=== PATIENT | male | born 1955 | race Caucasian/White ===

== ENCOUNTER 2018-04-18 15:43 | Inpatient (IN) ==
[2018-04-18 18:25] LABS: Baso # (Auto) 0.1 th/mm3 (0.0-0.2); Baso % (Auto) 0.7 % (0.0-2.0); Eos # (Auto) 0.1 th/mm3 (0.0-0.4); Eos % (Auto) 1.5 % (0.0-4.0); Hematocrit 35.9 % (39.0-51.0); Lymph # (Auto) 0.7 th/mm3 (1.0-4.8); Lymph % (Auto) 9.3 % (9.0-44.0); Mean Corpuscular HGB Conc 33.3 % (32.0-36.0); Mean Corpuscular Hemoglobin 32.7 pg (27.0-34.0); Mean Platelet Volume 8.7 fL (7.0-11.0); Mono # (Auto) 0.5 th/mm3 (0.0-0.9); Mono % (Auto) 6.6 % (0.0-8.0); Neut % (Auto) 81.9 % (16.0-70.0); Platelet Count 247 th/mm3 (150-450); Red Blood Count 3.66 mil/mm3 (4.50-5.90); Red Cell Distribution Width 15.6 % (11.6-17.2); White Blood Count 7.4 th/mm3 (4.0-11.0)
--- NOTE | 2018-04-18 18:26 | ED ---
HPI General Chief complaint: Respiratory Symptoms Stated complaint: Swelling Feet Time Seen by Provider: 04/18/18 17:47 Source: patient Mode of arrival: ambulatory Limitations: no limitations History of Present Illness HPI Narrative: 62 YO M presents to the ED for evaluation of "a few weeks" history of bilateral lower extremity edema. Gradual onset. The patient can identify not alleviating or exacerbating factors. He also endorses CRISOSTOMO and occasional non-productive cough. He denies fever, chills, chest pain, palpitations, nausea, vomiting, changes in bowel habits, dysuria, increased urination. He denies chronic health problems, takes no daily medications. He is a current smoker. He does not see a physician on a regular basis. No treatment attempted at home. Related Data Home Medications Medication Instructions Recorded Confirmed No Known Home Medications 04/18/18 04/18/18 Allergies Allergy/AdvReac Type Severity Reaction Status Date / Time No Known Allergies Allergy Verified 04/18/18 16:36 Review of Systems ROS: all other systems reviewed are negative PMFSH Family History Family History Other Family history normal Social History Social History Substance History: Past History Smoking Status: Current some day smoker Tobacco Type: Cigarettes How Often Do You Have a Drink Containing Alcohol: Never Recent Travel in [facility] within the Last 8 Weeks: No Recent Out of Country Travel within the Last 8 Weeks: No Immunization History Tetanus Immunization: Unsure Exam Narrative Exam Narrative: GENERAL: Well-nourished, well-developed, foul-smelling, disheveled, nontoxic-appearing white male in no acute distress. SKIN: Focused skin assessment warm/dry. Diffuse chronic skin changes. HEAD: Atraumatic. Normocephalic. EYES: Pupils equal and round. No scleral icterus. No injection or drainage. ENT: No nasal bleeding or discharge. Mucous membranes pink and moist. NECK: Trachea midline. No JVD. CARDIOVASCULAR: Regular rate and rhythm. No murmur appreciated. RESPIRATORY: No accessory muscle use. Breath sounds coarse, mildly decreased breath sounds in the lower lobes bilaterally. GASTROINTESTINAL: Abdomen soft, non-tender, nondistended. Hepatic and splenic margins not palpable. MUSCULOSKELETAL: 2+ edema to just above the knees bilaterally. NEUROLOGICAL: Awake and alert. No obvious cranial nerve deficits. Motor grossly within normal limits. Normal speech. PSYCHIATRIC: Appropriate mood and affect; insight and judgment normal. Course Initial Documented Vital Signs Temperature 98.9 F 04/18/18 15:53 Pulse Rate 106 H 04/18/18 15:53 Respiratory Rate 16 04/18/18 15:53 Blood Pressure 158/98 H 04/18/18 15:53 Pulse Oximetry 98 04/18/18 15:53 Last Documented Vital Signs Temperature 98.9 F 04/18/18 15:53 Pulse Rate 72 04/18/18 19:40 Respiratory Rate 22 04/18/18 19:40 Blood Pressure 156/109 H 04/18/18 19:40 Pulse Oximetry 99 04/18/18 19:40 Medical Decision Making MEHNAZ Attestation MEHNAZ supervised visit: Yes Attestation: I was present with the advanced practitioner during the management of this patient. I discussed the case with the advanced practitioner and agree with the findings and plan as documented in their note except as noted below. 62yM presenting with bilateral lower extremity edema. The patient was found to have elevated trop/ BNP, severe acute kidney injury, and small right pleural effusion. He will need admission for cardiac monitoring, further workup, diuresis, and consultation. MDM Narrative Medical decision making narrative: 62-year-old male presents the ED for evaluation of few weeks history of edema of the bilateral lower extremities and dyspnea on exertion. Patient also endorses rare nonproductive cough. He does not see a physician on a regular basis. He states he is currently homeless. Patient's afebrile and tachycardic on presentation. Physical exam reveals coarse lung sounds bilaterally along with lower extremity edema to the knees. Workup reveals BNP greater than 5000, creatinine greater than 5, elevated troponin. EKG without acute changes. I reviewed the patient's record, last labs were drawn in 2013, no evidence of kidney injury at that time. I discussed the results of the workup with the patient as well as the recommendation for admission. He is agreeable to the plan. He declined his VQ scan. He is administered 40 mg of Lasix IV. I spoke with Dr. Devlin who agrees to accept the patient to the medicine service. Please see medicine notes for disposition. Medical Screen Exam Complete: Yes Emergency Medical Condition: Yes Differential Diagnosis Differential Diagnosis: CHF versus PNA versus metabolic derangement versus other Lab Data Result diagrams: 04/18/18 18:00 04/18/18 18:00 Lab Results 04/18/18 04/18/18 04/18/18 Range/Units 18:00 18:00 18:00 WBC 7.4 (4.0-11.0) th/mm3 RBC 3.66 L (4.50-5.90) mil/mm3 Hgb 12.0 L (13.0-17.0) gm/dL Hct 35.9 L (39.0-51.0) % MCV 98.0 (80.0-100.0) fL MCH 32.7 (27.0-34.0) pg MCHC 33.3 (32.0-36.0) % RDW 15.6 (11.6-17.2) % Plt Count 247 (150-450) th/mm3 MPV 8.7 (7.0-11.0) fL Neut % (Auto) 81.9 H (16.0-70.0) % Lymph % (Auto) 9.3 (9.0-44.0) % [place] % (Auto) 6.6 (0.0-8.0) % Eos % (Auto) 1.5 (0.0-4.0) % Baso % (Auto) 0.7 (0.0-2.0) % Neut # (Auto) 6.0 (1.8-7.7) th/mm3 Lymph # (Auto) 0.7 L (1.0-4.8) th/mm3 [place] # (Auto) 0.5 (0.0-0.9) th/mm3 Eos # (Auto) 0.1 (0.0-0.4) th/mm3 Baso # (Auto) 0.1 (0.0-0.2) th/mm3 WBC Differential . Differential Comment Auto diff final PT 10.7 (9.8-11.6) sec INR 1.1 Ratio D-Dimer Quant (PE/DVT) 1.85 H (0.00-0.50) mg/L FEU Sodium 137 (136-145) meq/L Potassium 4.6 (3.5-5.1) meq/L Chloride 109 H (98-107) meq/L Carbon Dioxide 15.6 L (21.0-32.0) meq/L Anion Gap 12 (5-15) meq/L BUN 80 H (7-18) mg/dL Creatinine 5.18 H (0.60-1.30) mg/dL Estimated GFR 11 L (>89) mL/min Random Glucose 89 (74-106) mg/dL Calcium 7.9 L (8.5-10.1) mg/dL Total Bilirubin 0.4 (0.2-1.0) mg/dL AST 29 (15-37) U/L ALT 27 (12-78) U/L Alkaline Phosphatase 119 H (45-117) U/L Troponin I 0.12 H (0.02-0.05) ng/mL B-Natriuretic Peptide (0-100) pg/mL Total Protein 7.4 (6.4-8.2) g/dL Albumin 2.7 L (3.4-5.0) g/dL Urine Color (Yellw/Straw) Urine Clarity (Clear) Urine pH (5.0-8.5) Ur Specific [place] (1.002-1.035) Urine Protein (Neg-Trace) mg/dL Urine Glucose (UA) (Negative) mg/dL Urine Ketones (Negative) mg/dL Urine Occult Blood (Negative) Urine Nitrate (Negative) Urine Bilirubin (Negative) Urine Urobilinogen (Less than 2) mg/dL Ur Leukocyte Esterase (Negative) Urine RBC (0-3) /hpf Urine WBC (0-5) /hpf Ur Squamous Epith Cells (0-5) /hpf Amorphous Sediment (None) /hpf Granular Casts (None) /lpf Urine Mucus (Occasional) /lpf Micro UA Comment Ur Microscopic Review Urine Culture Comments 04/18/18 04/18/18 Range/Units 18:00 19:00 WBC (4.0-11.0) th/mm3 RBC (4.50-5.90) mil/mm3 Hgb (13.0-17.0) gm/dL Hct (39.0-51.0) % MCV (80.0-100.0) fL MCH (27.0-34.0) pg MCHC (32.0-36.0) % RDW (11.6-17.2) % Plt Count (150-450) th/mm3 MPV (7.0-11.0) fL Neut % (Auto) (16.0-70.0) % Lymph % (Auto) (9.0-44.0) % [place] % (Auto) (0.0-8.0) % Eos % (Auto) (0.0-4.0) % Baso % (Auto) (0.0-2.0) % Neut # (Auto) (1.8-7.7) th/mm3 Lymph # (Auto) (1.0-4.8) th/mm3 [place] # (Auto) (0.0-0.9) th/mm3 Eos # (Auto) (0.0-0.4) th/mm3 Baso # (Auto) (0.0-0.2) th/mm3 WBC Differential Differential Comment PT (9.8-11.6) sec INR Ratio D-Dimer Quant (PE/DVT) (0.00-0.50) mg/L FEU Sodium (136-145) meq/L Potassium (3.5-5.1) meq/L Chloride (98-107) meq/L Carbon Dioxide (21.0-32.0) meq/L Anion Gap (5-15) meq/L BUN (7-18) mg/dL Creatinine (0.60-1.30) mg/dL Estimated GFR (>89) mL/min Random Glucose (74-106) mg/dL Calcium (8.5-10.1) mg/dL Total Bilirubin (0.2-1.0) mg/dL AST (15-37) U/L ALT (12-78) U/L Alkaline Phosphatase (45-117) U/L Troponin I (0.02-0.05) ng/mL B-Natriuretic Peptide Greater than 5000 H (0-100) pg/mL Total Protein (6.4-8.2) g/dL Albumin (3.4-5.0) g/dL Urine Color Yellow (Yellw/Straw) Urine Clarity Clear (Clear) Urine pH 5.0 (5.0-8.5) Ur Specific [place] 1.014 (1.002-1.035) Urine Protein 100 H (Neg-Trace) mg/dL Urine Glucose (UA) Negative (Negative) mg/dL Urine Ketones Negative (Negative) mg/dL Urine Occult Blood Moderate H (Negative) Urine Nitrate Negative (Negative) Urine Bilirubin Negative (Negative) Urine Urobilinogen Less than 2 (Less than 2) mg/dL Ur Leukocyte Esterase Negative (Negative) Urine RBC 4 H (0-3) /hpf Urine WBC 2 (0-5) /hpf Ur Squamous Epith Cells <1 (0-5) /hpf Amorphous Sediment Rare H (None) /hpf Granular Casts 4 (None) /lpf Urine Mucus Few H (Occasional) /lpf Micro UA Comment Culture not ind Ur Microscopic Review Not Reportable Urine Culture Comments Culture not ind Imaging Data Radiologist's impression: Chest X-Ray 04/18/18 18:01 CONCLUSION: Cardiomegaly. Increased density at the bases being worse on the right likely related to consolidation or atelectasis. Mild right pleural effusion. ECG Data Attestation: I personally reviewed and interpreted this ECG as follows: Interpretation: Rate: 98 BPM Rhythm: Sinus [place]: Normal Intervals: IVCD, QTc 433 ms Q waves: III, aVF T waves: Upright, no inversions ST segments: No elevations or depressions Impression: Non-specific EKG, no changes as compared to EKG from 05/22/2014. Discharge Plan Discharge Disposition Patient Disposition: 30 Still Patient Physicians Team ED Provider: Linda Gan ED Midlevel Provider: Solange Coates Primary Care Provider: Primary Care Jasmin Beckham Attending Provider: Caryn Devlin Other Providers: Uche Castellanos Status ED Status: Admitted Patient
[2018-04-18 18:32] LABS: INR 1.1 Ratio; Prothrombin Time 10.7 sec (9.8-11.6)
[2018-04-18 18:35] LABS: D-Dimer 1.85 mg/L FEU (0.00-0.50)
[2018-04-18 18:36] LABS: Albumin 2.7 g/dL (3.4-5.0); Anion Gap 12 meq/L (5-15); Aspartate Aminotransferase 29 U/L (15-37); Blood Urea Nitrogen 80 mg/dL (7-18); Calcium 7.9 mg/dL (8.5-10.1); Carbon Dioxide 15.6 meq/L (21.0-32.0); Chloride 109 meq/L (98-107); Glomerular Filtration Rate 11 mL/min (>89); Glucose,Random 89 mg/dL (74-106); Potassium 4.6 meq/L (3.5-5.1); Sodium 137 meq/L (136-145)
[2018-04-18 18:37] LABS: Alanine Aminotransferase 27 U/L (12-78)
[2018-04-18] MEDS ORDERED: Sod Chloride 0.9% Inj 1,000 ML IV.SIG ONE (18:38)
[2018-04-18 18:40] LABS: Alkaline Phosphatase 119 U/L (45-117); Total Protein 7.4 g/dL (6.4-8.2); Troponin I 0.12 ng/mL (0.02-0.05)
--- NOTE | 2018-04-18 19:28 | XR ---
EXAM DATE: 04/18/2018 6:01 PM EDT AGE/SEX: 62 years / Male INDICATIONS: Short of breath, chest pains. CLINICAL DATA: This is the patient's initial encounter. Patient reports that signs and symptoms have been present for 1 day and indicates a pain score of 5/10. MEDICAL/SURGICAL HISTORY: Non-responsive. Non-responsive. COMPARISON: No prior exams available for comparison. FINDINGS: The heart size is enlarged. This increased density at the right base. There is blunting of the right costophrenic angle. There is minimal increased density at the left base. There is metallic density pr ojecting over the lower right neck region. CONCLUSION: Cardiomegaly. Increased density at the bases being worse on the right likely related to consolidation or atelectasi s. Mild right pleural effusion. Electronically signed by: Rasheed Acuña MD 04/18/2018 7:27 PM EDT
[2018-04-18] MEDS ORDERED: Azithromycin Inj 500 MG in Sodium Chlor 0.9% Inj 250 ML IV.SIG ONE (19:29)
[2018-04-18 20:10] LABS: Amorphous Sediment,Urine Rare /hpf; Bilirubin,Urine Negative (Negative); Color,Urine Yellow (Yellw/Straw); Glucose,Urine (UA) Negative (Negative); Leukocyte Esterase,Urine Negative (Negative); Mucus,Urine Few /lpf (Occasional); Nitrite,Urine Negative (Negative); Specific Gravity,Urine 1.014 (1.002-1.035); Squamous Epithelial Cell,Urine <1 /hpf (0-5)
[2018-04-18 20:11] LABS: Clarity,Urine Clear (Clear)
[2018-04-18] MEDS ORDERED: Bisacodyl 10 MG Supp RECTAL PRN (22:20)
[2018-04-18] MEDS ORDERED: Acetaminophen 325 MG Tablet PO PRN (22:20)
--- NOTE | 2018-04-18 22:32 | P.HP ---
History of Present Illness Service: [facility] Primary Care Physician: No Primary Care Physician History of Present Illness: 62-year-old homeless male with no past medical history presents to the emergency department for evaluation of lower extremity edema times 10 days. The patient also endorses intermittent shortness of breath that is worse with exertion. He states he has had a cough but denies fever/chills. He reports he drinks approximately 1 gallon of fluids per day secondary to heat exposure as he is homeless. He denies any issues with urination. He has severe, bilateral pitting edema to the mid thigh. He denies any chest pain. No abdominal pain. No nausea/vomiting/diarrhea. No lateralizing signs/symptoms. Inpatient Certification: I certify that the inpatient services were ordered in accordance with Medicare regulations governing the order. This includes certification that hospital inpatient services are reasonable and necessary and in the case of services not specified as inpatient-only under 42 CFR 419.22(n), that they are appropriately provided as inpatient services in accordance to with the 2-midnight benchmark under 43 CFR 412.3(e) Estimated Total Length of Stay (Days): 2 Plans for Post Hospital Care: Not yet determined Review of Systems All other systems reviewed negative except as stated in HPI PMFSH - History History Provided By: Patient - Medical History Medical History: Medical History (Last Reviewed 04/18/18 @ 22:25 by Caryn Devlin MD) Patient denies medical problems - Surgical History Surgical History: Surgical History (Last Reviewed 04/18/18 @ 22:25 by Caryn Devlin MD) No history of previous surgery - Family History Family History: Family History (Last Updated 04/18/18 @ 22:25 by Caryn Devlin MD) Other Family history normal - Tobacco History Tobacco Use In Past 30 Days: Yes Smoking Status: Current some day smoker Tobacco Type: Cigarettes - Alcohol History How Often Do You Have a Drink Containing Alcohol: Never - Substance Use History Substance History: Past History - Travel History Recent Travel in the [place] Within the Last 8 Weeks: No Recent Travel Out of the Country Within the Last 8 Weeks: No - Immunization History Tetanus Immunization: Unsure Medications and Allergies Allergies Allergy/AdvReac Type Severity Reaction Status Date / Time No Known Allergies Allergy Verified 04/18/18 16:36 Home Medications Medication Instructions Recorded Confirmed Type No Known Home Medications 04/18/18 04/18/18 History Exam Vital signs: Vital Signs 04/18/18 15:53 04/18/18 17:57 04/18/18 19:40 Temperature 98.9 F Pulse Rate 106 H 100 H 72 Respiratory Rate 16 22 Blood Pressure 158/98 H 154/99 H 156/109 H Pulse Oximetry 98 99 Intake & Output 04/18/18 04/18/18 04/19/18 06:59 18:59 06:59 Intake Total 350 / 350 Balance 350 / 350 Weight 68.039 kg Intake: IV 350 / 350 Azithromycin Inj 500 MG In NS 250 / 250 Inj 250 ML @ 250 mls/hr IV.SIG ONCE ONE Rx#:[id number] Rocephin Inj 1,000 MG In NS Inj 100 / 100 100 ML @ 200 mls/hr IV.SIG ONCE ONE Rx#:[id number] Narrative: Gen.: No acute distress Head: Normocephalic. Atraumatic. EENT: Pupils equal round and reactive to light. Nose without drainage. Airway intact. Throat without injection. Cardiovascular: Regular rate and rhythm. No murmurs, rubs or gallops. Respiratory: Lungs clear to auscultation bilaterally. No wheezes or rhonchi. Abdomen: Soft, nontender, nondistended. No peritoneal signs. Musculoskeletal: No gross deformities. 2+ pitting edema to the mid thigh. Skin: No obvious rashes or erythema. Neuro: Sensory and motor grossly intact. Cranial nerves II through XII grossly intact. Results - Labs CBC & Chem 7: 04/18/18 18:00 04/18/18 18:00 Labs: Laboratory Results - last 24 hr 04/18/18 04/18/18 04/18/18 18:00 18:00 18:00 WBC 7.4 RBC 3.66 L Hgb 12.0 L Hct 35.9 L MCV 98.0 MCH 32.7 MCHC 33.3 RDW 15.6 Plt Count 247 MPV 8.7 Neut % (Auto) 81.9 H Lymph % (Auto) 9.3 [place] % (Auto) 6.6 Eos % (Auto) 1.5 Baso % (Auto) 0.7 Neut # (Auto) 6.0 Lymph # (Auto) 0.7 L [place] # (Auto) 0.5 Eos # (Auto) 0.1 Baso # (Auto) 0.1 WBC Differential . Differential Comment Auto diff final PT 10.7 INR 1.1 D-Dimer Quant (PE/DVT) 1.85 H Sodium 137 Potassium 4.6 Chloride 109 H Carbon Dioxide 15.6 L Anion Gap 12 BUN 80 H Creatinine 5.18 H Estimated GFR 11 L Random Glucose 89 Calcium 7.9 L Total Bilirubin 0.4 AST 29 ALT 27 Alkaline Phosphatase 119 H Troponin I 0.12 H B-Natriuretic Peptide Total Protein 7.4 Albumin 2.7 L Urine Color Urine Clarity Urine pH Ur Specific [place] Urine Protein Urine Glucose (UA) Urine Ketones Urine Occult Blood Urine Nitrate Urine Bilirubin Urine Urobilinogen Ur Leukocyte Esterase Urine RBC Urine WBC Ur Squamous Epith Cells Amorphous Sediment Granular Casts Urine Mucus Micro UA Comment Ur Microscopic Review Urine Culture Comments 04/18/18 04/18/18 18:00 19:00 WBC RBC Hgb Hct MCV MCH MCHC RDW Plt Count MPV Neut % (Auto) Lymph % (Auto) [place] % (Auto) Eos % (Auto) Baso % (Auto) Neut # (Auto) Lymph # (Auto) [place] # (Auto) Eos # (Auto) Baso # (Auto) WBC Differential Differential Comment PT INR D-Dimer Quant (PE/DVT) Sodium Potassium Chloride Carbon Dioxide Anion Gap BUN Creatinine Estimated GFR Random Glucose Calcium Total Bilirubin AST ALT Alkaline Phosphatase Troponin I B-Natriuretic Peptide Greater than 5000 H Total Protein Albumin Urine Color Yellow Urine Clarity Clear Urine pH 5.0 Ur Specific [place] 1.014 Urine Protein 100 H Urine Glucose (UA) Negative Urine Ketones Negative Urine Occult Blood Moderate H Urine Nitrate Negative Urine Bilirubin Negative Urine Urobilinogen Less than 2 Ur Leukocyte Esterase Negative Urine RBC 4 H Urine WBC 2 Ur Squamous Epith Cells <1 Amorphous Sediment Rare H Granular Casts 4 Urine Mucus Few H Micro UA Comment Culture not ind Ur Microscopic Review Not Reportable Urine Culture Comments Culture not ind - Imaging Impressions Chest X-Ray 04/18/18 18:01 CONCLUSION: Cardiomegaly. Increased density at the bases being worse on the right likely related to consolidation or atelectasis. Mild right pleural effusion. Caprini VTE Risk Assessment Caprini VTE Risk Assessment: Moderate/High Risk (score >= 2) Caprini Risk Assessment Model: Point Value = 1 Point Value = 2 Point Value = 3 Point Value = 5 Age 41-60 Minor surgery BMI > 25 kg/m2 Swollen legs Varicose veins or History of unexplained or recurrent spontaneous Oral contraceptives or hormone replacement Sepsis (< 1 month) Serious lung disease, including pneumonia (< 1 month) Abnormal pulmonary function Acute myocardial infarction Congestive heart failure (< 1 month) History of inflammatory bowel disease Medical patient at bed rest Age 61-74 Arthroscopic surgery Major open surgery (> 45 min) Laparoscopic surgery (> 45 min) Malignancy Confined to bed (> 72 hours) Immobilizing plaster cast Central venous access Age >= 75 History of VTE Family history of VTE Factor V Leiden Prothrombin 53299H Lupus anticoagulant Anticardiolipin antibodies Elevated serum homocysteine Heparin-induced thrombocytopenia Other congenital or acquired thrombophilia Stroke (< 1 month) Elective arthroplasty Hip, pelvis, or leg fracture Acute spinal cord injury (< 1 month) Prophylaxis Regimen: Total Risk Factor Score Risk Level Prophylaxis Regimen 0-1 Low Early ambulation 2 Moderate Order ONE of the following: *Sequential Compression Device (SCD) *Heparin 5000 units SQ BID 3-4 Higher Order ONE of the following medications: *Heparin 5000 units SQ TID *Enoxaparin/Lovenox 40 mg SQ daily (WT < 150 kg, CrCl > 30 mL/min) *Enoxaparin/Lovenox 30 mg SQ daily (WT < 150 kg, CrCl > 10-29 mL/min) *Enoxaparin/Lovenox 30 mg SQ BID (WT < 150 kg, CrCl > 30 mL/min) AND/OR *Sequential Compression Device (SCD) 5 or more Highest Order ONE of the following medications: *Heparin 5000 units SQ TID (Preferred with Epidurals) *Enoxaparin/Lovenox 40 mg SQ daily (WT < 150 kg, CrCl > 30 mL/min) *Enoxaparin/Lovenox 30 mg SQ daily (WT < 150 kg, CrCl > 10-29 mL/min) *Enoxaparin/Lovenox 30 mg SQ BID (WT < 150 kg, CrCl > 30 mL/min) AND *Sequential Compression Device (SCD) Assessment and Plan - Plan Assessment/plan: 1. Pneumonia Chest x-ray significant for increased density at the bases, right greater than left concerning for consolidation with a mild right pleural effusion, personally reviewed Rocephin and azithromycin 2. New onset CHF BNP greater than 5000 Echo pending Cardiology consulted, appreciate recommendations Bumex 3. Acute renal failure BUN/creatinine 80/5.18, no baseline for comparison Renal ultrasound pending Potassium 4.6 Nephrology consulted, appreciate recommendations 4. Elevated troponin Troponin 0.12 Likely secondary to renal function ACS rule out pending; serial troponins/EKGs EKG without signs of ischemia, personally reviewed AVI N.p.o. Electrolytes: Monitor and replete as needed Heparin
[2018-04-18] MEDS: Heparin - SQ 10,000 UNITS/ML Vial SQ SCH (23:44)
[2018-04-19 00:22] LABS: Troponin I 0.11 ng/mL (0.02-0.05)
--- NOTE | 2018-04-19 09:01 | US ---
EXAM DATE: 04/19/2018 12:00 AM EDT AGE/SEX: 62 years / Male INDICATIONS: Increased BUN/Creat nine. CLINICAL DATA: This is the patient's initial encounter. Patient reports that signs and symptoms have been present for 1 day and indicates a pain score of 0/10. MEDICAL/SURGICAL HISTORY: . Increased BUN/Creat nine. None. COMPARISON: No prior exams available for comparison. MEASUREMENTS: Right Kidney:__10.6 x 4.0 x 4.9 cm Left Kidney:__10.6 x 4.9 x 4.9 cm FINDINGS: Right Kidney: Echogenic kidney without stone or obstruction. Left Kidney: Echogenic kidney with probable prominent parapelvic cyst. Stone lower pole. Bladder: Within normal limits given the degree of distension. Other: Moderate right pleural effusion Mild ascites. CONCLUSION: 1. Echogenic kidneys with ascites and moderate right pleural effusion 2. Lower pole nonobstructing stone on the left 3. Probable left parapelvic cyst. Electronically signed by: Juarez Givens MD 04/19/2018 9:00 AM EDT
[2018-04-19 09:13] LABS: Baso % (Auto) 0.7 % (0.0-2.0); Eos % (Auto) 0.6 % (0.0-4.0); Hematocrit 33.3 % (39.0-51.0); Hemoglobin 10.6 gm/dL (13.0-17.0); Lymph # (Auto) 0.8 th/mm3 (1.0-4.8); Lymph % (Auto) 13.2 % (9.0-44.0); Mean Corpuscular HGB Conc 31.9 % (32.0-36.0); Mean Corpuscular Hemoglobin 31.5 pg (27.0-34.0); Mean Corpuscular Volume 98.7 fL (80.0-100.0); Mono # (Auto) 0.4 th/mm3 (0.0-0.9); Mono % (Auto) 6.7 % (0.0-8.0); Neut # (Auto) 4.5 th/mm3 (1.8-7.7); Neut % (Auto) 78.8 % (16.0-70.0); Platelet Count 218 th/mm3 (150-450); Red Blood Count 3.37 mil/mm3 (4.50-5.90); Red Cell Distribution Width 15.6 % (11.6-17.2); White Blood Count 5.7 th/mm3 (4.0-11.0)
[2018-04-19] MEDS: Senna/Docusate Sodium 8.6/50 MG Tablet PO SCH ×2 (09:26→21:11)
[2018-04-19 09:44] LABS: Calcium 7.7 mg/dL (8.5-10.1); Carbon Dioxide 16.3 meq/L (21.0-32.0); Potassium 4.8 meq/L (3.5-5.1)
[2018-04-19 09:48] LABS: Troponin I 0.11 ng/mL (0.02-0.05)
--- NOTE | 2018-04-19 11:50 | P.CONNP ---
History of Present Illness Service: Nephrology Reason for Consult: MIGUEL ANGEL Primary Care Provider: No Primary Care Physician History of Present Illness: This patient was apparently living in a car for the past 1 month. Since it was very hot, he was drinking a lot of water. In 2013,his creatinine was less than 1. He presented to the hospital with 2 week history of lower extremity edema and progressive shortness of breath. He has used crack cocaine in the past, but reports that he does not do that anymore. Has not used IV drugs according to him. May have shared razors with others. Was living with a "girlfriend" until recently, but had to move out. Quit smoking about 2 months ago. He is noted to have creatinine of about 5.2. It has not changed much since admission. UA was abnormal: had proteinuria, and blood. Denies gross hematuria. Was not taking any prescribed medications. Review of Systems Constitutional: Reports body ache(s) Eyes: Denies blind spots, Denies blurry vision Ears, Nose, Mouth, and Throat: Denies abnormal hearing, Denies bleeding gums Cardiovascular: Reports shortness of breath with activity Gastrointestinal: Denies nausea, Denies vomiting Genitourinary: Denies blood in urine, Denies urinary frequency, Denies urinary hesitancy Comments: edema PMFSH - History History Provided By: Patient - Medical History Medical History: Medical History (Last Reviewed 04/19/18 @ 08:53 by Ej Joy) Patient denies medical problems - Surgical History Surgical History: Surgical History (Last Reviewed 04/19/18 @ 08:53 by Ej Joy) No history of previous surgery - Family History Family History: Family History (Last Updated 04/18/18 @ 22:25 by Caryn Devlin MD) Other Family history normal - Tobacco History Second Hand Smoke Exposure: Yes Tobacco Use In Past 30 Days: Yes Smoking Status: Former smoker Tobacco Type: Cigarettes - Alcohol History How Often Do You Have a Drink Containing Alcohol: Monthly or less - Substance Use History Substance History: Past History - Travel History Recent Travel in the [place] Within the Last 8 Weeks: No Recent Travel Out of the Country Within the Last 8 Weeks: No - Immunization History Tetanus Immunization: Unsure Hx Influenza Vaccine This Season: No Medications and Allergies Active Medications: Active Medications Acetaminophen (Tylenol) 650 mg PO Q4H PRN PRN Reason: Temp > 100.4 Al Hydroxide/Mg Hydroxide (Milk Of Magnesia Liq) 30 ml PO Q12H PRN PRN Reason: Mild Constipation Bisacodyl (Dulcolax Supp) 10 mg RECTAL DAILY PRN PRN Reason: SEVERE CONSITIPATION Bumetanide (Bumex Inj) 1 mg IV.PUSH BID@0900,1800 [facility] Last Admin: 04/19/18 09:25 Dose: 1 mg Heparin Sodium (Porcine) (Heparin Inj) 5,000 units SQ Q12H [facility] Last Admin: 04/18/18 23:44 Dose: 5,000 units Azithromycin 500 mg/ Sodium (Chloride) 250 mls @ 250 mls/hr IV.SIG Q24H MALIK Ceftriaxone Sodium 1,000 mg/ (Sodium Chloride) 100 mls @ 200 mls/hr IV.SIG Q24H MALIK Lactulose (Lactulose Liq) 30 ml PO DAILY PRN PRN Reason: SEVERE CONSITIPATION Ondansetron HCl (Zofran Inj) 4 mg IV.PUSH Q6H PRN PRN Reason: NAUSEA OR VOMITING Senna/Docusate Sodium (Carole-Colace) 1 tab PO BID [facility] Last Admin: 04/19/18 09:26 Dose: Not Given Sennosides (Senokot) 17.2 mg PO Q12H PRN PRN Reason: Moderate Constipation Allergies Allergy/AdvReac Type Severity Reaction Status Date / Time No Known Allergies Allergy Verified 04/18/18 16:36 Home Medications Medication Instructions Recorded Confirmed Type No Known Home Medications 04/18/18 04/18/18 History Exam Vital signs: Vital Signs 04/18/18 15:53 04/18/18 17:57 04/18/18 19:40 Temperature 98.9 F Pulse Rate 106 H 100 H 72 Respiratory Rate 16 22 Blood Pressure 158/98 H 154/99 H 156/109 H Pulse Oximetry 98 99 04/19/18 00:00 04/19/18 00:48 04/19/18 01:29 Temperature 97.4 F L Pulse Rate 94 H 88 88 Respiratory Rate 20 Blood Pressure 131/74 Pulse Oximetry 98 04/19/18 04:00 04/19/18 08:00 Temperature 98.0 F 97.3 F L Pulse Rate 84 93 H Respiratory Rate 20 17 Blood Pressure 134/89 138/90 Pulse Oximetry 96 95 Intake & Output 04/18/18 04/19/18 04/19/18 18:59 06:59 18:59 Intake Total 350 / 350 Output Total Balance 349 / 349 Weight 68.039 kg 64.2 kg Intake: IV 350 / 350 Azithromycin Inj 500 MG In NS 250 / 250 Inj 250 ML @ 250 mls/hr IV.SIG ONCE ONE Rx#:[id number] Rocephin Inj 1,000 MG In NS Inj 100 / 100 100 ML @ 200 mls/hr IV.SIG ONCE ONE Rx#:[id number] Output: Urine Other: Weight On Admission 64.2 kg - Constitutional no acute distress, average body habitus, disheveled, cooperative - Routine HEENT Exam Head: Present: normocephalic, atraumatic Eye: Present: EOMI, PERRL. Absent: periorbital ecchymosis, exophthalmos ENT: Present: mucous membranes moist - Routine Neck Exam Present: supple, full ROM. Absent: JVD, carotid bruit, lymphadenopathy, thyromegaly - Routine Respiratory Exam Present: CTA bilaterally, diminished air movement. Absent: accessory muscle use - Routine Cardiovascular Exam Present: RRR, S1, S2 - Routine Abdominal Exam Present: soft, normoactive bowel sounds. Absent: tenderness, distended, ostomy - Routine Extremities Exam Present: edema, full ROM. Absent: cyanosis, clubbing - Routine Skin Exam Present: intact - Routine Neurological Exam Present: alert, oriented X3, CN II-XII intact, normal speech Results - Lab Results 04/19/18 08:29 04/19/18 08:29 Most recent lab results Calcium 7.7 mg/dL (8.5-10.1) L 04/19/18 08:29 Assessment and Plan - Assessment (1) Acute kidney injury Code(s): N17.9 - Acute kidney failure, unspecified Status: Acute Plan: Duration of kidney disease/failure is unclear. It is possible that he has CKD, now reaching stage V CKD. He does have anemia, hypocalcemia. I will order serologies. Quantify proteinuria. Continue diuretics. Monitor renal function. He may need to start dialysis. Obtain hepatitis profile and HIV testing. (2) Fluid overload Code(s): E87.70 - Fluid overload, unspecified Status: Acute Plan: Could be due to CHF, or renal disease. Agree with echo. Continue diuretics. - Attending Attestation Thanks for the consult.
--- NOTE | 2018-04-19 12:26 | P.PNIM ---
Subjective Interval history: Follow-up shortness of breath, lower extremity edema, CHF, and AK I. Patient seen and examined laying in bed, discussed concerns of shortness of breath recently for the past few days getting worse and worse, however today is better. Also complained of the swelling on his both legs, that started 10 days ago. Patient stated he was sleeping on his recliner recently. Patient admitted smoking 1 pack a day for 20 years, however he stated, stopped 2 months ago. He also admits that the use of crack cocaine previously about 6 months ago however he said he only use it for 2 weeks and stop using it. He denies any alcohol abuse. Patient denies any previous medical history, denies any family history. Physical Exam Vital signs: Vital Signs 04/18/18 15:53 04/18/18 17:57 04/18/18 19:40 Temperature 98.9 F Pulse Rate 106 H 100 H 72 Respiratory Rate 16 22 Blood Pressure 158/98 H 154/99 H 156/109 H Pulse Oximetry 98 99 04/19/18 00:00 04/19/18 00:48 04/19/18 01:29 Temperature 97.4 F L Pulse Rate 94 H 88 88 Respiratory Rate 20 Blood Pressure 131/74 Pulse Oximetry 98 04/19/18 04:00 04/19/18 08:00 Temperature 98.0 F 97.3 F L Pulse Rate 84 93 H Respiratory Rate 20 17 Blood Pressure 134/89 138/90 Pulse Oximetry 96 95 Intake & Output 04/18/18 04/19/18 04/19/18 18:59 06:59 18:59 Intake Total 350 / 350 Output Total Balance 349 / 349 Weight 68.039 kg 64.2 kg Intake: IV 350 / 350 Azithromycin Inj 500 MG In NS 250 / 250 Inj 250 ML @ 250 mls/hr IV.SIG ONCE ONE Rx#:[id number] Rocephin Inj 1,000 MG In NS Inj 100 / 100 100 ML @ 200 mls/hr IV.SIG ONCE ONE Rx#:[id number] Output: Urine Other: Weight On Admission 64.2 kg Narrative: GENERAL: Well-developed, well-nourished, male in no apparent distress SKIN: Warm and dry. HEAD: Atraumatic. Normocephalic. EYES: Pupils equal and round. No scleral icterus. No injection or drainage. ENT: No nasal bleeding or discharge. Mucous membranes pink and moist. NECK: Trachea midline. No JVD. CARDIOVASCULAR: Regular rate and rhythm. Bilateral lower extremity pitting edema right greater than left 2+ RESPIRATORY: No accessory muscle use. Clear to auscultation. Breath sounds equal bilaterally. GASTROINTESTINAL: Abdomen soft, non-tender, nondistended. Hepatic and splenic margins not palpable. MUSCULOSKELETAL: Extremities without clubbing, cyanosis, bilateral lower extremity 2+ pitting edema right greater than left. No obvious deformities. NEUROLOGICAL: Awake and alert. No obvious cranial nerve deficits. Motor grossly within normal limits. Generalized weakness, moving all 4 extremities. Normal speech. PSYCHIATRIC: Appropriate mood and affect; insight and judgment normal. Results - Labs CBC & Chem 7: 04/19/18 08:29 04/19/18 08:29 Laboratory Results - last 24 hr 04/18/18 04/18/18 04/18/18 18:00 18:00 18:00 WBC 7.4 RBC 3.66 L Hgb 12.0 L Hct 35.9 L MCV 98.0 MCH 32.7 MCHC 33.3 RDW 15.6 Plt Count 247 MPV 8.7 Neut % (Auto) 81.9 H Lymph % (Auto) 9.3 Cabell % (Auto) 6.6 Eos % (Auto) 1.5 Baso % (Auto) 0.7 Neut # (Auto) 6.0 Lymph # (Auto) 0.7 L Cabell # (Auto) 0.5 Eos # (Auto) 0.1 Baso # (Auto) 0.1 WBC Differential . Differential Comment Auto diff final PT 10.7 INR 1.1 D-Dimer Quant (PE/DVT) 1.85 H Sodium 137 Potassium 4.6 Chloride 109 H Carbon Dioxide 15.6 L Anion Gap 12 BUN 80 H Creatinine 5.18 H Estimated GFR 11 L Random Glucose 89 Calcium 7.9 L Total Bilirubin 0.4 AST 29 ALT 27 Alkaline Phosphatase 119 H Total Creatine Kinase Troponin I 0.12 H B-Natriuretic Peptide Total Protein 7.4 Albumin 2.7 L Urine Color Urine Clarity Urine pH Ur Specific Heth Urine Protein Urine Glucose (UA) Urine Ketones Urine Occult Blood Urine Nitrate Urine Bilirubin Urine Urobilinogen Ur Leukocyte Esterase Urine RBC Urine WBC Ur Squamous Epith Cells Amorphous Sediment Granular Casts Urine Mucus Micro UA Comment Ur Microscopic Review Urine Culture Comments 1004/18/18 04/18/18 18:00 19:00 23:40 WBC RBC Hgb Hct MCV MCH MCHC RDW Plt Count MPV Neut % (Auto) Lymph % (Auto) Cabell % (Auto) Eos % (Auto) Baso % (Auto) Neut # (Auto) Lymph # (Auto) Cabell # (Auto) Eos # (Auto) Baso # (Auto) WBC Differential Differential Comment PT INR D-Dimer Quant (PE/DVT) Sodium Potassium Chloride Carbon Dioxide Anion Gap BUN Creatinine Estimated GFR Random Glucose Calcium Total Bilirubin AST ALT Alkaline Phosphatase Total Creatine Kinase 90 Troponin I 0.11 H B-Natriuretic Peptide Greater than 5000 H Total Protein Albumin Urine Color Yellow Urine Clarity Clear Urine pH 5.0 Ur Specific Heth 1.014 Urine Protein 100 H Urine Glucose (UA) Negative Urine Ketones Negative Urine Occult Blood Moderate H Urine Nitrate Negative Urine Bilirubin Negative Urine Urobilinogen Less than 2 Ur Leukocyte Esterase Negative Urine RBC 4 H Urine WBC 2 Ur Squamous Epith Cells <1 Amorphous Sediment Rare H Granular Casts 4 Urine Mucus Few H Micro UA Comment Culture not ind Ur Microscopic Review Not Reportable Urine Culture Comments Culture not ind 04/19/18 04/19/18 08:29 08:29 WBC 5.7 RBC 3.37 L Hgb 10.6 L Hct 33.3 L MCV 98.7 MCH 31.5 MCHC 31.9 L RDW 15.6 Plt Count 218 MPV 9.0 Neut % (Auto) 78.8 H Lymph % (Auto) 13.2 Cabell % (Auto) 6.7 Eos % (Auto) 0.6 Baso % (Auto) 0.7 Neut # (Auto) 4.5 Lymph # (Auto) 0.8 L Cabell # (Auto) 0.4 Eos # (Auto) 0.0 Baso # (Auto) 0.0 WBC Differential . Differential Comment Auto diff final PT INR D-Dimer Quant (PE/DVT) Sodium 142 Potassium 4.8 Chloride 114 H Carbon Dioxide 16.3 L Anion Gap 12 BUN 81 H Creatinine 5.12 H Estimated GFR 11 L Random Glucose 75 Calcium 7.7 L Total Bilirubin AST ALT Alkaline Phosphatase Total Creatine Kinase 106 Troponin I 0.11 H B-Natriuretic Peptide Total Protein Albumin Urine Color Urine Clarity Urine pH Ur Specific Heth Urine Protein Urine Glucose (UA) Urine Ketones Urine Occult Blood Urine Nitrate Urine Bilirubin Urine Urobilinogen Ur Leukocyte Esterase Urine RBC Urine WBC Ur Squamous Epith Cells Amorphous Sediment Granular Casts Urine Mucus Micro UA Comment Ur Microscopic Review Urine Culture Comments - Imaging Impressions Chest X-Ray 04/18/18 18:01 CONCLUSION: Cardiomegaly. Increased density at the bases being worse on the right likely related to consolidation or atelectasis. Mild right pleural effusion. Abdomen/Bladder Ultrasound 04/19/18 00:00 CONCLUSION: 1. Echogenic kidneys with ascites and moderate right pleural effusion 2. Lower pole nonobstructing stone on the left 3. Probable left parapelvic cyst. Assessment and Plan - Assessment (1) New onset of congestive heart failure Code(s): I50.9 - Heart failure, unspecified Status: Acute (2) Pneumonia Code(s): J18.9 - Pneumonia, unspecified organism Status: Acute (3) Acute kidney injury Code(s): N17.9 - Acute kidney failure, unspecified Status: Acute (4) Fluid overload Code(s): E87.70 - Fluid overload, unspecified Status: Acute - Plan This is a 62-year-old homeless male with no past medical history presents to the emergency department for evaluation of lower extremity edema times 10 days with intermittent shortness of breath that is worse with exertion. Possible Pneumonia, acute/Fluid Overload -Chest x-ray significant for increased density at the bases, right greater than left concerning for consolidation with a mild right pleural effusion - continue IV antbx: Rocephin and azithromycin New onset CHF, acute/Fluid Overload -BNP greater than 5000 -Echo done, results pending -Cardiology consulted, appreciate recommendations -continue Bumex Acute renal failure -BUN/creatinine 80/5.18, no baseline for comparison -Renal ultrasound pending -Potassium 4.6 -Nephrology consulted, appreciate recommendations: continue diuretics, monitor renal function,check serologies, hepatitis profile and HIV testing, may need to start dialysis Elevated troponin Troponin 0.12 Likely secondary to renal function/ CHF -ACS rule out pending; serial troponins/EKGs -EKG without signs of ischemia, personally reviewed -denies any chest pain DVT Proph: Heparin Code Status: full code Discussed Condition With: patient and nurse Discharge Planning: D/C plan when medically stable, expected days 2-3 days ior more, might need Dialysis and when cleared with nephro and die attacher
[2018-04-19] MEDS: Heparin - SQ 10,000 UNITS/ML Vial SQ SCH ×2 (13:44→22:36)
--- NOTE | 2018-04-19 14:11 | ECG ---
Date Performed: 04/19/2018 Time Performed: 05:30:00 PTAGE: 62 years EKG: Sinus rhythm NONSPECIFIC INTRAVENTRICULAR CONDUCTION DELAY INFERIOR MYOCARDIAL INFARCTION , PROBABLY OLD Since e PREVIOUS TRACING , no significant change noted PREVIOUS TRACIN04/18/2018 23.37 DOCTOR: Andrey Henderson M.D. Interpretating Date/Time 04/19/2018 14:09:33
[2018-04-19 15:54] LABS: Hepatitis A IgM Antibody Nonreactive (Nonreactive); Hepatitits B Surface Antigen Nonreactive (Nonreactive)
--- NOTE | 2018-04-19 16:45 | ECHRPT ---
Indication: HEART FAILURE CONCLUSIONS Mildly dilated left ventricle. Mild concentric left ventricular hypertrophy. The left ventricular systolic function is severely reduced with an estimated ejection fraction of 20 %. The right atrial size is moderately dilated. Moderate mitral valve regurgitation. There is moderate to severe tricuspid valve regurgitation. There is estimated gqyigsua-op-ihwaph pulmonary hypertension present (range 60-70 mmHg). Mild pulmonary valve regurgitation. A large right sided pleural effusion is present. BP: / HR: Rhythm: Sinus MEASUREMENTS (Male / Female) Normal Values Technical Quality:Fair 2D ECHO LV Diastolic Diameter PLAX 6.1 cm 4.2 - 5.9 / 3.9 - 5.3 cm LV Systolic Diameter PLAX 5.5 cm IVS Diastolic Thickness 1.2 cm 0.6 - 1.0 / 0.6 - 0.9 cm LVPW Diastolic Thickness 1.1 cm 0.6 - 1.0 / 0.6 - 0.9 cm LV Relative Wall Thickness 0.4 RV Internal Dim ED PLAX 2.9 cm LVOT Diameter 2.2 cm Aortic Root Diameter 2.8 cm LA Systolic Diameter LX 3.8 cm 3.0 - 4.0 / 2.7 - 3.8 cm M-MODE AV Cusp Separation MM 1.5 cm DOPPLER AV Peak Velocity 72.4 cm/s AV Peak Gradient 2.1 mmHg AV Mean Gradient 1.0 mmHg AV Velocity Time Integral 9.8 cm LVOT Peak Velocity 61.7 cm/s LVOT Peak Gradient 1.5 mmHg LVOT Velocity Time Integral 9.0 cm AV Area Cont Eq vti 3.5 cm AV Area Cont Eq pk 3.2 cm Mitral E Point Velocity 74.5 cm/s Mitral A Point Velocity 59.7 cm/s Mitral E to A Ratio 1.2 LV E' Lateral Velocity 5.9 cm/s Mitral E to LV E' Lateral Ratio 12.7 LV E' Septal Velocity 2.8 cm/s Mitral E to LV E' Septal Ratio 26.3 TR Peak Velocity 300.8 cm/s TR Peak Gradient 36.2 mmHg Right Atrial Pressure 10.0 mmHg Pulmonary Artery Systolic Pressu 46.2 mmHg Right Ventricular Systolic Press 46.2 mmHg PV Peak Velocity 51.9 cm/s PV Peak Gradient 1.1 mmHg FINDINGS LEFT VENTRICLE Mildly dilated left ventricle. Mild concentric left ventricular hypertrophy. The left ventricular systolic function is severely reduced with an estimated ejection fraction of 20 %. RIGHT VENTRICLE Normal right ventricular size and systolic function. LEFT ATRIUM The left atrial size is normal. RIGHT ATRIUM The right atrial size is moderately dilated. ATRIAL SEPTUM No atrial level shunt is demonstrated by color flow Doppler interrogation. AORTA The aortic root and proximal ascending aorta are normal in size on limited imaging. MITRAL VALVE Moderate mitral valve regurgitation. AORTIC VALVE Trileaflet aortic valve. No aortic valve stenosis or regurgitation. TRICUSPID VALVE There is moderate to severe tricuspid valve regurgitation. There is estimated pybezxqe-hf-jjvwhi pulmonary hypertension present (range 60-70 mmHg). PULMONARY VALVE Mild pulmonary valve regurgitation. VESSELS There is less than 50% respiratory change in dimension of the inferior vena cava (abnormal). PERICARDIUM A large right sided pleural effusion is present. Faviola Arellano MD, FACC (Electronically Signed) Final Date:19 April 2018 16:44
[2018-04-19 18:03] LABS: Amphetamine Screen,Urine Neg (Neg); Barbiturate Screen,Urine Neg (Neg); Cannabinoid Screen,Urine Neg (Neg); Cocaine Screen,Urine Neg (Neg)
[2018-04-19 18:11] LABS: Opiate Screen,Urine Neg (Neg)
--- NOTE | 2018-04-19 20:43 | ECG ---
Date Performed: 04/18/2018 Time Performed: 18:07:42 PTAGE: 62 years EKG: Sinus rhythm POSSIBLE LEFT ATRIAL ENLARGEMENT INTRAVENTRICULAR CONDUCTION DELAY INFERIOR MYOCARDIAL INFARCTION Wh en compared to previous tracing, sinus rate is faster. ABNORMAL ECG PREVIOUS TRACING : 05/22/2014 12.30 DOCTOR: Jesús Sewell Interpretating Date/Time 04/19/2018 20:42:27
--- NOTE | 2018-04-19 20:44 | ECG ---
Date Performed: 04/18/2018 Time Performed: 23:37:00 PTAGE: 62 years EKG: Sinus rhythm WITH OCCASIONAL VENTRICULAR PREMATURE COMPLEXES POSSIBLE LEFT ATRIAL ENLARGEMENT INDETERMINATE AXIS INTRAVENTRICULAR CONDUCTION DELAY INFERIOR MYOCARDIAL INFARCTION Since previous tracing, no significa nt change noted ABNORMAL ECG PREVIOUS TRACING : 04/18/2018 18.07 DOCTOR: Jesús Sewell Interpretating Date/Time 04/19/2018 20:42:48
[2018-04-19] MEDS: Azithromycin Inj 500 MG in Sodium Chlor 0.9% Inj 250 ML IV.SIG SCH (21:10)
--- NOTE | 2018-04-20 02:56 | MB ---
cc: Tiago Joyce DO DATE: 04/19/2018 REASON FOR CONSULTATION: Acute decompensated heart failure. HISTORY OF PRESENT ILLNESS: Antonio Nelson is a 62-year-old male who presented to [facility] Emergency Room due to lower extremity edema. He states that he previously lived with a girlfriend, but moved out and has been living in his car for the past month. As it has been extremely hot, he has been drinking a gallon of fluids per day. He has noticed some shortness of breath that is worse with exertion. Denies any chest pain. While here, he underwent an echocardiogram, which showed an ejection fraction of 20%. He also is noted to have an elevated troponin and an elevated creatinine. In seeing him, he is currently hemodynamically stable with no chest pain or shortness of breath at rest. PAST MEDICAL HISTORY: Denies. PAST SURGICAL HISTORY: Denies. ALLERGIES: NO KNOWN DRUG ALLERGIES. MEDICATIONS: Denies. FAMILY HISTORY: Denies premature coronary artery disease or sudden cardiac within the family. SOCIAL HISTORY: The patient smokes tobacco, but quit just recently. He previously smoked crack cocaine for 2 weeks around 6 months ago, but denies recent use. REVIEW OF SYSTEMS: Fourteen systems were reviewed including osteopathic. Pertinent positives and negatives above, otherwise negative. PHYSICAL EXAMINATION: VITAL SIGNS: Temperature 98.3, heart rate 83, blood pressure 106/77, respirations 17, pulse oximetry 95% on room air. GENERAL: The patient appears well, in no acute distress. Alert, awake, and oriented x3. HEENT: Extraocular muscles intact. Mucous membranes moist. NECK: Supple. No JVD at 45 degrees. No carotid bruits heard bilaterally. Carotid upstroke is brisk in nature. HEART: Regular rate and rhythm. Positive first and second heart sounds with a 2/6 holosystolic murmur along the sternal border. LUNGS: Decreased breath sounds bilaterally. No wheezes, rales, or rhonchi. ABDOMEN: Soft, nontender, nondistended. No organomegaly noted. EXTREMITIES: Have 1-2 plus pitting edema bilaterally. NEUROLOGIC: No focal deficits. SKIN: Warm, dry and intact. OSTEOPATHIC: No kyphoscoliosis, lordosis, or paraspinal tender points. LABORATORY DATA: Hemoglobin 10.6, hematocrit 33.3, platelets 218. Potassium 4.8, BUN 81, creatinine 5.12. Troponin 0.11. Electrocardiogram (04/19/2018 at 05:30): Sinus rhythm, probable old myocardial infarction inferiorly, nonspecific ST-T wave changes. IMPRESSION: 1. Acute decompensated systolic heart failure. 2. Fluid overload state. 3. History of tobacco abuse. 4. History of crack cocaine abuse. 5. Elevated creatinine, unsure if acute kidney injury versus chronic kidney disease. RECOMMENDATIONS: 1. Mr. Antonio Nelson presented with acute decompensated heart failure. 2. He was found to have an ejection fraction of 20%. 3. For now, we will attempt to diurese him as possible, but we will have to watch his kidney function. 4. Ultimately, he should undergo an ischemic evaluation at some time, but he is not a candidate for cardiac catheterization due to his kidney function being so horrible at this time. 5. We will plan on placing him on medical therapy for his cardiomyopathy. 6. In the future if it was felt that he could handle contrast, we will consider doing a pharmacologic nuclear stress test on him to determine ischemic versus nonischemic cardiomyopathy. Thank you for allowing me to see Antonio Nelson. If there are any questions, please do not hesitate to call. Tiago Joyce DO VGP/sv , 01:03 AM , 01:11 AM
[2018-04-20 07:35] LABS: Hematocrit 34.1 % (39.0-51.0); Hemoglobin 11.1 gm/dL (13.0-17.0); Mean Corpuscular HGB Conc 32.5 % (32.0-36.0); Mean Corpuscular Hemoglobin 31.8 pg (27.0-34.0); Mean Corpuscular Volume 97.8 fL (80.0-100.0); Mean Platelet Volume 9.2 fL (7.0-11.0); Platelet Count 236 th/mm3 (150-450); Red Blood Count 3.49 mil/mm3 (4.50-5.90); Red Cell Distribution Width 15.6 % (11.6-17.2); White Blood Count 6.1 th/mm3 (4.0-11.0)
[2018-04-20 08:02] LABS: Albumin 2.3 g/dL (3.4-5.0); Calcium 7.8 mg/dL (8.5-10.1); Carbon Dioxide 16.2 meq/L (21.0-32.0); Phosphorus 6.6 mg/dL (2.5-4.9)
[2018-04-20] MEDS: Senna/Docusate Sodium 8.6/50 MG Tablet PO SCH ×2 (08:54→22:07)
[2018-04-20] MEDS: Heparin - SQ 10,000 UNITS/ML Vial SQ SCH (11:02)
--- NOTE | 2018-04-20 11:59 | P.PNIM ---
Subjective Interval history: Follow-up shortness of breath, lower extremity edema, CHF, and MIGUEL ANGEL. Patient seen and examined, laying in bed, stated shortness of breath is a lot better, and edema is a lot better. Patient stated his right leg usually have more edema than the left leg. Patient stated he is sleeping on his left side better , with less shortness of breath than laying on his back. Patient denies any headache or dizziness, denies any pain or chest pain. Patient complained of slight nausea without vomiting. Patient stated they have to stop the antibiotic last night as it is giving him nausea. Discussed the side effect of medications. Patient denies any allergy to medication. Patient denies any fever or chills. Discussed with patient the result of tests, lab works, software development advisor recommendation and flight controls engineer recommendation. Patient verbalized understanding. Patient denies any personal history of CHF, or renal failure. However remember his cousin was on dialysis as a teenager but has no disease. Physical Exam Vital signs: Vital Signs 04/19/18 12:00 04/19/18 16:00 04/19/18 19:53 Temperature 97.9 F 98.3 F 98.6 F Pulse Rate 84 83 95 H Respiratory Rate 18 17 18 Blood Pressure 127/80 106/77 120/87 Pulse Oximetry 97 95 97 04/19/18 20:00 04/20/18 00:00 04/20/18 04:00 Temperature 97.8 F 97.3 F L Pulse Rate 90 85 Respiratory Rate 18 18 Blood Pressure 115/81 133/81 Pulse Oximetry 96 97 04/20/18 04:12 04/20/18 08:00 04/20/18 08:53 Temperature 97.4 F L Pulse Rate 87 Respiratory Rate 18 20 Blood Pressure 136/93 H Pulse Oximetry 95 95 Intake & Output 04/19/18 04/20/18 04/20/18 18:59 06:59 18:59 Intake Total 720 / 720 400 / 400 Balance 720 / 720 400 / 400 Intake: IV 200 / 200 Azithromycin Inj 500 MG In NS 100 / 100 Inj 250 ML @ 250 mls/hr IV.SIG Q24H [facility] Rx#:[id number] Rocephin Inj 1,000 MG In NS Inj 100 / 100 100 ML @ 200 mls/hr IV.SIG Q24H [facility]IK Rx#:[id number] Oral 720 / 720 200 / 200 Other: # Voids 3 # Bowel Movements 0 Narrative: GENERAL: Well-developed, well-nourished, descent male in no apparent distress SKIN: Warm and dry. Right lateral pedal wound, no drainage HEAD: Atraumatic. Normocephalic. EYES: Pupils equal and round. No scleral icterus. No injection or drainage. ENT: No nasal bleeding or discharge. Mucous membranes pink and moist. NECK: Trachea midline. No JVD. CARDIOVASCULAR: Regular rate and rhythm. Bilateral lower extremity pitting edema right greater than left 2+ RESPIRATORY: No accessory muscle use. Clear to auscultation. Breath sounds equal bilaterally. GASTROINTESTINAL: Abdomen soft, non-tender, nondistended. Hepatic and splenic margins not palpable. MUSCULOSKELETAL: Extremities without clubbing, cyanosis, left lower extremity trace edema, right lower extremity 2+ pitting edema . No obvious deformities. NEUROLOGICAL: Awake and alert. No obvious cranial nerve deficits. Motor grossly within normal limits. Generalized weakness, moving all 4 extremities. Normal speech. PSYCHIATRIC: Appropriate mood and affect; insight and judgment normal. Results - Labs CBC & Chem 7: 04/20/18 06:49 04/20/18 06:46 Laboratory Results - last 24 hr 04/19/18 04/19/18 04/19/18 13:25 13:25 17:00 WBC RBC Hgb Hct MCV MCH MCHC RDW Plt Count MPV Sodium Potassium Chloride Carbon Dioxide Anion Gap BUN Creatinine Estimated GFR Random Glucose Calcium Phosphorus Total Protein (PEP) 6.1 L Albumin Urine Opiates Screen Neg Ur Barbiturates Screen Neg Ur Amphetamines Screen Neg U Benzodiazepines Scrn Neg Urine Cocaine Screen Neg U Cannabinoids Screen Neg Hepatitis A IgM Ab Nonreactive Hep Bs Antigen Nonreactive Hep B Core IgM Ab Nonreactive Hep C IgG Ab Nonreactive HIV 1&2 Ab/P24 Ag 4thGn Nonreactive 04/20/18 04/20/18 06:46 06:49 WBC 6.1 RBC 3.49 L Hgb 11.1 L Hct 34.1 L MCV 97.8 MCH 31.8 MCHC 32.5 RDW 15.6 Plt Count 236 MPV 9.2 Sodium 142 Potassium 5.0 Chloride 115 H Carbon Dioxide 16.2 L Anion Gap 11 BUN 87 H Creatinine 5.42 H Estimated GFR 11 L Random Glucose 89 Calcium 7.8 L Phosphorus 6.6 H Total Protein (PEP) Albumin 2.3 L Urine Opiates Screen Ur Barbiturates Screen Ur Amphetamines Screen U Benzodiazepines Scrn Urine Cocaine Screen U Cannabinoids Screen Hepatitis A IgM Ab Hep Bs Antigen Hep B Core IgM Ab Hep C IgG Ab HIV 1&2 Ab/P24 Ag 4thGn Assessment and Plan - Assessment (1) New onset of congestive heart failure Code(s): I50.9 - Heart failure, unspecified Status: Acute (2) Pneumonia Code(s): J18.9 - Pneumonia, unspecified organism Status: Acute (3) Acute kidney injury Code(s): N17.9 - Acute kidney failure, unspecified Status: Acute (4) Fluid overload Code(s): E87.70 - Fluid overload, unspecified Status: Acute - Plan This is a 62-year-old homeless male with no past medical history presents to the emergency department for evaluation of lower extremity edema times 10 days with intermittent shortness of breath that is worse with exertion. Possible Pneumonia, acute/Fluid Overload -Chest x-ray significant for increased density at the bases, right greater than left concerning for consolidation with a mild right pleural effusion - s/p IV antbx: Rocephin and azithromycin -no fever or chills, WBC unremarkable New onset CHF, acute/Fluid Overload/bilateral lower extremity edema -BNP greater than 5000, recheck BNP -2D Echo : Mildly dilated left ventricle. Mild concentric left ventricular hypertrophy. Left ventricular systolic function is severely reduced with an estimated ejection fraction of 20%. Right atrial size is moderately dilated. Moderate mitral valve regurgitation. Moderate to severe tricuspid valve regurgitation. Estimated [id number]-oa-jyckce pulmonary hypertension present (range 60-70 mmHg). Mild pulmonary valve regurgitation. A large right sided pleural effusion is present. -Cardiology consulted, appreciate recommendations: continue on Diuretics, further workup needed when Kidney function improved -continue Bumex -monitor BMP, BNP, Trop Bilateral lower extremity edema -Bilateral lower extremity edema improving, left lower extremity trace edema, right lower extremity 2+ edema. Will obtain ultrasound of right lower extremity to rule out DVT -Right lateral anterior foot wound, likely related to extreme edema previously, patient stated was blister before notes better, wound care consulted for treatment. Acute renal failure -BUN/creatinine 80/5.18 on admission, no baseline for comparison, today 87/5.42 -Renal ultrasound: Echogenic kidneys with ascites and moderate right pleural effusion -Potassium 5.0, not on any potassium replacement -Nephrology consulted, appreciate recommendations: continue diuretics, ,check serologies, may need to start dialysis - Hepatitis profile: Nonreactive and HIV testing: Nonreactive, -monitor renal function Elevated troponin Troponin 0.12 Likely secondary to renal function/ CHF -ACS rule out pending; serial troponins/EKGs -EKG without signs of ischemia, personally reviewed -denies any chest pain Hypertension Elevated blood pressure on admission, improving Likely related to AK I/CHF -Continue Bumex -Monitor blood pressure and BMP History of cocaine use Patient admitted for short-term use, 6 months ago and have not had any since then Negative for toxicology DVT Proph: Heparin Code Status: Full code Discussed Condition With: Patient and nurse Discharge Planning: D/C plan when medically stable, expected days 2-3 days or more, might need Dialysis per nephrology and when cleared with nephro and flight controls engineer
--- NOTE | 2018-04-20 13:27 | US ---
EXAM DATE: 04/20/2018 12:00 AM EDT AGE/SEX: 62 years / Male INDICATIONS: Right leg swelling. CLINICAL DATA: This is the patient's initial encounter. Patient reports that signs and symptoms have been present for 1 week and indicates a pain score of 1/10. MEDICAL/SURGICAL HISTORY: . Lower extremity edema. Acute decompensated systolic heart failure. None. COMPARISON: No prior exams available for comparison. TECHNIQUE: Venous ultrasound of both lower extremities was performed from the inguinal ligament to t he proximal calf. Real-time, color Doppler and spectral tracing, compression and augmentation techni ques were used. FINDINGS: Nonocclusive thrombus noted in the common femoral vein. Otherwise, there is normal beulah sibility of the deep venous system from the inguinal region to the proximal calf. No echogenic clot is seen in the lumen of the femoral, popliteal, and posterior tibial veins. There is a normal respon se of the venous system to proximal and distal augmentation and respiration. Note is made significan t pulsatility in the lower extremity veins. CONCLUSION: 1. Chronic appearing nonocclusive thrombus in the right common femoral vein. 2. Pulsatility in the lower extremity veins likely related to patient's acute heart failure. Electronically signed by: Tato Gautam MD 04/20/2018 1:26 PM EDT
--- NOTE | 2018-04-20 15:51 | XR ---
EXAM DATE: 04/20/2018 12:00 AM EDT AGE/SEX: 62 years / Male INDICATIONS: Short of breath. CLINICAL DATA: This is the patient's subsequent encounter. Patient reports that signs and symptoms h ave been present for 3 days and indicates a pain score of 0/10. MEDICAL/SURGICAL HISTORY: None. None. COMPARISON: [facility] [place] CHEST 1V SINGLE AP, 04/18/2018. . FINDINGS: Cardiomegaly, patchy lower lobe airspace disease and interstitial prominence and small bilateral effu sions. CONCLUSION: Stable appearance of the chest. Electronically signed by: Maximiliano Dixon MD 04/20/2018 3:50 PM EDT
[2018-04-20] MEDS ORDERED: Acetaminophen 325 MG Tablet PO PRN (20:06)
[2018-04-20] MEDS ORDERED: Gelatin 12 MM/7 MM Topical Foam TOPICAL PRN (20:06)
[2018-04-20] MEDS ORDERED: Heparin 10,000 UNITS/10 ML Vial (for IV use) OTHER PRN (20:06)
[2018-04-20] MEDS ORDERED: Sod Chloride 0.9% Inj 1,000 ML IV.CONT PRN (20:06)
[2018-04-20] MEDS ORDERED: Sod Chloride 0.9% Inj 1,000 ML OTHER PRN ×2 (20:06)
--- NOTE | 2018-04-20 20:14 | P.PNNP ---
Subjective Interval history: Patient was seen in the morning. His renal function has not improved. I reviewed all the notes. Patient has severe systolic cardiac failure, EF of 20 % . Cardiology note reviewed. Continues to have significant lower extremity edema. Physical Exam Vital signs: Vital Signs 04/20/18 00:00 04/20/18 04:00 04/20/18 04:12 Temperature 97.8 F 97.3 F L Pulse Rate 90 85 Respiratory Rate 18 Blood Pressure 115/81 133/81 Pulse Oximetry 97 04/20/18 08:00 04/20/18 08:53 04/20/18 12:00 Temperature 97.4 F L 98 F Pulse Rate 87 85 Respiratory Rate 20 20 Blood Pressure 136/93 H 135/91 H Pulse Oximetry 95 95 95 04/20/18 16:00 Temperature 97.2 F L Pulse Rate 89 Respiratory Rate 20 Blood Pressure 141/96 H Pulse Oximetry 92 L Intake & Output 04/20/18 04/20/18 04/21/18 06:59 18:59 06:59 Intake Total 400 / 400 Balance 400 / 400 Intake: IV 200 / 200 Azithromycin Inj 500 MG In NS 100 / 100 Inj 250 ML @ 250 mls/hr IV.SIG Q24H [facility]IK Rx#:[id number] Rocephin Inj 1,000 MG In NS Inj 100 / 100 100 ML @ 200 mls/hr IV.SIG Q24H MALIK Rx#:[id number] Oral 200 / 200 Narrative: GENERAL: Well-developed, well-nourished, descent male in no apparent distress SKIN: Warm and dry. Right lateral pedal wound, no drainage HEAD: Atraumatic. Normocephalic. EYES: Pupils equal and round. No scleral icterus. No injection or drainage. ENT: No nasal bleeding or discharge. Mucous membranes pink and moist. NECK: Trachea midline. No JVD. CARDIOVASCULAR: Regular rate and rhythm. Bilateral lower extremity edema RESPIRATORY: No accessory muscle use. Clear to auscultation. Breath sounds equal bilaterally. GASTROINTESTINAL: Abdomen soft, non-tender, nondistended. Hepatic and splenic margins not palpable. MUSCULOSKELETAL: Extremities without clubbing, cyanosis, bilateral lower extremity edema. Assessment and Plan - Assessment (1) Acute kidney injury Code(s): N17.9 - Acute kidney failure, unspecified Status: Acute Plan: Duration of kidney disease/failure is unclear. He may have reached ESRD. He may have cardiorenal syndrome. Hepatitis and HIV negative. Other serologies are pending. He does have anemia, hypocalcemia. I will order serologies. Quantify proteinuria. He will need to start dialysis. He has severe metabolic acidosis. Consult IR for PermCath placement. Dialysis ordered. Started Renvela for hyperphosphatemia. (2) Fluid overload Code(s): E87.70 - Fluid overload, unspecified Status: Acute Plan: severe systolic heart failure, in addition in renal failure. May need ischemic workup as per Cardiology. Not responding to diuretics. Will initiate dialysis. (3) Acute on chronic systolic congestive heart failure Code(s): I50.23 - Acute on chronic systolic (congestive) heart failure Status : Acute Plan: Seen by cardiology. Echo report reviewed. Notes reviewed.
[2018-04-20] MEDS: Azithromycin Inj 500 MG in Sodium Chlor 0.9% Inj 250 ML IV.SIG SCH (22:03)
[2018-04-20] MEDS: Famotidine 20 MG Tablet PO SCH (22:04)
--- NOTE | 2018-04-20 23:55 | P.PNCA ---
Subjective Interval history: No events overnight Laying in bed without complaints Medications and Allergies Active Medications: Active Medications Acetaminophen (Tylenol) 650 mg PO Q4H PRN PRN Reason: Temp > 100.4 Acetaminophen (Tylenol) 650 mg PO UNSCH PRN PRN Reason: SEE LABEL COMMENTS Al Hydroxide/Mg Hydroxide (Milk Of Magndarinel Liq) 30 ml PO Q12H PRN PRN Reason: Mild Constipation Bisacodyl (Dulcolax Supp) 10 mg RECTAL DAILY PRN PRN Reason: SEVERE CONSITIPATION Bumetanide (Bumex Inj) 2 mg IV.PUSH BID@0900,1800 [facility] Clonidine HCl (Catapres) 0.1 mg PO UNSCH PRN PRN Reason: SEE LABEL COMMENTS Diphenhydramine HCl (Benadryl) 25 mg PO UNSCH PRN PRN Reason: SEE LABEL COMMENTS Epoetin Morgan (Epogen Inj) 5,000 unit IV.PUSH UNSCH PRN PRN Reason: SEE LABEL COMMENTS Famotidine (Pepcid) 10 mg PO BID [facility] Last Admin: 04/20/18 22:04 Dose: 10 mg Gelatin (Gelfoam 12 Mm/7 Mm Topical) 1 foam TOPICAL PRN PRN PRN Reason: help stop bleeding from site Gentamicin Sulfate (Gentamicin Inj) 20 mg OTHER WITH DIALYSIS PRN PRN Reason: Dwell Gentamycin Lock Heparin Sodium (Porcine) (Heparin Inj) 5,000 units SQ Q12H [facility] Last Admin: 04/20/18 11:02 Dose: 5,000 units Heparin Sodium (Porcine) (Heparin Inj) 8,000 units OTHER WITH DIALYSIS PRN PRN Reason: for machine prime Heparin Sodium (Porcine) (Heparin Inj) 1,000 units OTHER WITH DIALYSIS PRN PRN Reason: Dwell Heparin to Fill Catheter Azithromycin 500 mg/ Sodium (Chloride) 250 mls @ 250 mls/hr IV.SIG Q24H [facility] Last Admin: 04/20/18 22:03 Dose: Not Given Ceftriaxone Sodium 1,000 mg/ (Sodium Chloride) 100 mls @ 200 mls/hr IV.SIG Q24H [facility] Last Admin: 04/20/18 22:03 Dose: Not Given Albumin Human (Flexbumin 25% Inj) 100 mls @ 60 mls/hr IV.SIG WITH DIALYSIS PRN PRN Reason: hypotension / volume replace Sodium Chloride (Ns Inj) 1,000 mls @ 0 mls/hr OTHER .Q0M PRN PRN Reason: for prime and rinse back Sodium Chloride (Ns Inj) 1,000 mls @ 200 mls/hr OTHER .Q5H PRN PRN Reason: for dialyzer flush PRN Sodium Chloride (Ns Inj) 1,000 mls @ 0 mls/hr IV.CONT .Q0M PRN PRN Reason: hypotension / volume replace Lactulose (Lactulose Liq) 30 ml PO DAILY PRN PRN Reason: SEVERE CONSITIPATION Mannitol (Mannitol Inj) 12.5 gm IV.PUSH UNSCH PRN PRN Reason: hypotension / volume replace Metolazone (Zaroxolyn) 5 mg PO DAILY [facility] Nitroglycerin (Nitrostat Sl) 0.4 mg SL Q5M PRN PRN Reason: CHEST PAIN Ondansetron HCl (Zofran Inj) 4 mg IV.PUSH Q6H PRN PRN Reason: NAUSEA OR VOMITING Ondansetron HCl (Zofran Inj) 4 mg IV.PUSH UNSCH PRN PRN Reason: NAUSEA OR VOMITING Senna/Docusate Sodium (Carole-Colace) 1 tab PO BID [facility] Last Admin: 04/20/18 22:07 Dose: Not Given Sennosides (Senokot) 17.2 mg PO Q12H PRN PRN Reason: Moderate Constipation Sevelamer Carbonate (Renvela) 1,600 mg PO TIDAC [facility] Sodium Chloride (Ns Flush) 5 ml IV.FLUSH PRN PRN PRN Reason: flush each lumen during HD Allergies Allergy/AdvReac Type Severity Reaction Status Date / Time No Known Allergies Allergy Verified 04/18/18 16:36 Home Medications Medication Instructions Recorded Confirmed Type No Known Home Medications 04/18/18 04/18/18 History Physical Exam Vital signs: Vital Signs 04/20/18 00:00 04/20/18 04:00 04/20/18 04:12 Temperature 97.8 F 97.3 F L Pulse Rate 90 85 Respiratory Rate 18 18 18 Blood Pressure 115/81 133/81 Pulse Oximetry 97 04/20/18 08:00 04/20/18 08:53 04/20/18 12:00 Temperature 97.4 F L 98 F Pulse Rate 87 85 Respiratory Rate 20 20 Blood Pressure 136/93 H 135/91 H Pulse Oximetry 95 95 95 04/20/18 16:00 04/20/18 20:00 Temperature 97.2 F L 98.3 F Pulse Rate 89 91 H Respiratory Rate 20 18 Blood Pressure 141/96 H 159/98 H Pulse Oximetry 92 L 96 Intake & Output 04/20/18 04/20/18 04/21/18 06:59 18:59 06:59 Intake Total 400 / 400 Balance 400 / 400 Intake: IV 200 / 200 Azithromycin Inj 500 MG In NS 100 / 100 Inj 250 ML @ 250 mls/hr IV.SIG Q24H [facility]IK Rx#:[id number] Rocephin Inj 1,000 MG In NS Inj 100 / 100 100 ML @ 200 mls/hr IV.SIG Q24H [facility]IK Rx#:[id number] Oral 200 / 200 Narrative: GENERAL: Well-developed, well-nourished, descent male in no apparent distress SKIN: Warm and dry. Right lateral pedal wound, no drainage HEAD: Atraumatic. Normocephalic. EYES: Pupils equal and round. No scleral icterus. No injection or drainage. ENT: No nasal bleeding or discharge. Mucous membranes pink and moist. NECK: Trachea midline. No JVD. CARDIOVASCULAR: Regular rate and rhythm. Bilateral lower extremity edema RESPIRATORY: No accessory muscle use. Clear to auscultation. Breath sounds equal bilaterally. GASTROINTESTINAL: Abdomen soft, non-tender, nondistended. Hepatic and splenic margins not palpable. MUSCULOSKELETAL: Extremities without clubbing, cyanosis, bilateral lower extremity edema. Results 04/20/18 06:49 04/20/18 06:46 Cardiac Enzymes 04/18/18 04/19/18 04/20/18 Range/Units 23:40 08:29 06:49 Troponin I 0.11 H 0.11 H 0.10 H (0.02-0.05) ng/mL B-Natriuretic Peptide (0-100) pg/mL 04/20/18 Range/Units 06:49 Troponin I (0.02-0.05) ng/mL B-Natriuretic Peptide Greater than 5000 H (0-100) pg/mL Coagulation 04/20/18 Range/Units 06:49 B-Natriuretic Peptide Greater than 5000 H (0-100) pg/mL CBC 04/19/18 04/20/18 Range/Units 08:29 06:49 WBC 5.7 6.1 (4.0-11.0) th/mm3 RBC 3.37 L 3.49 L (4.50-5.90) mil/mm3 Hgb 10.6 L 11.1 L (13.0-17.0) gm/dL Hct 33.3 L 34.1 L (39.0-51.0) % Plt Count 218 236 (150-450) th/mm3 Neut # (Auto) 4.5 (1.8-7.7) th/mm3 Lymph # (Auto) 0.8 L (1.0-4.8) th/mm3 [place] # (Auto) 0.4 (0.0-0.9) th/mm3 Eos # (Auto) 0.0 (0.0-0.4) th/mm3 Baso # (Auto) 0.0 (0.0-0.2) th/mm3 Comprehensive Metabolic Panel 04/19/18 04/20/18 Range/Units 08:29 06:46 Sodium 142 142 (136-145) meq/L Potassium 4.8 5.0 (3.5-5.1) meq/L Chloride 114 H 115 H (98-107) meq/L Carbon Dioxide 16.3 L 16.2 L (21.0-32.0) meq/L BUN 81 H 87 H (7-18) mg/dL Creatinine 5.12 H 5.42 H (0.60-1.30) mg/dL Calcium 7.7 L 7.8 L (8.5-10.1) mg/dL Albumin 2.3 L (3.4-5.0) g/dL - Imaging and Cardiology Imaging: Impressions Abdomen/Bladder Ultrasound 04/19/18 00:00 CONCLUSION: 1. Echogenic kidneys with ascites and moderate right pleural effusion 2. Lower pole nonobstructing stone on the left 3. Probable left parapelvic cyst. Chest X-Ray 04/20/18 00:00 CONCLUSION: Stable appearance of the chest. Venous Doppler Study 04/20/18 00:00 CONCLUSION: 1. Chronic appearing nonocclusive thrombus in the right common femoral vein. 2. Pulsatility in the lower extremity veins likely related to patient's acute heart failure. Assessment and Plan - Assessment (1) Cardiomyopathy Code(s): I42.9 - Cardiomyopathy, unspecified Status: Acute (2) Acute kidney injury Code(s): N17.9 - Acute kidney failure, unspecified Status: Acute (3) Fluid overload Code(s): E87.70 - Fluid overload, unspecified Status: Acute (4) New onset of congestive heart failure Code(s): I50.9 - Heart failure, unspecified Status: Acute - Plan 1) Acute decompensated systolic heart failure Attempting to diurese as possible 2) New onset cardiomyopathy EF 20% Not a candidate for ischemic evaluation at this time due to significant acute kidney injury Con't on medical management Will place on Coreg for now Unable to place on LEE-I due to MIGUEL ANGEL 3) Acute renal failure 4) Remote crack cocaine use
[2018-04-21] MEDS: Heparin - SQ 10,000 UNITS/ML Vial SQ SCH ×3 (00:56→22:11)
[2018-04-21 06:24] LABS: Hematocrit 34.2 % (39.0-51.0); Hemoglobin 11.4 gm/dL (13.0-17.0); Mean Corpuscular HGB Conc 33.5 % (32.0-36.0); Mean Corpuscular Hemoglobin 32.3 pg (27.0-34.0); Mean Corpuscular Volume 96.5 fL (80.0-100.0); Mean Platelet Volume 9.5 fL (7.0-11.0); Platelet Count 247 th/mm3 (150-450); Red Blood Count 3.54 mil/mm3 (4.50-5.90); Red Cell Distribution Width 15.4 % (11.6-17.2); White Blood Count 6.2 th/mm3 (4.0-11.0)
[2018-04-21 06:55] LABS: Albumin 2.4 g/dL (3.4-5.0); Calcium 7.9 mg/dL (8.5-10.1); Carbon Dioxide 15.9 meq/L (21.0-32.0); Potassium 4.7 meq/L (3.5-5.1)
[2018-04-21 06:56] LABS: Phosphorus 6.2 mg/dL (2.5-4.9)
[2018-04-21 07:05] LABS: Thyroid Stimulating Hormone 2.59 uIU/mL (0.358-3.740)
[2018-04-21] MEDS ORDERED: Vancomycin Inj 1,000 MG in Sodium Chlor 0.9% Inj 250 ML IV.SIG SCH (08:00)
[2018-04-21] MEDS: Senna/Docusate Sodium 8.6/50 MG Tablet PO SCH ×2 (08:48→22:11)
[2018-04-21] MEDS: metOLazone 5 MG Tablet PO SCH (08:51)
[2018-04-21] MEDS: Carvedilol 6.25 MG Tablet PO SCH ×2 (08:51→21:42)
[2018-04-21] MEDS: Famotidine 20 MG Tablet PO SCH ×2 (08:51→21:42)
[2018-04-21] MEDS ORDERED: ceFAZolin Inj 2,000 MG in Sodium Chlor 0.9% Inj 100 ML IV.SIG SCH (09:30)
--- NOTE | 2018-04-21 10:06 | P.PNIM ---
Subjective Interval history: Follow-up shortness of breath, lower extremity edema, cardiomyopathy, CHF, and MIGUEL ANGEL. Patient seen and examined sitting on the bed, denies any pain, chest pain or shortness of breath. Patient stated still have some shortness of breath but it is a lot better than usual. Patient stated his edema is a lot better than before. Right leg is usually more swollen than the left leg. Patient denies any headache or dizziness, denies any abdominal pain, nausea, vomiting, diarrhea or constipation. Patient denies any headache or dizziness. Patient denies any fever or chills. Physical Exam Vital signs: Vital Signs 04/20/18 12:00 04/20/18 16:00 04/20/18 20:00 Temperature 98 F 97.2 F L 98.3 F Pulse Rate 85 89 92 H Respiratory Rate 20 20 18 Blood Pressure 135/91 H 141/96 H 159/98 H Pulse Oximetry 95 92 L 96 04/21/18 00:00 04/21/18 04:00 04/21/18 05:30 Temperature 98.4 F 98.9 F Pulse Rate 89 84 83 Respiratory Rate 18 18 Blood Pressure 155/104 H 140/96 H Pulse Oximetry 95 95 04/21/18 08:00 Temperature 97.9 F Pulse Rate 84 Respiratory Rate 16 Blood Pressure 146/97 H Pulse Oximetry 96 Intake & Output 04/20/18 04/21/18 04/21/18 18:59 06:59 18:59 Weight 63.8 kg Other: # Voids 3 Narrative: GENERAL: [] SKIN: Warm and dry. HEAD: Atraumatic. Normocephalic. EYES: Pupils equal and round. No scleral icterus. No injection or drainage. ENT: No nasal bleeding or discharge. Mucous membranes pink and moist. NECK: Trachea midline. No JVD. CARDIOVASCULAR: Regular rate and rhythm. Positive murmur, bilateral lower extremity edema right greater than left RESPIRATORY: No accessory muscle use. Clear to auscultation. Breath sounds equal bilaterally. GASTROINTESTINAL: Abdomen soft, non-tender, nondistended. Hepatic and splenic margins not palpable. MUSCULOSKELETAL: Extremities without clubbing, cyanosis, left lower extremity trace edema in the ankle, right lower extremity edema from below the knee down to the foot 2+ pitting. No obvious deformities. NEUROLOGICAL: Awake and alert. No obvious cranial nerve deficits. Motor grossly within normal limits. Five out of 5 muscle strength in the arms and legs. Normal speech. PSYCHIATRIC: Appropriate mood and affect; insight and judgment normal. Results - Labs CBC & Chem 7: 04/21/18 05:25 04/21/18 05:25 Laboratory Results - last 24 hr 04/19/18 04/20/18 04/20/18 13:25 06:49 06:49 WBC RBC Hgb Hct MCV MCH MCHC RDW Plt Count MPV Sodium Potassium Chloride Carbon Dioxide Anion Gap BUN Creatinine Estimated GFR Random Glucose Calcium Phosphorus Magnesium Troponin I 0.10 H B-Natriuretic Peptide Greater than 5000 H Albumin Albumin (PEP) 3.01 L Albumin/Globulin Ratio 0.98 L Vomae-9-Vwzpugred 0.34 H Wuuga-3-Hkcfkmknv 0.73 Beta Globulins 0.82 Gamma Globulins 1.20 TSH 04/21/18 04/21/18 05:25 05:25 WBC 6.2 RBC 3.54 L Hgb 11.4 L Hct 34.2 L MCV 96.5 MCH 32.3 MCHC 33.5 RDW 15.4 Plt Count 247 MPV 9.5 Sodium 142 Potassium 4.7 Chloride 113 H Carbon Dioxide 15.9 L Anion Gap 13 BUN 87 H Creatinine 5.33 H Estimated GFR 11 L Random Glucose 86 Calcium 7.9 L Phosphorus 6.2 H Magnesium 2.0 Troponin I B-Natriuretic Peptide Albumin 2.4 L Albumin (PEP) Albumin/Globulin Ratio Sqwzl-9-Jitzyckal Gjvej-7-Zzxqomioa Beta Globulins Gamma Globulins TSH 2.590 - Imaging Impressions Chest X-Ray 04/20/18 00:00 CONCLUSION: Stable appearance of the chest. Venous Doppler Study 04/20/18 00:00 CONCLUSION: 1. Chronic appearing nonocclusive thrombus in the right common femoral vein. 2. Pulsatility in the lower extremity veins likely related to patient's acute heart failure. Assessment and Plan - Assessment (1) New onset of congestive heart failure Code(s): I50.9 - Heart failure, unspecified Status: Acute (2) Pneumonia Code(s): J18.9 - Pneumonia, unspecified organism Status: Acute (3) Acute kidney injury Code(s): N17.9 - Acute kidney failure, unspecified Status: Acute (4) Fluid overload Code(s): E87.70 - Fluid overload, unspecified Status: Acute - Plan This is a 62-year-old homeless male with no past medical history presents to the emergency department for evaluation of lower extremity edema times 10 days with intermittent shortness of breath that is worse with exertion. Possible Pneumonia, acute/Fluid Overload -Chest x-ray significant for increased density at the bases, right greater than left concerning for consolidation with a mild right pleural effusion - s/p IV antbx: Rocephin and azithromycin -no fever or chills, WBC unremarkable New onset cardiomyopathy, acute/ Fluid Overload/bilateral lower extremity edema Acute decompensated systolic heart failure -LVEF 20% on echo -BNP greater than 5000, recheck BNP -2D Echo : Mildly dilated left ventricle. Mild concentric left ventricular hypertrophy. Left ventricular systolic function is severely reduced with an estimated ejection fraction of 20%. Right atrial size is moderately dilated. Moderate mitral valve regurgitation. Moderate to severe tricuspid valve regurgitation. Estimated pdfgyiwk-nn-kpajcx pulmonary hypertension present (range 60-70 mmHg). Mild pulmonary valve regurgitation. A large right sided pleural effusion is present. -Cardiology consulted, appreciate recommendations: continue on Diuretics, further workup needed when Kidney function improved -continue Bumex, added metolazone -Continue Coreg -monitor BMP, BNP, Trop Right lower extremity edema -Bilateral lower extremity edema improving, left lower extremity trace edema, right lower extremity 2+ edema. -Right lateral anterior foot wound, likely related to extreme edema previously, patient stated was blister before notes better, wound care consulted for treatment. -Ultrasound of right lower extremity: Chronic appearing nonocclusive thrombus in the right common femoral vein. Pulsatility in the lower extremity veins likely related to patient's acute heart failure Acute renal failure, unknown CKD -BUN/creatinine 80/5.18 on admission, no baseline for comparison, today 87/5.33 -Renal ultrasound: Echogenic kidneys with ascites and moderate right pleural effusion -Potassium 5.0, not on any potassium replacement - Hepatitis profile: Nonreactive and HIV testing: Nonreactive, -monitor renal function -Nephrology consulted, appreciate recommendations: continue diuretics, ,check serologies, plan to start dialysis Elevated troponin Troponin 0.12, 0.11,0.10 Likely secondary to renal function/ CHF -EKG without signs of ischemia, personally reviewed -denies any chest pain Hypertension Elevated blood pressure on admission, improving Likely related to AK I/CHF -Continue Bumex, metolazone and Coreg -Monitor blood pressure and BMP History of cocaine use Patient admitted for short-term use, 6 months ago and have not had any since then Negative for toxicology DVT Proph: Heparin Code Status: Full code Discussed Condition With: Patient and nurse Discharge Planning: D/C plan when medically stable, expected days 2-3 days or more, might need Dialysis per nephrology and when cleared with nephro and watershed program manager
[2018-04-21 10:18] LABS: Chol/HDL Ratio 3.93 Ratio; HDL Cholesterol 35.6 mg/dL (40.0-60.0)
[2018-04-21] MEDS ORDERED: fentaNYL Citrate Inj 250 MCG/5 ML Ampul ONE (11:24)
[2018-04-21] MEDS ORDERED: *Heparin 10,000 UNITS/10 ML Vial Periprocedural ONLY ONE (11:50)
[2018-04-21] MEDS ORDERED: Lidocaine 1%/Epinephrine 1:100,000 Inj 20 ML Vial ONE (11:51)
[2018-04-21] MEDS ORDERED: Heparin 2,000 UNITS/2 ML Vial (for IV use) IV.FLUSH PRN (12:22)
--- NOTE | 2018-04-21 12:25 | P.RAD ---
Post Procedure Progress Note - Pre Procedure Diagnosis (1) Acute kidney injury - Post Procedure Diagnosis (1) Acute kidney injury - Procedure Information Procedure Date: 04/21/18 Supervising Radiologist: Clinton William MD Estimated blood loss (mL): 3 Anesthesia: Local, Analgesia, Conscious Sedation - Plan of Activity Patient to Unit: ROPU Patient Condition: Good See PACS Report for procedural detail/treatment. [facility] Radiology Procedures right Internal Jugular Hemodialysis Catheter Tunneled British: 15 PICC Line Length (cm): 27
--- NOTE | 2018-04-21 12:49 | IR ---
EXAM DATE: 04/21/2018 12:00 AM EDT AGE/SEX: 62 years / Male INDICATIONS: Patient with a history of acute renal failure. CLINICAL DATA: This is the patient's initial encounter. Patient reports that signs and symptoms have been present for 3 days and indicates a pain score of 0/10. MEDICAL/SURGICAL HISTORY: Renal failure, acute. None. COMPARISON: No prior exams available for comparison. FLUORO TIME (min): 0.57 IMAGE SERIES: 1 ACCESS SITE: Right internal jugular vein SEDATION TIME (min): 30 MEDICATION(S): 2mg midazolam (Versed) IV 100mcg fentanyl (Sublimaze) IV DEVICE(S): 27cm PermCath . . PROCEDURE: 1. Ultrasound-guided venipuncture. 2. PermaCath placement. 3. Conscious sedation with continuous EKG and oximetry monitoring. The risks, benefits and alternatives to the procedure were explained and verbal and written consent w as obtained. The site was prepped in sterile fashion. Full sterile technique was used, including ca p, mask, sterile gloves and gown and a large sterile sheet. Hand hygiene and 2% chlorhexidine and/or betadine/alcohol prep was utilized per protocol for cutaneous antisepsis. Sterile gel and sterile p robe cover were utilized for ultrasound guidance. The skin and subcutaneous tissues were infiltrated with local anesthetic solution. With ultrasound and fluoroscopic guidance a dermatotomy was created over the prescribed vein. A micr opuncture set was used to access the targeted vein and serial dilatation was performed to accept the prescribed length catheter. A subcutaneous tunnel was created in a retrograde fashion the catheter w as pulled through the tunnel. The catheter was flushed and assembled and locked with heparin. The c atheter was sutured in place. Conscious sedation was performed with the prescribed dosages and duration as above in the presence of an independent trained radiology nurse to assist in the monitoring of the patient. EKG and oximetry remained stable throughout the procedure. The patient tolerated the procedure well and there were n o complications. The patient was sent to post anesthesia recovery in stable condition. CONCLUSION: 1. Uncomplicated PermaCath placement as above. Electronically signed by: Clinton William MD 04/21/2018 12:48 PM EDT
--- NOTE | 2018-04-21 13:06 | P.PNCA ---
Subjective Interval history: No events overnight Resting comfortably Medications and Allergies Active Medications: Active Medications Acetaminophen (Tylenol) 650 mg PO Q4H PRN PRN Reason: Temp > 100.4 Acetaminophen (Tylenol) 650 mg PO UNSCH PRN PRN Reason: SEE LABEL COMMENTS Al Hydroxide/Mg Hydroxide (Milk Of Nadia Liq) 30 ml PO Q12H PRN PRN Reason: Mild Constipation Bisacodyl (Dulcolax Supp) 10 mg RECTAL DAILY PRN PRN Reason: SEVERE CONSITIPATION Bumetanide (Bumex Inj) 2 mg IV.PUSH BID@0900,1800 [facility] Last Admin: 04/21/18 08:51 Dose: 2 mg Carvedilol (Coreg) 6.25 mg PO BID [facility] Last Admin: 04/21/18 08:51 Dose: 6.25 mg Clonidine HCl (Catapres) 0.1 mg PO UNSCH PRN PRN Reason: SEE LABEL COMMENTS Diphenhydramine HCl (Benadryl) 25 mg PO UNSCH PRN PRN Reason: SEE LABEL COMMENTS Epoetin Morgan (Epogen Inj) 5,000 unit IV.PUSH UNSCH PRN PRN Reason: SEE LABEL COMMENTS Famotidine (Pepcid) 10 mg PO BID [facility] Last Admin: 04/21/18 08:51 Dose: Not Given Gelatin (Gelfoam 12 Mm/7 Mm Topical) 1 foam TOPICAL PRN PRN PRN Reason: help stop bleeding from site Gentamicin Sulfate (Gentamicin Inj) 20 mg OTHER WITH DIALYSIS PRN PRN Reason: Dwell Gentamycin Lock Heparin Sodium (Porcine) (Heparin Inj) 5,000 units SQ Q12H [facility] Last Admin: 04/21/18 11:13 Dose: Not Given Heparin Sodium (Porcine) (Heparin Inj) 8,000 units OTHER WITH DIALYSIS PRN PRN Reason: for machine prime Heparin Sodium (Porcine) (Heparin Inj) 1,000 units OTHER WITH DIALYSIS PRN PRN Reason: Dwell Heparin to Fill Catheter Heparin Sodium (Porcine) (Heparin Central Flush) 0 unit IV.FLUSH DAILY PRN PRN Reason: SEE DOSE INSTRUCTIONS Azithromycin 500 mg/ Sodium (Chloride) 250 mls @ 250 mls/hr IV.SIG Q24H [facility] Last Admin: 04/20/18 22:03 Dose: Not Given Ceftriaxone Sodium 1,000 mg/ (Sodium Chloride) 100 mls @ 200 mls/hr IV.SIG Q24H [facility] Last Admin: 04/20/18 22:03 Dose: Not Given Albumin Human (Flexbumin 25% Inj) 100 mls @ 60 mls/hr IV.SIG WITH DIALYSIS PRN PRN Reason: hypotension / volume replace Sodium Chloride (Ns Inj) 1,000 mls @ 0 mls/hr OTHER .Q0M PRN PRN Reason: for prime and rinse back Sodium Chloride (Ns Inj) 1,000 mls @ 200 mls/hr OTHER .Q5H PRN PRN Reason: for dialyzer flush PRN Sodium Chloride (Ns Inj) 1,000 mls @ 0 mls/hr IV.CONT .Q0M PRN PRN Reason: hypotension / volume replace Cefazolin Sodium 2,000 mg/ (Sodium Chloride) 120 mls @ 240 mls/hr IV.SIG RETURN CHECKER [facility] Stop: 04/21/18 23:00 Last Infusion: 04/21/18 12:43 Dose: Infused Vancomycin HCl 1,000 mg/ (Sodium Chloride) 250 mls @ 250 mls/hr IV.SIG RETURN CHECKER [facility] Stop: 04/25/18 07:59 Last Infusion: 04/21/18 12:42 Dose: Infused Lactulose (Lactulose Liq) 30 ml PO DAILY PRN PRN Reason: SEVERE CONSITIPATION Mannitol (Mannitol Inj) 12.5 gm IV.PUSH UNSCH PRN PRN Reason: hypotension / volume replace Metolazone (Zaroxolyn) 5 mg PO DAILY [facility] Last Admin: 04/21/18 08:51 Dose: 5 mg Nitroglycerin (Nitrostat Sl) 0.4 mg SL Q5M PRN PRN Reason: CHEST PAIN Ondansetron HCl (Zofran Inj) 4 mg IV.PUSH Q6H PRN PRN Reason: NAUSEA OR VOMITING Ondansetron HCl (Zofran Inj) 4 mg IV.PUSH UNSCH PRN PRN Reason: NAUSEA OR VOMITING Senna/Docusate Sodium (Carole-Colace) 1 tab PO BID [facility] Last Admin: 04/21/18 08:48 Dose: Not Given Sennosides (Senokot) 17.2 mg PO Q12H PRN PRN Reason: Moderate Constipation Sevelamer Carbonate (Renvela) 1,600 mg PO TIDAC [facility] Last Admin: 04/21/18 12:04 Dose: Not Given Sodium Chloride (Ns Flush) 5 ml IV.FLUSH PRN PRN PRN Reason: flush each lumen during HD Sodium Chloride (Ns Flush) 0 ml IV.FLUSH PRN PRN PRN Reason: SEE DOSE INSTRUCTIONS Allergies Allergy/AdvReac Type Severity Reaction Status Date / Time No Known Allergies Allergy Verified 04/18/18 16:36 Home Medications Medication Instructions Recorded Confirmed Type No Known Home Medications 04/18/18 04/18/18 History Physical Exam Vital signs: Vital Signs 04/20/18 16:00 04/20/18 20:00 04/21/18 00:00 Temperature 97.2 F L 98.3 F 98.4 F Pulse Rate 89 92 H 89 Respiratory Rate 20 18 18 Blood Pressure 141/96 H 159/98 H 155/104 H Pulse Oximetry 92 L 96 95 04/21/18 04:00 04/21/18 05:30 04/21/18 08:00 Temperature 98.9 F 97.9 F Pulse Rate 84 83 84 Respiratory Rate 18 16 Blood Pressure 140/96 H 146/97 H Pulse Oximetry 95 96 04/21/18 11:57 04/21/18 12:35 04/21/18 12:50 Temperature 97.4 F L 98.8 F Pulse Rate 66 63 61 Respiratory Rate 16 18 18 Blood Pressure 115/78 105/71 112/72 Pulse Oximetry 99 92 L 99 Intake & Output 04/20/18 04/21/18 04/21/18 18:59 06:59 18:59 Intake Total 370 / 370 Balance 370 / 370 Weight 63.8 kg Intake: IV 370 / 370 Vancomycin Inj 1,000 MG In NS 250 / 250 Inj 250 ML @ 250 mls/hr IV.SIG RETURN CHECKER MALIK Rx#:[id number] Ancef Inj 2,000 MG In NS Inj 120 / 120 100 ML @ 240 mls/hr IV.SIG RETURN CHECKER MALIK Rx#:[id number] Other: # Voids 3 Narrative: GENERAL: [] SKIN: Warm and dry. HEAD: Atraumatic. Normocephalic. EYES: Pupils equal and round. No scleral icterus. No injection or drainage. ENT: No nasal bleeding or discharge. Mucous membranes pink and moist. NECK: Trachea midline. No JVD. CARDIOVASCULAR: Regular rate and rhythm. Positive murmur, bilateral lower extremity edema right greater than left RESPIRATORY: No accessory muscle use. Clear to auscultation. Breath sounds equal bilaterally. GASTROINTESTINAL: Abdomen soft, non-tender, nondistended. Hepatic and splenic margins not palpable. MUSCULOSKELETAL: Extremities without clubbing, cyanosis, left lower extremity trace edema in the ankle, right lower extremity edema from below the knee down to the foot 2+ pitting. No obvious deformities. NEUROLOGICAL: Awake and alert. No obvious cranial nerve deficits. Motor grossly within normal limits. Five out of 5 muscle strength in the arms and legs. Normal speech. PSYCHIATRIC: Appropriate mood and affect; insight and judgment normal. Results 04/21/18 05:25 04/21/18 05:25 Cardiac Enzymes 04/20/18 04/20/18 Range/Units 06:49 06:49 Troponin I 0.10 H (0.02-0.05) ng/mL B-Natriuretic Peptide Greater than 5000 H (0-100) pg/mL Coagulation 04/20/18 Range/Units 06:49 B-Natriuretic Peptide Greater than 5000 H (0-100) pg/mL Lipids 04/21/18 Range/Units 05:25 Triglycerides 127 (42-150) mg/dL Cholesterol 140 (120-200) mg/dL HDL Cholesterol 35.6 L (40.0-60.0) mg/dL Cholesterol/HDL Ratio 3.93 Ratio CBC 04/20/18 04/21/18 Range/Units 06:49 05:25 WBC 6.1 6.2 (4.0-11.0) th/mm3 RBC 3.49 L 3.54 L (4.50-5.90) mil/mm3 Hgb 11.1 L 11.4 L (13.0-17.0) gm/dL Hct 34.1 L 34.2 L (39.0-51.0) % Plt Count 236 247 (150-450) th/mm3 Comprehensive Metabolic Panel 04/20/18 04/21/18 Range/Units 06:46 05:25 Sodium 142 142 (136-145) meq/L Potassium 5.0 4.7 (3.5-5.1) meq/L Chloride 115 H 113 H (98-107) meq/L Carbon Dioxide 16.2 L 15.9 L (21.0-32.0) meq/L BUN 87 H 87 H (7-18) mg/dL Creatinine 5.42 H 5.33 H (0.60-1.30) mg/dL Calcium 7.8 L 7.9 L (8.5-10.1) mg/dL Albumin 2.3 L 2.4 L (3.4-5.0) g/dL Intake and Output 04/20/18 04/21/18 04/21/18 22:59 06:59 14:59 Intake Total 370 / 370 Balance 370 / 370 Intake: IV 370 / 370 Vancomycin Inj 1,000 MG In NS 250 / 250 Inj 250 ML @ 250 mls/hr IV.SIG RETURN CHECKER MALIK Rx#:[id number] Ancef Inj 2,000 MG In NS Inj 120 / 120 100 ML @ 240 mls/hr IV.SIG RETURN CHECKER MALIK Rx#:[id number] Other: # Voids 3 Weight 63.8 kg - Imaging and Cardiology Imaging: Impressions Chest X-Ray 04/20/18 00:00 CONCLUSION: Stable appearance of the chest. Venous Doppler Study 04/20/18 00:00 CONCLUSION: 1. Chronic appearing nonocclusive thrombus in the right common femoral vein. 2. Pulsatility in the lower extremity veins likely related to patient's acute heart failure. Central Venous Line 04/21/18 00:00 CONCLUSION: 1. Uncomplicated PermaCath placement as above. Assessment and Plan - Assessment (1) Cardiomyopathy Code(s): I42.9 - Cardiomyopathy, unspecified Status: Acute (2) Acute kidney injury Code(s): N17.9 - Acute kidney failure, unspecified Status: Acute (3) Fluid overload Code(s): E87.70 - Fluid overload, unspecified Status: Acute (4) New onset of congestive heart failure Code(s): I50.9 - Heart failure, unspecified Status: Acute - Plan 1) Acute decompensated systolic heart failure Plan for start of HD 2) New onset cardiomyopathy EF 20% Not a candidate for ischemic evaluation at this time due to significant acute kidney injury Since getting Permacath, will consider stress testing next week Con't on medical management Will place on Coreg for now Unable to place on LEE-I due to MIGUEL ANGEL 3) Acute renal failure Plan for start of HD 4) Remote crack cocaine use
[2018-04-21] MEDS: Albumin Human 25% Inj 100 ML IV.SIG PRN ×2 (14:08→14:09)
--- NOTE | 2018-04-21 14:31 | P.PNNP ---
Subjective Interval history: patient was seen during dialysis. [facility]. UF goal is 3 liters. Tolerating it well. BFR is 200 ml/min. 2 hours. On 3K Physical Exam Vital signs: Vital Signs 04/20/18 16:00 04/20/18 20:00 04/21/18 00:00 Temperature 97.2 F L 98.3 F 98.4 F Pulse Rate 89 92 H 89 Respiratory Rate 20 18 18 Blood Pressure 141/96 H 159/98 H 155/104 H Pulse Oximetry 92 L 96 95 04/21/18 04:00 04/21/18 05:30 04/21/18 08:00 Temperature 98.9 F 97.9 F Pulse Rate 84 83 84 Respiratory Rate 18 16 Blood Pressure 140/96 H 146/97 H Pulse Oximetry 95 96 04/21/18 11:57 04/21/18 12:35 04/21/18 12:50 Temperature 97.4 F L 98.8 F Pulse Rate 66 63 61 Respiratory Rate 16 18 18 Blood Pressure 115/78 105/71 112/72 Pulse Oximetry 99 92 L 99 04/21/18 13:20 Temperature Pulse Rate Respiratory Rate 18 Blood Pressure 117/73 Pulse Oximetry 94 L Intake & Output 04/20/18 04/21/18 04/21/18 18:59 06:59 18:59 Intake Total 570 / 570 Balance 570 / 570 Weight 63.8 kg Intake: IV 570 / 570 Flexbumin 25% Inj 100 ML @ 60 200 / 200 mls/hr IV.SIG WITH DIALYSIS PRN Rx#:[id number] Vancomycin Inj 1,000 MG In NS 250 / 250 Inj 250 ML @ 250 mls/hr IV.SIG STATION INSTALLER MALIK Rx#:[id number] Ancef Inj 2,000 MG In NS Inj 120 / 120 100 ML @ 240 mls/hr IV.SIG STATION INSTALLER MALIK Rx#:[id number] Other: # Voids 3 - Constitutional no acute distress - Routine HEENT Exam Head: Present: normocephalic, atraumatic Eye: Present: EOMI, PERRL ENT: Present: mucous membranes moist - Routine Neck Exam Present: supple, full ROM. Absent: JVD - Routine Respiratory Exam Present: accessory muscle use - Routine Cardiovascular Exam Present: RRR, S1, S2 - Routine Abdominal Exam Present: soft, normoactive bowel sounds - Routine Extremities Exam Present: edema Comments: right lower extremity edema more than left. - Routine Neurological Exam Present: alert, oriented X3, CN II-XII intact Assessment and Plan - Assessment (1) Acute kidney injury Code(s): N17.9 - Acute kidney failure, unspecified Status: Acute Plan: Duration of kidney disease/failure is unclear. He may have reached ESRD. He may have cardiorenal syndrome. Hepatitis and HIV negative. Other serologies are pending. He does have anemia, hypocalcemia. I will order serologies. Quantify proteinuria. Started on dialysis today. He has severe metabolic acidosis. Dialysis as ordered today, dialysis again tomorrow. Unclear if he has reached ESRD Started Renvela for hyperphosphatemia. (2) Fluid overload Code(s): E87.70 - Fluid overload, unspecified Status: Acute Plan: severe systolic heart failure, in addition in renal failure. May need ischemic workup as per Cardiology. Stress test may be planned Dialysis initiated. (3) Acute on chronic systolic congestive heart failure Code(s): I50.23 - Acute on chronic systolic (congestive) heart failure Status : Acute Plan: Seen by cardiology. Echo report reviewed. Notes reviewed.
[2018-04-21] MEDS: Heparin 10,000 UNITS/10 ML Vial (for IV use) OTHER PRN (15:56)
--- NOTE | 2018-04-21 17:43 | ECG ---
Date Performed: 04/20/2018 Time Performed: 16:28:37 PTAGE: 62 years EKG: Sinus rhythm POSSIBLE LEFT ATRIAL ENLARGEMENT INFERIOR MYOCARDIAL INFARCTION , PROBABLY OLD Compared to previous tracing, there is slight improvement in the T wave changes anterolaterally, otherwise no significant change ABNORMAL ECG PREVIOUS TRACING : 04/19/2018 05.30 DOCTOR: Bernardo Mendez Interpretating Date/Time 04/21/2018 17:42:38
[2018-04-21] MEDS: Azithromycin Inj 500 MG in Sodium Chlor 0.9% Inj 250 ML IV.SIG SCH (22:11)
[2018-04-22] MEDS: Famotidine 20 MG Tablet PO SCH ×2 (08:13→20:34)
[2018-04-22] MEDS: Carvedilol 6.25 MG Tablet PO SCH ×4 (08:13→20:34)
[2018-04-22] MEDS: metOLazone 5 MG Tablet PO SCH (08:13)
[2018-04-22] MEDS: Senna/Docusate Sodium 8.6/50 MG Tablet PO SCH ×2 (08:14→20:35)
--- NOTE | 2018-04-22 10:13 | P.PNNP ---
Subjective Interval history: Seen on HD, tolerating HD well Physical Exam Vital signs: Vital Signs 04/21/18 11:57 04/21/18 12:35 04/21/18 12:50 Temperature 97.4 F L 98.8 F Pulse Rate 66 63 61 Respiratory Rate 16 18 18 Blood Pressure 115/78 105/71 112/72 Pulse Oximetry 99 92 L 99 04/21/18 13:20 04/21/18 17:21 04/21/18 20:00 Temperature 98.0 F Pulse Rate 69 Respiratory Rate 18 18 Blood Pressure 117/73 150/86 H Pulse Oximetry 94 L 94 L 96 04/22/18 00:00 04/22/18 04:00 04/22/18 08:00 Temperature 97.6 F 97.7 F 97.9 F Pulse Rate 69 70 65 Respiratory Rate 18 18 18 Blood Pressure 108/71 97/57 L 112/72 Pulse Oximetry 97 98 94 L Intake & Output 04/21/18 04/22/18 04/22/18 18:59 06:59 18:59 Intake Total 570 / 570 Output Total 3500 / 3500 Balance -2930 / -2930 Weight 61.5 kg Intake: IV 570 / 570 Flexbumin 25% Inj 100 ML @ 60 200 / 200 mls/hr IV.SIG WITH DIALYSIS PRN Rx#:[id number] Vancomycin Inj 1,000 MG In NS 250 / 250 Inj 250 ML @ 250 mls/hr IV.SIG [facility] Rx#:[id number] Ancef Inj 2,000 MG In NS Inj 120 / 120 100 ML @ 240 mls/hr IV.SIG [employer] Rx#:[id number] Oral 0 / 0 Output: Hemodialysis Amount 3500 / 3500 Other: # Voids 2 3 Date of Last Bowel Movement 04/20/18 04/22/18 # Bowel Movements 0 1 - Constitutional no acute distress - Routine HEENT Exam Head: Present: normocephalic Eye: Present: EOMI ENT: Present: mucous membranes moist - Routine Neck Exam Present: supple - Routine Respiratory Exam Present: CTA bilaterally - Routine Cardiovascular Exam Present: RRR - Routine Abdominal Exam Present: soft - Routine Skin Exam Present: intact - Routine Neurological Exam Present: alert, oriented X3 - Detailed Neurological Exam: Coma Scale Eye Opening: Spontaneous - Routine Psychiatric Exam Present: normal affect Assessment and Plan - Assessment (1) Acute kidney injury Code(s): N17.9 - Acute kidney failure, unspecified Status: Acute Plan: Duration of kidney disease/failure is unclear. He may have reached ESRD. He may have cardiorenal syndrome. Hepatitis and HIV negative. Other serologies are pending. He does have anemia, hypocalcemia. SPEP, UPEP, ABBY, Hepatitis panel negative. C3/C4 pending No significant proteinuria (100 protein on U/A) Started on dialysis Tuesday with severe metabolic acidosis. Seen on HD today, tolerating HD well. Plan next HD Tuesday. Dialysis as ordered today, dialysis again tomorrow. Unclear if he has reached ESRD Started Renvela for hyperphosphatemia. (2) Fluid overload Code(s): E87.70 - Fluid overload, unspecified Status: Acute Plan: Tolerating HD well, feeling better today. Continue UF as tolerated. Possible stress test this week, follow with Cardiology (3) Acute on chronic systolic congestive heart failure Code(s): I50.23 - Acute on chronic systolic (congestive) heart failure Status : Acute Plan: Seen by cardiology. Echo report reviewed. Notes reviewed.
[2018-04-22] MEDS: Heparin 10,000 UNITS/10 ML Vial (for IV use) OTHER PRN (10:43)
[2018-04-22] MEDS: Heparin - SQ 10,000 UNITS/ML Vial SQ SCH ×2 (11:56→23:26)
--- NOTE | 2018-04-22 15:07 | P.PNIM ---
Subjective Interval history: Follow-up shortness of breath, lower extremity edema, cardiomyopathy, CHF, MIGUEL ANGEL in ESRD. Patient seen and examined laying in bed, nurse in the room, patient just came back from hemodialysis. Patient complained he was hungry and is eating his breakfast at noon time. Patient states that he is better with the shortness of breath, none right now as he is sitting in the bed, but once he get up and move around stated had more shortness of breath. Patient denies any headache or dizziness, denies any pain, chest pain. Patient denies abdominal pain, nausea, vomiting, diarrhea, or constipation. Patient denies any fever or chills. Patient states that his edema is a lot better. Physical Exam Vital signs: Vital Signs 04/21/18 17:21 04/21/18 20:00 04/22/18 00:00 Temperature 98.0 F 97.6 F Pulse Rate 69 69 Respiratory Rate 18 18 Blood Pressure 150/86 H 108/71 Pulse Oximetry 94 L 96 97 04/22/18 04:00 04/22/18 08:00 04/22/18 12:00 Temperature 97.7 F 97.9 F 98 F Pulse Rate 70 65 69 Respiratory Rate 18 18 20 Blood Pressure 97/57 L 112/72 118/66 Pulse Oximetry 98 94 L 97 04/22/18 14:20 Temperature Pulse Rate Respiratory Rate Blood Pressure Pulse Oximetry 97 Intake & Output 04/21/18 04/22/18 04/22/18 18:59 06:59 18:59 Intake Total 570 / 570 1000 / 1000 Output Total 3500 / 3500 3250 / 3250 Balance -2930 / -2930 -2250 / -2250 Weight 61.5 kg Intake: IV 570 / 570 1000 / 1000 Flexbumin 25% Inj 100 ML @ 60 200 / 200 mls/hr IV.SIG WITH DIALYSIS PRN Rx#:[id number] Vancomycin Inj 1,000 MG In NS 250 / 250 Inj 250 ML @ 250 mls/hr IV.SIG [facility] Rx#:[id number] Ancef Inj 2,000 MG In NS Inj 120 / 120 100 ML @ 240 mls/hr IV.SIG [facility] [employer] Rx#:[id number] NS Inj 1,000 ML @ As Directed 1000 / 1000 OTHER .Q0M PRN Rx#:[id number] Oral 0 / 0 Output: Urine 250 / 250 Hemodialysis Amount 3500 / 3500 3000 / 3000 Other: # Voids 2 3 Date of Last Bowel Movement 04/20/18 04/22/18 # Bowel Movements 0 1 Narrative: GENERAL: Well-developed, thin appearing, descent male, in no apparent distress SKIN: Warm and dry. HEAD: Atraumatic. Normocephalic. EYES: Pupils equal and round. No scleral icterus. No injection or drainage. ENT: No nasal bleeding or discharge. Mucous membranes pink and moist. NECK: Trachea midline. No JVD. CARDIOVASCULAR: Regular rate and rhythm. Positive murmur, bilateral lower extremity edema right greater than left RESPIRATORY: No accessory muscle use. Clear to auscultation. Breath sounds equal bilaterally. GASTROINTESTINAL: Abdomen soft, non-tender, nondistended. Hepatic and splenic margins not palpable. MUSCULOSKELETAL: Extremities without clubbing, cyanosis, left lower extremity trace edema in the ankle, right lower extremity edema from below the knee down to the foot 2+ pitting. No obvious deformities. NEUROLOGICAL: Awake and alert and oriented x3. No obvious cranial nerve deficits. Motor grossly within normal limits. Generalized weakness, moving all 4 extremities. Normal speech. PSYCHIATRIC: Appropriate mood and affect; insight and judgment normal. Results - Labs CBC & Chem 7: 04/21/18 05:25 04/21/18 05:25 Laboratory Results - last 24 hr 04/19/18 17:00 Urine Immunofixation Assessment and Plan - Assessment (1) New onset of congestive heart failure Code(s): I50.9 - Heart failure, unspecified Status: Acute (2) Pneumonia Code(s): J18.9 - Pneumonia, unspecified organism Status: Acute (3) Acute kidney injury Code(s): N17.9 - Acute kidney failure, unspecified Status: Acute (4) Fluid overload Code(s): E87.70 - Fluid overload, unspecified Status: Acute - Plan This is a 62-year-old homeless male with no past medical history presents to the emergency department for evaluation of lower extremity edema times 10 days with intermittent shortness of breath that is worse with exertion. Possible Pneumonia, acute/Fluid Overload -Chest x-ray significant for increased density at the bases, right greater than left concerning for consolidation with a mild right pleural effusion - s/p IV antbx: Rocephin and azithromycin -no fever or chills, WBC unremarkable New onset cardiomyopathy, acute/ Fluid Overload/bilateral lower extremity edema Acute decompensated systolic heart failure -LVEF 20% on echo -BNP greater than 5000, recheck BNP -2D Echo : Mildly dilated left ventricle. Mild concentric left ventricular hypertrophy. Left ventricular systolic function is severely reduced with an estimated ejection fraction of 20%. Right atrial size is moderately dilated. Moderate mitral valve regurgitation. Moderate to severe tricuspid valve regurgitation. Estimated [id number] pulmonary hypertension present (range 60-70 mmHg). Mild pulmonary valve regurgitation. A large right sided pleural effusion is present. -Cardiology consulted, appreciate recommendations: continue on Diuretics, further workup needed when Kidney function improved -continue Bumex, added metolazone -Continue Coreg -monitor BMP, BNP, Trop Right lower extremity edema -Bilateral lower extremity edema improving, left lower extremity trace edema, right lower extremity 2+ edema. -Right lateral anterior foot wound, likely related to extreme edema previously, patient stated was blister before notes better, wound care consulted for treatment. -Ultrasound of right lower extremity: Chronic appearing nonocclusive thrombus in the right common femoral vein. Pulsatility in the lower extremity veins likely related to patient's acute heart failure Acute renal failure, unknown CKD/ ESRD/ Severe metabolic acidosis, acute -BUN/creatinine 80/5.18 on admission, no baseline for comparison, today 87/5.33 -Renal ultrasound: Echogenic kidneys with ascites and moderate right pleural effusion -Potassium 5.0, not on any potassium replacement -Serology/hepatitis profile: Nonreactive and HIV testing: Nonreactive -Immunology pending -Nephrology consulted, appreciate recommendations: continue diuretics, hemodialysis started yesterday 04/21 after the AV fistula placement patient also had hemodialysis today -monitor renal function Elevated troponin Troponin 0.12, 0.11,0.10 Likely secondary to acute renal failure/ CHF -EKG without signs of ischemia, cardiology consulted: recommended further workup after kidney function improved -denies any chest pain Hypertension Elevated blood pressure on admission, improving Likely related to MIGUEL ANGEL/CHF -Continue Bumex, metolazone and Coreg -Monitor blood pressure and BMP History of cocaine use Patient admitted for short-term use, 6 months ago and have not had any since then Negative for toxicology DVT Proph: Heparin Code Status: Full code Discussed Condition With: Patient and nurse Discharge Planning: D/C plan when medically stable, expected days 2-3 days or more, might need Dialysis per nephrology and when cleared with nephro and lang path therapist
[2018-04-22 16:09] LABS: Baso # (Auto) 0.1 th/mm3 (0.0-0.2); Baso % (Auto) 1.4 % (0.0-2.0); Eos # (Auto) 0.1 th/mm3 (0.0-0.4); Eos % (Auto) 2.7 % (0.0-4.0); Hematocrit 31.9 % (39.0-51.0); Hemoglobin 10.8 gm/dL (13.0-17.0); Lymph # (Auto) 0.9 th/mm3 (1.0-4.8); Lymph % (Auto) 15.9 % (9.0-44.0); Mean Corpuscular Hemoglobin 32.6 pg (27.0-34.0); Mean Corpuscular Volume 95.9 fL (80.0-100.0); Mean Platelet Volume 9.1 fL (7.0-11.0); Mono # (Auto) 0.5 th/mm3 (0.0-0.9); Mono % (Auto) 8.2 % (0.0-8.0); Neut % (Auto) 71.8 % (16.0-70.0); Platelet Count 194 th/mm3 (150-450); Red Blood Count 3.33 mil/mm3 (4.50-5.90); Red Cell Distribution Width 15.4 % (11.6-17.2); White Blood Count 5.5 th/mm3 (4.0-11.0)
[2018-04-22 16:34] LABS: Calcium 7.8 mg/dL (8.5-10.1); Carbon Dioxide 28.5 meq/L (21.0-32.0); Potassium 3.5 meq/L (3.5-5.1)
[2018-04-22] MEDS: Azithromycin Inj 500 MG in Sodium Chlor 0.9% Inj 250 ML IV.SIG SCH (20:34)
[2018-04-23] MEDS: metOLazone 5 MG Tablet PO SCH (08:06)
[2018-04-23] MEDS: Famotidine 20 MG Tablet PO SCH ×2 (08:07→21:19)
[2018-04-23] MEDS: Senna/Docusate Sodium 8.6/50 MG Tablet PO SCH ×2 (08:07→21:19)
[2018-04-23] MEDS: Carvedilol 6.25 MG Tablet PO SCH ×2 (08:07→21:19)
--- NOTE | 2018-04-23 10:29 | P.PNIM ---
Subjective Interval history: Follow-up shortness of breath, lower extremity edema, acute fluid overload new onset cardiomyopathy, CHF, MIGUEL ANGEL in ESRD. Patient seen and examined, sitting in the bed, awake alert and oriented x3 stated feeling better. Patient stated his shortness of breath is a lot better than the first time he came here. He also stated that the edema is a lot better and his right edema is almost like his left leg now. Is been going to the bathroom a lot he stated. Discussed dialysis and improvement in his kidney function. Patient denies any headache or dizziness, denies any pain, chest pain or shortness of breath, denies any abdominal pain, nausea, vomiting, diarrhea or constipation. Patient denies any fever or chills. Physical Exam Vital signs: Vital Signs 04/22/18 12:00 04/22/18 14:20 04/22/18 16:00 Temperature 98 F 98.1 F Pulse Rate 69 68 Respiratory Rate 20 18 Blood Pressure 118/66 120/77 Pulse Oximetry 97 97 93 L 04/22/18 20:00 04/23/18 00:00 04/23/18 04:00 Temperature 97.9 F 98.2 F 97.9 F Pulse Rate 68 71 66 Respiratory Rate 18 18 18 Blood Pressure 120/66 138/85 110/56 L Pulse Oximetry 96 95 95 04/23/18 07:46 04/23/18 07:58 04/23/18 08:00 Temperature 97.7 F Pulse Rate 70 Respiratory Rate 18 18 Blood Pressure 127/74 Pulse Oximetry 97 97 04/23/18 08:15 Temperature Pulse Rate Respiratory Rate Blood Pressure Pulse Oximetry 97 Intake & Output 04/22/18 04/23/18 04/23/18 18:59 06:59 18:59 Intake Total 1500 / 1500 100 / 100 Output Total 3250 / 3250 Balance -1750 / -1750 100 / 100 Weight 61.5 kg Intake: IV 1000 / 1000 100 / 100 Rocephin Inj 1,000 MG In NS Inj 100 / 100 100 ML @ 200 mls/hr IV.SIG Q24H [facility] Rx#:[id number] NS Inj 1,000 ML @ As Directed 1000 / 1000 OTHER .Q0M PRN Rx#:[id number] Oral 500 / 500 Output: Urine 250 / 250 Hemodialysis Amount 3000 / 3000 Other: # Voids 4 2 Date of Last Bowel Movement 04/22/18 04/21/18 # Bowel Movements 1 Narrative: GENERAL: Well-developed, thin appearing, descent male, in no apparent distress SKIN: Warm and dry. HEAD: Atraumatic. Normocephalic. EYES: Pupils equal and round. No scleral icterus. No injection or drainage. ENT: No nasal bleeding or discharge. Mucous membranes pink and moist. NECK: Trachea midline. No JVD. CARDIOVASCULAR: Regular rate and rhythm. Positive murmur, improving bilateral lower extremity edema right greater than left RESPIRATORY: No accessory muscle use. Clear to auscultation. Breath sounds equal bilaterally. GASTROINTESTINAL: Abdomen soft, non-tender, nondistended. Hepatic and splenic margins not palpable. MUSCULOSKELETAL: Extremities without clubbing, cyanosis, left lower extremity trace edema in the ankle, right lower extremity edema from below the knee down to the foot improving 1+ pitting. No obvious deformities. NEUROLOGICAL: Awake and alert and oriented x3. No obvious cranial nerve deficits. Motor grossly within normal limits. Generalized weakness, moving all 4 extremities. Normal speech. PSYCHIATRIC: Appropriate mood and affect; insight and judgment normal Results - Labs CBC & Chem 7: 04/23/18 10:35 04/23/18 10:35 Laboratory Results - last 24 hr 04/22/18 04/22/18 15:49 15:49 WBC 5.5 RBC 3.33 L Hgb 10.8 L Hct 31.9 L MCV 95.9 MCH 32.6 MCHC 34.0 RDW 15.4 Plt Count 194 MPV 9.1 Neut % (Auto) 71.8 H Lymph % (Auto) 15.9 Mineral % (Auto) 8.2 H Eos % (Auto) 2.7 Baso % (Auto) 1.4 Neut # (Auto) 4.0 Lymph # (Auto) 0.9 L Mineral # (Auto) 0.5 Eos # (Auto) 0.1 Baso # (Auto) 0.1 WBC Differential . Differential Comment Auto diff final Sodium 141 Potassium 3.5 D Chloride 105 D Carbon Dioxide 28.5 D Anion Gap 8 BUN 39 H Creatinine 3.03 H Estimated GFR 21 L Random Glucose 108 H Calcium 7.8 L Assessment and Plan - Assessment (1) New onset of congestive heart failure Code(s): I50.9 - Heart failure, unspecified Status: Acute (2) Pneumonia Code(s): J18.9 - Pneumonia, unspecified organism Status: Acute (3) Acute kidney injury Code(s): N17.9 - Acute kidney failure, unspecified Status: Acute (4) Fluid overload Code(s): E87.70 - Fluid overload, unspecified Status: Acute - Plan This is a 62-year-old homeless male with no past medical history presents to the emergency department for evaluation of lower extremity edema times 10 days with intermittent shortness of breath that is worse with exertion. New onset cardiomyopathy, acute/ Fluid Overload/bilateral lower extremity edema Acute decompensated systolic heart failure -LVEF 20% on echo 04/19/18 -BNP greater than 5000, recheck BNP -2D Echo : Mildly dilated left ventricle. Mild concentric left ventricular hypertrophy. Left ventricular systolic function is severely reduced with an estimated ejection fraction of 20%. Right atrial size is moderately dilated. Moderate mitral valve regurgitation. Moderate to severe tricuspid valve regurgitation. Estimated fpahtewi-iy-mnevcz pulmonary hypertension present (range 60-70 mmHg). Mild pulmonary valve regurgitation. A large right sided pleural effusion is present. -Cardiology consulted, appreciate recommendations: continue on Diuretics, further workup needed when Kidney function improved -continue Bumex, added metolazone -Continue Coreg -monitor BMP, BNP, Trop Right lower extremity edema -Bilateral lower extremity edema improving, left lower extremity trace edema, right lower extremity edema improving from 2+ now it is 1+ pitting -Right lateral anterior foot wound, likely related to extreme edema previously, patient stated was blister before notes better, wound care consulted for treatment. -Ultrasound of right lower extremity: Chronic appearing nonocclusive thrombus in the right common femoral vein. Pulsatility in the lower extremity veins likely related to patient's acute heart failure Acute renal failure, unknown CKD/ ESRD/ Severe metabolic acidosis, acute -BUN/creatinine 80/5.18 on admission, no baseline for comparison improving after dialysis, 39/3.53 -Renal ultrasound: Echogenic kidneys with ascites and moderate right pleural effusion -Potassium 3.5, not on any potassium replacement -Serology/hepatitis profile: Nonreactive and HIV testing: Nonreactive -Immunology pending -Nephrology consulted, appreciate recommendations: continue diuretics, Hemodialysis. AV fistula placement on 04/21/2018 -Hemodialysis last Tuesday, and Tuesday. And scheduled for Tuesday- Tuesday- Tuesday -monitor renal function, CMP, CBC -continue Renvela, monitor phosphorus levels Possible Pneumonia, acute/Fluid Overload -Chest x-ray significant for increased density at the bases, right greater than left concerning for consolidation with a mild right pleural effusion -Continue IV antbx: Rocephin and azithromycin for at least 5 days and symptoms resolved -no fever or chills, WBC unremarkable -repeat C-Xray Elevated troponin Troponin 0.12, 0.11,0.10 Likely secondary to acute renal failure/ CHF -EKG without signs of ischemia, cardiology consulted: recommended further workup after kidney function improved -denies any chest pain Hypertension Elevated blood pressure on admission, improving Likely related to MIGUEL ANGEL/CHF -Continue Bumex, metolazone and Coreg -Monitor blood pressure and BMP Anemia, likely acute on chronic Likely related to ESRD -patient receiving epoetin during dialysis -Monitor CBC History of cocaine use Patient admitted short-term use, 6 months ago and have not had any since then -Negative for toxicology -Counseling/education given DVT Proph: Heparin Code Status: Full code Discussed Condition With: Patient, nurse Discharge Planning: D/C plan when medically stable, on hemodialysis, when cleared with nephro and cardiology
[2018-04-23 11:20] LABS: Hematocrit 30.9 % (39.0-51.0); Hemoglobin 10.4 gm/dL (13.0-17.0); Mean Corpuscular HGB Conc 33.7 % (32.0-36.0); Mean Corpuscular Hemoglobin 32.7 pg (27.0-34.0); Mean Platelet Volume 9.1 fL (7.0-11.0); Platelet Count 189 th/mm3 (150-450); Red Blood Count 3.19 mil/mm3 (4.50-5.90); Red Cell Distribution Width 15.4 % (11.6-17.2); White Blood Count 5.1 th/mm3 (4.0-11.0)
[2018-04-23 11:42] LABS: Alanine Aminotransferase 24 U/L (12-78); Albumin 2.5 g/dL (3.4-5.0); Anion Gap 7 meq/L (5-15); Aspartate Aminotransferase 34 U/L (15-37); Blood Urea Nitrogen 39 mg/dL (7-18); Calcium 7.9 mg/dL (8.5-10.1); Carbon Dioxide 30.5 meq/L (21.0-32.0); Chloride 104 meq/L (98-107); Glomerular Filtration Rate 18 mL/min (>89); Glucose,Random 97 mg/dL (74-106); Potassium 3.5 meq/L (3.5-5.1); Sodium 141 meq/L (136-145)
[2018-04-23 11:44] LABS: Alkaline Phosphatase 102 U/L (45-117); Total Protein 5.8 g/dL (6.4-8.2)
[2018-04-23] MEDS: Heparin - SQ 10,000 UNITS/ML Vial SQ SCH (12:13)
--- NOTE | 2018-04-23 14:07 | P.PNNP ---
Subjective Interval history: no acute complaints, feeling better today Physical Exam Vital signs: Vital Signs 04/22/18 14:20 04/22/18 16:00 04/22/18 20:00 Temperature 98.1 F 97.9 F Pulse Rate 68 68 Respiratory Rate 18 18 Blood Pressure 120/77 120/66 Pulse Oximetry 97 93 L 96 04/23/18 00:00 04/23/18 04:00 04/23/18 07:46 Temperature 98.2 F 97.9 F Pulse Rate 71 66 Respiratory Rate 18 18 18 Blood Pressure 138/85 110/56 L Pulse Oximetry 95 95 04/23/18 07:58 04/23/18 08:00 04/23/18 08:15 Temperature 97.7 F Pulse Rate 74 Respiratory Rate 18 Blood Pressure 127/74 Pulse Oximetry 97 97 97 04/23/18 12:00 Temperature 97.7 F Pulse Rate 64 Respiratory Rate 18 Blood Pressure 111/73 Pulse Oximetry 95 Intake & Output 04/22/18 04/23/18 04/23/18 18:59 06:59 18:59 Intake Total 1500 / 1500 100 / 100 240 / 240 Output Total 3250 / 3250 Balance -1750 / -1750 100 / 100 240 / 240 Weight 61.5 kg Intake: IV 1000 / 1000 100 / 100 Rocephin Inj 1,000 MG In NS Inj 100 / 100 100 ML @ 200 mls/hr IV.SIG Q24H [facility] Rx#:[id number] NS Inj 1,000 ML @ As Directed 1000 / 1000 OTHER .Q0M PRN Rx#:[id number] Oral 500 / 500 240 / 240 Output: Urine 250 / 250 Hemodialysis Amount 3000 / 3000 Other: # Voids 4 1 Date of Last Bowel Movement 04/22/18 04/21/18 # Bowel Movements 1 - Constitutional no acute distress - Routine HEENT Exam Head: Present: normocephalic Eye: Present: EOMI ENT: Present: mucous membranes moist - Routine Neck Exam Present: supple - Routine Respiratory Exam Present: CTA bilaterally - Routine Cardiovascular Exam Present: RRR - Routine Abdominal Exam Present: soft - Routine Skin Exam Present: intact - Routine Neurological Exam Present: alert, oriented X3 - Routine Psychiatric Exam Present: normal affect Assessment and Plan - Assessment (1) Acute kidney injury Code(s): N17.9 - Acute kidney failure, unspecified Status: Acute Plan: Duration of kidney disease/failure is unclear. He may have reached ESRD. He may have cardiorenal syndrome. Hepatitis and HIV negative. Other serologies are pending. He does have anemia, hypocalcemia. SPEP, UPEP, ABBY, Hepatitis panel negative. C3/C4 pending No significant proteinuria (100 protein on U/A) Started on dialysis Tuesday with severe metabolic acidosis. HD done yesterday with 3L UF. Continue to monitor Unclear if he has reached ESRD Started Renvela for hyperphosphatemia. (2) Fluid overload Code(s): E87.70 - Fluid overload, unspecified Status: Acute Plan: Tolerating HD well, feeling better today. Continue UF as tolerated. Possible stress test this week, follow with Cardiology (3) Acute on chronic systolic congestive heart failure Code(s): I50.23 - Acute on chronic systolic (congestive) heart failure Status : Acute Plan: Seen by cardiology. Echo report reviewed. Notes reviewed.
[2018-04-23] MEDS: Azithromycin Inj 500 MG in Sodium Chlor 0.9% Inj 250 ML IV.SIG SCH (21:19)
[2018-04-24] MEDS: Heparin - SQ 10,000 UNITS/ML Vial SQ SCH ×3 (03:22→23:03)
[2018-04-24] MEDS: Famotidine 20 MG Tablet PO SCH ×2 (08:05→23:02)
[2018-04-24] MEDS: metOLazone 5 MG Tablet PO SCH (08:05)
[2018-04-24] MEDS: Carvedilol 6.25 MG Tablet PO SCH ×2 (08:51→22:00)
[2018-04-24] MEDS: Senna/Docusate Sodium 8.6/50 MG Tablet PO SCH ×2 (08:52→21:48)
--- NOTE | 2018-04-24 09:23 | P.PNNP ---
Subjective Interval history: All the notes were reviewed. Urine output is marginal. Serologies negative so far. It is unclear if he has reached ESRD. Physical Exam Vital signs: Vital Signs 04/23/18 12:00 04/23/18 14:17 04/23/18 16:00 Temperature 97.7 F 97.8 F Pulse Rate 64 66 65 Respiratory Rate 18 18 Blood Pressure 111/73 131/77 Pulse Oximetry 95 96 04/23/18 20:00 04/24/18 00:00 04/24/18 04:00 Temperature 97.7 F 97.4 F L 98.1 F Pulse Rate 69 67 68 Respiratory Rate 16 18 18 Blood Pressure 119/62 115/64 130/87 Pulse Oximetry 97 95 94 L 04/24/18 07:27 04/24/18 08:00 Temperature 98.1 F Pulse Rate 67 Respiratory Rate 16 20 Blood Pressure 139/95 H Pulse Oximetry 95 Intake & Output 04/23/18 04/24/18 04/24/18 18:59 06:59 18:59 Intake Total 840 / 840 350 / 350 Output Total 500 / 500 Balance 340 / 340 350 / 350 Weight 61.5 kg Intake: IV 350 / 350 Azithromycin Inj 500 MG In NS 250 / 250 Inj 250 ML @ 250 mls/hr IV.SIG Q24H [facility] Rx#:[id number] Rocephin Inj 1,000 MG In NS Inj 100 / 100 100 ML @ 200 mls/hr IV.SIG Q24H [facility] Rx#:[id number] Oral 840 / 840 Output: Urine 500 / 500 Other: # Voids 1 Date of Last Bowel Movement 04/23/18 04/24/18 # Bowel Movements 1 1 Narrative: GENERAL: not in distress. SKIN: Warm and dry. HEAD: Atraumatic. Normocephalic. EYES: Pupils equal and round. No scleral icterus. No injection or drainage. ENT: No nasal bleeding or discharge. Mucous membranes pink and moist. NECK: Trachea midline. No JVD. CARDIOVASCULAR: Regular rate and rhythm. Positive murmur, improving bilateral lower extremity edema right greater than left RESPIRATORY: No accessory muscle use. Clear to auscultation. Breath sounds equal bilaterally. GASTROINTESTINAL: Abdomen soft, non-tender, nondistended. Hepatic and splenic margins not palpable. MUSCULOSKELETAL: asymmetrical edema. NEUROLOGICAL: No focal deficits. Assessment and Plan - Assessment (1) Acute kidney injury Code(s): N17.9 - Acute kidney failure, unspecified Status: Acute Plan: Duration of kidney disease/failure is unclear. He may have reached ESRD. He may have cardiorenal syndrome. Hepatitis and HIV negative. Other serologies are pending. He does have anemia, hypocalcemia. SPEP, UPEP, ABBY, Hepatitis panel negative. No significant proteinuria (100 protein on U/A) Started on dialysis Tuesday with severe metabolic acidosis. HD done yesterday with 3L UF. Continue to monitor Unclear if he has reached ESRD Started Renvela for hyperphosphatemia. (2) Fluid overload Code(s): E87.70 - Fluid overload, unspecified Status: Acute Plan: Tolerating HD well, feeling better today. Continue UF as tolerated. Possible stress test this week, follow with Cardiology (3) Acute on chronic systolic congestive heart failure Code(s): I50.23 - Acute on chronic systolic (congestive) heart failure Status : Acute Plan: Seen by cardiology. Echo report reviewed. Notes reviewed.
[2018-04-24 09:42] LABS: Hematocrit 32.3 % (39.0-51.0); Hemoglobin 10.7 gm/dL (13.0-17.0); Mean Corpuscular HGB Conc 33.1 % (32.0-36.0); Mean Corpuscular Hemoglobin 32.1 pg (27.0-34.0); Mean Corpuscular Volume 97.1 fL (80.0-100.0); Mean Platelet Volume 9.4 fL (7.0-11.0); Platelet Count 197 th/mm3 (150-450); Red Blood Count 3.32 mil/mm3 (4.50-5.90); Red Cell Distribution Width 15.1 % (11.6-17.2); White Blood Count 6.1 th/mm3 (4.0-11.0)
[2018-04-24 10:05] LABS: Albumin 2.7 g/dL (3.4-5.0); Anion Gap 8 meq/L (5-15); Aspartate Aminotransferase 36 U/L (15-37); Blood Urea Nitrogen 44 mg/dL (7-18); Calcium 8.2 mg/dL (8.5-10.1); Carbon Dioxide 29.6 meq/L (21.0-32.0); Chloride 100 meq/L (98-107); Glomerular Filtration Rate 15 mL/min (>89); Glucose,Random 88 mg/dL (74-106); Potassium 3.8 meq/L (3.5-5.1); Sodium 138 meq/L (136-145)
[2018-04-24 10:13] LABS: Alanine Aminotransferase 23 U/L (12-78); Alkaline Phosphatase 108 U/L (45-117); Total Protein 6.3 g/dL (6.4-8.2)
--- NOTE | 2018-04-24 12:27 | P.PNCA ---
Subjective Interval history: No events over the weekend Did have an episode of wide complex tachycardia, asymptomatic Medications and Allergies Active Medications: Active Medications Acetaminophen (Tylenol) 650 mg PO Q4H PRN PRN Reason: Temp > 100.4 Acetaminophen (Tylenol) 650 mg PO UNSCH PRN PRN Reason: SEE LABEL COMMENTS Al Hydroxide/Mg Hydroxide (Milk Of Nadia Liq) 30 ml PO Q12H PRN PRN Reason: Mild Constipation Bisacodyl (Dulcolax Supp) 10 mg RECTAL DAILY PRN PRN Reason: SEVERE CONSITIPATION Bumetanide (Bumex Inj) 2 mg IV.PUSH BID@0900,1800 [facility] Last Admin: 04/24/18 08:05 Dose: 2 mg Carvedilol (Coreg) 6.25 mg PO BID [facility] Last Admin: 04/24/18 08:51 Dose: 6.25 mg Clonidine HCl (Catapres) 0.1 mg PO UNSCH PRN PRN Reason: SEE LABEL COMMENTS Diphenhydramine HCl (Benadryl) 25 mg PO UNSCH PRN PRN Reason: SEE LABEL COMMENTS Epoetin Morgan (Epogen Inj) 5,000 unit IV.PUSH UNSCH PRN PRN Reason: SEE LABEL COMMENTS Last Admin: 04/22/18 10:41 Dose: 5,000 unit Famotidine (Pepcid) 10 mg PO BID [facility] Last Admin: 04/24/18 08:05 Dose: 10 mg Gelatin (Gelfoam 12 Mm/7 Mm Topical) 1 foam TOPICAL PRN PRN PRN Reason: help stop bleeding from site Gentamicin Sulfate (Gentamicin Inj) 20 mg OTHER WITH DIALYSIS PRN PRN Reason: Dwell Gentamycin Lock Last Admin: 04/22/18 10:42 Dose: 20 mg Heparin Sodium (Porcine) (Heparin Inj) 5,000 units SQ Q12H [facility] Last Admin: 04/24/18 03:22 Dose: Not Given Heparin Sodium (Porcine) (Heparin Inj) 8,000 units OTHER WITH DIALYSIS PRN PRN Reason: for machine prime Heparin Sodium (Porcine) (Heparin Inj) 1,000 units OTHER WITH DIALYSIS PRN PRN Reason: Dwell Heparin to Fill Catheter Last Admin: 04/22/18 10:43 Dose: 1,000 units Heparin Sodium (Porcine) (Heparin Inj) 0 units IV.FLUSH WITH DIALYSIS PRN PRN Reason: SEE DOSE INSTRUCTIONS Azithromycin 500 mg/ Sodium (Chloride) 250 mls @ 250 mls/hr IV.SIG Q24H [facility] Last Infusion: 04/24/18 04:43 Dose: Infused Ceftriaxone Sodium 1,000 mg/ (Sodium Chloride) 100 mls @ 200 mls/hr IV.SIG Q24H [facility] Last Infusion: 04/24/18 04:43 Dose: Infused Albumin Human (Flexbumin 25% Inj) 100 mls @ 60 mls/hr IV.SIG WITH DIALYSIS PRN PRN Reason: hypotension / volume replace Last Infusion: 04/21/18 14:15 Dose: Infused Sodium Chloride (Ns Inj) 1,000 mls @ 0 mls/hr OTHER .Q0M PRN PRN Reason: for prime and rinse back Last Infusion: 04/22/18 13:56 Dose: Infused Sodium Chloride (Ns Inj) 1,000 mls @ 200 mls/hr OTHER .Q5H PRN PRN Reason: for dialyzer flush PRN Sodium Chloride (Ns Inj) 1,000 mls @ 0 mls/hr IV.CONT .Q0M PRN PRN Reason: hypotension / volume replace Vancomycin HCl 1,000 mg/ (Sodium Chloride) 250 mls @ 250 mls/hr IV.SIG [employer]OR OF [employer]ANDS [facility] Stop: 04/25/18 07:59 Last Infusion: 04/21/18 12:42 Dose: Infused Lactulose (Lactulose Liq) 30 ml PO DAILY PRN PRN Reason: SEVERE CONSITIPATION Mannitol (Mannitol Inj) 12.5 gm IV.PUSH UNSCH PRN PRN Reason: hypotension / volume replace Metolazone (Zaroxolyn) 5 mg PO DAILY [facility] Last Admin: 04/24/18 08:05 Dose: 5 mg Nitroglycerin (Nitrostat Sl) 0.4 mg SL Q5M PRN PRN Reason: CHEST PAIN Ondansetron HCl (Zofran Inj) 4 mg IV.PUSH Q6H PRN PRN Reason: NAUSEA OR VOMITING Ondansetron HCl (Zofran Inj) 4 mg IV.PUSH UNSCH PRN PRN Reason: NAUSEA OR VOMITING Senna/Docusate Sodium (Carole-Colace) 1 tab PO BID [facility] Last Admin: 04/24/18 08:52 Dose: Not Given Sennosides (Senokot) 17.2 mg PO Q12H PRN PRN Reason: Moderate Constipation Sevelamer Carbonate (Renvela) 1,600 mg PO TIDAC [facility] Last Admin: 04/24/18 08:51 Dose: 1,600 mg Sodium Chloride (Ns Flush) 5 ml IV.FLUSH PRN PRN PRN Reason: flush each lumen during HD Sodium Chloride (Ns Flush) 0 ml IV.FLUSH UNSCH PRN PRN Reason: SEE DOSE INSTRUCTIONS Allergies Allergy/AdvReac Type Severity Reaction Status Date / Time No Known Allergies Allergy Verified 04/18/18 16:36 Home Medications Medication Instructions Recorded Confirmed Type No Known Home Medications 04/18/18 04/18/18 History Physical Exam Vital signs: Vital Signs 04/23/18 14:17 04/23/18 16:00 04/23/18 20:00 Temperature 97.8 F 97.7 F Pulse Rate 66 65 69 Respiratory Rate 18 16 Blood Pressure 131/77 119/62 Pulse Oximetry 96 97 04/24/18 00:00 04/24/18 04:00 04/24/18 07:27 Temperature 97.4 F L 98.1 F Pulse Rate 67 68 Respiratory Rate 18 18 16 Blood Pressure 115/64 130/87 Pulse Oximetry 95 94 L 04/24/18 08:00 04/24/18 10:20 04/24/18 12:00 Temperature 98.1 F 97.8 F Pulse Rate 72 66 64 Respiratory Rate 20 18 Blood Pressure 139/95 H 134/86 Pulse Oximetry 95 97 Intake & Output 04/23/18 04/24/18 04/24/18 18:59 06:59 18:59 Intake Total 840 / 840 350 / 350 Output Total 500 / 500 Balance 340 / 340 350 / 350 Weight 61.5 kg Intake: IV 350 / 350 Azithromycin Inj 500 MG In NS 250 / 250 Inj 250 ML @ 250 mls/hr IV.SIG Q24H [facility] Rx#:[id number] Rocephin Inj 1,000 MG In NS Inj 100 / 100 100 ML @ 200 mls/hr IV.SIG Q24H [facility] Rx#:[id number] Oral 840 / 840 Output: Urine 500 / 500 Other: # Voids 1 Date of Last Bowel Movement 04/23/18 04/24/18 # Bowel Movements 1 1 Narrative: GENERAL: not in distress. SKIN: Warm and dry. HEAD: Atraumatic. Normocephalic. EYES: Pupils equal and round. No scleral icterus. No injection or drainage. ENT: No nasal bleeding or discharge. Mucous membranes pink and moist. NECK: Trachea midline. No JVD. CARDIOVASCULAR: Regular rate and rhythm. RESPIRATORY: No accessory muscle use. Clear to auscultation. Breath sounds equal bilaterally. GASTROINTESTINAL: Abdomen soft, non-tender, nondistended. Hepatic and splenic margins not palpable. MUSCULOSKELETAL: asymmetrical edema. NEUROLOGICAL: No focal deficits. Results 04/24/18 08:49 04/24/18 08:49 Cardiac Enzymes 04/23/18 04/24/18 04/24/18 Range/Units 10:35 08:49 08:49 AST 34 36 (15-37) U/L B-Natriuretic Peptide Greater than 5000 H (0-100) pg/mL Coagulation 04/24/18 Range/Units 08:49 B-Natriuretic Peptide Greater than 5000 H (0-100) pg/mL CBC 04/22/18 04/23/18 04/24/18 Range/Units 15:49 10:35 08:49 WBC 5.5 5.1 6.1 (4.0-11.0) th/mm3 RBC 3.33 L 3.19 L 3.32 L (4.50-5.90) mil/mm3 Hgb 10.8 L 10.4 L 10.7 L (13.0-17.0) gm/dL Hct 31.9 L 30.9 L 32.3 L (39.0-51.0) % Plt Count 194 189 197 (150-450) th/mm3 Neut # (Auto) 4.0 (1.8-7.7) th/mm3 Lymph # (Auto) 0.9 L (1.0-4.8) th/mm3 [place] # (Auto) 0.5 (0.0-0.9) th/mm3 Eos # (Auto) 0.1 (0.0-0.4) th/mm3 Baso # (Auto) 0.1 (0.0-0.2) th/mm3 Comprehensive Metabolic Panel 04/22/18 04/23/18 04/24/18 Range/Units 15:49 10:35 08:49 Sodium 141 141 138 (136-145) meq/L Potassium 3.5 D 3.5 3.8 (3.5-5.1) meq/L Chloride 105 D 104 100 (98-107) meq/L Carbon Dioxide 28.5 D 30.5 29.6 (21.0-32.0) meq/L BUN 39 H 39 H 44 H (7-18) mg/dL Creatinine 3.03 H 3.53 H 3.98 H (0.60-1.30) mg/dL Calcium 7.8 L 7.9 L 8.2 L (8.5-10.1) mg/dL AST 34 36 (15-37) U/L ALT 24 23 (12-78) U/L Alkaline Phosphatase 102 108 (45-117) U/L Total Protein 5.8 L D 6.3 L (6.4-8.2) g/dL Albumin 2.5 L 2.7 L (3.4-5.0) g/dL Intake and Output 04/23/18 04/24/18 04/24/18 22:59 06:59 14:59 Intake Total 600 / 600 350 / 350 Output Total 500 / 500 Balance 100 / 100 350 / 350 Intake: IV 350 / 350 Azithromycin Inj 500 MG In NS 250 / 250 Inj 250 ML @ 250 mls/hr IV.SIG Q24H [facility] Rx#:[id number] Rocephin Inj 1,000 MG In NS Inj 100 / 100 100 ML @ 200 mls/hr IV.SIG Q24H [facility] Rx#:[id number] Oral 600 / 600 Output: Urine 500 / 500 Other: # Voids 1 Date of Last Bowel Movement 04/23/18 04/24/18 # Bowel Movements 1 1 Weight 61.5 kg Assessment and Plan - Assessment (1) Cardiomyopathy Code(s): I42.9 - Cardiomyopathy, unspecified Status: Acute (2) Acute kidney injury Code(s): N17.9 - Acute kidney failure, unspecified Status: Acute (3) Fluid overload Code(s): E87.70 - Fluid overload, unspecified Status: Acute (4) New onset of congestive heart failure Code(s): I50.9 - Heart failure, unspecified Status: Acute - Plan 1) Acute decompensated systolic heart failure Started on HD Appears compensated 2) New onset cardiomyopathy EF 20% Plan for nuclear stress test tomorrow Con't on medical management Will place on Coreg for now Unable to place on LEE-I due to MIGUEL ANGEL 3) Acute renal failure Started on HD 4) Remote crack cocaine use 5) Wide complex tachycardia Will check magnesium level, replace as necessary Rule out ischemic disease with stress test
--- NOTE | 2018-04-24 12:52 | P.PNIM ---
Subjective Interval history: Follow-up shortness of breath, lower extremity edema, acute fluid overload new onset cardiomyopathy, CHF, MIGUELA NGEL in ESRD. Patient seen and examined, laying in bed, stated he is feeling better, smiling, stated shortness of breath is better , and edema is better. Patient denies any headache or dizziness, denies any pain, chest pain or shortness of breath. Patient denies any heart palpitations , or fluttering feeling. Discussed about arrhythmia and irregular heartbeat. However patient denies any chest pain or feeling of irregular heartbeat. Patient denies any abdominal pain, nausea, vomiting, diarrhea or constipation. Patient denies any fever or chills. Physical Exam Vital signs: Vital Signs 04/23/18 14:17 04/23/18 16:00 04/23/18 20:00 Temperature 97.8 F 97.7 F Pulse Rate 66 65 69 Respiratory Rate 18 16 Blood Pressure 131/77 119/62 Pulse Oximetry 96 97 04/24/18 00:00 04/24/18 04:00 04/24/18 07:27 Temperature 97.4 F L 98.1 F Pulse Rate 67 68 Respiratory Rate 18 18 16 Blood Pressure 115/64 130/87 Pulse Oximetry 95 94 L 04/24/18 08:00 04/24/18 10:20 04/24/18 12:00 Temperature 98.1 F 97.8 F Pulse Rate 72 66 64 Respiratory Rate 20 18 Blood Pressure 139/95 H 134/86 Pulse Oximetry 95 97 Intake & Output 04/23/18 04/24/18 04/24/18 18:59 06:59 18:59 Intake Total 840 / 840 350 / 350 Output Total 500 / 500 Balance 340 / 340 350 / 350 Weight 61.5 kg Intake: IV 350 / 350 Azithromycin Inj 500 MG In NS 250 / 250 Inj 250 ML @ 250 mls/hr IV.SIG Q24H [facility] Rx#:[id number] Rocephin Inj 1,000 MG In NS Inj 100 / 100 100 ML @ 200 mls/hr IV.SIG Q24H [facility] Rx#:[id number] Oral 840 / 840 Output: Urine 500 / 500 Other: # Voids 1 Date of Last Bowel Movement 04/23/18 04/24/18 # Bowel Movements 1 1 Narrative: GENERAL: Well-developed, thin appearing, descent male, in no apparent distress SKIN: Warm and dry. HEAD: Atraumatic. Normocephalic. EYES: Pupils equal and round. No scleral icterus. No injection or drainage. ENT: No nasal bleeding or discharge. Mucous membranes pink and moist. NECK: Trachea midline. No JVD. CARDIOVASCULAR: Regular rate and rhythm. Positive murmur, improving bilateral lower extremity edema right greater than left RESPIRATORY: No accessory muscle use. Clear to auscultation. Breath sounds equal bilaterally. GASTROINTESTINAL: Abdomen soft, non-tender, nondistended. Hepatic and splenic margins not palpable. MUSCULOSKELETAL: Extremities without clubbing, cyanosis, left lower extremity trace edema in the ankle, improved, right lower extremity edema from below the knee down to the foot improving from 2+ pitting now it is trace edema. No obvious deformities. NEUROLOGICAL: Awake and alert and oriented x3. No obvious cranial nerve deficits. Motor grossly within normal limits. Generalized weakness, moving all 4 extremities. Normal speech. PSYCHIATRIC: Appropriate mood and affect; insight and judgment normal Results - Labs CBC & Chem 7: 04/24/18 08:49 04/24/18 08:49 Laboratory Results - last 24 hr 04/24/18 04/24/18 04/24/18 08:49 08:49 08:49 WBC 6.1 RBC 3.32 L Hgb 10.7 L Hct 32.3 L MCV 97.1 MCH 32.1 MCHC 33.1 RDW 15.1 Plt Count 197 MPV 9.4 Sodium 138 Potassium 3.8 Chloride 100 Carbon Dioxide 29.6 Anion Gap 8 BUN 44 H Creatinine 3.98 H Estimated GFR 15 L Random Glucose 88 Calcium 8.2 L Phosphorus 3.0 Total Bilirubin 0.3 AST 36 ALT 23 Alkaline Phosphatase 108 B-Natriuretic Peptide Greater than 5000 H Total Protein 6.3 L Albumin 2.7 L Assessment and Plan - Assessment (1) New onset of congestive heart failure Code(s): I50.9 - Heart failure, unspecified Status: Acute (2) Pneumonia Code(s): J18.9 - Pneumonia, unspecified organism Status: Acute (3) Acute kidney injury Code(s): N17.9 - Acute kidney failure, unspecified Status: Acute (4) Fluid overload Code(s): E87.70 - Fluid overload, unspecified Status: Acute - Plan This is a 62-year-old homeless male with no past medical history presents to the emergency department for evaluation of lower extremity edema times 10 days with intermittent shortness of breath that is worse with exertion. New onset cardiomyopathy, acute/ Fluid Overload/bilateral lower extremity edema Acute decompensated systolic heart failure -LVEF 20% on echo 04/19/18 -BNP greater than 5000, recheck BNP -2D Echo : Mildly dilated left ventricle. Mild concentric left ventricular hypertrophy. Left ventricular systolic function is severely reduced with an estimated ejection fraction of 20%. Right atrial size is moderately dilated. Moderate mitral valve regurgitation. Moderate to severe tricuspid valve regurgitation. Estimated [id number] pulmonary hypertension present (range 60-70 mmHg). Mild pulmonary valve regurgitation. A large right sided pleural effusion is present. -Cardiology consulted, appreciate recommendations: continue on Diuretics, further workup needed when Kidney function improved -continue Bumex, added metolazone -Continue Coreg -monitor BMP, BNP, Trop Elevated troponin/arrhythmia/V runs Troponin 0.12, 0.11,0.10 Likely secondary to acute renal failure/ CHF -EKG without signs of ischemia, cardiology consulted: recommended further workup after kidney function improved -denies any chest pain, shortness of breath, palpitation -Discussed with cardiology, plan to do stress test in the morning Right lower extremity edema -Bilateral lower extremity edema improving, left lower extremity trace edema, right lower extremity edema improving from 2+ now it is 1+ pitting -Right lateral anterior foot wound, likely related to extreme edema previously, patient stated was blister before notes better, wound care consulted for treatment. -Ultrasound of right lower extremity: Chronic appearing nonocclusive thrombus in the right common femoral vein. Pulsatility in the lower extremity veins likely related to patient's acute heart failure Acute renal failure, unknown CKD/ ESRD/ Severe metabolic acidosis, acute -BUN/creatinine 80/5.18 on admission, no baseline for comparison improving after dialysis, 39/3.53 -Renal ultrasound: Echogenic kidneys with ascites and moderate right pleural effusion -Potassium 3.5, not on any potassium replacement -Serology/hepatitis profile: Nonreactive and HIV testing: Nonreactive -Immunology pending -Nephrology consulted, appreciate recommendations: continue diuretics, Hemodialysis. AV fistula placement on 04/21/2018 -Hemodialysis last Tuesday, and Tuesday. And scheduled for Tuesday- Tuesday- Tuesday -monitor renal function, CMP, CBC -continue Renvela, monitor phosphorus levels Possible Pneumonia, acute/Fluid Overload -Chest x-ray significant for increased density at the bases, right greater than left concerning for consolidation with a mild right pleural effusion -Continue IV antbx: Rocephin and azithromycin for at least 5 days and symptoms resolved -no fever or chills, WBC unremarkable -repeat C-Xray Hypertension Elevated blood pressure on admission, improving Likely related to MIGUEL ANGEL/CHF -Continue Bumex, metolazone and Coreg -Monitor blood pressure and BMP Anemia, likely acute on chronic Likely related to ESRD -patient receiving epoetin during dialysis -Monitor CBC History of cocaine use Patient admitted short-term use, 6 months ago and have not had any since then -Negative for toxicology -Counseling/education given DVT Proph: Heparin Discharge Planning: D/C plan when medically stable, on hemodialysis, when cleared with nephro and cardiology
[2018-04-24] MEDS: Azithromycin Inj 500 MG in Sodium Chlor 0.9% Inj 250 ML IV.SIG SCH (21:47)
[2018-04-25 08:30] LABS: Hematocrit 30.7 % (39.0-51.0); Hemoglobin 10.4 gm/dL (13.0-17.0); Mean Corpuscular HGB Conc 33.7 % (32.0-36.0); Mean Corpuscular Hemoglobin 32.3 pg (27.0-34.0); Mean Corpuscular Volume 95.7 fL (80.0-100.0); Mean Platelet Volume 8.7 fL (7.0-11.0); Platelet Count 189 th/mm3 (150-450); Red Blood Count 3.21 mil/mm3 (4.50-5.90); Red Cell Distribution Width 15.2 % (11.6-17.2); White Blood Count 6.7 th/mm3 (4.0-11.0)
[2018-04-25 08:54] LABS: Albumin 2.6 g/dL (3.4-5.0); Anion Gap 8 meq/L (5-15); Aspartate Aminotransferase 40 U/L (15-37); Blood Urea Nitrogen 51 mg/dL (7-18); Calcium 8.3 mg/dL (8.5-10.1); Carbon Dioxide 31.5 meq/L (21.0-32.0); Chloride 98 meq/L (98-107); Glomerular Filtration Rate 14 mL/min (>89); Glucose,Random 90 mg/dL (74-106); Sodium 137 meq/L (136-145)
[2018-04-25 08:57] LABS: Alanine Aminotransferase 23 U/L (12-78); Alkaline Phosphatase 107 U/L (45-117); Total Protein 6.3 g/dL (6.4-8.2)
[2018-04-25] MEDS: Carvedilol 6.25 MG Tablet PO SCH ×2 (11:30→20:35)
[2018-04-25] MEDS: metOLazone 5 MG Tablet PO SCH (11:30)
[2018-04-25] MEDS: Famotidine 20 MG Tablet PO SCH ×2 (11:30→20:34)
[2018-04-25] MEDS: Senna/Docusate Sodium 8.6/50 MG Tablet PO SCH ×2 (11:30→20:35)
[2018-04-25] MEDS: Heparin 10,000 UNITS/10 ML Vial (for IV use) OTHER PRN (11:50)
--- NOTE | 2018-04-25 12:46 | P.PNNP ---
Subjective Interval history: Had dialysis today. 3 liters removed. To have stress test. Cardiology note was reviewed. Physical Exam Vital signs: Vital Signs 04/24/18 16:00 04/24/18 20:00 04/25/18 00:00 Temperature 98.1 F 97.9 F 97.8 F Pulse Rate 69 71 65 Respiratory Rate 20 18 18 Blood Pressure 122/75 143/88 H 131/79 Pulse Oximetry 96 95 96 04/25/18 04:00 04/25/18 08:00 Temperature 97.6 F 98.4 F Pulse Rate 62 68 Respiratory Rate 18 20 Blood Pressure 140/80 132/82 Pulse Oximetry 97 98 Intake & Output 04/24/18 04/25/18 04/25/18 18:59 06:59 18:59 Output Total 3000 / 3000 Balance -3000 / -3000 Weight 61.4 kg Output: Hemodialysis Amount 3000 / 3000 Other: # Voids 4 Date of Last Bowel Movement 04/24/18 # Bowel Movements 1 1 Narrative: GENERAL: Well-developed, thin. Alert and oriented. SKIN: Warm and dry. HEAD: Atraumatic. Normocephalic. EYES: Pupils equal and round. No scleral icterus. No injection or drainage. ENT: No nasal bleeding or discharge. Mucous membranes pink and moist. NECK: Trachea midline. No JVD. CARDIOVASCULAR: Regular rate and rhythm. Positive murmur, improving bilateral lower extremity edema right greater than left RESPIRATORY: No accessory muscle use. Clear to auscultation. Breath sounds equal bilaterally. GASTROINTESTINAL: Abdomen soft, non-tender, nondistended. Hepatic and splenic margins not palpable. MUSCULOSKELETAL: Edema has improved. NEUROLOGICAL: no focal deficits. Assessment and Plan - Assessment (1) Acute kidney injury Code(s): N17.9 - Acute kidney failure, unspecified Status: Acute Plan: Duration of kidney disease/failure is unclear. He may have reached ESRD. He may have cardiorenal syndrome. Hepatitis and HIV negative. Serologies so far are negative. No significant proteinuria (100 protein on U/A) Started on dialysis Tuesday with severe metabolic acidosis. HD done today with 3L UF. Continue to monitor Vascular surgery consult for AVF placement. Having stress test today however. Surgery after cardiology workup is complete. Started Renvela for hyperphosphatemia. (2) Fluid overload Code(s): E87.70 - Fluid overload, unspecified Status: Acute Plan: Improved. (3) Acute on chronic systolic congestive heart failure Code(s): I50.23 - Acute on chronic systolic (congestive) heart failure Status : Acute Plan: Seen by cardiology. Echo report reviewed. Notes reviewed.
[2018-04-25] MEDS ORDERED: Regadenoson Inj 0.4 MG/5 ML Syringe IV.PUSH ONE (13:08)
[2018-04-25] MEDS: Heparin - SQ 10,000 UNITS/ML Vial SQ SCH ×2 (13:57→23:54)
--- NOTE | 2018-04-25 14:36 | NM ---
EXAM DATE: 04/25/2018 12:23 PM EDT AGE/SEX: 62 years / Male INDICATIONS:Coronary artery disease. . Congestive heart failure. CLINICAL DATA: This is the patient's initial encounter. Patient reports that signs and symptoms have been present for 1 day and indicates a pain score of 0/10. MEDICAL/SURGICAL HISTORY: None. None. COMPARISON: No prior exams available for comparison. DOSE: 8.5 mCi Tc 99m Myoview at rest 27.1 mCi [id number] at stress 0.4 mg Lexiscan STRESS SYMPTOMS: Headache and weird feeling. EJECTION FRACTION: 17 % TECHNIQUE: The patient underwent pharmacologic stress with infusion of prescribed dose. Continuous ECG tracing was monitored during stress. Gated SPECT imaging was performed after stress and conventi onal SPECT imaging was performed at rest. The examination was performed on a SPECT/CT scanner, both attenuation and non-corrected datasets were reviewed. FINDINGS: Distribution: The maximum perfused segment at stress is in the septal wall. Perfusion Study: Moderate size severe posterior basal and inferior wall perfusion abnormality witho ut definite evidence of redistribution. Gated Study: Pronounced left ventricular chamber dilatation and global hypokinesis. The ejection fr action is calculated at 17%. RISK CATEGORY: High (>3% Annual Morality Rate) CONCLUSION: 1. Severe LV dilatation and dysfunction. 2. No reversible perfusion abnormalities. Electronically signed by: Rasheed Gastelum MD 04/25/2018 2:34 PM EDT
--- NOTE | 2018-04-25 16:00 | P.PN ---
Subjective Interval history: Follow-up shortness of breath, lower extremity edema, acute fluid overload new onset cardiomyopathy, CHF, MIGUEL ANGEL in ESRD. Patient seen after returning from dialysis and [facility]. He states overall he feels much better. He denies any chest pain, palpitations, shortness of breath, or abdominal complaints. He is hungry and wants to eat. Discussed with RN. Physical Exam Vital signs: Vital Signs 04/24/18 20:00 04/25/18 00:00 04/25/18 04:00 Temperature 97.9 F 97.8 F 97.6 F Pulse Rate 71 65 62 Respiratory Rate 18 18 18 Blood Pressure 143/88 H 131/79 140/80 Pulse Oximetry 95 96 97 04/25/18 08:00 Temperature 98.4 F Pulse Rate 68 Respiratory Rate 20 Blood Pressure 132/82 Pulse Oximetry 98 Intake & Output 04/24/18 04/25/18 04/25/18 18:59 06:59 18:59 Output Total 3000 / 3000 Balance -3000 / -3000 Weight 61.4 kg Output: Hemodialysis Amount 3000 / 3000 Other: # Voids 4 Date of Last Bowel Movement 04/24/18 # Bowel Movements 1 1 Narrative: GENERAL: Well-developed, thin male patient in [facility]. SKIN: Warm and dry. HEENT: Atraumatic. Normocephalic. Pupils equal and round. Mucous membranes pink and moist. NECK: Trachea midline. CARDIOVASCULAR: Regular rate and rhythm. 2/6 systolic murmur noted. improving bilateral lower extremity edema right greater than left RESPIRATORY: No accessory muscle use. Clear to auscultation. Breath sounds equal bilaterally. GASTROINTESTINAL: Abdomen soft, non-tender, nondistended. Hepatic and splenic margins not palpable. MUSCULOSKELETAL: No obvious deformities. Trace bilateral lower extremities edema. NEUROLOGICAL: Awake and alert. No obvious cranial nerve deficits. Motor grossly within normal limits. Generalized weakness, moving all 4 extremities. Normal speech. Results - Labs CBC & Chem 7: 04/25/18 08:05 04/25/18 08:05 Laboratory Results - last 24 hr 04/20/18 04/24/18 04/25/18 21:17 08:49 08:05 WBC 6.7 RBC 3.21 L Hgb 10.4 L Hct 30.7 L MCV 95.7 MCH 32.3 MCHC 33.7 RDW 15.2 Plt Count 189 MPV 8.7 Sodium Potassium Chloride Carbon Dioxide Anion Gap BUN Creatinine Estimated GFR Random Glucose Calcium Phosphorus Magnesium 1.9 Total Bilirubin AST ALT Alkaline Phosphatase Total Protein Albumin Anti-Proteinase 3 Less than 1.0 Anti-Myeloperoxidase Less than 1.0 04/25/18 08:05 WBC RBC Hgb Hct MCV MCH MCHC RDW Plt Count MPV Sodium 137 Potassium 4.0 Chloride 98 Carbon Dioxide 31.5 Anion Gap 8 BUN 51 H Creatinine 4.45 H Estimated GFR 14 L Random Glucose 90 Calcium 8.3 L Phosphorus 3.0 Magnesium 2.0 Total Bilirubin 0.3 AST 40 H ALT 23 Alkaline Phosphatase 107 Total Protein 6.3 L Albumin 2.6 L Anti-Proteinase 3 Anti-Myeloperoxidase - Imaging Impressions Myocardial Perfusion Scan Nuc Med 04/25/18 07:00 CONCLUSION: 1. Severe LV dilatation and dysfunction. 2. No reversible perfusion abnormalities. Assessment and Plan - Assessment (1) New onset of congestive heart failure Code(s): I50.9 - Heart failure, unspecified Status: Acute (2) Pneumonia Code(s): J18.9 - Pneumonia, unspecified organism Status: Acute (3) Acute kidney injury Code(s): N17.9 - Acute kidney failure, unspecified Status: Acute (4) Fluid overload Code(s): E87.70 - Fluid overload, unspecified Status: Acute - Plan 62-year-old homeless male with no past medical history presents to the emergency department for evaluation of lower extremity edema times 10 days with intermittent shortness of breath that is worse with exertion. New onset cardiomyopathy, acute/ Fluid Overload/bilateral lower extremity edema Acute decompensated systolic heart failure -LVEF 20% on echo 04/19/18 -BNP greater than 5000, recheck BNP -2D Echo : Left ventricular systolic function is severely reduced with EF 20%, mod MR, mod-severe TR, mod-severe pulm HTN (60-70mmhg); large right sided pleural effusion is present. -Cardiology consulted, appreciate recommendations: continue on Diuretics, further workup needed when Kidney function improved -continue Bumex, added metolazone -Continue Coreg -monitor BMP and BNP -diuresing well Elevated troponin/arrhythmia/V runs -Troponin 0.12, 0.11,0.10 -Likely secondary to acute renal failure/ CHF -EKG without signs of ischemia, cardiology consulted: recommended further workup after kidney function improved -denies any chest pain -Cardiology following, appreciate recommendations -Lexiscan 04/25 showed severe LV dilatation and dysfunction; no reversible perfusion abnormalities Right lower extremity edema -Bilateral lower extremity edema improving, left lower extremity trace edema, right lower extremity edema improving from 2+ now it is 1+ pitting -Right lateral anterior foot wound, likely related to extreme edema previously, patient stated was blister before notes better, wound care consulted for treatment. -Ultrasound of right lower extremity: Chronic appearing nonocclusive thrombus in the right common femoral vein. Pulsatility in the lower extremity veins likely related to patient's acute heart failure Acute renal failure, unknown CKD/ ESRD/ Severe metabolic acidosis, acute -BUN/creatinine 80/5.18 on admission, no baseline for comparison improving after dialysis, 39/3.53 -Renal ultrasound: Echogenic kidneys with ascites and moderate right pleural effusion -Potassium 3.5, not on any potassium replacement -Serology/hepatitis profile: Nonreactive and HIV testing: Nonreactive -Immunology pending -Nephrology consulted, appreciate recommendations: continue diuretics, Hemodialysis. AV fistula placement on 04/21/2018 -Hemodialysis last Tuesday, and Tuesday. And scheduled for Tuesday- Tuesday- Tuesday -monitor renal function, CMP, CBC -continue Renvela, monitor phosphorus levels Possible Pneumonia, acute/Fluid Overload -Chest x-ray 04/18 significant for increased density at the bases, right greater than left concerning for consolidation with a mild right pleural effusion -Continue IV antbx: Rocephin and azithromycin for at least 5 days and symptoms resolved -no fever or chills, WBC unremarkable -repeat C-Xray 04/20 stable Hypertension -Elevated blood pressure on admission, improving -Likely related to MIGUEL ANGEL/CHF -Continue Bumex, metolazone and Coreg -Monitor blood pressure and BMP Anemia, likely acute on chronic -Likely related to ESRD -patient receiving epoetin during dialysis -Monitor CBC History of cocaine use -Patient admitted short-term use, 6 months ago and have not had any since then -Negative for toxicology -Counseling/education given DVT Proph: Heparin
[2018-04-25] MEDS: Azithromycin Inj 500 MG in Sodium Chlor 0.9% Inj 250 ML IV.SIG SCH (20:30)
--- NOTE | 2018-04-25 22:19 | P.PNCA ---
Subjective Interval history: For stress test today No complaints Medications and Allergies Active Medications: Active Medications Acetaminophen (Tylenol) 650 mg PO Q4H PRN PRN Reason: Temp > 100.4 Acetaminophen (Tylenol) 650 mg PO UNSCH PRN PRN Reason: SEE LABEL COMMENTS Al Hydroxide/Mg Hydroxide (Milk Of Nadia Liq) 30 ml PO Q12H PRN PRN Reason: Mild Constipation Bisacodyl (Dulcolax Supp) 10 mg RECTAL DAILY PRN PRN Reason: SEVERE CONSITIPATION Bumetanide (Bumex Inj) 2 mg IV.PUSH BID@0900,1800 [facility] Last Admin: 04/25/18 17:49 Dose: 2 mg Carvedilol (Coreg) 6.25 mg PO BID [facility] Last Admin: 04/25/18 20:35 Dose: 6.25 mg Clonidine HCl (Catapres) 0.1 mg PO UNSCH PRN PRN Reason: SEE LABEL COMMENTS Diphenhydramine HCl (Benadryl) 25 mg PO UNSCH PRN PRN Reason: SEE LABEL COMMENTS Epoetin Morgan (Epogen Inj) 5,000 unit IV.PUSH UNSCH PRN PRN Reason: SEE LABEL COMMENTS Last Admin: 04/25/18 11:50 Dose: 5,000 unit Famotidine (Pepcid) 10 mg PO BID [facility] Last Admin: 04/25/18 20:34 Dose: 10 mg Gelatin (Gelfoam 12 Mm/7 Mm Topical) 1 foam TOPICAL PRN PRN PRN Reason: help stop bleeding from site Gentamicin Sulfate (Gentamicin Inj) 20 mg OTHER WITH DIALYSIS PRN PRN Reason: Dwell Gentamycin Lock Last Admin: 04/25/18 11:50 Dose: 20 mg Heparin Sodium (Porcine) (Heparin Inj) 5,000 units SQ Q12H [facility] Last Admin: 04/25/18 13:57 Dose: Not Given Heparin Sodium (Porcine) (Heparin Inj) 8,000 units OTHER WITH DIALYSIS PRN PRN Reason: for machine prime Heparin Sodium (Porcine) (Heparin Inj) 1,000 units OTHER WITH DIALYSIS PRN PRN Reason: Dwell Heparin to Fill Catheter Last Admin: 04/25/18 11:50 Dose: 1,000 units Heparin Sodium (Porcine) (Heparin Inj) 0 units IV.FLUSH WITH DIALYSIS PRN PRN Reason: SEE DOSE INSTRUCTIONS Azithromycin 500 mg/ Sodium (Chloride) 250 mls @ 250 mls/hr IV.SIG Q24H [facility] Last Admin: 04/25/18 20:30 Dose: 250 mls/hr Ceftriaxone Sodium 1,000 mg/ (Sodium Chloride) 100 mls @ 200 mls/hr IV.SIG Q24H [facility] Last Admin: 04/25/18 20:29 Dose: 200 mls/hr Albumin Human (Flexbumin 25% Inj) 100 mls @ 60 mls/hr IV.SIG WITH DIALYSIS PRN PRN Reason: hypotension / volume replace Last Infusion: 04/21/18 14:15 Dose: Infused Sodium Chloride (Ns Inj) 1,000 mls @ 0 mls/hr OTHER .Q0M PRN PRN Reason: for prime and rinse back Last Infusion: 04/22/18 13:56 Dose: Infused Sodium Chloride (Ns Inj) 1,000 mls @ 200 mls/hr OTHER .Q5H PRN PRN Reason: for dialyzer flush PRN Sodium Chloride (Ns Inj) 1,000 mls @ 0 mls/hr IV.CONT .Q0M PRN PRN Reason: hypotension / volume replace Lactulose (Lactulose Liq) 30 ml PO DAILY PRN PRN Reason: SEVERE CONSITIPATION Mannitol (Mannitol Inj) 12.5 gm IV.PUSH UNSCH PRN PRN Reason: hypotension / volume replace Metolazone (Zaroxolyn) 5 mg PO DAILY [facility] Last Admin: 04/25/18 11:30 Dose: Not Given Nitroglycerin (Nitrostat Sl) 0.4 mg SL Q5M PRN PRN Reason: CHEST PAIN Ondansetron HCl (Zofran Inj) 4 mg IV.PUSH Q6H PRN PRN Reason: NAUSEA OR VOMITING Ondansetron HCl (Zofran Inj) 4 mg IV.PUSH UNSCH PRN PRN Reason: NAUSEA OR VOMITING Senna/Docusate Sodium (Carole-Colace) 1 tab PO BID [facility] Last Admin: 04/25/18 20:35 Dose: Not Given Sennosides (Senokot) 17.2 mg PO Q12H PRN PRN Reason: Moderate Constipation Sevelamer Carbonate (Renvela) 1,600 mg PO TIDAC [facility] Last Admin: 04/25/18 17:50 Dose: 1,600 mg Sodium Chloride (Ns Flush) 5 ml IV.FLUSH PRN PRN PRN Reason: flush each lumen during HD Sodium Chloride (Ns Flush) 0 ml IV.FLUSH UNSCH PRN PRN Reason: SEE DOSE INSTRUCTIONS Allergies Allergy/AdvReac Type Severity Reaction Status Date / Time No Known Allergies Allergy Verified 04/18/18 16:36 Home Medications Medication Instructions Recorded Confirmed Type No Known Home Medications 04/18/18 04/18/18 History Physical Exam Vital signs: Vital Signs 04/25/18 00:00 04/25/18 04:00 04/25/18 08:00 Temperature 97.8 F 97.6 F 98.4 F Pulse Rate 65 62 65 Respiratory Rate 18 18 20 Blood Pressure 131/79 140/80 132/82 Pulse Oximetry 96 97 98 04/25/18 16:00 04/25/18 20:00 Temperature 98.6 F 98.2 F Pulse Rate 69 73 Respiratory Rate 20 18 Blood Pressure 126/73 117/72 Pulse Oximetry 97 97 Intake & Output 04/25/18 04/25/18 04/26/18 06:59 18:59 06:59 Output Total 3000 / 3000 Balance -3000 / -3000 Weight 61.4 kg Output: Hemodialysis Amount 3000 / 3000 Other: # Voids 4 # Bowel Movements 1 Narrative: GENERAL: NAD SKIN: Warm and dry. HEAD: Atraumatic. Normocephalic. EYES: Pupils equal and round. No scleral icterus. No injection or drainage. ENT: No nasal bleeding or discharge. Mucous membranes pink and moist. NECK: Trachea midline. No JVD. CARDIOVASCULAR: Regular rate and rhythm. RESPIRATORY: No accessory muscle use. Clear to auscultation. Breath sounds equal bilaterally. GASTROINTESTINAL: Abdomen soft, non-tender, nondistended. Hepatic and splenic margins not palpable. MUSCULOSKELETAL: Extremities 1+ pitting edema, right > left NEUROLOGICAL: Awake and alert. No obvious cranial nerve deficits. Motor grossly within normal limits. Five out of 5 muscle strength in the arms and legs. Normal speech. PSYCHIATRIC: Appropriate mood and affect; insight and judgment normal. Results 04/25/18 08:05 04/25/18 08:05 Cardiac Enzymes 04/24/18 04/24/18 04/25/18 Range/Units 08:49 08:49 08:05 AST 36 40 H (15-37) U/L B-Natriuretic Peptide Greater than 5000 H (0-100) pg/mL Coagulation 04/24/18 Range/Units 08:49 B-Natriuretic Peptide Greater than 5000 H (0-100) pg/mL CBC 04/24/18 04/25/18 Range/Units 08:49 08:05 WBC 6.1 6.7 (4.0-11.0) th/mm3 RBC 3.32 L 3.21 L (4.50-5.90) mil/mm3 Hgb 10.7 L 10.4 L (13.0-17.0) gm/dL Hct 32.3 L 30.7 L (39.0-51.0) % Plt Count 197 189 (150-450) th/mm3 Comprehensive Metabolic Panel 04/24/18 04/25/18 Range/Units 08:49 08:05 Sodium 138 137 (136-145) meq/L Potassium 3.8 4.0 (3.5-5.1) meq/L Chloride 100 98 (98-107) meq/L Carbon Dioxide 29.6 31.5 (21.0-32.0) meq/L BUN 44 H 51 H (7-18) mg/dL Creatinine 3.98 H 4.45 H (0.60-1.30) mg/dL Calcium 8.2 L 8.3 L (8.5-10.1) mg/dL AST 36 40 H (15-37) U/L ALT 23 23 (12-78) U/L Alkaline Phosphatase 108 107 (45-117) U/L Total Protein 6.3 L 6.3 L (6.4-8.2) g/dL Albumin 2.7 L 2.6 L (3.4-5.0) g/dL Intake and Output 04/25/18 04/25/18 04/25/18 06:59 14:59 22:59 Output Total 3000 / 3000 Balance -3000 / -3000 Output: Hemodialysis Amount 3000 / 3000 Other: # Voids 4 # Bowel Movements 1 Weight 61.4 kg - Imaging and Cardiology Imaging: Impressions Myocardial Perfusion Scan Nuc Med 04/25/18 07:00 CONCLUSION: 1. Severe LV dilatation and dysfunction. 2. No reversible perfusion abnormalities. Assessment and Plan - Assessment (1) Cardiomyopathy Code(s): I42.9 - Cardiomyopathy, unspecified Status: Acute (2) Acute kidney injury Code(s): N17.9 - Acute kidney failure, unspecified Status: Acute (3) Fluid overload Code(s): E87.70 - Fluid overload, unspecified Status: Acute (4) New onset of congestive heart failure Code(s): I50.9 - Heart failure, unspecified Status: Acute - Plan 1) Acute decompensated systolic heart failure Started on HD Appears compensated 2) New onset cardiomyopathy EF 20% Stress test today Con't on medical management Will place on Coreg for now Unable to place on LEE-I due to MIGUEL ANGEL 3) Acute renal failure Started on HD 4) Remote crack cocaine use 5) Wide complex tachycardia Rule out ischemic disease with stress test May need EP study, will see about stress test and further events while on BB therapy
[2018-04-26] MEDS: Famotidine 20 MG Tablet PO SCH ×2 (08:49→21:00)
[2018-04-26] MEDS: Senna/Docusate Sodium 8.6/50 MG Tablet PO SCH ×2 (08:50→21:00)
[2018-04-26] MEDS: Carvedilol 6.25 MG Tablet PO SCH ×2 (08:50→21:00)
[2018-04-26] MEDS: metOLazone 5 MG Tablet PO SCH (08:50)
--- NOTE | 2018-04-26 09:37 | P.PN ---
Subjective Interval history: Follow-up shortness of breath, lower extremity edema, acute fluid overload new onset cardiomyopathy, CHF, MIGUEL ANGEL in ESRD. The patient reports feeling well again today. He denies any chest pain or shortness of breath. He states he was able to ambulate the hallway without difficulty. RN reports episode of Vtach again today, patient asymptomatic. No other medical complaints reported at this time. Physical Exam Vital signs: Vital Signs 04/25/18 16:00 04/25/18 20:00 04/26/18 00:00 Temperature 98.6 F 98.2 F 98.4 F Pulse Rate 69 68 66 Respiratory Rate 20 18 18 Blood Pressure 126/73 117/72 117/72 Pulse Oximetry 97 97 97 04/26/18 04:00 Temperature 97.9 F Pulse Rate 69 Respiratory Rate 18 Blood Pressure 128/85 Pulse Oximetry 96 Intake & Output 04/25/18 04/26/18 04/26/18 18:59 06:59 18:59 Intake Total 350 / 350 Output Total 3000 / 3000 Balance -3000 / -3000 350 / 350 Weight 49.9 kg Intake: IV 350 / 350 Azithromycin Inj 500 MG In NS 250 / 250 Inj 250 ML @ 250 mls/hr IV.SIG Q24H [facility] Rx#:[id number] Rocephin Inj 1,000 MG In NS Inj 100 / 100 100 ML @ 200 mls/hr IV.SIG Q24H [facility] Rx#:[id number] Output: Hemodialysis Amount 3000 / 3000 Other: # Voids 2 # Bowel Movements 1 Narrative: GENERAL: Well-developed, thin male patient in [facility]. SKIN: Warm and dry. HEENT: Atraumatic. Normocephalic. Pupils equal and round. Mucous membranes pink and moist. NECK: Trachea midline. CARDIOVASCULAR: Regular rate and rhythm. 2/6 systolic murmur noted. RESPIRATORY: No accessory muscle use. Clear to auscultation. Breath sounds equal bilaterally. GASTROINTESTINAL: Abdomen soft, non-tender, nondistended. Hepatic and splenic margins not palpable. MUSCULOSKELETAL: No obvious deformities. Trace bilateral lower extremities edema. NEUROLOGICAL: Awake and alert. No obvious cranial nerve deficits. Motor grossly within normal limits. Generalized weakness, moving all 4 extremities. Normal speech. Results - Labs CBC & Chem 7: 04/26/18 09:15 04/26/18 09:15 - Imaging Impressions Myocardial Perfusion Scan Nuc Med 04/25/18 07:00 CONCLUSION: 1. Severe LV dilatation and dysfunction. 2. No reversible perfusion abnormalities. Assessment and Plan - Assessment (1) New onset of congestive heart failure Code(s): I50.9 - Heart failure, unspecified Status: Acute (2) Pneumonia Code(s): J18.9 - Pneumonia, unspecified organism Status: Acute (3) Acute kidney injury Code(s): N17.9 - Acute kidney failure, unspecified Status: Acute (4) Fluid overload Code(s): E87.70 - Fluid overload, unspecified Status: Acute - Plan 62-year-old homeless male with no past medical history presents to the emergency department for evaluation of lower extremity edema times 10 days with intermittent shortness of breath that is worse with exertion. New onset cardiomyopathy, acute/ Fluid Overload/bilateral lower extremity edema Acute decompensated systolic heart failure Suspect Valvular Cardiomyopathy -LVEF 20% on echo 04/19/18 -BNP greater than 5000, recheck BNP -2D Echo : Left ventricular systolic function is severely reduced with EF 20%, mod MR, mod-severe TR, mod-severe pulm HTN (60-70mmhg); large right sided pleural effusion is present. -Cardiology consulted, appreciate recommendations: continue on Diuretics -continue Bumex and metolazone -Continue Coreg -monitor BMP and BNP -diuresing well Elevated troponin/arrhythmia/V runs -Troponin 0.12, 0.11,0.10 -Likely secondary to acute renal failure/ CHF -EKG without signs of ischemia, cardiology consulted: recommended further workup after kidney function improved -denies any chest pain -Cardiology following, appreciate recommendations -Lexiscan 04/25 showed severe LV dilatation and dysfunction; no reversible perfusion abnormalities -04/26 continues to have episodes of Vtach Right lower extremity edema -Bilateral lower extremity edema improving, left lower extremity trace edema, right lower extremity edema improving from 2+ now it is 1+ pitting -Right lateral anterior foot wound, likely related to extreme edema previously, patient stated was blister before notes better, wound care consulted for treatment. -Ultrasound RLE: Chronic appearing nonocclusive thrombus in the right common femoral vein. Pulsatility in the lower extremity veins likely related to patient 's acute heart failure Acute renal failure, unknown CKD/ ESRD/ Severe metabolic acidosis, acute -BUN/creatinine 80/5.18 on admission, no baseline for comparison improving after dialysis, 39/3.53 -Renal ultrasound: Echogenic kidneys with ascites and moderate right pleural effusion -Potassium 3.5, not on any potassium replacement -Serology/hepatitis profile Nonreactive, HIV Nonreactive, ABBY negative -Nephrology consulted, appreciate recommendations -Hemodialysis as scheduled by nephrology -monitor renal function, CMP, CBC -continue Renvela, monitor phosphorus levels -Vascular surgery consulted for AV fistula Possible Pneumonia, acute/Fluid Overload -Chest x-ray 04/18 significant for increased density at the bases, right greater than left concerning for consolidation with a mild right pleural effusion -Continue IV antbx: Rocephin and azithromycin for at least 5 days and symptoms resolved -no fever or chills, WBC unremarkable -repeat C-Xray 04/20 stable Hypertension -Elevated blood pressure on admission, improving -Likely related to MIGUEL ANGEL/CHF -Continue Bumex, metolazone and Coreg -Monitor blood pressure and BMP Anemia, likely acute on chronic -Likely related to ESRD -patient receiving epoetin during dialysis -Monitor CBC History of cocaine use -Patient admitted short-term use, 6 months ago and have not had any since then -Negative for toxicology -Counseling/education given DVT Proph: Heparin Discharge Planning: Vascular surgery to eval for AV fistula. Patient still having episode of Vtach, appreciate cardiology recommendations.
--- NOTE | 2018-04-26 10:43 | P.PNNP ---
Subjective Interval history: patient is feeling well, better. He reports that dialysis has improved his symptoms of shortness of breath. Had stress test yesterday, EF of only 17%, no reversible ischemia. Physical Exam Vital signs: Vital Signs 04/25/18 16:00 04/25/18 20:00 04/26/18 00:00 Temperature 98.6 F 98.2 F 98.4 F Pulse Rate 69 68 66 Respiratory Rate 20 18 18 Blood Pressure 126/73 117/72 117/72 Pulse Oximetry 97 97 97 04/26/18 04:00 04/26/18 08:00 Temperature 97.9 F 98 F Pulse Rate 69 68 Respiratory Rate 18 19 Blood Pressure 128/85 123/83 Pulse Oximetry 96 97 Intake & Output 04/25/18 04/26/18 04/26/18 18:59 06:59 18:59 Intake Total 350 / 350 Output Total 3000 / 3000 Balance -3000 / -3000 350 / 350 Weight 49.9 kg Intake: IV 350 / 350 Azithromycin Inj 500 MG In NS 250 / 250 Inj 250 ML @ 250 mls/hr IV.SIG Q24H [facility] Rx#:[id number] Rocephin Inj 1,000 MG In NS Inj 100 / 100 100 ML @ 200 mls/hr IV.SIG Q24H [facility] Rx#:[id number] Output: Hemodialysis Amount 3000 / 3000 Other: # Voids 2 # Bowel Movements 1 Narrative: GENERAL: alert, oriented. SKIN: Warm and dry. HEAD: Atraumatic. Normocephalic. EYES: Pupils equal and round. No scleral icterus. No injection or drainage. ENT: No nasal bleeding or discharge. Mucous membranes pink and moist. NECK: No JVD. No lymphadenopathy, no thyromegaly. CARDIOVASCULAR: Regular rate and rhythm. RESPIRATORY: No accessory muscle use. Clear to auscultation. Breath sounds equal bilaterally. GASTROINTESTINAL: Abdomen soft, non-tender, nondistended. Hepatic and splenic margins not palpable. MUSCULOSKELETAL: Edema has improved. NEUROLOGICAL: Awake and alert. No obvious cranial nerve deficits. Motor grossly within normal limits. Five out of 5 muscle strength in the arms and legs. Normal speech. PSYCHIATRIC: Appropriate mood and affect; insight and judgment normal. Assessment and Plan - Assessment (1) Acute kidney injury Code(s): N17.9 - Acute kidney failure, unspecified Status: Acute Plan: Duration of kidney disease/failure is unclear. He may have reached ESRD. He may have cardiorenal syndrome. Hepatitis and HIV negative. Serologies so far are negative. No significant proteinuria (100 protein on U/A) On HD 3 times/week. Continue to monitor Vascular surgery consulted for AVF placement. Started Renvela for hyperphosphatemia. (2) Fluid overload Code(s): E87.70 - Fluid overload, unspecified Status: Acute Plan: Improved. (3) Acute on chronic systolic congestive heart failure Code(s): I50.23 - Acute on chronic systolic (congestive) heart failure Status : Acute Plan: Seen by cardiology. Echo report reviewed. Notes reviewed. Underwent stress test , no reversible ischemia. Live vest? ARB/LEE inhibitor/Entresto: will defer to cardiology. Ok to start any of these medications from renal standpoint as long as his BP is acceptable.
[2018-04-26 10:55] LABS: Hematocrit 34.8 % (39.0-51.0); Hemoglobin 11.5 gm/dL (13.0-17.0); Mean Corpuscular HGB Conc 33.1 % (32.0-36.0); Mean Corpuscular Hemoglobin 32.2 pg (27.0-34.0); Mean Corpuscular Volume 97.1 fL (80.0-100.0); Mean Platelet Volume 10.1 fL (7.0-11.0); Platelet Count 258 th/mm3 (150-450); Red Blood Count 3.58 mil/mm3 (4.50-5.90); Red Cell Distribution Width 15.5 % (11.6-17.2); White Blood Count 6.6 th/mm3 (4.0-11.0)
[2018-04-26 11:25] LABS: Alanine Aminotransferase 26 U/L (12-78); Albumin 2.7 g/dL (3.4-5.0); Alkaline Phosphatase 107 U/L (45-117); Anion Gap 7 meq/L (5-15); Aspartate Aminotransferase 45 U/L (15-37); Blood Urea Nitrogen 27 mg/dL (7-18); Calcium 8.4 mg/dL (8.5-10.1); Carbon Dioxide 29.6 meq/L (21.0-32.0); Chloride 99 meq/L (98-107); Glomerular Filtration Rate 18 mL/min (>89); Glucose,Random 102 mg/dL (74-106); Potassium 4.1 meq/L (3.5-5.1); Sodium 136 meq/L (136-145); Total Protein 6.5 g/dL (6.4-8.2)
[2018-04-26] MEDS: Heparin - SQ 10,000 UNITS/ML Vial SQ SCH (11:47)
--- NOTE | 2018-04-26 18:58 | P.CONVS ---
History of Present Illness Service: Vascular surgery Consult date: 04/26/18 Primary Care Provider: No Primary Care Physician Chief Complaint: End-stage renal disease requiring access for hemodialysis History of Present Illness: 63-year-old male who was admitted to [facility] with acute decompensated heart failure, acute renal failure requiring hemodialysis. Vascular surgery was consulted for access creation. He currently receives hemodialysis via right internal jugular vein permacath and he is right-handed. He currently denies any upper extremity or lower extremity claudication rest pain. He denies any acute chest pain or shortness of breath. Review of Systems All other systems reviewed negative except as stated in HPI [facility] - History History Provided By: Patient - Medical History Medical History: Medical History (Last Reviewed 04/19/18 @ 08:53 by Ej oJy) Patient denies medical problems - Surgical History Surgical History: Surgical History (Last Reviewed 04/19/18 @ 08:53 by Ej Joy) No history of previous surgery - Family History Family History: Family History (Last Updated 04/18/18 @ 22:25 by Caryn Devlin MD) Other Family history normal - Tobacco History Second Hand Smoke Exposure: Yes Tobacco Use In Past 30 Days: Yes Smoking Status: Former smoker Tobacco Type: Cigarettes - Alcohol History How Often Do You Have a Drink Containing Alcohol: Monthly or less - Substance Use History Substance History: Past History - Travel History Recent Travel in the [place] Within the Last 8 Weeks: No Recent Travel Out of the Country Within the Last 8 Weeks: No - Immunization History Tetanus Immunization: Unsure Hx Influenza Vaccine This Season: No Medications and Allergies Active Medications: Active Medications Acetaminophen (Tylenol) 650 mg PO Q4H PRN PRN Reason: Temp > 100.4 Acetaminophen (Tylenol) 650 mg PO UNSCH PRN PRN Reason: SEE LABEL COMMENTS Al Hydroxide/Mg Hydroxide (Milk Of Magndarinel Liq) 30 ml PO Q12H PRN PRN Reason: Mild Constipation Bisacodyl (Dulcolax Supp) 10 mg RECTAL DAILY PRN PRN Reason: SEVERE CONSITIPATION Bumetanide (Bumex Inj) 2 mg IV.PUSH BID@0900,1800 [facility] Last Admin: 04/26/18 17:42 Dose: 2 mg Carvedilol (Coreg) 6.25 mg PO BID [facility] Last Admin: 04/26/18 08:50 Dose: 6.25 mg Clonidine HCl (Catapres) 0.1 mg PO UNSCH PRN PRN Reason: SEE LABEL COMMENTS Diphenhydramine HCl (Benadryl) 25 mg PO UNSCH PRN PRN Reason: SEE LABEL COMMENTS Epoetin Morgan (Epogen Inj) 5,000 unit IV.PUSH UNSCH PRN PRN Reason: SEE LABEL COMMENTS Last Admin: 04/25/18 11:50 Dose: 5,000 unit Famotidine (Pepcid) 10 mg PO BID [facility] Last Admin: 04/26/18 08:49 Dose: 10 mg Gelatin (Gelfoam 12 Mm/7 Mm Topical) 1 foam TOPICAL PRN PRN PRN Reason: help stop bleeding from site Gentamicin Sulfate (Gentamicin Inj) 20 mg OTHER WITH DIALYSIS PRN PRN Reason: Dwell Gentamycin Lock Last Admin: 04/25/18 11:50 Dose: 20 mg Heparin Sodium (Porcine) (Heparin Inj) 5,000 units SQ Q12H [facility] Last Admin: 04/26/18 11:47 Dose: 5,000 units Heparin Sodium (Porcine) (Heparin Inj) 8,000 units OTHER WITH DIALYSIS PRN PRN Reason: for machine prime Heparin Sodium (Porcine) (Heparin Inj) 1,000 units OTHER WITH DIALYSIS PRN PRN Reason: Dwell Heparin to Fill Catheter Last Admin: 04/25/18 11:50 Dose: 1,000 units Heparin Sodium (Porcine) (Heparin Inj) 0 units IV.FLUSH WITH DIALYSIS PRN PRN Reason: SEE DOSE INSTRUCTIONS Azithromycin 500 mg/ Sodium (Chloride) 250 mls @ 250 mls/hr IV.SIG Q24H [facility] Last Infusion: 04/25/18 23:54 Dose: Infused Ceftriaxone Sodium 1,000 mg/ (Sodium Chloride) 100 mls @ 200 mls/hr IV.SIG Q24H [facility] Last Infusion: 04/25/18 23:54 Dose: Infused Albumin Human (Flexbumin 25% Inj) 100 mls @ 60 mls/hr IV.SIG WITH DIALYSIS PRN PRN Reason: hypotension / volume replace Last Infusion: 04/21/18 14:15 Dose: Infused Sodium Chloride (Ns Inj) 1,000 mls @ 0 mls/hr OTHER .Q0M PRN PRN Reason: for prime and rinse back Last Infusion: 04/22/18 13:56 Dose: Infused Sodium Chloride (Ns Inj) 1,000 mls @ 200 mls/hr OTHER .Q5H PRN PRN Reason: for dialyzer flush PRN Sodium Chloride (Ns Inj) 1,000 mls @ 0 mls/hr IV.CONT .Q0M PRN PRN Reason: hypotension / volume replace Lactulose (Lactulose Liq) 30 ml PO DAILY PRN PRN Reason: SEVERE CONSITIPATION Mannitol (Mannitol Inj) 12.5 gm IV.PUSH UNSCH PRN PRN Reason: hypotension / volume replace Metolazone (Zaroxolyn) 5 mg PO DAILY [facility] Last Admin: 04/26/18 08:50 Dose: 5 mg Nitroglycerin (Nitrostat Sl) 0.4 mg SL Q5M PRN PRN Reason: CHEST PAIN Ondansetron HCl (Zofran Inj) 4 mg IV.PUSH Q6H PRN PRN Reason: NAUSEA OR VOMITING Ondansetron HCl (Zofran Inj) 4 mg IV.PUSH UNSCH PRN PRN Reason: NAUSEA OR VOMITING Senna/Docusate Sodium (Carole-Colace) 1 tab PO BID [facility] Last Admin: 04/26/18 08:50 Dose: Not Given Sennosides (Senokot) 17.2 mg PO Q12H PRN PRN Reason: Moderate Constipation Sevelamer Carbonate (Renvela) 800 mg PO TIDAC [facility] Last Admin: 04/26/18 17:42 Dose: 800 mg Sodium Chloride (Ns Flush) 5 ml IV.FLUSH PRN PRN PRN Reason: flush each lumen during HD Sodium Chloride (Ns Flush) 0 ml IV.FLUSH UNSCH PRN PRN Reason: SEE DOSE INSTRUCTIONS Allergies Allergy/AdvReac Type Severity Reaction Status Date / Time No Known Allergies Allergy Verified 04/18/18 16:36 Home Medications Medication Instructions Recorded Confirmed Type No Known Home Medications 04/18/18 04/18/18 History Physical Exam Vital Signs / I&O: Vital Signs 04/25/18 20:00 04/26/18 00:00 04/26/18 04:00 Temperature 98.2 F 98.4 F 97.9 F Pulse Rate 68 66 69 Respiratory Rate 18 18 18 Blood Pressure 117/72 117/72 128/85 Pulse Oximetry 97 97 96 04/26/18 08:00 04/26/18 12:00 04/26/18 16:00 Temperature 98 F 98 F 97.2 F L Pulse Rate 68 67 71 Respiratory Rate 19 19 19 Blood Pressure 123/83 98/64 L 110/75 Pulse Oximetry 97 96 99 Intake & Output 04/25/18 04/26/18 04/26/18 18:59 06:59 18:59 Intake Total 350 / 350 Output Total 3000 / 3000 Balance -3000 / -3000 350 / 350 Weight 49.9 kg Intake: IV 350 / 350 Azithromycin Inj 500 MG In NS 250 / 250 Inj 250 ML @ 250 mls/hr IV.SIG Q24H [facility] Rx#:[id number] Rocephin Inj 1,000 MG In NS Inj 100 / 100 100 ML @ 200 mls/hr IV.SIG Q24H [facility] Rx#:[id number] Output: Hemodialysis Amount 3000 / 3000 Other: # Voids 2 4 # Bowel Movements 1 4 Neuro: Alert awake oriented x3 Neck: Supple Heart: S1-S2 regular rate and rhythm Lungs: No wheezes Abdomen: Soft nontender nondistended Vascular: Palpable radial pulses bilaterally negative Emerson test bilateral Laboratory Results - last 24 hr 04/26/18 04/26/18 09:15 09:15 WBC 6.6 RBC 3.58 L Hgb 11.5 L Hct 34.8 L MCV 97.1 MCH 32.2 MCHC 33.1 RDW 15.5 Plt Count 258 D MPV 10.1 Sodium 136 Potassium 4.1 Chloride 99 Carbon Dioxide 29.6 Anion Gap 7 BUN 27 H Creatinine 3.40 H Estimated GFR 18 L Random Glucose 102 Calcium 8.4 L Total Bilirubin 0.3 AST 45 H ALT 26 Alkaline Phosphatase 107 Total Protein 6.5 Albumin 2.7 L Impressions Myocardial Perfusion Scan Nuc Med 04/25/18 07:00 CONCLUSION: 1. Severe LV dilatation and dysfunction. 2. No reversible perfusion abnormalities. Assessment and Plan - Plan Acute kidney injury requiring hemodialysis We made multiple attempts to see the patient on 04/25/18 but unfortunately he was not in his room for testing. Reviewed stress test, non reversible ischemia with ejection fraction 17%. We will schedule the patient for an AV fistula creation tomorrow, vein mapping is pending Thank you for allowing me to participate in this patient care Trevon Dorsey MD [facility]- [place] [phone]
--- NOTE | 2018-04-26 20:10 | P.PNCA ---
Subjective Interval history: No events overnight Noted to have a wide complex tachycardia today, asymptomatic Medications and Allergies Active Medications: Active Medications Acetaminophen (Tylenol) 650 mg PO Q4H PRN PRN Reason: Temp > 100.4 Acetaminophen (Tylenol) 650 mg PO UNSCH PRN PRN Reason: SEE LABEL COMMENTS Al Hydroxide/Mg Hydroxide (Milk Of Nadia Durant) 30 ml PO Q12H PRN PRN Reason: Mild Constipation Bisacodyl (Dulcolax Supp) 10 mg RECTAL DAILY PRN PRN Reason: SEVERE CONSITIPATION Bumetanide (Bumex Inj) 2 mg IV.PUSH BID@0900,1800 [facility] Last Admin: 04/26/18 17:42 Dose: 2 mg Carvedilol (Coreg) 6.25 mg PO BID [facility] Last Admin: 04/26/18 08:50 Dose: 6.25 mg Clonidine HCl (Catapres) 0.1 mg PO UNSCH PRN PRN Reason: SEE LABEL COMMENTS Diphenhydramine HCl (Benadryl) 25 mg PO UNSCH PRN PRN Reason: SEE LABEL COMMENTS Epoetin Morgan (Epogen Inj) 5,000 unit IV.PUSH UNSCH PRN PRN Reason: SEE LABEL COMMENTS Last Admin: 04/25/18 11:50 Dose: 5,000 unit Famotidine (Pepcid) 10 mg PO BID [facility] Last Admin: 04/26/18 08:49 Dose: 10 mg Gelatin (Gelfoam 12 Mm/7 Mm Topical) 1 foam TOPICAL PRN PRN PRN Reason: help stop bleeding from site Gentamicin Sulfate (Gentamicin Inj) 20 mg OTHER WITH DIALYSIS PRN PRN Reason: Dwell Gentamycin Lock Last Admin: 04/25/18 11:50 Dose: 20 mg Heparin Sodium (Porcine) (Heparin Inj) 5,000 units SQ Q12H [facility] Last Admin: 04/26/18 11:47 Dose: 5,000 units Heparin Sodium (Porcine) (Heparin Inj) 8,000 units OTHER WITH DIALYSIS PRN PRN Reason: for machine prime Heparin Sodium (Porcine) (Heparin Inj) 1,000 units OTHER WITH DIALYSIS PRN PRN Reason: Dwell Heparin to Fill Catheter Last Admin: 04/25/18 11:50 Dose: 1,000 units Heparin Sodium (Porcine) (Heparin Inj) 0 units IV.FLUSH WITH DIALYSIS PRN PRN Reason: SEE DOSE INSTRUCTIONS Azithromycin 500 mg/ Sodium (Chloride) 250 mls @ 250 mls/hr IV.SIG Q24H [facility] Last Infusion: 04/25/18 23:54 Dose: Infused Ceftriaxone Sodium 1,000 mg/ (Sodium Chloride) 100 mls @ 200 mls/hr IV.SIG Q24H [facility] Last Infusion: 04/25/18 23:54 Dose: Infused Albumin Human (Flexbumin 25% Inj) 100 mls @ 60 mls/hr IV.SIG WITH DIALYSIS PRN PRN Reason: hypotension / volume replace Last Infusion: 04/21/18 14:15 Dose: Infused Sodium Chloride (Ns Inj) 1,000 mls @ 0 mls/hr OTHER .Q0M PRN PRN Reason: for prime and rinse back Last Infusion: 04/22/18 13:56 Dose: Infused Sodium Chloride (Ns Inj) 1,000 mls @ 200 mls/hr OTHER .Q5H PRN PRN Reason: for dialyzer flush PRN Sodium Chloride (Ns Inj) 1,000 mls @ 0 mls/hr IV.CONT .Q0M PRN PRN Reason: hypotension / volume replace Lactulose (Lactulose Liq) 30 ml PO DAILY PRN PRN Reason: SEVERE CONSITIPATION Mannitol (Mannitol Inj) 12.5 gm IV.PUSH UNSCH PRN PRN Reason: hypotension / volume replace Metolazone (Zaroxolyn) 5 mg PO DAILY [facility] Last Admin: 04/26/18 08:50 Dose: 5 mg Nitroglycerin (Nitrostat Sl) 0.4 mg SL Q5M PRN PRN Reason: CHEST PAIN Ondansetron HCl (Zofran Inj) 4 mg IV.PUSH Q6H PRN PRN Reason: NAUSEA OR VOMITING Ondansetron HCl (Zofran Inj) 4 mg IV.PUSH UNSCH PRN PRN Reason: NAUSEA OR VOMITING Senna/Docusate Sodium (Carole-Colace) 1 tab PO BID [facility] Last Admin: 04/26/18 08:50 Dose: Not Given Sennosides (Senokot) 17.2 mg PO Q12H PRN PRN Reason: Moderate Constipation Sevelamer Carbonate (Renvela) 800 mg PO TIDAC [facility] Last Admin: 04/26/18 17:42 Dose: 800 mg Sodium Chloride (Ns Flush) 5 ml IV.FLUSH PRN PRN PRN Reason: flush each lumen during HD Sodium Chloride (Ns Flush) 0 ml IV.FLUSH UNSCH PRN PRN Reason: SEE DOSE INSTRUCTIONS Allergies Allergy/AdvReac Type Severity Reaction Status Date / Time No Known Allergies Allergy Verified 04/18/18 16:36 Home Medications Medication Instructions Recorded Confirmed Type No Known Home Medications 04/18/18 04/18/18 History Physical Exam Vital signs: Vital Signs 04/26/18 00:00 04/26/18 04:00 04/26/18 08:00 Temperature 98.4 F 97.9 F 98 F Pulse Rate 66 69 68 Respiratory Rate 18 18 19 Blood Pressure 117/72 128/85 123/83 Pulse Oximetry 97 96 97 04/26/18 12:00 04/26/18 16:00 Temperature 98 F 97.2 F L Pulse Rate 67 68 Respiratory Rate 19 19 Blood Pressure 98/64 L 110/75 Pulse Oximetry 96 99 Intake & Output 04/26/18 04/26/18 04/27/18 06:59 18:59 06:59 Intake Total 350 / 350 Balance 350 / 350 Weight 49.9 kg Intake: IV 350 / 350 Azithromycin Inj 500 MG In NS 250 / 250 Inj 250 ML @ 250 mls/hr IV.SIG Q24H [facility] Rx#:[id number] Rocephin Inj 1,000 MG In NS Inj 100 / 100 100 ML @ 200 mls/hr IV.SIG Q24H [facility] Rx#:[id number] Other: # Voids 2 4 # Bowel Movements 1 4 Narrative: GENERAL: Well-developed, thin male patient in [facility]. SKIN: Warm and dry. HEENT: Atraumatic. Normocephalic. Pupils equal and round. Mucous membranes pink and moist. NECK: Trachea midline. CARDIOVASCULAR: Regular rate and rhythm. 2/6 systolic murmur noted. RESPIRATORY: No accessory muscle use. Clear to auscultation. Breath sounds equal bilaterally. GASTROINTESTINAL: Abdomen soft, non-tender, nondistended. Hepatic and splenic margins not palpable. MUSCULOSKELETAL: No obvious deformities. Trace bilateral lower extremities edema. NEUROLOGICAL: Awake and alert. No obvious cranial nerve deficits. Motor grossly within normal limits. Generalized weakness, moving all 4 extremities. Normal speech. Results 04/26/18 09:15 04/26/18 09:15 Cardiac Enzymes 04/25/18 04/26/18 Range/Units 08:05 09:15 AST 40 H 45 H (15-37) U/L CBC 04/25/18 04/26/18 Range/Units 08:05 09:15 WBC 6.7 6.6 (4.0-11.0) th/mm3 RBC 3.21 L 3.58 L (4.50-5.90) mil/mm3 Hgb 10.4 L 11.5 L (13.0-17.0) gm/dL Hct 30.7 L 34.8 L (39.0-51.0) % Plt Count 189 258 D (150-450) th/mm3 Comprehensive Metabolic Panel 04/25/18 04/26/18 Range/Units 08:05 09:15 Sodium 137 136 (136-145) meq/L Potassium 4.0 4.1 (3.5-5.1) meq/L Chloride 98 99 (98-107) meq/L Carbon Dioxide 31.5 29.6 (21.0-32.0) meq/L BUN 51 H 27 H (7-18) mg/dL Creatinine 4.45 H 3.40 H (0.60-1.30) mg/dL Calcium 8.3 L 8.4 L (8.5-10.1) mg/dL AST 40 H 45 H (15-37) U/L ALT 23 26 (12-78) U/L Alkaline Phosphatase 107 107 (45-117) U/L Total Protein 6.3 L 6.5 (6.4-8.2) g/dL Albumin 2.6 L 2.7 L (3.4-5.0) g/dL Intake and Output 04/26/18 04/26/18 04/26/18 06:59 14:59 22:59 Intake Total 350 / 350 Balance 350 / 350 Intake: IV 350 / 350 Azithromycin Inj 500 MG In NS 250 / 250 Inj 250 ML @ 250 mls/hr IV.SIG Q24H [facility] Rx#:[id number] Rocephin Inj 1,000 MG In NS Inj 100 / 100 100 ML @ 200 mls/hr IV.SIG Q24H [facility] Rx#:[id number] Other: # Voids 2 4 # Bowel Movements 1 4 Weight 49.9 kg - Imaging and Cardiology Imaging: Impressions Myocardial Perfusion Scan Nuc Med 10/23/18 07:00 CONCLUSION: 1. Severe LV dilatation and dysfunction. 2. No reversible perfusion abnormalities. Assessment and Plan - Assessment (1) Cardiomyopathy Code(s): I42.9 - Cardiomyopathy, unspecified Status: Acute (2) Acute kidney injury Code(s): N17.9 - Acute kidney failure, unspecified Status: Acute (3) Fluid overload Code(s): E87.70 - Fluid overload, unspecified Status: Acute (4) New onset of congestive heart failure Code(s): I50.9 - Heart failure, unspecified Status: Acute - Plan 1) Acute decompensated systolic heart failure Started on HD Appears compensated 2) New onset cardiomyopathy EF 20% Stress test showing no ischemia, NICM Con't on medical management Will place on Coreg for now Unable to place on LEE-I due to MIGUEL ANGEL 3) Acute renal failure Started on HD 4) Remote crack cocaine use 5) Wide complex tachycardia Stress test negative for ischemia Currently on BB therapy, will ask Dr. Wisdom to evaluate for possible EP study and if necessary ICD therapy
[2018-04-26] MEDS: Azithromycin Inj 500 MG in Sodium Chlor 0.9% Inj 250 ML IV.SIG SCH (20:59)
--- NOTE | 2018-04-26 22:32 | US ---
EXAM DATE: 04/26/2018 12:00 AM EDT AGE/SEX: 62 years / Male INDICATIONS: AVF evaluation. CLINICAL DATA: This is the patient's initial encounter. Patient reports that signs and symptoms have been present for 1 day and indicates a pain score of 0/10. MEDICAL/SURGICAL HISTORY: . Acute renal failure. Heart failure. Hemodialysis. None. COMPARISON: No prior exams available for comparison. FINDINGS: Right Upper Extremity: The vessels are compressible and augmentation response is documented. No fill ing defects are seen. The flow is phasic with respiration. Left Upper Extremity: The vessels are compressible and augmentation response is documented. No filli ng defects are seen. The flow is phasic with respiration. Other: None. CONCLUSION: Negative exam. No deep venous thrombosis in the left upper extremity. Electronically signed by: Clinton William MD 04/26/2018 10:31 PM EDT
--- NOTE | 2018-04-26 22:32 | US ---
EXAM DATE: 04/26/2018 12:00 AM EDT AGE/SEX: 62 years / Male INDICATIONS: AVF evaluation. CLINICAL DATA: This is the patient's initial encounter. Patient reports that signs and symptoms have been present for 1 day and indicates a pain score of 0/10. MEDICAL/SURGICAL HISTORY: . Acute renal failure. Heart failure. Hemodialysis. None. COMPARISON: [facility] [place] VENOUS DOPPLER ARM BI, 04/26/2018. . MEASUREMENTS: RIGHT: CEPHALIC: Origin:__3 mm Mid-Arm:__2 mm Elbow:__2 mm Forearm:__2 mm Wrist:__2 mm BASILIC: Origin:__3 mm Mid-Arm:__4 mm Elbow:__4 mm ARTERIES: Brachial:__4 mm Ulnar:__3 mm Radial:__3 mm VEINS: Radial:__2 mm Ulnar:__2 mm LEFT: CEPHALIC: Origin:__3 mm Mid-Arm:__3 mm Elbow:__2 mm Forearm:__2 mm Wrist:__2 mm BASILIC: Origin:__6 mm Mid-Arm:__4 mm Elbow:__5 mm ARTERIES: Brachial:__4 mm Ulnar:__2 mm Radial:__2 mm VEINS: Radial:__1 mm Ulnar:__1 mm FINDINGS: The venous system of the upper extremities are patent by color Doppler imaging. Measurements of the arm veins (in mm) are listed above. CONCLUSION: Venous mapping as above. Electronically signed by: Clinton William MD 04/26/2018 10:31 PM EDT
[2018-04-27] MEDS: Heparin - SQ 10,000 UNITS/ML Vial SQ SCH ×2 (00:47→10:41)
[2018-04-27] MEDS ORDERED: Chlorhexidine Gluconate 2% 1 Pack (2 Cloths) TOPICAL ONE (03:49)
[2018-04-27] MEDS ORDERED: Sodium Chlor 0.9% Inj 500 ML IV.SIG SCH (04:00)
--- NOTE | 2018-04-27 05:37 | MB ---
cc: Alejandro Wisdom MD DATE: 04/26/2018 REASON FOR CONSULTATION: Congestive heart failure, nonsustained ventricular tachycardia. HISTORY OF PRESENT ILLNESS: Mr. 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 He is told he was a smoker and cocaine use, admit due to congestive heart failure and renal insufficiency. During hospitalization, hemodialysis was initiated. Ejection fraction is 20%. He developed an episode of ventricular tachyarrhythmia. I was consulted for evaluation and management. The chart was reviewed. The patient was evaluated. ALLERGIES: NONE.. SOCIAL HISTORY: As mentioned before, the patient used to smoke and used also cocaine. FAMILY HISTORY: Noncontributory to his current medical condition. MEDICATIONS: He is on Tylenol. He is on Zithromax. He is on Bumex. He is on Coreg 6.25 mg twice a day. He is on Epogen. He is on Pepcid 10 mg twice a day. Gentamicin IV, heparin, mannitol , Renvela. REVIEW OF SYSTEMS: Feeling better. No chest pain. No chest discomfort. PHYSICAL EXAMINATION: GENERAL: Alert, fully oriented. VITAL SIGNS: Blood pressure 110/75, pulse 71, respiratory rate 18. LUNGS: Ventilated. CARDIOVASCULAR: S1, S2 regular. No gallop. Right subclavian, which was central line for hemodialysis. ABDOMEN: Soft. No masses. EXTREMITIES: No edema. LABORATORY DATA: A 12-lead electrocardiogram shows sinus rhythm, poor R-wave progression, diffuse ST changes. LABORATORY DATA: Hemoglobin is 11.5, white blood cells 6.6, platelet 258. INR 1.1. Potassium 4.1, creatinine 3.4. ASSESSMENT AND RECOMMENDATIONS: Mr. Nelson has had failure. He has cachexia. He is on hemodialysis for renal failure. During hospitalization, he developed multiple episodes of at least 20 beat of ventricular tachycardia. Nuclear stress study indicates no ischemia. He has an ejection fraction of 20%. I had a long conversation with him. I discussed the option of electrophysiology study and possible device insertion for sudden prevention. The risks, the nature, and the benefits of the procedure were pneumothorax, cardiac perforation, stroke and even . The patient understands. The patient . He has no intention to have the pacemaker nor defibrillator. He does not care about sudden . He is not going to have any more treatment. For now, my recommendation is to continue with current medical management. Further decision by Dr. Joyce and the rest of the managing team. I will be available on a p.r.n. basis. MD DEMI Maravilla/khai/jessica , 11:22 PM , 11:32 PM
[2018-04-27] MEDS: Famotidine 20 MG Tablet PO SCH ×2 (08:03→21:31)
[2018-04-27] MEDS: metOLazone 5 MG Tablet PO SCH (08:04)
[2018-04-27] MEDS: Senna/Docusate Sodium 8.6/50 MG Tablet PO SCH ×2 (08:04→21:32)
[2018-04-27] MEDS: Carvedilol 6.25 MG Tablet PO SCH ×2 (08:04→21:31)
[2018-04-27 08:49] LABS: Hematocrit 34.5 % (39.0-51.0); Hemoglobin 11.2 gm/dL (13.0-17.0); Mean Corpuscular HGB Conc 32.6 % (32.0-36.0); Mean Corpuscular Hemoglobin 31.8 pg (27.0-34.0); Mean Corpuscular Volume 97.6 fL (80.0-100.0); Mean Platelet Volume 9.1 fL (7.0-11.0); Platelet Count 214 th/mm3 (150-450); Red Blood Count 3.53 mil/mm3 (4.50-5.90); Red Cell Distribution Width 15.1 % (11.6-17.2); White Blood Count 6.8 th/mm3 (4.0-11.0)
[2018-04-27 09:26] LABS: Alanine Aminotransferase 23 U/L (12-78); Albumin 2.8 g/dL (3.4-5.0); Alkaline Phosphatase 105 U/L (45-117); Anion Gap 9 meq/L (5-15); Aspartate Aminotransferase 30 U/L (15-37); Blood Urea Nitrogen 38 mg/dL (7-18); Calcium 8.7 mg/dL (8.5-10.1); Carbon Dioxide 31.8 meq/L (21.0-32.0); Chloride 97 meq/L (98-107); Glomerular Filtration Rate 14 mL/min (>89); Glucose,Random 76 mg/dL (74-106); Potassium 4.2 meq/L (3.5-5.1); Sodium 138 meq/L (136-145); Total Protein 6.5 g/dL (6.4-8.2)
--- NOTE | 2018-04-27 09:52 | P.PN ---
Subjective Interval history: Follow-up shortness of breath, lower extremity edema, acute fluid overload new onset cardiomyopathy, CHF, MIGUEL ANGEL on ESRD. 0930hrs: Attempted to see patient, not in room. Will try again later. 1340hrs: Patient seen after returning from dialysis. He reports feeling well today. Discussed his vtach, CHF, and risk for sudden cardiac , with recommendations to place AICD. Patient says he wants to think about it but will not agree to AICD placement at this time. Also discussed his code status, the patient states he also wants to think about this. Told him that if his heart were to stop right now, we would do everything we could to save him including compression/shock/pressors/intubation/ventilation, patient agrees to this for now. The patient is agreeable for AV fistula placement as recommended for his dialysis. Otherwise, the patient reports overall feeling better. He denies any chest pain. He states his shortness of breath has improved. He has no other medical complaints at this time. Physical Exam Vital signs: Vital Signs 04/26/18 12:00 04/26/18 16:00 04/26/18 20:00 Temperature 98 F 97.2 F L 98.8 F Pulse Rate 67 68 72 Respiratory Rate 19 19 18 Blood Pressure 98/64 L 110/75 115/70 Pulse Oximetry 96 99 98 04/27/18 00:00 04/27/18 04:00 04/27/18 08:00 Temperature 98.5 F 98.0 F 97.8 F Pulse Rate 67 66 66 Respiratory Rate 18 20 20 Blood Pressure 118/76 109/69 120/77 Pulse Oximetry 96 96 95 Intake & Output 04/26/18 04/27/18 04/27/18 18:59 06:59 18:59 Intake Total 350 / 350 Balance 350 / 350 Weight 48.308 kg Intake: IV 350 / 350 Azithromycin Inj 500 MG In NS 250 / 250 Inj 250 ML @ 250 mls/hr IV.SIG Q24H [facility]IK Rx#:[id number] Rocephin Inj 1,000 MG In NS Inj 100 / 100 100 ML @ 200 mls/hr IV.SIG Q24H MALIK Rx#:[id number] Other: # Voids 4 2 Date of Last Bowel Movement 04/26/18 04/26/18 # Bowel Movements 4 Narrative: GENERAL: Well-developed, pleasant thin male patient in NAD. SKIN: Warm and dry. HEENT: Atraumatic. Normocephalic. Pupils equal and round. Mucous membranes pink and moist. CARDIOVASCULAR: Regular rate and rhythm. 2/6 systolic murmur noted. RESPIRATORY: No accessory muscle use. Clear to auscultation. Breath sounds equal bilaterally. GASTROINTESTINAL: Abdomen soft, non-tender, nondistended. Normoactive bowel sounds x4. MUSCULOSKELETAL: No obvious deformities. Trace bilateral lower extremities edema. NEUROLOGICAL: Awake and alert. No obvious cranial nerve deficits. Motor grossly within normal limits. Generalized weakness, moving all 4 extremities. Normal speech. Results - Labs CBC & Chem 7: 04/27/18 07:52 04/27/18 07:50 Laboratory Results - last 24 hr 04/26/18 04/26/18 04/27/18 09:15 09:15 07:50 WBC 6.6 RBC 3.58 L Hgb 11.5 L Hct 34.8 L MCV 97.1 MCH 32.2 MCHC 33.1 RDW 15.5 Plt Count 258 D MPV 10.1 Sodium 136 138 Potassium 4.1 4.2 Chloride 99 97 L Carbon Dioxide 29.6 31.8 Anion Gap 7 9 BUN 27 H 38 H Creatinine 3.40 H 4.38 H Estimated GFR 18 L 14 L Random Glucose 102 76 Calcium 8.4 L 8.7 Total Bilirubin 0.3 0.3 AST 45 H 30 ALT 26 23 Alkaline Phosphatase 107 105 Total Protein 6.5 6.5 Albumin 2.7 L 2.8 L 04/27/18 07:52 WBC 6.8 RBC 3.53 L Hgb 11.2 L Hct 34.5 L MCV 97.6 MCH 31.8 MCHC 32.6 RDW 15.1 Plt Count 214 MPV 9.1 Sodium Potassium Chloride Carbon Dioxide Anion Gap BUN Creatinine Estimated GFR Random Glucose Calcium Total Bilirubin AST ALT Alkaline Phosphatase Total Protein Albumin - Imaging Impressions Upper Extremity Ultrasound 04/26/18 00:00 CONCLUSION: Venous mapping as above. Venous Doppler Study 04/26/18 00:00 CONCLUSION: Negative exam. No deep venous thrombosis in the left upper extremity. Assessment and Plan - Assessment (1) New onset of congestive heart failure Code(s): I50.9 - Heart failure, unspecified Status: Acute (2) Pneumonia Code(s): J18.9 - Pneumonia, unspecified organism Status: Acute (3) Acute kidney injury Code(s): N17.9 - Acute kidney failure, unspecified Status: Acute (4) Fluid overload Code(s): E87.70 - Fluid overload, unspecified Status: Acute - Plan 62-year-old homeless male with no past medical history presents to the emergency department for evaluation of lower extremity edema times 10 days with intermittent shortness of breath that is worse with exertion. New onset cardiomyopathy, acute/ Fluid Overload/bilateral lower extremity edema Acute decompensated systolic heart failure Suspect Valvular Cardiomyopathy -LVEF 20% on echo 04/19/18 -BNP greater than 5000 on 04/18, 04/20, 04/24 -2D Echo : Left ventricular systolic function is severely reduced with EF 20%, mod MR, mod-severe TR, mod-severe pulm HTN (60-70mmhg); large right sided pleural effusion is present. -Cardiology consulted, appreciate recommendations: continue on Diuretics -continue Bumex, metolazone, Coreg -LEE initially held due to renal function; however cleared by nephrology to start LEE/ARB/Entresto, deferred to cardiology (BP borderline low) -monitor BMP and BNP -diuresing well Elevated troponin/arrhythmia/V tach -Troponin 0.12, 0.11, 0.10 -Likely secondary to acute renal failure/ CHF -EKG without signs of ischemia, cardiology consulted: recommended further workup after kidney function improved -denies any chest pain -Cardiology following, appreciate recommendations -Lexiscan 04/25 showed severe LV dilatation and dysfunction; no reversible perfusion abnormalities -patient continues to have episodes of Vtach, Dr Wisdom consulted, however patient declined AICD, recommended to continue medical management -had long discussion with the patient regarding his risk for sudden cardiac , patient verbalizes understanding, continues to decline AICD at this time Right lower extremity edema -Bilateral lower extremity edema improving, left lower extremity trace edema, right lower extremity edema improving from 2+ now it is 1+ pitting -Right lateral anterior foot wound, likely related to extreme edema previously, patient stated was blister before notes better, wound care consulted for treatment. -Ultrasound RLE: Chronic appearing nonocclusive thrombus in the right common femoral vein. Pulsatility in the lower extremity veins likely related to patient 's acute heart failure -improved Acute renal failure on ESRD/ Severe metabolic acidosis, acute -BUN/creatinine 80/5.18 on admission, no baseline for comparison improving after dialysis, 39/3.53 -Renal ultrasound: Echogenic kidneys with ascites and moderate right pleural effusion -Potassium 3.5, not on any potassium replacement -Serology/hepatitis profile Nonreactive, HIV Nonreactive, ABBY negative -Nephrology consulted, appreciate recommendations -Hemodialysis as scheduled by nephrology -monitor renal function, CMP, CBC -continue Renvela, monitor phosphorus levels -Vascular surgery consulted for AV fistula to be placed possibly today 04/27 Possible Pneumonia, acute/Fluid Overload -Chest x-ray 04/18 significant for increased density at the bases, right greater than left concerning for consolidation with a mild right pleural effusion -S/p antibiotic course with IV Rocephin/Azithro x7days -no fever or chills, WBC unremarkable -repeat C-Xray 04/20 stable Hypertension -Elevated blood pressure on admission, improving -Continue Bumex, metolazone and Coreg -Monitor blood pressure and BMP Anemia, likely acute on chronic -Likely related to ESRD -patient receiving epoetin during dialysis -Monitor CBC, stable at 11.2 History of cocaine use -Patient admitted short-term use, 6 months ago and have not had any since then -Negative for toxicology -Counseling/education given Moderate Protein Calorie Malnutrition/Failure to Thrive: BMI 16. Albumin 2.8. -consult dietitian DVT Proph: Heparin Code Status: Full Code for now, patient wants to think about it, but currently agrees to all interventions including compressions/defibrillation/pressors/intubation/ ventilation. Discharge Planning: Vascular surgery planning to place AV fistula. Patient still having episode of Vtach however declined AICD per Dr. Wisdom. Patient will need dialysis arrangements prior to discharge. Case management to assist with discharge planning.
[2018-04-27] MEDS: Heparin 10,000 UNITS/10 ML Vial (for IV use) OTHER PRN (12:41)
--- NOTE | 2018-04-27 17:31 | P.PNNP ---
Subjective Interval history: Doing well. Notes were reviewed. It is unclear if the patient is refusing AICD placement/EP study. Discussed with Dr. Awad regarding AVF placement, we are awaiting cardiology clearance. Physical Exam Vital signs: Vital Signs 04/26/18 20:00 04/27/18 00:00 04/27/18 04:00 Temperature 98.8 F 98.5 F 98.0 F Pulse Rate 72 67 66 Respiratory Rate 18 18 20 Blood Pressure 115/70 118/76 109/69 Pulse Oximetry 98 96 96 04/27/18 08:00 04/27/18 12:00 04/27/18 16:00 Temperature 97.8 F 97.8 F 98 F Pulse Rate 66 67 71 Respiratory Rate 20 20 20 Blood Pressure 120/77 109/76 87/51 L Pulse Oximetry 95 99 98 Intake & Output 04/26/18 04/27/18 04/27/18 18:59 06:59 18:59 Intake Total 350 / 350 Output Total 1500 / 1500 Balance 350 / 350 -1500 / -1500 Weight 48.308 kg Intake: IV 350 / 350 Azithromycin Inj 500 MG In NS 250 / 250 Inj 250 ML @ 250 mls/hr IV.SIG Q24H [facility] Rx#:[id number] Rocephin Inj 1,000 MG In NS Inj 100 / 100 100 ML @ 200 mls/hr IV.SIG Q24H [facility]IK Rx#:[id number] Output: Hemodialysis Amount 1500 / 1500 Other: # Voids 4 2 Date of Last Bowel Movement 04/26/18 04/26/18 # Bowel Movements 4 Narrative: GENERAL: Well-developed, pleasant thin male offers no complaints, wants to know if he needs pacemaker. SKIN: Warm and dry. HEENT: Atraumatic. Normocephalic. Pupils equal and round. Mucous membranes pink and moist. CARDIOVASCULAR: Regular rate and rhythm. 2/6 systolic murmur noted. RESPIRATORY: No accessory muscle use. Clear to auscultation. Breath sounds equal bilaterally. GASTROINTESTINAL: Abdomen soft, non-tender, nondistended. Normoactive bowel sounds x4. MUSCULOSKELETAL: No obvious deformities. Trace bilateral lower extremities edema. NEUROLOGICAL: Awake and alert. No obvious cranial nerve deficits. Motor grossly within normal limits. Generalized weakness, moving all 4 extremities. Normal speech. Assessment and Plan - Assessment (1) Acute kidney injury Code(s): N17.9 - Acute kidney failure, unspecified Status: Acute Plan: Duration of kidney disease/failure is unclear. He may have reached ESRD. He may have cardiorenal syndrome. Hepatitis and HIV negative. Serologies so far are negative. No significant proteinuria (100 protein on U/A) On HD 3 times/week. Continue to monitor Vascular surgery consulted for AVF placement. Started Renvela for hyperphosphatemia. (2) Fluid overload Code(s): E87.70 - Fluid overload, unspecified Status: Acute Plan: Improved. (3) Acute on chronic systolic congestive heart failure Code(s): I50.23 - Acute on chronic systolic (congestive) heart failure Status : Acute Plan: Seen by cardiology. Echo report reviewed. Notes reviewed. Underwent stress test , no reversible ischemia. Live vest? ARB/LEE inhibitor/Entresto: will defer to cardiology. Ok to start any of these medications from renal standpoint as long as his BP is acceptable.
--- NOTE | 2018-04-27 18:11 | P.PNVS ---
Subjective Subjective/Hospital Course: No acute issues Objective Vital Signs / I&O: Vital Signs 04/26/18 20:00 04/27/18 00:00 04/27/18 04:00 Temperature 98.8 F 98.5 F 98.0 F Pulse Rate 72 67 66 Respiratory Rate 18 18 20 Blood Pressure 115/70 118/76 109/69 Pulse Oximetry 98 96 96 04/27/18 08:00 04/27/18 12:00 04/27/18 16:00 Temperature 97.8 F 97.8 F 98 F Pulse Rate 66 67 71 Respiratory Rate 20 20 20 Blood Pressure 120/77 109/76 87/51 L Pulse Oximetry 95 99 98 Intake & Output 04/26/18 04/27/18 04/27/18 18:59 06:59 18:59 Intake Total 350 / 350 210 / 210 Output Total 1500 / 1500 Balance 350 / 350 -1290 / -1290 Weight 48.308 kg Intake: IV 350 / 350 Azithromycin Inj 500 MG In NS 250 / 250 Inj 250 ML @ 250 mls/hr IV.SIG Q24H [facility] Rx#:[id number] Rocephin Inj 1,000 MG In NS Inj 100 / 100 100 ML @ 200 mls/hr IV.SIG Q24H MALIK Rx#:[id number] Oral 210 / 210 Output: Hemodialysis Amount 1500 / 1500 Other: # Voids 4 2 Date of Last Bowel Movement 04/26/18 04/26/18 # Bowel Movements 4 Physical Exam: Palpable radial pulses bilaterally Laboratory Results - last 24 hr 04/27/18 04/27/18 07:50 07:52 WBC 6.8 RBC 3.53 L Hgb 11.2 L Hct 34.5 L MCV 97.6 MCH 31.8 MCHC 32.6 RDW 15.1 Plt Count 214 MPV 9.1 Sodium 138 Potassium 4.2 Chloride 97 L Carbon Dioxide 31.8 Anion Gap 9 BUN 38 H Creatinine 4.38 H Estimated GFR 14 L Random Glucose 76 Calcium 8.7 Total Bilirubin 0.3 AST 30 ALT 23 Alkaline Phosphatase 105 Total Protein 6.5 Albumin 2.8 L Impressions Upper Extremity Ultrasound 04/26/18 00:00 CONCLUSION: Venous mapping as above. Venous Doppler Study 04/26/18 00:00 CONCLUSION: Negative exam. No deep venous thrombosis in the left upper extremity. Assessment and Plan - Plan Acute kidney injury requiring hemodialysis Discussed the case with Dr. Joyce, I held off AV fistula creation until evaluated by the EP team. The patient was evaluated earlier today by Dr. Wisdom and has has no interest and pacemaker or defibrillator. The patient is currently agreeing to have the procedure done. I communicated this information to Dr. Wisdom and he will re-evaluate the patient and schedule surgery if the patient is still agreeable AVF creation will follow
--- NOTE | 2018-04-27 23:17 | P.PNCA ---
Subjective Interval history: Appears well No complaints Evaluated by Dr. Wisdom Refused EP study and possible ICD if indicated Medications and Allergies Active Medications: Active Medications Acetaminophen (Tylenol) 650 mg PO Q4H PRN PRN Reason: Temp > 100.4 Acetaminophen (Tylenol) 650 mg PO UNSCH PRN PRN Reason: SEE LABEL COMMENTS Al Hydroxide/Mg Hydroxide (Milk Of Nadia Durant) 30 ml PO Q12H PRN PRN Reason: Mild Constipation Bisacodyl (Dulcolax Supp) 10 mg RECTAL DAILY PRN PRN Reason: SEVERE CONSITIPATION Bumetanide (Bumex Inj) 2 mg IV.PUSH BID@0900,1800 [facility] Last Admin: 04/27/18 18:27 Dose: Not Given Carvedilol (Coreg) 6.25 mg PO BID [facility] Last Admin: 04/27/18 21:31 Dose: 6.25 mg Clonidine HCl (Catapres) 0.1 mg PO UNSCH PRN PRN Reason: SEE LABEL COMMENTS Diphenhydramine HCl (Benadryl) 25 mg PO UNSCH PRN PRN Reason: SEE LABEL COMMENTS Epoetin Morgan (Epogen Inj) 5,000 unit IV.PUSH UNSCH PRN PRN Reason: SEE LABEL COMMENTS Last Admin: 04/27/18 12:39 Dose: 5,000 unit Famotidine (Pepcid) 10 mg PO BID [facility] Last Admin: 04/27/18 21:31 Dose: 10 mg Gelatin (Gelfoam 12 Mm/7 Mm Topical) 1 foam TOPICAL PRN PRN PRN Reason: help stop bleeding from site Gentamicin Sulfate (Gentamicin Inj) 20 mg OTHER WITH DIALYSIS PRN PRN Reason: Dwell Gentamycin Lock Last Admin: 04/27/18 12:40 Dose: 20 mg Heparin Sodium (Porcine) (Heparin Inj) 5,000 units SQ Q12H [facility] Last Admin: 04/27/18 10:41 Dose: Not Given Heparin Sodium (Porcine) (Heparin Inj) 8,000 units OTHER WITH DIALYSIS PRN PRN Reason: for machine prime Heparin Sodium (Porcine) (Heparin Inj) 1,000 units OTHER WITH DIALYSIS PRN PRN Reason: Dwell Heparin to Fill Catheter Last Admin: 04/27/18 12:41 Dose: 1,000 units Heparin Sodium (Porcine) (Heparin Inj) 0 units IV.FLUSH WITH DIALYSIS PRN PRN Reason: SEE DOSE INSTRUCTIONS Albumin Human (Flexbumin 25% Inj) 100 mls @ 60 mls/hr IV.SIG WITH DIALYSIS PRN PRN Reason: hypotension / volume replace Last Infusion: 04/21/18 14:15 Dose: Infused Sodium Chloride (Ns Inj) 1,000 mls @ 0 mls/hr OTHER .Q0M PRN PRN Reason: for prime and rinse back Last Infusion: 04/22/18 13:56 Dose: Infused Sodium Chloride (Ns Inj) 1,000 mls @ 200 mls/hr OTHER .Q5H PRN PRN Reason: for dialyzer flush PRN Sodium Chloride (Ns Inj) 1,000 mls @ 0 mls/hr IV.CONT .Q0M PRN PRN Reason: hypotension / volume replace Lactated Ringer's (Lr 1000 Ml Inj) 1,000 mls @ 30 mls/hr IV.SIG .Q24H [facility]IK Stop: 04/28/18 03:59 Sodium Chloride (Ns Inj) 500 mls @ 30 mls/hr IV.SIG .Q10H [facility]IK Lactulose (Lactulose Liq) 30 ml PO DAILY PRN PRN Reason: SEVERE CONSITIPATION Mannitol (Mannitol Inj) 12.5 gm IV.PUSH UNSCH PRN PRN Reason: hypotension / volume replace Metolazone (Zaroxolyn) 5 mg PO DAILY [facility] Last Admin: 04/27/18 08:04 Dose: 5 mg Nitroglycerin (Nitrostat Sl) 0.4 mg SL Q5M PRN PRN Reason: CHEST PAIN Ondansetron HCl (Zofran Inj) 4 mg IV.PUSH Q6H PRN PRN Reason: NAUSEA OR VOMITING Ondansetron HCl (Zofran Inj) 4 mg IV.PUSH UNSCH PRN PRN Reason: NAUSEA OR VOMITING Senna/Docusate Sodium (Carole-Colace) 1 tab PO BID [facility] Last Admin: 04/27/18 21:32 Dose: Not Given Sennosides (Senokot) 17.2 mg PO Q12H PRN PRN Reason: Moderate Constipation Sevelamer Carbonate (Renvela) 800 mg PO TIDAC [facility] Last Admin: 04/27/18 18:24 Dose: 800 mg Sodium Chloride (Ns Flush) 5 ml IV.FLUSH PRN PRN PRN Reason: flush each lumen during HD Sodium Chloride (Ns Flush) 0 ml IV.FLUSH UNSCH PRN PRN Reason: SEE DOSE INSTRUCTIONS Allergies Allergy/AdvReac Type Severity Reaction Status Date / Time No Known Allergies Allergy Verified 04/18/18 16:36 Home Medications Medication Instructions Recorded Confirmed Type No Known Home Medications 04/18/18 04/18/18 History Physical Exam Vital signs: Vital Signs 04/27/18 00:00 04/27/18 04:00 04/27/18 08:00 Temperature 98.5 F 98.0 F 97.8 F Pulse Rate 67 66 64 Respiratory Rate 18 20 20 Blood Pressure 118/76 109/69 120/77 Pulse Oximetry 96 96 95 04/27/18 12:00 04/27/18 16:00 04/27/18 17:50 Temperature 97.8 F 98 F Pulse Rate 63 67 Respiratory Rate 20 20 Blood Pressure 109/76 87/51 L 90/55 L Pulse Oximetry 99 98 04/27/18 20:00 Temperature 98.6 F Pulse Rate 70 Respiratory Rate 20 Blood Pressure 101/58 L Pulse Oximetry 95 Intake & Output 04/27/18 04/27/18 04/28/18 06:59 18:59 06:59 Intake Total 350 / 350 210 / 210 Output Total 1500 / 1500 Balance 350 / 350 -1290 / -1290 Weight 48.308 kg Intake: IV 350 / 350 Azithromycin Inj 500 MG In NS 250 / 250 Inj 250 ML @ 250 mls/hr IV.SIG Q24H [facility]IK Rx#:[id number] Rocephin Inj 1,000 MG In NS Inj 100 / 100 100 ML @ 200 mls/hr IV.SIG Q24H [facility]IK Rx#:[id number] Oral 210 / 210 Output: Hemodialysis Amount 1500 / 1500 Other: # Voids 2 Date of Last Bowel Movement 04/26/18 04/27/18 # Bowel Movements 2 Narrative: GENERAL: Well-developed, pleasant thin male offers no complaints, wants to know if he needs pacemaker. SKIN: Warm and dry. HEENT: Atraumatic. Normocephalic. Pupils equal and round. Mucous membranes pink and moist. CARDIOVASCULAR: Regular rate and rhythm. 2/6 systolic murmur noted. RESPIRATORY: No accessory muscle use. Clear to auscultation. Breath sounds equal bilaterally. GASTROINTESTINAL: Abdomen soft, non-tender, nondistended. Normoactive bowel sounds x4. MUSCULOSKELETAL: No obvious deformities. Trace bilateral lower extremities edema. NEUROLOGICAL: Awake and alert. No obvious cranial nerve deficits. Motor grossly within normal limits. Generalized weakness, moving all 4 extremities. Normal speech. Results 04/27/18 07:52 04/27/18 07:50 Cardiac Enzymes 04/26/18 04/27/18 Range/Units 09:15 07:50 AST 45 H 30 (15-37) U/L CBC 04/26/18 04/27/18 Range/Units 09:15 07:52 WBC 6.6 6.8 (4.0-11.0) th/mm3 RBC 3.58 L 3.53 L (4.50-5.90) mil/mm3 Hgb 11.5 L 11.2 L (13.0-17.0) gm/dL Hct 34.8 L 34.5 L (39.0-51.0) % Plt Count 258 D 214 (150-450) th/mm3 Comprehensive Metabolic Panel 04/26/18 04/27/18 Range/Units 09:15 07:50 Sodium 136 138 (136-145) meq/L Potassium 4.1 4.2 (3.5-5.1) meq/L Chloride 99 97 L (98-107) meq/L Carbon Dioxide 29.6 31.8 (21.0-32.0) meq/L BUN 27 H 38 H (7-18) mg/dL Creatinine 3.40 H 4.38 H (0.60-1.30) mg/dL Calcium 8.4 L 8.7 (8.5-10.1) mg/dL AST 45 H 30 (15-37) U/L ALT 26 23 (12-78) U/L Alkaline Phosphatase 107 105 (45-117) U/L Total Protein 6.5 6.5 (6.4-8.2) g/dL Albumin 2.7 L 2.8 L (3.4-5.0) g/dL Intake and Output 04/27/18 04/27/18 04/28/18 14:59 22:59 06:59 Intake Total 210 / 210 Output Total 1500 / 1500 Balance -1500 / -1500 210 / 210 Intake: Oral 210 / 210 Output: Hemodialysis Amount 1500 / 1500 Other: Date of Last Bowel Movement 04/26/18 04/27/18 # Bowel Movements 2 - Imaging and Cardiology Imaging: Impressions Upper Extremity Ultrasound 04/26/18 00:00 CONCLUSION: Venous mapping as above. Venous Doppler Study 04/26/18 00:00 CONCLUSION: Negative exam. No deep venous thrombosis in the left upper extremity. Assessment and Plan - Assessment (1) Cardiomyopathy Code(s): I42.9 - Cardiomyopathy, unspecified Status: Acute (2) Acute kidney injury Code(s): N17.9 - Acute kidney failure, unspecified Status: Acute (3) Fluid overload Code(s): E87.70 - Fluid overload, unspecified Status: Acute (4) New onset of congestive heart failure Code(s): I50.9 - Heart failure, unspecified Status: Acute - Plan 1) Acute decompensated systolic heart failure Started on HD Appears compensated 2) New onset cardiomyopathy EF 20% Stress test showing no ischemia, NICM Con't on medical management Will place on Coreg for now Unable to place on LEE-I/Entresto for now with borderline hypotension 3) Acute renal failure Started on HD 4) Remote crack cocaine use 5) Wide complex tachycardia Stress test negative for ischemia Currently on BB therapy Evaluated by Dr. Wisdom Refused EP study and consideration of ICD therapy As patient would not want to undergo ICD therapy, would not plan on Lifevest as Lifevest would be a bridge to see if he would need ICD therapy in 3 months 6) Pre-operative risk assessment Complex situation Stress test showing no ischemia Continues to have wide complex tachycardia, does not want EP study/possible ICD For now would consider high risk
[2018-04-28] MEDS: Heparin - SQ 10,000 UNITS/ML Vial SQ SCH ×3 (00:42→23:35)
--- NOTE | 2018-04-28 10:48 | P.PN ---
Subjective Interval history: Follow-up cardiomyopathy new-onset/acute decompensated systolic heart failure April 28, 2018-patient seen and examined, denies any significant shortness of breath or chest pain. No acute event overnight. Physical Exam Vital signs: Vital Signs 04/27/18 12:00 04/27/18 16:00 04/27/18 17:50 Temperature 97.8 F 98 F Pulse Rate 63 67 Respiratory Rate 20 20 Blood Pressure 109/76 87/51 L 90/55 L Pulse Oximetry 99 98 04/27/18 20:00 04/28/18 00:00 04/28/18 04:00 Temperature 98.6 F 98.6 F 98.3 F Pulse Rate 66 67 74 Respiratory Rate 20 20 20 Blood Pressure 101/58 L 96/52 L 103/64 Pulse Oximetry 95 95 98 04/28/18 08:00 Temperature 97.6 F Pulse Rate 84 Respiratory Rate 20 Blood Pressure 129/61 Pulse Oximetry 97 Intake & Output 04/27/18 04/28/18 04/28/18 18:59 06:59 18:59 Intake Total 210 / 210 Output Total 1500 / 1500 Balance -1290 / -1290 Weight 48.761 kg Intake: Oral 210 / 210 Output: Hemodialysis Amount 1500 / 1500 Other: # Voids 2 Date of Last Bowel Movement 04/27/18 04/26/18 # Bowel Movements 2 Narrative: GENERAL: Well-developed, pleasant thin male offers no complaints SKIN: Warm and dry. HEENT: Atraumatic. Normocephalic. Pupils equal and round. Mucous membranes pink and moist. CARDIOVASCULAR: Regular rate and rhythm. 2/6 systolic murmur noted. RESPIRATORY: No accessory muscle use. Clear to auscultation. Breath sounds equal bilaterally. GASTROINTESTINAL: Abdomen soft, non-tender, nondistended. Normoactive bowel sounds x4. MUSCULOSKELETAL: No obvious deformities. Trace bilateral lower extremities edema. NEUROLOGICAL: Awake and alert. No obvious cranial nerve deficits. Motor grossly within normal limits. Generalized weakness, moving all 4 extremities. Normal speech. Results - Labs CBC & Chem 7: 04/27/18 07:52 04/27/18 07:50 Assessment and Plan - Assessment (1) New onset of congestive heart failure Code(s): I50.9 - Heart failure, unspecified Status: Acute (2) Pneumonia Code(s): J18.9 - Pneumonia, unspecified organism Status: Acute (3) Acute kidney injury Code(s): N17.9 - Acute kidney failure, unspecified Status: Acute (4) Fluid overload Code(s): E87.70 - Fluid overload, unspecified Status: Acute - Plan 62-year-old man with New onset cardiomyopathy, acute/ Fluid Overload/bilateral lower extremity edema Acute decompensated systolic heart failure Suspect Valvular Cardiomyopathy -LVEF 20% on echo 04/19/18 -BNP greater than 5000 on 04/18, 04/20, 04/24 -2D Echo : Left ventricular systolic function is severely reduced with EF 20%, mod MR, mod-severe TR, mod-severe pulm HTN (60-70mmhg); large right sided pleural effusion is present. -Cardiology consulted, appreciate recommendations: continue on Diuretics -continue Bumex, metolazone, Coreg -LEE initially held due to renal function; however cleared by nephrology to start LEE/ARB/Entresto but d/t low BP not started yet Elevated troponin/arrhythmia/V tach -Troponin 0.12, 0.11, 0.10 -EKG without signs of ischemia, cardiology consulted: recommended further workup after kidney function improved -Cardiology following, appreciate recommendations -Lexiscan 04/25 showed severe LV dilatation and dysfunction; no reversible perfusion abnormalities -Dr Wisdom consulted, however patient declined AICD, recommended to continue medical management -continues to decline AICD at this time Right lower extremity edema -Ultrasound RLE: Chronic appearing nonocclusive thrombus in the right common femoral vein. Pulsatility in the lower extremity veins likely related to patient 's acute heart failure -improved Acute renal failure on ESRD/ Severe metabolic acidosis, acute -Renal ultrasound: Echogenic kidneys with ascites and moderate right pleural effusion -Serology/hepatitis profile Nonreactive, HIV Nonreactive, ABBY negative -Nephrology consulted, appreciate recommendations -Hemodialysis as scheduled by nephrology -continue Renvela, monitor phosphorus levels -Vascular surgery consulted for AV fistula placement Possible Pneumonia, acute/Fluid Overload -Chest x-ray 04/18 significant for increased density at the bases, right greater than left concerning for consolidation with a mild right pleural effusion -S/p antibiotic course with IV Rocephin/Azithro x7days Hypertension -Continue Bumex, metolazone and Coreg Anemia, likely acute on chronic -2/2 ESRD -patient receiving epoetin during dialysis -Monitor CBC History of cocaine use -Patient admitted short-term use, 6 months ago and have not had any since then -Negative for toxicology -Counseling/education given Moderate Protein Calorie Malnutrition/Failure to Thrive: BMI 16. Albumin 2.8. -consult dietitian DVT Proph: Heparin
--- NOTE | 2018-04-28 11:55 | P.DIET ---
Nutritional Evaluation Type of nutrition evaluation: initial Nutrition consult regarding: Diet Evaluation Nutrition screening: MDC (malnutrition) Subjective Subjective Comments: Pt reported a good appetite, eating 100% of most meals. Pt currently on dialysis since 04/26. Objective - Diagnosis CHF, PNA, MIGUEL ANGEL - Objective Body Mass Index: 16.3 % IBW: 70 (IBW = 154lb) Body Weight Used for Calculations: Actual Energy Needs - Lower Range (kCal/kg): 30 Energy Needs - Upper Range (kCal/kg): 35 Lower Limit kCal/kg (kCals): 1,464 Upper Limit kCal/kg (kCals): 1,708 Lower Limit Protein Factor (Grams per Kg): 1.2 Upper Limit Protein Factor (Grams per Kg): 1.5 Lower Protein Needs (Protein): 59 Upper Protein Needs (Protein): 73 Fluid Factor (ml/kg): 25 Estimated Fluid Needs (ml): 1,220 Dietitian Reviewed in Medical Record: Current diet, Curent medications, Intake & Output, Labs, Medical history Diet Order: renal + cardiac 2gNa Oral Diet Intake Amount: Excellent 90%+ Speech Therapy Recommendations: No Objective Comments: Labs: 04/28: BUN 38, Cr 4.38, GFR 14, Alb 2.8 Assessment Assessment: Pt currently at nutritional risk r/t reported malnutrition. Pt is tolerating PO intake well and eating 100% of most meals. Labs reviewed, monitor renal labs. Monitor PO intake. Will assess nutritional needs for a PO supplement as appropriate. Dietitian following. Recommendations: 1. Monitor renal labs 2. Monitor PO intake 3. Will assess nutritional needs for a PO supplement as appropriate 4. Dietitian following Dietitian to Monitor: Lab values, Renal labs, Supplement acceptance, Intake & Output, Weight change, PO Intake, Medical course
[2018-04-28] MEDS: Famotidine 20 MG Tablet PO SCH ×2 (12:59→21:32)
[2018-04-28] MEDS: Carvedilol 6.25 MG Tablet PO SCH ×2 (12:59→21:32)
[2018-04-28] MEDS: Senna/Docusate Sodium 8.6/50 MG Tablet PO SCH ×2 (12:59→21:32)
[2018-04-28] MEDS: metOLazone 5 MG Tablet PO SCH (13:00)
--- NOTE | 2018-04-28 16:57 | P.PNNP ---
Subjective Interval history: patient has agreed to undergo EP study. Currently stable, but he has had multiple episodes of wide complex tachycardia. Physical Exam Vital signs: Vital Signs 04/27/18 17:50 04/27/18 20:00 04/28/18 00:00 Temperature 98.6 F 98.6 F Pulse Rate 66 67 Respiratory Rate 20 20 Blood Pressure 90/55 L 101/58 L 96/52 L Pulse Oximetry 95 95 04/28/18 04:00 04/28/18 08:00 04/28/18 12:00 Temperature 98.3 F 97.6 F 97.8 F Pulse Rate 74 65 71 Respiratory Rate 20 20 21 Blood Pressure 103/64 129/61 100/67 Pulse Oximetry 98 97 98 04/28/18 16:00 Temperature Pulse Rate 68 Respiratory Rate Blood Pressure Pulse Oximetry Intake & Output 04/27/18 04/28/18 04/28/18 18:59 06:59 18:59 Intake Total 210 / 210 Output Total 1500 / 1500 Balance -1290 / -1290 Weight 48.761 kg Intake: Oral 210 / 210 Output: Hemodialysis Amount 1500 / 1500 Other: # Voids 2 Date of Last Bowel Movement 04/27/18 04/26/18 # Bowel Movements 2 Narrative: GENERAL: Well-developed, thin individual. SKIN: Warm and dry. HEENT: Atraumatic. Normocephalic. Pupils equal and round. Mucous membranes pink and moist. CARDIOVASCULAR: Regular rate and rhythm. 2/6 systolic murmur noted. RESPIRATORY: No accessory muscle use. Clear to auscultation. Breath sounds equal bilaterally. GASTROINTESTINAL: Abdomen soft, non-tender, nondistended. Normoactive bowel sounds x4. MUSCULOSKELETAL: No obvious deformities. Trace bilateral lower extremities edema. NEUROLOGICAL: Awake and alert. No obvious cranial nerve deficits. Motor grossly within normal limits. Generalized weakness, moving all 4 extremities. Normal speech. Assessment and Plan - Assessment (1) Acute kidney injury Code(s): N17.9 - Acute kidney failure, unspecified Status: Acute Plan: Duration of kidney disease/failure is unclear. He may have reached ESRD. He may have cardiorenal syndrome. Hepatitis and HIV negative. Serologies so far are negative. No significant proteinuria (100 protein on U/A) On HD 3 times/week. Continue to monitor Vascular surgery consulted for AVF placement. Needs cardiology clearance. Started Renvela for hyperphosphatemia. (2) Fluid overload Code(s): E87.70 - Fluid overload, unspecified Status: Acute Plan: Improved. (3) Acute on chronic systolic congestive heart failure Code(s): I50.23 - Acute on chronic systolic (congestive) heart failure Status : Acute Plan: Seen by cardiology. Echo report reviewed. Notes reviewed. Underwent stress test , no reversible ischemia. Live vest? ARB/LEE inhibitor/Entresto: will defer to cardiology. Ok to start any of these medications from renal standpoint as long as his BP is acceptable. Patient to have EP study today because of NSVT. May need life vest/AICD placement.
--- NOTE | 2018-04-28 21:43 | P.PNVS ---
- Pre-operative Note Planned Procedure: LUE AVF creation Labs: WBC 6.8 th/mm3 (4.0-11.0) 04/27/18 07:52 RBC 3.53 mil/mm3 (4.50-5.90) L 04/27/18 07:52 Hgb 11.2 gm/dL (13.0-17.0) L 04/27/18 07:52 Hct 34.5 % (39.0-51.0) L 04/27/18 07:52 MCV 97.6 fL (80.0-100.0) 04/27/18 07:52 MCH 31.8 pg (27.0-34.0) 04/27/18 07:52 MCHC 32.6 % (32.0-36.0) 04/27/18 07:52 RDW 15.1 % (11.6-17.2) 04/27/18 07:52 Plt Count 214 th/mm3 (150-450) 04/27/18 07:52 MPV 9.1 fL (7.0-11.0) 04/27/18 07:52 INR 1.1 Ratio 04/18/18 18:00 Sodium 138 meq/L (136-145) 04/27/18 07:50 Potassium 4.2 meq/L (3.5-5.1) 04/27/18 07:50 Chloride 97 meq/L (98-107) L 04/27/18 07:50 Carbon Dioxide 31.8 meq/L (21.0-32.0) 04/27/18 07:50 Anion Gap 9 meq/L (5-15) 04/27/18 07:50 BUN 38 mg/dL (7-18) H 04/27/18 07:50 Random Glucose 76 mg/dL (74-106) 04/27/18 07:50 Calcium 8.7 mg/dL (8.5-10.1) 04/27/18 07:50 Imaging: ITS Impressions Abdomen/Bladder Ultrasound 04/19/18 00:00 CONCLUSION: 1. Echogenic kidneys with ascites and moderate right pleural effusion 2. Lower pole nonobstructing stone on the left 3. Probable left parapelvic cyst. Chest X-Ray 04/20/18 00:00 CONCLUSION: Stable appearance of the chest. Central Venous Line 04/21/18 00:00 CONCLUSION: 1. Uncomplicated PermaCath placement as above. Myocardial Perfusion Scan Nuc Med 04/25/18 07:00 CONCLUSION: 1. Severe LV dilatation and dysfunction. 2. No reversible perfusion abnormalities. Upper Extremity Ultrasound 04/26/18 00:00 CONCLUSION: Venous mapping as above. Venous Doppler Study 04/26/18 00:00 CONCLUSION: Negative exam. No deep venous thrombosis in the left upper extremity. Consent: Informed consent has been obtained from Antonio Clemens. I have explained the procedure in detail and discussed the risks, benefits, and potential complications. All questions have been answered. Will plan surgery on Tuesday05/01/18
--- NOTE | 2018-04-29 10:17 | P.PNVS ---
Subjective Subjective/Hospital Course: pt seen in HD discussed upcoming AVF in LEFT arm Pt verbalized understanding of the process informed consent obtained and placed in chart Objective Vital Signs / I&O: Vital Signs 04/28/18 12:00 04/28/18 16:00 04/28/18 20:00 Temperature 97.8 F 97.5 F L 98.4 F Pulse Rate 71 65 71 Respiratory Rate 21 20 16 Blood Pressure 100/67 114/77 104/65 Pulse Oximetry 98 99 98 04/28/18 23:37 04/29/18 00:00 04/29/18 04:00 Temperature 98.1 F 98.2 F Pulse Rate 66 62 69 Respiratory Rate 18 18 Blood Pressure 105/58 L 124/72 Pulse Oximetry 98 98 04/29/18 08:00 Temperature 97.8 F Pulse Rate 64 Respiratory Rate 20 Blood Pressure 120/72 Pulse Oximetry 97 Intake & Output 04/28/18 04/29/18 04/29/18 18:59 06:59 18:59 Intake Total 240 / 240 850 / 850 Balance 240 / 240 850 / 850 Weight 48.081 kg Intake: Oral 240 / 240 850 / 850 Other: # Voids 3 3 Date of Last Bowel Movement 04/27/18 04/27/18 Physical Exam: resting comfortably L AC with IV - to be removed NO L UE aysha Assessment and Plan - Plan pt appears medically ready for LEFT arm AVF on OR schedule for TUESDAY with Dr. Dorsey. Consent obtained today and placed in chart.
--- NOTE | 2018-04-29 10:21 | P.PNNP ---
Subjective Interval history: Seen during hemodialysis tolerating well. Denies any shortness of breath, chest pain, nausea, vomiting, or dysuria. Edema has resolved. <Carin Valladares - Last Filed: 04/29/18 10:10> Physical Exam Vital signs: Vital Signs 04/28/18 12:00 04/28/18 16:00 04/28/18 20:00 Temperature 97.8 F 97.5 F L 98.4 F Pulse Rate 71 65 71 Respiratory Rate 21 20 16 Blood Pressure 100/67 114/77 104/65 Pulse Oximetry 98 99 98 04/28/18 23:37 04/29/18 00:00 04/29/18 04:00 Temperature 98.1 F 98.2 F Pulse Rate 66 62 69 Respiratory Rate 18 18 Blood Pressure 105/58 L 124/72 Pulse Oximetry 98 98 04/29/18 08:00 Temperature 97.8 F Pulse Rate 64 Respiratory Rate 20 Blood Pressure 120/72 Pulse Oximetry 97 Intake & Output 04/28/18 04/29/18 04/29/18 18:59 06:59 18:59 Intake Total 240 / 240 850 / 850 Balance 240 / 240 850 / 850 Weight 48.081 kg Intake: Oral 240 / 240 850 / 850 Other: # Voids 3 3 Date of Last Bowel Movement 04/27/18 04/27/18 Narrative: GENERAL: Well-developed, thin individual. SKIN: Warm and dry. CARDIOVASCULAR: Regular rate and rhythm. murmur noted. Right IJ vas cath RESPIRATORY: No accessory muscle use. Clear to auscultation. Breath sounds equal bilaterally. GASTROINTESTINAL: Abdomen soft, non-tender, nondistended. Normoactive bowel sounds x4. MUSCULOSKELETAL: No obvious deformities. No edema <Carin Valladares - Last Filed: 04/29/18 10:10> Vital signs: Vital Signs 04/28/18 20:00 04/28/18 23:37 04/29/18 00:00 Temperature 98.4 F 98.1 F Pulse Rate 71 66 62 Respiratory Rate 16 18 Blood Pressure 104/65 105/58 L Pulse Oximetry 98 98 04/29/18 04:00 04/29/18 08:00 04/29/18 12:00 Temperature 98.2 F 97.8 F 97.9 F Pulse Rate 69 64 71 Respiratory Rate 18 20 20 Blood Pressure 124/72 120/72 118/64 Pulse Oximetry 98 97 98 04/29/18 16:00 Temperature 98 F Pulse Rate 67 Respiratory Rate 20 Blood Pressure 105/58 L Pulse Oximetry 98 Intake & Output 04/28/18 04/29/18 04/29/18 18:59 06:59 18:59 Intake Total 240 / 240 850 / 850 780 / 780 Output Total 1550 / 1550 Balance 240 / 240 850 / 850 -770 / -770 Weight 48.081 kg Intake: Oral 240 / 240 850 / 850 780 / 780 Output: Urine 350 / 350 Hemodialysis Amount 1200 / 1200 Other: # Voids 3 3 Date of Last Bowel Movement 04/27/18 04/29/18 # Bowel Movements 1 <Mary Ugarte - Last Filed: 04/29/18 18:55> Assessment and Plan - Assessment (1) Acute kidney injury Code(s): N17.9 - Acute kidney failure, unspecified Status: Acute Plan: Duration of kidney disease/failure is unclear. He may have reached ESRD. He may have cardiorenal syndrome. Hepatitis and HIV negative. Serologies so far are negative. No significant proteinuria (100 protein on U/A) On HD 3 times/week, // Seen during hemodialysis, 3 K bath, will remove fluid as tolerated Vascular surgery consulted for AVF placement. Needs cardiology clearance. Plan tentatively for Tuesday (2) Fluid overload Code(s): E87.70 - Fluid overload, unspecified Status: Acute Plan: Improved. No edema or SOB (3) Acute on chronic systolic congestive heart failure Code(s): I50.23 - Acute on chronic systolic (congestive) heart failure Status : Acute Plan: Seen by cardiology. Echo report reviewed. Notes reviewed. Underwent stress test , no reversible ischemia. ARB/LEE inhibitor/Entresto: will defer to cardiology. Ok to start any of these medications from renal standpoint as long as his BP is acceptable. Refused EP study and consideration of ICD therapy <Carin Valladares - Last Filed: 04/29/18 10:10> - Assessment (1) Acute kidney injury Code(s): N17.9 - Acute kidney failure, unspecified Status: Acute Plan: Patient seen during HD and examine, agree with above. Possible AVF Tuesday after cardiology clearance. (2) Fluid overload Code(s): E87.70 - Fluid overload, unspecified Status: Acute (3) Acute on chronic systolic congestive heart failure Code(s): I50.23 - Acute on chronic systolic (congestive) heart failure Status : Acute <Mary Ugarte - Last Filed: 04/29/18 18:55>
[2018-04-29] MEDS: Heparin 10,000 UNITS/10 ML Vial (for IV use) OTHER PRN (10:24)
[2018-04-29] MEDS: Carvedilol 6.25 MG Tablet PO SCH ×2 (11:08→21:09)
[2018-04-29] MEDS: metOLazone 5 MG Tablet PO SCH (11:08)
[2018-04-29] MEDS: Senna/Docusate Sodium 8.6/50 MG Tablet PO SCH ×2 (11:08→21:10)
[2018-04-29] MEDS: Famotidine 20 MG Tablet PO SCH ×2 (11:09→21:09)
[2018-04-29] MEDS: Heparin - SQ 10,000 UNITS/ML Vial SQ SCH (11:09)
--- NOTE | 2018-04-29 12:53 | P.PN ---
Subjective Interval history: Follow-up cardiomyopathy new-onset/acute decompensated systolic heart failure April 28, 2018-patient seen and examined, denies any significant shortness of breath or chest pain. No acute event overnight. April 29, 2018-patient seen and examined, had HD today. denies any SOB, CP Physical Exam Vital signs: Vital Signs 04/28/18 16:00 04/28/18 20:00 04/28/18 23:37 Temperature 97.5 F L 98.4 F 98.1 F Pulse Rate 65 71 66 Respiratory Rate 20 16 18 Blood Pressure 114/77 104/65 105/58 L Pulse Oximetry 99 98 98 04/29/18 00:00 04/29/18 04:00 04/29/18 08:00 Temperature 98.2 F 97.8 F Pulse Rate 62 69 64 Respiratory Rate 18 20 Blood Pressure 124/72 120/72 Pulse Oximetry 98 97 04/29/18 12:00 Temperature 97.9 F Pulse Rate 74 Respiratory Rate 20 Blood Pressure 118/64 Pulse Oximetry 98 Intake & Output 04/28/18 04/29/18 04/29/18 18:59 06:59 18:59 Intake Total 240 / 240 850 / 850 Output Total 1200 / 1200 Balance 240 / 240 850 / 850 -1200 / -1200 Weight 48.081 kg Intake: Oral 240 / 240 850 / 850 Output: Hemodialysis Amount 1200 / 1200 Other: # Voids 3 3 Date of Last Bowel Movement 04/27/18 04/27/18 Narrative: GENERAL: Well-developed, thin individual. SKIN: Warm and dry. CARDIOVASCULAR: Regular rate and rhythm. murmur noted. Right IJ vas cath RESPIRATORY: No accessory muscle use. Clear to auscultation. Breath sounds equal bilaterally. GASTROINTESTINAL: Abdomen soft, non-tender, nondistended. Normoactive bowel sounds x4. MUSCULOSKELETAL: No obvious deformities. No edema Results - Labs CBC & Chem 7: 04/27/18 07:52 04/27/18 07:50 Assessment and Plan - Assessment (1) New onset of congestive heart failure Code(s): I50.9 - Heart failure, unspecified Status: Acute (2) Pneumonia Code(s): J18.9 - Pneumonia, unspecified organism Status: Acute (3) Acute kidney injury Code(s): N17.9 - Acute kidney failure, unspecified Status: Acute (4) Fluid overload Code(s): E87.70 - Fluid overload, unspecified Status: Acute - Plan 62-year-old man with New onset cardiomyopathy, acute/ Fluid Overload/bilateral lower extremity edema Acute decompensated systolic heart failure Suspect Valvular Cardiomyopathy -LVEF 20% on echo 04/19/18 -BNP greater than 5000 on 04/18, 04/20, 04/24 -2D Echo : Left ventricular systolic function is severely reduced with EF 20%, mod MR, mod-severe TR, mod-severe pulm HTN (60-70mmhg); large right sided pleural effusion is present. -Cardiology consulted, appreciate recommendations: continue on Diuretics -continue Bumex, metolazone, Coreg -LEE initially held due to renal function; however cleared by nephrology to start LEE/ARB/Entresto but d/t low BP not started yet Elevated troponin/arrhythmia/V tach -Troponin 0.12, 0.11, 0.10 -EKG without signs of ischemia, cardiology consulted: recommended further workup after kidney function improved -Cardiology following, appreciate recommendations -Lexiscan 04/25 showed severe LV dilatation and dysfunction; no reversible perfusion abnormalities -Dr Wisdom consulted, however patient declined AICD, recommended to continue medical management -Now agrees on AICD placement Right lower extremity edema -Ultrasound RLE: Chronic appearing nonocclusive thrombus in the right common femoral vein. Pulsatility in the lower extremity veins likely related to patient 's acute heart failure -improved Acute renal failure on ESRD/ Severe metabolic acidosis, acute -Renal ultrasound: Echogenic kidneys with ascites and moderate right pleural effusion -Serology/hepatitis profile Nonreactive, HIV Nonreactive, ABBY negative -Nephrology consulted, appreciate recommendations -Hemodialysis as scheduled by nephrology -continue Renvela, monitor phosphorus levels -Vascular surgery consulted for AV fistula placement for 05/01/18 Possible Pneumonia, acute/Fluid Overload -Chest x-ray 04/18 significant for increased density at the bases, right greater than left concerning for consolidation with a mild right pleural effusion -S/p antibiotic course with IV Rocephin/Azithro x7days Hypertension -Continue Bumex, metolazone and Coreg Anemia, likely acute on chronic -2/2 ESRD -patient receiving epoetin during dialysis -Monitor CBC History of cocaine use -Patient admitted short-term use, 6 months ago and have not had any since then -Negative for toxicology -Counseling/education given Moderate Protein Calorie Malnutrition/Failure to Thrive: BMI 16. Albumin 2.8. -consult dietitian DVT Proph: Heparin
[2018-04-30] MEDS: Heparin - SQ 10,000 UNITS/ML Vial SQ SCH ×3 (00:03→23:11)
[2018-04-30] MEDS: metOLazone 5 MG Tablet PO SCH (08:16)
[2018-04-30] MEDS: Famotidine 20 MG Tablet PO SCH ×2 (08:16→23:07)
[2018-04-30] MEDS: Senna/Docusate Sodium 8.6/50 MG Tablet PO SCH ×2 (08:17→23:08)
[2018-04-30] MEDS: Carvedilol 6.25 MG Tablet PO SCH ×3 (08:17→23:10)
--- NOTE | 2018-04-30 10:20 | P.PNNP ---
Subjective Interval history: Sitting up at computer station playing [employer] games. Denies any shortness of breath, chest pain, nausea, or vomiting. Hemodialysis yesterday tolerated well. AVF placement planned for tomorrow. <Carin Valladares - Last Filed: 04/30/18 10:15> Physical Exam Vital signs: Vital Signs 04/29/18 12:00 04/29/18 16:00 04/29/18 20:00 Temperature 97.9 F 98 F 98.5 F Pulse Rate 71 67 66 Respiratory Rate 20 20 20 Blood Pressure 118/64 105/58 L 109/63 Pulse Oximetry 98 98 97 04/30/18 00:00 04/30/18 04:00 04/30/18 08:00 Temperature 98.1 F 98.3 F 98.1 F Pulse Rate 66 64 63 Respiratory Rate 20 20 20 Blood Pressure 101/66 117/56 L 119/74 Pulse Oximetry 97 98 Intake & Output 04/29/18 04/30/18 04/30/18 18:59 06:59 18:59 Intake Total 780 / 780 700 / 700 Output Total 1550 / 1550 Balance -770 / -770 700 / 700 Weight 48.081 kg Intake: Oral 780 / 780 700 / 700 Output: Urine 350 / 350 Hemodialysis Amount 1200 / 1200 Other: # Voids 2 Date of Last Bowel Movement 04/29/18 04/28/18 04/27/18 # Bowel Movements 1 Narrative: GENERAL: Well-developed, thin individual. No obvious signs of distress. SKIN: Warm and dry. CARDIOVASCULAR: Regular rate and rhythm. murmur noted. Right IJ vas cath RESPIRATORY: No accessory muscle use. Clear to auscultation. Breath sounds equal bilaterally. GASTROINTESTINAL: Abdomen soft, non-tender, nondistended. Normoactive bowel sounds x4. MUSCULOSKELETAL: No obvious deformities. No edema <Carin Valladares - Last Filed: 04/30/18 10:15> Vital signs: Vital Signs 05/01/18 19:25 05/01/18 19:30 05/01/18 19:45 Temperature 97.5 F L Pulse Rate 76 75 74 Respiratory Rate 20 24 26 H Blood Pressure 118/76 115/75 113/71 Pulse Oximetry 100 100 100 05/01/18 20:00 05/01/18 21:00 05/01/18 22:00 Temperature 97.7 F Pulse Rate 60 72 65 Respiratory Rate 18 Blood Pressure 116/81 Pulse Oximetry 100 05/01/18 23:00 05/02/18 00:00 05/02/18 01:00 Temperature 97.9 F Pulse Rate 66 61 67 Respiratory Rate 18 Blood Pressure 110/76 Pulse Oximetry 100 05/02/18 02:00 05/02/18 03:00 05/02/18 04:00 Temperature 97.9 F Pulse Rate 70 66 68 Respiratory Rate 17 Blood Pressure 119/69 Pulse Oximetry 100 05/02/18 05:00 05/02/18 06:00 05/02/18 08:15 Temperature 97.4 F L Pulse Rate 60 58 L 60 Respiratory Rate 16 Blood Pressure 97/70 L Pulse Oximetry 98 05/02/18 13:56 05/02/18 13:57 05/02/18 14:26 Temperature 97.7 F Pulse Rate 60 65 64 Respiratory Rate 16 Blood Pressure 114/71 Pulse Oximetry 98 05/02/18 15:46 05/02/18 16:27 05/02/18 17:36 Temperature 97.8 F Pulse Rate 66 62 62 Respiratory Rate 16 Blood Pressure 97/54 L Pulse Oximetry 100 Intake & Output 05/01/18 05/02/18 05/02/18 18:59 06:59 18:59 Intake Total 240 / 240 Output Total 200 / 200 1000 / 1000 Balance 40 / 40 -1000 / -1000 Weight 44.7 kg Intake: Oral 240 / 240 Output: Urine 200 / 200 Hemodialysis Amount 1000 / 1000 Other: # Voids 4 3 Date of Last Bowel Movement 05/01/18 05/02/18 # Bowel Movements 1 <Mary Ugarte - Last Filed: 05/02/18 17:54> Assessment and Plan - Assessment (1) Acute kidney injury Code(s): N17.9 - Acute kidney failure, unspecified Status: Acute Plan: Duration of kidney disease/failure is unclear. He may have reached ESRD. He may have cardiorenal syndrome. Hepatitis and HIV negative. Serologies so far are negative. On HD 3 times/week, // Hemodialysis yesterday tolerated well 1.2 liters Vascular surgery consulted for AVF placement. Needs cardiology clearance. Plan tentatively for Tuesday (2) Fluid overload Code(s): E87.70 - Fluid overload, unspecified Status: Acute Plan: Improved. No edema or SOB (3) Acute on chronic systolic congestive heart failure Code(s): I50.23 - Acute on chronic systolic (congestive) heart failure Status : Acute Plan: Seen by cardiology ARB/LEE inhibitor/Entresto: will defer to cardiology. Ok to start any of these medications from renal standpoint as long as his BP is acceptable. Initially refused EP study and consideration of ICD therapy but now has agreed to proceed forward. <Carin Valladares - Last Filed: 04/30/18 10:15> - Assessment (1) Acute kidney injury Code(s): N17.9 - Acute kidney failure, unspecified Status: Acute Plan: Patient seen and examine, agree with above. HD done yesterday, tolerated well. Cardiology clearance for AVF. (2) Fluid overload Code(s): E87.70 - Fluid overload, unspecified Status: Acute (3) Acute on chronic systolic congestive heart failure Code(s): I50.23 - Acute on chronic systolic (congestive) heart failure Status : Acute <Mary Ugarte - Last Filed: 05/02/18 17:54>
--- NOTE | 2018-04-30 11:18 | P.PN ---
Subjective Interval history: Follow-up cardiomyopathy new-onset/acute decompensated systolic heart failure April 28, 2018-patient seen and examined, denies any significant shortness of breath or chest pain. No acute event overnight. April 29, 2018-patient seen and examined, had HD today. denies any SOB, CP April 30, 2018-patient seen and examined, reported improvement of shortness of breath and states he is no longer short winded when he walks to the computer. Physical Exam Vital signs: Vital Signs 04/29/18 12:00 04/29/18 16:00 04/29/18 20:00 Temperature 97.9 F 98 F 98.5 F Pulse Rate 71 67 66 Respiratory Rate 20 20 20 Blood Pressure 118/64 105/58 L 109/63 Pulse Oximetry 98 98 97 04/30/18 00:00 04/30/18 04:00 04/30/18 08:00 Temperature 98.1 F 98.3 F 98.1 F Pulse Rate 66 64 63 Respiratory Rate 20 20 20 Blood Pressure 101/66 117/56 L 119/74 Pulse Oximetry 97 98 Intake & Output 04/29/18 04/30/18 04/30/18 18:59 06:59 18:59 Intake Total 780 / 780 700 / 700 Output Total 1550 / 1550 Balance -770 / -770 700 / 700 Weight 48.081 kg Intake: Oral 780 / 780 700 / 700 Output: Urine 350 / 350 Hemodialysis Amount 1200 / 1200 Other: # Voids 2 Date of Last Bowel Movement 04/29/18 04/28/18 04/27/18 # Bowel Movements 1 Narrative: GENERAL: Well-developed, thin individual. No obvious signs of distress. SKIN: Warm and dry. CARDIOVASCULAR: Regular rate and rhythm. murmur noted. Right IJ vas cath RESPIRATORY: No accessory muscle use. Clear to auscultation. Breath sounds equal bilaterally. GASTROINTESTINAL: Abdomen soft, non-tender, nondistended. Normoactive bowel sounds x4. MUSCULOSKELETAL: No obvious deformities. No edema Results - Labs CBC & Chem 7: 04/27/18 07:52 04/27/18 07:50 Assessment and Plan - Assessment (1) New onset of congestive heart failure Code(s): I50.9 - Heart failure, unspecified Status: Acute (2) Pneumonia Code(s): J18.9 - Pneumonia, unspecified organism Status: Acute (3) Acute kidney injury Code(s): N17.9 - Acute kidney failure, unspecified Status: Acute (4) Fluid overload Code(s): E87.70 - Fluid overload, unspecified Status: Acute - Plan 62-year-old man with New onset cardiomyopathy, acute/ Fluid Overload/bilateral lower extremity edema Acute decompensated systolic heart failure Suspect Valvular Cardiomyopathy -LVEF 20% on echo 04/19/18 -2D Echo : Left ventricular systolic function is severely reduced with EF 20%, mod MR, mod-severe TR, mod-severe pulm HTN (60-70mmhg); large right sided pleural effusion is present. -Cardiology consulted, appreciate recommendations: continue on Diuretics -continue Bumex, metolazone, Coreg -LEE initially held due to renal function; however cleared by nephrology to start LEE/ARB/Entresto but d/t low BP not started yet Elevated troponin/arrhythmia/V tach -Cardiology following, appreciate recommendations -Lexiscan 04/25 showed severe LV dilatation and dysfunction; no reversible perfusion abnormalities -Dr Wisdom consulted, however patient declined AICD, recommended to continue medical management -Now agrees on AICD placement, which is planned for May 01, 2018 Right lower extremity edema -Ultrasound RLE: Chronic appearing nonocclusive thrombus in the right common femoral vein. Pulsatility in the lower extremity veins likely related to patient 's acute heart failure -improved Acute renal failure on ESRD/ Severe metabolic acidosis, acute -Renal ultrasound: Echogenic kidneys with ascites and moderate right pleural effusion -Serology/hepatitis profile Nonreactive, HIV Nonreactive, ABBY negative -Nephrology consulted, appreciate recommendations -Hemodialysis as scheduled by nephrology -continue Renvela, monitor phosphorus levels -Vascular surgery consulted for AV fistula placement for 05/01/18 Possible Pneumonia, acute/Fluid Overload -S/p antibiotic course with IV Rocephin/Azithro x7days Hypertension -Continue Bumex, metolazone and Coreg Anemia, likely acute on chronic -2/2 ESRD -patient receiving epoetin during dialysis -Monitor CBC History of cocaine use -Patient admitted short-term use, 6 months ago and have not had any since then -Negative for toxicology -Counseling/education given Moderate Protein Calorie Malnutrition/Failure to Thrive: BMI 16. Albumin 2.8. -consult dietitian DVT Proph: Heparin
[2018-05-01] MEDS ORDERED: Chlorhexidine Gluconate 2% 1 Pack (2 Cloths) TOPICAL ONE (03:57)
[2018-05-01] MEDS ORDERED: Sodium Chlor 0.9% Inj 500 ML IV.SIG SCH (04:00)
--- NOTE | 2018-05-01 09:29 | P.PN ---
Subjective Interval history: Follow-up cardiomyopathy new-onset/acute decompensated systolic heart failure April 28, 2018-patient seen and examined, denies any significant shortness of breath or chest pain. No acute event overnight. April 29, 2018-patient seen and examined, had HD today. denies any SOB, CP April 30, 2018-patient seen and examined, reported improvement of shortness of breath and states he is no longer short winded when he walks to the computer. May 01, 2018-patient seen and examined, sleeping this morning and denies any shortness of breath or chest pain. Vital stable. Physical Exam Vital signs: Vital Signs 04/30/18 12:00 04/30/18 16:00 04/30/18 20:00 Temperature 98.2 F 98.5 F 98.6 F Pulse Rate 65 65 76 Respiratory Rate 20 20 20 Blood Pressure 90/51 L 99/61 L 107/61 Pulse Oximetry 98 97 98 05/01/18 00:00 05/01/18 04:00 05/01/18 08:00 Temperature 98 F 97.7 F 98.0 F Pulse Rate 72 62 61 Respiratory Rate 20 20 19 Blood Pressure 110/67 96/54 L 114/62 Pulse Oximetry 99 98 96 Intake & Output 04/30/18 05/01/18 05/01/18 18:59 06:59 18:59 Intake Total 980 / 980 Output Total 300 / 300 Balance 680 / 680 Weight 45.994 kg Intake: Oral 980 / 980 Output: Urine 300 / 300 Other: # Voids 3 Date of Last Bowel Movement 04/27/18 05/01/18 # Bowel Movements 1 # Incontinent Bowel Movements 2 Narrative: GENERAL: Well-developed, thin individual. No obvious signs of distress. SKIN: Warm and dry. CARDIOVASCULAR: Regular rate and rhythm. murmur noted. Right IJ vas cath RESPIRATORY: No accessory muscle use. Clear to auscultation. Breath sounds equal bilaterally. GASTROINTESTINAL: Abdomen soft, non-tender, nondistended. Normoactive bowel sounds x4. MUSCULOSKELETAL: No obvious deformities. No edema Results - Labs CBC & Chem 7: 04/27/18 07:52 04/27/18 07:50 Assessment and Plan - Assessment (1) New onset of congestive heart failure Code(s): I50.9 - Heart failure, unspecified Status: Acute (2) Pneumonia Code(s): J18.9 - Pneumonia, unspecified organism Status: Acute (3) Acute kidney injury Code(s): N17.9 - Acute kidney failure, unspecified Status: Acute (4) Fluid overload Code(s): E87.70 - Fluid overload, unspecified Status: Acute - Plan 62-year-old man with New onset cardiomyopathy, acute/ Fluid Overload/bilateral lower extremity edema Acute decompensated systolic heart failure Suspect Valvular Cardiomyopathy -LVEF 20% on echo 04/19/18 -2D Echo : Left ventricular systolic function is severely reduced with EF 20%, mod MR, mod-severe TR, mod-severe pulm HTN (60-70mmhg); large right sided pleural effusion is present. -Cardiology consulted, appreciate recommendations: continue on Diuretics -continue Bumex, metolazone, Coreg -LEE initially held due to renal function; however cleared by nephrology to start LEE/ARB/Entresto but d/t low BP not started yet Elevated troponin/arrhythmia/V tach -Cardiology following, appreciate recommendations -Lexiscan 04/25 showed severe LV dilatation and dysfunction; no reversible perfusion abnormalities -Dr Wisdom consulted, however patient declined AICD, recommended to continue medical management -Now agrees on AICD placement, which is planned for possible today May 01, 2018 Right lower extremity edema -Ultrasound RLE: Chronic appearing nonocclusive thrombus in the right common femoral vein. Pulsatility in the lower extremity veins likely related to patient 's acute heart failure -improved Acute renal failure on ESRD/ Severe metabolic acidosis, acute -Renal ultrasound: Echogenic kidneys with ascites and moderate right pleural effusion -Serology/hepatitis profile Nonreactive, HIV Nonreactive, ABBY negative -Nephrology consulted, appreciate recommendations -Hemodialysis as scheduled by nephrology -continue Renvela, monitor phosphorus levels -Vascular surgery consulted for AV fistula placement for 05/01/18 Possible Pneumonia, acute/Fluid Overload -S/p antibiotic course with IV Rocephin/Azithro x7days Hypertension -Continue Bumex, metolazone and Coreg Anemia, likely acute on chronic -2/2 ESRD -patient receiving epoetin during dialysis -Monitor CBC History of cocaine use -Patient admitted short-term use, 6 months ago and have not had any since then -Negative for toxicology -Counseling/education given Moderate Protein Calorie Malnutrition/Failure to Thrive: BMI 16. Albumin 2.8. -dietitian ff DVT Proph: Heparin
[2018-05-01] MEDS ORDERED: Lidocaine 1% Inj 50 ML Vial ONE (09:35)
[2018-05-01] MEDS ORDERED: Bupivacaine/Epinephrine Inj 0.25% 50 ML Vial ONE (09:35)
[2018-05-01] MEDS: metOLazone 5 MG Tablet PO SCH (10:22)
[2018-05-01] MEDS: Famotidine 20 MG Tablet PO SCH ×2 (10:22→21:48)
[2018-05-01] MEDS: Carvedilol 6.25 MG Tablet PO SCH ×2 (10:22→21:52)
[2018-05-01] MEDS: Senna/Docusate Sodium 8.6/50 MG Tablet PO SCH ×2 (10:26→21:52)
--- NOTE | 2018-05-01 11:55 | P.PNNP ---
Subjective Interval history: To have EP study today. He is scheduled to have AVF placement tomorrow. Patient himself reports that he is doing very well. Denies chest pain or shortness of breath. He reports that he has good appetite. Physical Exam Vital signs: Vital Signs 04/30/18 12:00 04/30/18 16:00 04/30/18 20:00 Temperature 98.2 F 98.5 F 98.6 F Pulse Rate 65 65 76 Respiratory Rate 20 20 20 Blood Pressure 90/51 L 99/61 L 107/61 Pulse Oximetry 98 97 98 05/01/18 00:00 05/01/18 04:00 05/01/18 08:00 Temperature 98 F 97.7 F 98.0 F Pulse Rate 72 62 61 Respiratory Rate 20 20 19 Blood Pressure 110/67 96/54 L 114/62 Pulse Oximetry 99 98 96 Intake & Output 04/30/18 05/01/18 05/01/18 18:59 06:59 18:59 Intake Total 980 / 980 Output Total 300 / 300 Balance 680 / 680 Weight 45.994 kg Intake: Oral 980 / 980 Output: Urine 300 / 300 Other: # Voids 3 Date of Last Bowel Movement 04/27/18 05/01/18 # Bowel Movements 1 # Incontinent Bowel Movements 2 Narrative: GENERAL: Well-developed, thin individual. No obvious signs of distress. SKIN: Warm and dry. CARDIOVASCULAR: Regular rate and rhythm. murmur noted. Right IJ vas cath RESPIRATORY: No accessory muscle use. Clear to auscultation. Breath sounds equal bilaterally. GASTROINTESTINAL: Abdomen soft, non-tender, nondistended. Normoactive bowel sounds x4. MUSCULOSKELETAL: No obvious deformities. No edema Assessment and Plan - Assessment (1) Acute kidney injury Code(s): N17.9 - Acute kidney failure, unspecified Status: Acute Plan: Duration of kidney disease/failure is unclear. He may have reached ESRD. He may have cardiorenal syndrome. Hepatitis and HIV negative. Serologies so far are negative. On HD 3 times/week, // Vascular surgery consulted for AVF placement. Needs cardiology clearance. Tentatively planned for tomorrow. (2) Fluid overload Code(s): E87.70 - Fluid overload, unspecified Status: Acute Plan: Improved. Edema has improved. (3) Acute on chronic systolic congestive heart failure Code(s): I50.23 - Acute on chronic systolic (congestive) heart failure Status : Acute Plan: Seen by cardiology ARB/LEE inhibitor/Entresto: will defer to cardiology. Ok to start any of these medications from renal standpoint as long as his BP is acceptable. Initially refused EP study and consideration of ICD therapy but now has agreed to proceed forward.
--- NOTE | 2018-05-01 12:29 | P.PNCA ---
Subjective Interval history: No events overnight For EP study this afternoon Medications and Allergies Active Medications: Active Medications Acetaminophen (Tylenol) 650 mg PO Q4H PRN PRN Reason: Temp > 100.4 Acetaminophen (Tylenol) 650 mg PO UNSCH PRN PRN Reason: SEE LABEL COMMENTS Al Hydroxide/Mg Hydroxide (Milk Of Magndarinel Liq) 30 ml PO Q12H PRN PRN Reason: Mild Constipation Bisacodyl (Dulcolax Supp) 10 mg RECTAL DAILY PRN PRN Reason: SEVERE CONSITIPATION Bumetanide (Bumex Inj) 2 mg IV.PUSH BID@0900,1800 FORMERLY [facility], [facility] Last Admin: 05/01/18 10:25 Dose: 2 mg Carvedilol (Coreg) 6.25 mg PO BID FOR[facility]LY [facility], [facility]1983 Last Admin: 05/01/18 10:22 Dose: 6.25 mg Clonidine HCl (Catapres) 0.1 mg PO UNSCH PRN PRN Reason: SEE LABEL COMMENTS Diphenhydramine HCl (Benadryl) 25 mg PO UNSCH PRN PRN Reason: SEE LABEL COMMENTS Epoetin Morgan (Epogen Inj) 5,000 unit IV.PUSH UNSCH PRN PRN Reason: SEE LABEL COMMENTS Last Admin: 04/29/18 10:24 Dose: 5,000 unit Famotidine (Pepcid) 10 mg PO BID FOR[facility]LY [facility], [facility] Last Admin: 05/01/18 10:22 Dose: 10 mg Gelatin (Gelfoam 12 Mm/7 Mm Topical) 1 foam TOPICAL PRN PRN PRN Reason: help stop bleeding from site Gentamicin Sulfate (Gentamicin Inj) 20 mg OTHER WITH DIALYSIS PRN PRN Reason: Dwell Gentamycin Lock Last Admin: 04/29/18 10:24 Dose: 20 mg Heparin Sodium (Porcine) (Heparin Inj) 5,000 units SQ Q12H FOR[facility], [facility]1983 Last Admin: 04/30/18 23:11 Dose: 5,000 units Heparin Sodium (Porcine) (Heparin Inj) 8,000 units OTHER WITH DIALYSIS PRN PRN Reason: for machine prime Heparin Sodium (Porcine) (Heparin Inj) 1,000 units OTHER WITH DIALYSIS PRN PRN Reason: Dwell Heparin to Fill Catheter Last Admin: 04/29/18 10:24 Dose: 1,000 units Heparin Sodium (Porcine) (Heparin Inj) 0 units IV.FLUSH WITH DIALYSIS PRN PRN Reason: SEE DOSE INSTRUCTIONS Albumin Human (Flexbumin 25% Inj) 100 mls @ 60 mls/hr IV.SIG WITH DIALYSIS PRN PRN Reason: hypotension / volume replace Last Infusion: 04/21/18 14:15 Dose: Infused Sodium Chloride (Ns Inj) 1,000 mls @ 0 mls/hr OTHER .Q0M PRN PRN Reason: for prime and rinse back Last Infusion: 04/22/18 13:56 Dose: Infused Sodium Chloride (Ns Inj) 1,000 mls @ 200 mls/hr OTHER .Q5H PRN PRN Reason: for dialyzer flush PRN Sodium Chloride (Ns Inj) 1,000 mls @ 0 mls/hr IV.CONT .Q0M PRN PRN Reason: hypotension / volume replace Sodium Chloride (Ns Inj) 500 mls @ 30 mls/hr IV.SIG .Q10H MALIK Lactated Ringer's (Lr 1000 Ml Inj) 1,000 mls @ 30 mls/hr IV.SIG .Q24H MALIK Stop: 05/02/18 03:59 Sodium Chloride (Ns Inj) 500 mls @ 30 mls/hr IV.SIG .Q10H MALIK Lactulose (Lactulose Liq) 30 ml PO DAILY PRN PRN Reason: SEVERE CONSITIPATION Mannitol (Mannitol Inj) 12.5 gm IV.PUSH UNSCH PRN PRN Reason: hypotension / volume replace Metolazone (Zaroxolyn) 5 mg PO DAILY FOR[facility]LY [facility], [facility] Last Admin: 05/01/18 10:22 Dose: 5 mg Nitroglycerin (Nitrostat Sl) 0.4 mg SL Q5M PRN PRN Reason: CHEST PAIN Ondansetron HCl (Zofran Inj) 4 mg IV.PUSH Q6H PRN PRN Reason: NAUSEA OR VOMITING Ondansetron HCl (Zofran Inj) 4 mg IV.PUSH UNSCH PRN PRN Reason: NAUSEA OR VOMITING Senna/Docusate Sodium (Carole-Colace) 1 tab PO BID FOR[facility], [facility] Last Admin: 05/01/18 10:26 Dose: Not Given Sennosides (Senokot) 17.2 mg PO Q12H PRN PRN Reason: Moderate Constipation Sevelamer Carbonate (Renvela) 800 mg PO TIDAC [facility], [facility] Last Admin: 05/01/18 10:22 Dose: 800 mg Sodium Chloride (Ns Flush) 5 ml IV.FLUSH PRN PRN PRN Reason: flush each lumen during HD Sodium Chloride (Ns Flush) 0 ml IV.FLUSH UNSCH PRN PRN Reason: SEE DOSE INSTRUCTIONS Allergies Allergy/AdvReac Type Severity Reaction Status Date / Time No Known Allergies Allergy Verified 04/18/18 16:36 Home Medications Medication Instructions Recorded Confirmed Type No Known Home Medications 04/18/18 04/18/18 History Physical Exam Vital signs: Vital Signs 04/30/18 16:00 04/30/18 20:00 05/01/18 00:00 Temperature 98.5 F 98.6 F 98 F Pulse Rate 65 76 72 Respiratory Rate 20 20 20 Blood Pressure 99/61 L 107/61 110/67 Pulse Oximetry 97 98 99 05/01/18 04:00 05/01/18 08:00 Temperature 97.7 F 98.0 F Pulse Rate 62 61 Respiratory Rate 20 19 Blood Pressure 96/54 L 114/62 Pulse Oximetry 98 96 Intake & Output 04/30/18 05/01/18 05/01/18 18:59 06:59 18:59 Intake Total 980 / 980 Output Total 300 / 300 Balance 680 / 680 Weight 45.994 kg Intake: Oral 980 / 980 Output: Urine 300 / 300 Other: # Voids 3 Date of Last Bowel Movement 04/27/18 05/01/18 # Bowel Movements 1 # Incontinent Bowel Movements 2 Narrative: GENERAL: Well-developed, thin individual. No obvious signs of distress. SKIN: Warm and dry. CARDIOVASCULAR: Regular rate and rhythm. murmur noted. Right IJ vas cath RESPIRATORY: No accessory muscle use. Clear to auscultation. Breath sounds equal bilaterally. GASTROINTESTINAL: Abdomen soft, non-tender, nondistended. Normoactive bowel sounds x4. MUSCULOSKELETAL: No obvious deformities. No edema Results 04/27/18 07:52 04/27/18 07:50 Intake and Output 04/30/18 05/01/18 05/01/18 22:59 06:59 14:59 Intake Total 980 / 980 Output Total 300 / 300 Balance 680 / 680 Intake: Oral 980 / 980 Output: Urine 300 / 300 Other: # Voids 3 Date of Last Bowel Movement 04/30/18 05/01/18 # Bowel Movements 1 # Incontinent Bowel Movements 2 Weight 45.994 kg Assessment and Plan - Assessment (1) Cardiomyopathy Code(s): I42.9 - Cardiomyopathy, unspecified Status: Acute (2) Acute kidney injury Code(s): N17.9 - Acute kidney failure, unspecified Status: Acute (3) Fluid overload Code(s): E87.70 - Fluid overload, unspecified Status: Acute (4) New onset of congestive heart failure Code(s): I50.9 - Heart failure, unspecified Status: Acute - Plan 1) Acute decompensated systolic heart failure Started on HD Appears compensated 2) New onset cardiomyopathy EF 20% Stress test showing no ischemia, NICM Con't on medical management Will place on Coreg for now Unable to place on LEE-I/Entresto for now with borderline hypotension 3) Acute renal failure Started on HD 4) Remote crack cocaine use 5) Wide complex tachycardia Stress test negative for ischemia Currently on BB therapy Evaluated by Dr. Wisdom Plan for EP study this afternoon 6) Pre-operative risk assessment Complex situation Stress test showing no ischemia Continues to have wide complex tachycardia, did not want EP study/possible ICD Now agreeable to EP study, planned for this afternoon For now would consider high risk
[2018-05-01] MEDS ORDERED: Lidocaine 2% Inj 50 ML Vial ONE (17:27)
[2018-05-01] MEDS ORDERED: Heparin/NS PF Inj 500 ML ONE (17:27)
[2018-05-01] MEDS ORDERED: Glycopyrrolate Inj 1 MG/5 ML Syringe IV.PUSH ONE (17:55)
[2018-05-01] MEDS ORDERED: Lidocaine PF 1% Inj 5 ML Syringe OTHER ONE (17:55)
[2018-05-01] MEDS ORDERED: Phenylephrine/NS 1000 MCG/10ML Syringe IV.PUSH ONE (17:55)
[2018-05-01] MEDS: Heparin - SQ 10,000 UNITS/ML Vial SQ SCH ×2 (18:09→22:05)
[2018-05-01] MEDS ORDERED: Isoproterenol HCl Inj 0.2 MG/ML Ampul ONE (18:45)
--- NOTE | 2018-05-01 19:08 | CATHPROC ---
Patient Name: Antonio Nelson Study #: [id number] Initial MD: Alejandro Wisdom Date of : 1955 Study Date: 05/01/2018 Cardiac Catheterization Report 05/01/2018 7:08:00 PM Financial #: [id number] 1 of 6 Patient Name: Antonio Nelson Study #: [id number] Initial MD: Alejandro Wisdom Date of : 1955 Study Date: 05/01/2018 Entire Case Report Patient Information Patient Name Antonio Clemens Date of 1955 Age 62 years Financial # [id number] Gender M AlternateID Lab Number 6 Room Number 1524 Height (in) 68.0 Height (cm) 172.7 BSA 1.53 Weight (lbs) 101.2 Weight (kg) 46.0 Patient Address/Phone Number Home Address [facility] Home Phone Number [address] [facility] [address] [facility] [address] Study Information Study Number Admission Scheduled Start Study Start [id number] Apr 18 2018 7:51PM 05/01/2018 May 01 2018 5:04PM [facility] Cardiac Pacer/ICD Admit Source Facility Department Other [facility] Physician and Clinical Staff Initial Alejandro Winchester C Software Developer Donis Markham,RT(R) Other Anesthesia, [facility] Other Jessika Graham,SANAZ Recorder Oanh Daly RN Scrub Claire Vee,RT(R) TECH2 Procedures Performed Procedure Ablation Procedure 05/01/2018 7:08:00 PM Financial #: [id number] 2 of 6 Patient Name: Antonio Nelson Study #: [id number] Initial MD: Alejandro Wisdom Date of : 1955 Study Date: 05/01/2018 Equipment Time Supervisor Prepress Description Size Mfg Part Number Used/Scraped [id number] 17:41 [employer] ASA BLANKET,WARM AIR CCL * Used *[id number] 17:41 [employer] ASA PACK, CCL CUSTOM * Used *[id number] 17:41 MEDLINE PACER COWAN, LIMB * 2530 *[id number] Used [id number] 17:42 [employer] CATHETER, JSN, QUAD FR 5 Used *[id number] 17:42 [employer] CATHETER, JSN, QUAD FR 5 Used *[id number] 17:42 [employer] CATHETER, JSN, QUAD FR 5 Used *[id number] 17:42 [employer] CATHETER, JSN, QUAD FR 5 Used *[id number] 17:42 [employer] SHEATH, EPS, FR5 FAST CATH FR 5 Used *[id number] 17:42 [employer] SHEATH, EPS, FR5 FAST CATH FR 5 Used *[id number] 17:42 [employer] SHEATH, EPS, FR5 FAST CATH FR 5 Used *[id number] 462901 17:42 [employer] SHEATH, EPS, FR6 FAST CATH FR 6 Used *[id number] Insurance Information Insurance Payor Private Health Insurance Third Alliance Party Third Alliance Party Number [employer] History: Allergies Allergy Reaction No Known Allergies History: Risk Factors Family History of Dyslipidemia Previous CO Previous Heart Failure Premature CAD No No No Yes On Dialysis Labs Hgb (g/dl) Hct (%) WBC (l/cumm) Platelets (thousands) 11.60-17.00 35.00-51.00 4.00-11.00 150.00-450.00 11.2 34.5 6.8 214 Glucose (mg/dl) BUN (mg/dl) Creatinine (mg/dl) BUN:Creatinine (1:x) 74.00-106.00 7.00-18.00 0.50-1.30 10.00-20.00 76 38 4.4 8.6 05/01/2018 7:08:00 PM Financial #: [id number] 3 of 6 Patient Name: Antonio Nelson Study #: [id number] Initial MD: Alejandro Wisdom Date of : 1955 Study Date: 8 Na (meq/l) K (meq/l) 136.00-145.00 3.50-5.10 138 4.2 INR (PTT:PT) 0.90-1.10 1.1 Medication Medication Total Dose (Bolus/Oral) Medication Total Dosage/Unit 1% XYLOCAINE 20 mL Medications (Bolus/Oral) Medication Time Given Dosage/Unit Administered By Reason 1% XYLOCAINE 05/01/2018 6:27:47 PM 20 mL Alejandro Wisdom 20 mL 1% XYLOCAINE given in lab by Alejandro Wisdom via Subcutaneous. Ordered by Alejandro Wisdom. Medication (Drip) Medication Time Given Dosage/Unit Concentration/Unit Diluent (ml) Solution ISUPREL 05/01/2018 6:46:03 PM 4 mcg/min 1 mg 250 NaCl .9 4 mcg/min ISUPREL given in lab by Alejandro Wisdom via Peripheral IV. Pump/Drip Flow = 60 ml/hr using Na Cl .9 with a concentration of 1 mg in 250 ml. Ordered by Alejandro Wisdom. Chronological Log Time Study Chronological Log 17:41:02 Patient arrived via Bed. 17:41:04 Patient Name, D.O.B, / Armband Verified By R.N. 17:41:05 Consent signed by the physician and the patient and verified by the [facility] staff. 17:41:07 Pre-op and post- op instructions given; patient acknowledges understanding of instructions . 17:41:09 Presedation assessment performed by [facility] RN. 17:42:29 Patient has been NPO for More than 6Hrs. 17:42:34 Skin Breakdown/sores right foot 17:42:53 Patient Warmer Placed on the Table. 17:42:54 Disposable Defibrillator Pads Placed On Patient. 17:42:55 Micah Prominences Protected 17:43:05 History and physical on the chart or being dictated. 17:43:06 A # 22 IV was noted in the Hand (right). Grade = 0 05/01/2018 7:08:00 PM Financial #: [id number] 4 of 6 Patient Name: Antonio Nelson Study #: [id number] Initial MD: Alejandro Wisdom Date of : 1955 Study Date: 05/01/2018 17:43:22 A # 14 IV was noted in the Subclav. Vein (Rt). Grade = 0 vascath inserted in right subclavi n vein 17:45:30 patient states contact lenses are permanent 18:02:55 Reference ECG taken Time Out. Correct patient, procedure, procedure equipment, site and side verified with physicia n present. Time 18:26:27 concurred by MD, individual staff and [facility]. Time Out #2 - Consents verified, patient in correct position, all results are labled and displa yed, safety precautions 18:26:30 taken, antibiotics administered. Time out concurred by MD, individual staff and [employer] [facility] [employer] in procedu re 18:26:59 Case Start 18:27:47 20 mL 1% XYLOCAINE given in lab by Alejandro Wisdom via Subcutaneous. Ordered by Alejandro Wisdom . 18:28:02 Vascular access was obtained in the Fem Vein (right). 18:28:20 Vascular access was obtained in the Fem Vein (right). 18:28:36 Vascular access was obtained in the Fem Vein (right). 18:29:46 Vascular access was obtained in the Fem Vein (right). 18:29:49 A SHEATH, EPS, FR5 FAST CATH FR 5 was advanced into the Fem Vein (right) using the Modified Seldinger technique. 18:30:30 A SHEATH, EPS, FR5 FAST CATH FR 5 was advanced into the Fem Vein (right) using the Modified Seldinger technique. 18:31:09 A SHEATH, EPS, FR5 FAST CATH FR 5 was advanced into the Fem Vein (right) using the Modified Seldinger technique. 18:31:21 A SHEATH, EPS, FR6 FAST CATH FR 6 was advanced into the Fem Vein (right) using the Modified Seldinger technique. A CATHETER, JSN, QUAD FR 5 was advanced vis Fem Vein (right) and placed in the CS. Placement wa s visually 18:32:08 confirmed under fluoroscopy. A CATHETER, JSN, QUAD FR 5 was advanced vis Fem Vein (right) and placed in the HIS. Placement w as visually 18:33:23 confirmed under fluoroscopy. A CATHETER, JSN, QUAD FR 5 was advanced vis Fem Vein (right) and placed in the HRA. Placement w as visually 18:34:41 confirmed under fluoroscopy. A CATHETER, JSN, QUAD FR 5 was advanced vis Fem Vein (right) and placed in the RVA. Placement w as visually 18:35:48 confirmed under fluoroscopy. 18:41:21 Incremental Pacing in progress 4 mcg/min ISUPREL given in lab by Alejandro Wisdom via Peripheral IV. Pump/Drip Flow = 60 ml/hr us ing NaCl .9 with a 18:46:03 concentration of 1 mg in 250 ml. Ordered by Alejandro Wisdom. 18:56:15 ISUPREL D/C 19:00:00 Case End (Physician broke scrub) 19:04:22 Sheath removed; pressure applied to access site. X 10 MIN 19:04:29 Catheter(s) removed without difficulty 19:05:46 Sterile dressing applied to site 19:05:47 No case complications noted. 19:05:48 Cine recording checked. 19:05:49 Bedside Report will be given. 19:05:50 PACU called. Spoke to VINCENT 19:05:56 Defibrillator and ground pads removed. Skin intact. 19:07:24 Ablation procedure performed: VT. EP STUDY ONLY NO VT INDUCED 19:07:52 EP Procedure was performed. 19:10:[address] [facility] 05/01/2018 7:08:00 PM Financial #: [id number] 5 of 6 Patient Name: Antonio Nelson Study #: [id number] Initial MD: Alejandro Wisdom Date of : 1955 Study Date: 05/01/2018 End Study - Contrast Media Used In Study Contrast Total Opened (mL) Total Used (mL) Total Wasted (mL) Unspecified 0 0 0 End Study - Maximum Contrast Load Max Contrast Load (mL) 52.3 End Study - Radiation Exposure Fluoro Time (minutes) 1.4 End Study - Patient Disposition Complications Transferred To Interventional Outcome No Telemetry Bed successful 05/01/2018 7:08:00 PM Financial #: [id number] 6 of 6
--- NOTE | 2018-05-02 10:44 | P.PNNP ---
Subjective Interval history: Seen during dialysis. On 2K, UF goal is 1 liter. Tolerating it well. No complaints. Underwent EP study yesterday. Physical Exam Vital signs: Vital Signs 05/01/18 12:00 05/01/18 16:00 05/01/18 19:25 Temperature 98.2 F 98.3 F 97.5 F L Pulse Rate 76 67 76 Respiratory Rate 19 19 20 Blood Pressure 108/66 101/66 118/76 Pulse Oximetry 98 100 100 05/01/18 19:30 05/01/18 19:45 05/01/18 20:00 Temperature 97.7 F Pulse Rate 75 74 60 Respiratory Rate 24 26 H 18 Blood Pressure 115/75 113/71 116/81 Pulse Oximetry 100 100 100 05/01/18 21:00 05/01/18 22:00 05/01/18 23:00 Temperature Pulse Rate 72 65 66 Respiratory Rate Blood Pressure Pulse Oximetry 05/02/18 00:00 05/02/18 01:00 05/02/18 02:00 Temperature 97.9 F Pulse Rate 61 67 70 Respiratory Rate 18 Blood Pressure 110/76 Pulse Oximetry 100 05/02/18 03:00 05/02/18 04:00 05/02/18 05:00 Temperature 97.9 F Pulse Rate 66 68 60 Respiratory Rate 17 Blood Pressure 119/69 Pulse Oximetry 100 05/02/18 06:00 05/02/18 08:15 Temperature 97.4 F L Pulse Rate 58 L 60 Respiratory Rate 16 Blood Pressure 97/70 L Pulse Oximetry Intake & Output 05/01/18 05/02/18 05/02/18 18:59 06:59 18:59 Intake Total 240 / 240 Output Total 200 / 200 Balance 40 / 40 Weight 44.7 kg Intake: Oral 240 / 240 Output: Urine 200 / 200 Other: # Voids 4 3 Date of Last Bowel Movement 05/01/18 # Bowel Movements 1 Narrative: GENERAL: Well-developed, thin individual. No obvious signs of distress. Frail, very thin individual SKIN: Warm and dry. CARDIOVASCULAR: Regular rate and rhythm. RESPIRATORY: No accessory muscle use. Clear to auscultation. Breath sounds equal bilaterally. GASTROINTESTINAL: Abdomen soft, non-tender, nondistended. Normoactive bowel sounds x4. MUSCULOSKELETAL: No obvious deformities. No edema Assessment and Plan - Assessment (1) Acute kidney injury Code(s): N17.9 - Acute kidney failure, unspecified Status: Acute Plan: Duration of kidney disease/failure is unclear. He may have reached ESRD. He may have cardiorenal syndrome. Hepatitis and HIV negative. Serologies so far are negative. On HD 3 times/week, T/Th/Sat Vascular surgery consulted for AVF placement. Needs cardiology clearance. (2) Fluid overload Code(s): E87.70 - Fluid overload, unspecified Status: Acute Plan: Improved. (3) Acute on chronic systolic congestive heart failure Code(s): I50.23 - Acute on chronic systolic (congestive) heart failure Status : Acute Plan: Seen by cardiology ARB/LEE inhibitor/Entresto: will defer to cardiology. Ok to start any of these medications from renal standpoint as long as his BP is acceptable. Underwent EP study yesterday. Results are not known.
--- NOTE | 2018-05-02 12:23 | P.PN ---
Subjective Interval history: Follow-up cardiomyopathy new-onset/acute decompensated systolic heart failure May 02, 2018-patient seen and examined in dialysis center, denies any chest pain or shortness of breath. Stable. He had EP study done yesterday Physical Exam Vital signs: Vital Signs 05/01/18 16:00 05/01/18 19:25 05/01/18 19:30 Temperature 98.3 F 97.5 F L Pulse Rate 67 76 75 Respiratory Rate 19 20 24 Blood Pressure 101/66 118/76 115/75 Pulse Oximetry 100 100 100 05/01/18 19:45 05/01/18 20:00 05/01/18 21:00 Temperature 97.7 F Pulse Rate 74 60 72 Respiratory Rate 26 H 18 Blood Pressure 113/71 116/81 Pulse Oximetry 100 100 05/01/18 22:00 05/01/18 23:00 05/02/18 00:00 Temperature 97.9 F Pulse Rate 65 66 61 Respiratory Rate 18 Blood Pressure 110/76 Pulse Oximetry 100 05/02/18 01:00 05/02/18 02:00 05/02/18 03:00 Temperature Pulse Rate 67 70 66 Respiratory Rate Blood Pressure Pulse Oximetry 05/02/18 04:00 05/02/18 05:00 05/02/18 06:00 Temperature 97.9 F Pulse Rate 68 60 58 L Respiratory Rate 17 Blood Pressure 119/69 Pulse Oximetry 100 05/02/18 08:15 Temperature 97.4 F L Pulse Rate 60 Respiratory Rate 16 Blood Pressure 97/70 L Pulse Oximetry Intake & Output 05/01/18 05/02/18 05/02/18 18:59 06:59 18:59 Intake Total 240 / 240 Output Total 200 / 200 Balance 40 / 40 Weight 44.7 kg Intake: Oral 240 / 240 Output: Urine 200 / 200 Other: # Voids 4 3 Date of Last Bowel Movement 05/01/18 # Bowel Movements 1 Narrative: GENERAL: NAD SKIN: Warm and dry. HEAD: Normocephalic. EYES: No scleral icterus. No injection or drainage. NECK: Supple, trachea midline. No JVD or lymphadenopathy. CARDIOVASCULAR: Regular rate and rhythm without murmurs, gallops, or rubs. RESPIRATORY: Breath sounds equal bilaterally. No accessory muscle use. GASTROINTESTINAL: Abdomen soft, non-tender, nondistended. MUSCULOSKELETAL: No cyanosis, or edema. BACK: Nontender without obvious deformity. No CVA tenderness. Results - Labs CBC & Chem 7: 04/27/18 07:52 04/27/18 07:50 Assessment and Plan - Assessment (1) New onset of congestive heart failure Code(s): I50.9 - Heart failure, unspecified Status: Acute (2) Pneumonia Code(s): J18.9 - Pneumonia, unspecified organism Status: Acute (3) Acute kidney injury Code(s): N17.9 - Acute kidney failure, unspecified Status: Acute (4) Fluid overload Code(s): E87.70 - Fluid overload, unspecified Status: Acute - Plan 62-year-old man with New onset cardiomyopathy, acute/ Fluid Overload/bilateral lower extremity edema Acute decompensated systolic heart failure Suspect Valvular Cardiomyopathy -LVEF 20% on echo 04/19/18 -2D Echo : Left ventricular systolic function is severely reduced with EF 20%, mod MR, mod-severe TR, mod-severe pulm HTN (60-70mmhg); large right sided pleural effusion is present. -Cardiology consulted, appreciate recommendations: continue on Diuretics -continue Bumex, metolazone, Coreg -LEE initially held due to renal function; however cleared by nephrology to start LEE/ARB/Entresto but d/t low BP not started yet Elevated troponin/arrhythmia/V tach -Cardiology following, appreciate recommendations -Lexiscan 04/25 showed severe LV dilatation and dysfunction; no reversible perfusion abnormalities -Dr Wisdom consulted, however patient declined AICD, recommended to continue medical management -Now agrees on AICD placement, s/p EP study done May 01, 2018. Plan for possible AICD placement Right lower extremity edema -Ultrasound RLE: Chronic appearing nonocclusive thrombus in the right common femoral vein. Pulsatility in the lower extremity veins likely related to patient 's acute heart failure -improved Acute renal failure on ESRD/ Severe metabolic acidosis, acute -Renal ultrasound: Echogenic kidneys with ascites and moderate right pleural effusion -Serology/hepatitis profile Nonreactive, HIV Nonreactive, ABBY negative -Nephrology consulted, appreciate recommendations -Hemodialysis as scheduled by nephrology -continue Renvela, monitor phosphorus levels -Vascular surgery consulted for AV fistula placement possible this week Possible Pneumonia, acute/Fluid Overload -S/p antibiotic course with IV Rocephin/Azithro x7days Hypertension -Continue Bumex, metolazone and Coreg Anemia, likely acute on chronic -2/2 ESRD -patient receiving epoetin during dialysis -Monitor CBC History of cocaine use -Patient admitted short-term use, 6 months ago and have not had any since then -Counseling/education given Moderate Protein Calorie Malnutrition/Failure to Thrive: BMI 16. Albumin 2.8. -dietitian ff DVT Proph: Heparin
--- NOTE | 2018-05-02 13:00 | P.PNVS ---
Subjective Subjective/Hospital Course: pt seen in HD Pt doing well Discussed w/ pt if cleared by cardiology team will move forward w/ AVF creation in LEFT arm Objective Vital Signs / I&O: Vital Signs 05/01/18 16:00 05/01/18 19:25 05/01/18 19:30 Temperature 98.3 F 97.5 F L Pulse Rate 67 76 75 Respiratory Rate 19 20 24 Blood Pressure 101/66 118/76 115/75 Pulse Oximetry 100 100 100 05/01/18 19:45 05/01/18 20:00 05/01/18 21:00 Temperature 97.7 F Pulse Rate 74 60 72 Respiratory Rate 26 H 18 Blood Pressure 113/71 116/81 Pulse Oximetry 100 100 05/01/18 22:00 05/01/18 23:00 05/02/18 00:00 Temperature 97.9 F Pulse Rate 65 66 61 Respiratory Rate 18 Blood Pressure 110/76 Pulse Oximetry 100 05/02/18 01:00 05/02/18 02:00 05/02/18 03:00 Temperature Pulse Rate 67 70 66 Respiratory Rate Blood Pressure Pulse Oximetry 05/02/18 04:00 05/02/18 05:00 05/02/18 06:00 Temperature 97.9 F Pulse Rate 68 60 58 L Respiratory Rate 17 Blood Pressure 119/69 Pulse Oximetry 100 05/02/18 08:15 Temperature 97.4 F L Pulse Rate 60 Respiratory Rate 16 Blood Pressure 97/70 L Pulse Oximetry Intake & Output 05/01/18 05/02/18 05/02/18 18:59 06:59 18:59 Intake Total 240 / 240 Output Total 200 / 200 1000 / 1000 Balance 40 / 40 -1000 / -1000 Weight 44.7 kg Intake: Oral 240 / 240 Output: Urine 200 / 200 Hemodialysis Amount 1000 / 1000 Other: # Voids 4 3 Date of Last Bowel Movement 05/01/18 # Bowel Movements 1 Physical Exam: L UE warm w/ motor intact Assessment and Plan - Plan 62/M will a Hx of ESRD on HD Pt s/p cardiac cath yesterday Discussed care and plan w/ Dr. Adair johnston to move forward with AVF Plan NPO after midnight Pt to the OR tomorrow (05/03/18) with Dr. Dorsey for a L LE AVF creation Consent obtained and placed in chart Andie Reed [facility]/Artie [phone] - Attending Attestation I saw and examined the patient and agree with the nurse practitioner assessment and plan. Date of service 05/02/2018
[2018-05-02] MEDS: metOLazone 5 MG Tablet PO SCH (14:16)
[2018-05-02] MEDS: Famotidine 20 MG Tablet PO SCH ×2 (14:16→21:03)
[2018-05-02] MEDS: Carvedilol 6.25 MG Tablet PO SCH ×2 (14:17→21:03)
[2018-05-02] MEDS: Senna/Docusate Sodium 8.6/50 MG Tablet PO SCH ×2 (14:19→22:44)
[2018-05-02] MEDS: Heparin - SQ 10,000 UNITS/ML Vial SQ SCH ×2 (14:19→23:37)
--- NOTE | 2018-05-02 15:11 | ECG ---
Date Performed: 05/01/2018 Time Performed: 19:42:35 PTAGE: 62 years EKG: Sinus rhythm POSSIBLE RIGHT ATRIAL ENLARGEMENT LEFT ATRIAL ENLARGEMENT INFERIOR MYOCARDIAL INFARCTION , PROBABLY OLD Since the previous tracing, no significant change noted ABNORMAL ECG PREVIOUS TRACING : 04/20/2018 16.28 DOCTOR: Nura Samaniego Interpretating Date/Time 05/02/2018 14:57:24
--- NOTE | 2018-05-02 19:14 | MA ---
cc: Alejandro Wisdom MD DATE: 05/01/2018 PROCEDURE PERFORMED: Electrophysiology study, CS cannulation, repeat electrophysiology study and Isuprel infusion. INDICATIONS: Mr. Nelson is a 62-year-old gentleman with congestive failure, cardiomyopathy, episode of nonsustained ventricular tachycardia, ejection fraction around 20%, referred for an electrophysiology study and possible device insertion. The risks, the nature and the benefits of the procedure were clearly stated to him. Risks included pneumothorax, cardiac perforation, stroke, need for open heart surgery and even . The patient understood and agreed to proceed. DESCRIPTION OF PROCEDURE: After written informed consent was obtained, the patient was brought to the EP lab where he was prepped and draped in the usual sterile fashion. Conscious sedation was initiated and maintained throughout the procedure by the anesthesiologist. Once sedation was verified, the right inguinal area was anesthetized with 2% Xylocaine. Using a modified Seldinger technique, the right femoral vein was cannulated on 4 occasions and 4 guidewires were advanced. Over the wires, three 5 and a 6 Austrian Hemaquets were advanced. Then, under fluoroscopic guidance, through the 5 and 6 Austrian Hemaquets, four 5 Austrian Xu quadripolar electrophysiology catheters were advanced and placed on the His, right atrium, coronary sinus and right ventricular apex. Basic intervals were measured and were within normal limits. At this point, atrial pacing protocol was performed. Atrial pacing protocol consisted of incremental atrial pacing as well as program stimulation at a 410 cycle length and up to 1 extrastimuli delivered. No tachyarrhythmia was induced. Then, ventricular pacing protocol was performed. There was VA conduction. Ventricular pacing protocol consisted of incremental ventricular pacing as well as program stimulation at a 410 cycle length and up to 2 extrastimuli delivered. Then, ventricular pacing protocol was repeated on Isuprel. No tachyarrhythmia was induced. Post Isuprel, no tachyarrhythmia was induced. At that point, the procedure was complete. All catheters were removed. The patient is going to be transferred to the recovery room. No incident to report. The patient tolerated the procedure. Blood loss minimal. ELECTROCARDIOGRAM: At baseline, the patient was in sinus. Post procedure, electrocardiogram was unchanged. BASIC INTERVAL: Basic cycle length was around 780 milliseconds, AH was 90 and HV was 48 milliseconds. ATRIAL PACING PROTOCOL: Wenckebach of the node was around 460 milliseconds. No tachyarrhythmia was induced. VENTRICULAR PACING PROTOCOL: There was VA conduction. No tachyarrhythmia was induced. CONCLUSION: Negative electrophysiology study for supraventricular tachyarrhythmia. RECOMMENDATIONS: Mr. Nelson has an ejection fraction of 20% recently diagnosed. He has end-stage renal disease, on hemodialysis. He has a right subclavian catheter. There is a scheduled AV fistula in the left arm. He is so cachectic that there is no space to implant a subpectoral defibrillator. That would be the best for him because of the renal failure. At this point, my recommendation is to proceed with the AV fistula. Repeat the echo in 60 days. If still his ejection fraction is low, implant a defibrillator. At that point, there will be plenty of time to remove the right subclavian catheter, allow the patient to heal and then the defibrillator can be implanted on that side. The case will be discussed extensively with the patient. Case already discussed with the vascular surgeon. MD DEMI Maravilla/emory , 04:24 PM , 04:36 PM
--- NOTE | 2018-05-02 21:30 | P.PNCA ---
Subjective Interval history: No events overnight EP study done, no inducible VT Medications and Allergies Active Medications: Active Medications Acetaminophen (Tylenol) 650 mg PO Q4H PRN PRN Reason: Temp > 100.4 Acetaminophen (Tylenol) 650 mg PO UNSCH PRN PRN Reason: SEE LABEL COMMENTS Al Hydroxide/Mg Hydroxide (Milk Of Nadia Durant) 30 ml PO Q12H PRN PRN Reason: Mild Constipation Bisacodyl (Dulcolax Supp) 10 mg RECTAL DAILY PRN PRN Reason: SEVERE CONSITIPATION Bumetanide (Bumex Inj) 2 mg IV.PUSH BID@0900,1800 [facility] Last Admin: 05/02/18 17:44 Dose: 2 mg Carvedilol (Coreg) 6.25 mg PO BID [facility] Last Admin: 05/02/18 21:03 Dose: 6.25 mg Clonidine HCl (Catapres) 0.1 mg PO UNSCH PRN PRN Reason: SEE LABEL COMMENTS Diphenhydramine HCl (Benadryl) 25 mg PO UNSCH PRN PRN Reason: SEE LABEL COMMENTS Epoetin Morgan (Epogen Inj) 5,000 unit IV.PUSH UNSCH PRN PRN Reason: SEE LABEL COMMENTS Last Admin: 05/02/18 11:10 Dose: 5,000 unit Famotidine (Pepcid) 10 mg PO BID [facility] Last Admin: 05/02/18 21:03 Dose: 10 mg Gelatin (Gelfoam 12 Mm/7 Mm Topical) 1 foam TOPICAL PRN PRN PRN Reason: help stop bleeding from site Gentamicin Sulfate (Gentamicin Inj) 20 mg OTHER WITH DIALYSIS PRN PRN Reason: Dwell Gentamycin Lock Last Admin: 05/02/18 11:40 Dose: 20 mg Heparin Sodium (Porcine) (Heparin Inj) 5,000 units SQ Q12H [facility] Last Admin: 05/02/18 14:19 Dose: 5,000 units Heparin Sodium (Porcine) (Heparin Inj) 8,000 units OTHER WITH DIALYSIS PRN PRN Reason: for machine prime Heparin Sodium (Porcine) (Heparin Inj) 1,000 units OTHER WITH DIALYSIS PRN PRN Reason: Dwell Heparin to Fill Catheter Last Admin: 04/29/18 10:24 Dose: 1,000 units Heparin Sodium (Porcine) (Heparin Inj) 0 units IV.FLUSH WITH DIALYSIS PRN PRN Reason: SEE DOSE INSTRUCTIONS Albumin Human (Flexbumin 25% Inj) 100 mls @ 60 mls/hr IV.SIG WITH DIALYSIS PRN PRN Reason: hypotension / volume replace Last Infusion: 04/21/18 14:15 Dose: Infused Sodium Chloride (Ns Inj) 1,000 mls @ 0 mls/hr OTHER .Q0M PRN PRN Reason: for prime and rinse back Last Infusion: 04/22/18 13:56 Dose: Infused Sodium Chloride (Ns Inj) 1,000 mls @ 200 mls/hr OTHER .Q5H PRN PRN Reason: for dialyzer flush PRN Sodium Chloride (Ns Inj) 1,000 mls @ 0 mls/hr IV.CONT .Q0M PRN PRN Reason: hypotension / volume replace Sodium Chloride (Ns Inj) 500 mls @ 30 mls/hr IV.SIG .Q10H MALIK Sodium Chloride (Ns Inj) 500 mls @ 30 mls/hr IV.SIG .Q10H MALIK Lactulose (Lactulose Liq) 30 ml PO DAILY PRN PRN Reason: SEVERE CONSITIPATION Mannitol (Mannitol Inj) 12.5 gm IV.PUSH UNSCH PRN PRN Reason: hypotension / volume replace Metolazone (Zaroxolyn) 5 mg PO DAILY [facility] Last Admin: 05/02/18 14:16 Dose: 5 mg Nitroglycerin (Nitrostat Sl) 0.4 mg SL Q5M PRN PRN Reason: CHEST PAIN Ondansetron HCl (Zofran Inj) 4 mg IV.PUSH Q6H PRN PRN Reason: NAUSEA OR VOMITING Ondansetron HCl (Zofran Inj) 4 mg IV.PUSH UNSCH PRN PRN Reason: NAUSEA OR VOMITING Ondansetron HCl (Zofran Inj) 4 mg IV.PUSH Q4H PRN PRN Reason: NAUSEA Senna/Docusate Sodium (Carole-Colace) 1 tab PO BID [facility] Last Admin: 05/02/18 14:19 Dose: Not Given Sennosides (Senokot) 17.2 mg PO Q12H PRN PRN Reason: Moderate Constipation Sevelamer Carbonate (Renvela) 800 mg PO TIDAC [facility] Last Admin: 05/02/18 17:44 Dose: 800 mg Sodium Chloride (Ns Flush) 5 ml IV.FLUSH PRN PRN PRN Reason: flush each lumen during HD Sodium Chloride (Ns Flush) 0 ml IV.FLUSH UNSCH PRN PRN Reason: SEE DOSE INSTRUCTIONS Allergies Allergy/AdvReac Type Severity Reaction Status Date / Time No Known Allergies Allergy Verified 04/18/18 16:36 Home Medications Medication Instructions Recorded Confirmed Type No Known Home Medications 04/18/18 04/18/18 History Physical Exam Vital signs: Vital Signs 05/01/18 22:00 05/01/18 23:00 05/02/18 00:00 Temperature 97.9 F Pulse Rate 65 66 61 Respiratory Rate 18 Blood Pressure 110/76 Pulse Oximetry 100 05/02/18 01:00 05/02/18 02:00 05/02/18 03:00 Temperature Pulse Rate 67 70 66 Respiratory Rate Blood Pressure Pulse Oximetry 05/02/18 04:00 05/02/18 05:00 05/02/18 06:00 Temperature 97.9 F Pulse Rate 68 60 58 L Respiratory Rate 17 Blood Pressure 119/69 Pulse Oximetry 100 05/02/18 08:15 05/02/18 13:56 05/02/18 13:57 Temperature 97.4 F L 97.7 F Pulse Rate 60 60 65 Respiratory Rate 16 16 Blood Pressure 97/70 L 114/71 Pulse Oximetry 98 98 05/02/18 14:26 05/02/18 15:46 05/02/18 16:27 Temperature Pulse Rate 64 66 62 Respiratory Rate Blood Pressure Pulse Oximetry 05/02/18 17:36 05/02/18 18:19 05/02/18 19:09 Temperature 97.8 F 98.1 F Pulse Rate 62 59 L 63 Respiratory Rate 16 17 Blood Pressure 97/54 L 102/60 Pulse Oximetry 100 99 Intake & Output 05/02/18 05/02/18 05/03/18 06:59 18:59 06:59 Intake Total 240 / 240 720 / 720 Output Total 200 / 200 1300 / 1300 Balance 40 / 40 -580 / -580 Weight 44.7 kg Intake: Oral 240 / 240 720 / 720 Output: Urine 200 / 200 300 / 300 Hemodialysis Amount 1000 / 1000 Other: # Voids 3 Date of Last Bowel Movement 05/01/18 05/02/18 05/02/18 # Bowel Movements 1 Narrative: GENERAL: NAD SKIN: Warm and dry. HEAD: Normocephalic. EYES: No scleral icterus. No injection or drainage. NECK: Supple, trachea midline. No JVD or lymphadenopathy. CARDIOVASCULAR: Regular rate and rhythm without murmurs, gallops, or rubs. RESPIRATORY: Breath sounds equal bilaterally. No accessory muscle use. GASTROINTESTINAL: Abdomen soft, non-tender, nondistended. MUSCULOSKELETAL: No cyanosis, or edema. BACK: Nontender without obvious deformity. No CVA tenderness. Results 04/27/18 07:52 04/27/18 07:50 Intake and Output 05/02/18 05/02/18 05/02/18 06:59 14:59 22:59 Intake Total 240 / 240 720 / 720 Output Total 200 / 200 1000 / 1000 300 / 300 Balance 40 / 40 -1000 / -1000 420 / 420 Intake: Oral 240 / 240 720 / 720 Output: Urine 200 / 200 300 / 300 Hemodialysis Amount 1000 / 1000 Other: # Voids 3 Date of Last Bowel Movement 05/01/18 05/02/18 05/02/18 # Bowel Movements 1 Weight 44.7 kg Assessment and Plan - Assessment (1) Cardiomyopathy Code(s): I42.9 - Cardiomyopathy, unspecified Status: Acute (2) Acute kidney injury Code(s): N17.9 - Acute kidney failure, unspecified Status: Acute (3) Fluid overload Code(s): E87.70 - Fluid overload, unspecified Status: Acute (4) New onset of congestive heart failure Code(s): I50.9 - Heart failure, unspecified Status: Acute - Plan 1) Acute decompensated systolic heart failure Started on HD Appears compensated 2) New onset cardiomyopathy EF 20% Stress test showing no ischemia, NICM Con't on medical management Will place on Coreg for now Unable to place on LEE-I/Entresto for now with borderline hypotension 3) Acute renal failure Started on HD 4) Remote crack cocaine use 5) Wide complex tachycardia Stress test negative for ischemia Currently on BB therapy Evaluated by Dr. Wisdom EP study negative for inducible VT 6) Pre-operative risk assessment Stress test showing no ischemia EP study unable to induce VT Plan to move forward with AV fistula creation tomorrow
[2018-05-03] MEDS: Carvedilol 6.25 MG Tablet PO SCH ×2 (09:08→20:56)
[2018-05-03] MEDS: Famotidine 20 MG Tablet PO SCH ×2 (09:09→20:56)
[2018-05-03] MEDS: metOLazone 5 MG Tablet PO SCH (09:09)
[2018-05-03] MEDS: Senna/Docusate Sodium 8.6/50 MG Tablet PO SCH ×2 (09:13→20:56)
--- NOTE | 2018-05-03 09:22 | P.PN ---
Subjective Interval history: Follow-up cardiomyopathy new-onset/acute decompensated systolic heart failure May 02, 2018-patient seen and examined in dialysis center, denies any chest pain or shortness of breath. Stable. He had EP study done yesterday May 03, 2018-patient seen and examined, Currently NPO pending LUE AVF placement. Denies any shortness of breath Physical Exam Vital signs: Vital Signs 05/02/18 13:56 05/02/18 13:57 05/02/18 14:26 Temperature 97.7 F Pulse Rate 60 65 64 Respiratory Rate 16 Blood Pressure 114/71 Pulse Oximetry 98 05/02/18 15:46 05/02/18 16:27 05/02/18 17:36 Temperature 97.8 F Pulse Rate 66 62 62 Respiratory Rate 16 Blood Pressure 97/54 L Pulse Oximetry 100 05/02/18 18:19 05/02/18 19:00 05/02/18 19:09 Temperature 98.1 F Pulse Rate 59 L 63 63 Respiratory Rate 17 Blood Pressure 102/60 Pulse Oximetry 99 05/02/18 20:00 05/02/18 21:00 05/02/18 22:00 Temperature Pulse Rate 64 63 63 Respiratory Rate Blood Pressure Pulse Oximetry 05/02/18 23:00 05/03/18 00:00 05/03/18 01:00 Temperature 98.4 F Pulse Rate 62 60 56 L Respiratory Rate 16 Blood Pressure 112/59 L Pulse Oximetry 99 05/03/18 02:00 05/03/18 03:00 05/03/18 04:00 Temperature 98.1 F Pulse Rate 56 L 55 L 58 L Respiratory Rate 18 Blood Pressure 106/65 Pulse Oximetry 99 05/03/18 05:00 05/03/18 06:00 05/03/18 08:00 Temperature 98.2 F Pulse Rate 57 L 55 L 65 Respiratory Rate 14 Blood Pressure 120/74 Pulse Oximetry 100 Intake & Output 05/02/18 05/03/18 05/03/18 18:59 06:59 18:59 Intake Total 720 / 720 240 / 240 Output Total 1300 / 1300 100 / 100 Balance -580 / -580 140 / 140 Weight 45 kg Intake: Oral 720 / 720 240 / 240 Output: Urine 300 / 300 100 / 100 Hemodialysis Amount 1000 / 1000 Other: # Voids 2 Date of Last Bowel Movement 05/02/18 05/02/18 # Bowel Movements 1 Narrative: GENERAL: NAD SKIN: Warm and dry. HEAD: Normocephalic. EYES: No scleral icterus. No injection or drainage. NECK: Supple, trachea midline. No JVD or lymphadenopathy. CARDIOVASCULAR: Regular rate and rhythm without murmurs, gallops, or rubs. RESPIRATORY: Breath sounds equal bilaterally. No accessory muscle use. GASTROINTESTINAL: Abdomen soft, non-tender, nondistended. MUSCULOSKELETAL: No cyanosis, or edema. BACK: Nontender without obvious deformity. No CVA tenderness. Results - Labs CBC & Chem 7: 04/27/18 07:52 04/27/18 07:50 Assessment and Plan - Assessment (1) New onset of congestive heart failure Code(s): I50.9 - Heart failure, unspecified Status: Acute (2) Pneumonia Code(s): J18.9 - Pneumonia, unspecified organism Status: Acute (3) Acute kidney injury Code(s): N17.9 - Acute kidney failure, unspecified Status: Acute (4) Fluid overload Code(s): E87.70 - Fluid overload, unspecified Status: Acute - Plan 62-year-old man with New onset cardiomyopathy, acute/ Fluid Overload/bilateral lower extremity edema Acute decompensated systolic heart failure Suspect Valvular Cardiomyopathy -LVEF 20% on echo 04/19/18 -2D Echo : Left ventricular systolic function is severely reduced with EF 20%, mod MR, mod-severe TR, mod-severe pulm HTN (60-70mmhg); large right sided pleural effusion is present. -Cardiology consulted, appreciate recommendations: continue on Diuretics -continue Bumex, metolazone, Coreg -LEE initially held due to renal function; however cleared by nephrology to start LEE/ARB/Entresto but d/t low BP not started yet Elevated troponin/arrhythmia/V tach -Cardiology following, appreciate recommendations -Lexiscan 04/25 showed severe LV dilatation and dysfunction; no reversible perfusion abnormalities -Dr Wisdom consulted, however patient declined AICD, recommended to continue medical management -Now agrees on AICD placement, s/p EP study done May 01, 2018. Plan for possible AICD placement Right lower extremity edema -Ultrasound RLE: Chronic appearing nonocclusive thrombus in the right common femoral vein. Pulsatility in the lower extremity veins likely related to patient 's acute heart failure -improved Acute renal failure on ESRD/ Severe metabolic acidosis, acute -Renal ultrasound: Echogenic kidneys with ascites and moderate right pleural effusion -Serology/hepatitis profile Nonreactive, HIV Nonreactive, ABBY negative -Nephrology consulted, appreciate recommendations -Hemodialysis as scheduled by nephrology -continue Renvela, monitor phosphorus levels -Vascular surgery consulted for AV fistula placement today 05/03/18 Possible Pneumonia, acute/Fluid Overload -S/p antibiotic course with IV Rocephin/Azithro x7days Hypertension -Continue Bumex, metolazone and Coreg Anemia, likely acute on chronic -2/2 ESRD -patient receiving epoetin during dialysis -Monitor CBC History of cocaine use -Patient admitted short-term use, 6 months ago and have not had any since then -Counseling/education given Moderate Protein Calorie Malnutrition/Failure to Thrive: BMI 16. Albumin 2.8. -dietitian ff DVT Proph: Heparin
[2018-05-03] MEDS: Heparin - SQ 10,000 UNITS/ML Vial SQ SCH ×2 (11:00→23:19)
--- NOTE | 2018-05-03 11:02 | P.PNNP ---
Subjective Interval history: Patient had EP study yesterday, no tachyarrhythmias were induced. He is having AVF surgery today. Patient has no specific complaints. Physical Exam Vital signs: Vital Signs 05/02/18 13:56 05/02/18 13:57 05/02/18 14:26 Temperature 97.7 F Pulse Rate 60 65 64 Respiratory Rate 16 Blood Pressure 114/71 Pulse Oximetry 98 05/02/18 15:46 05/02/18 16:27 05/02/18 17:36 Temperature 97.8 F Pulse Rate 66 62 62 Respiratory Rate 16 Blood Pressure 97/54 L Pulse Oximetry 100 05/02/18 18:19 05/02/18 19:00 05/02/18 19:09 Temperature 98.1 F Pulse Rate 59 L 63 63 Respiratory Rate 17 Blood Pressure 102/60 Pulse Oximetry 99 05/02/18 20:00 05/02/18 21:00 05/02/18 22:00 Temperature Pulse Rate 64 63 63 Respiratory Rate Blood Pressure Pulse Oximetry 05/02/18 23:00 05/03/18 00:00 05/03/18 01:00 Temperature 98.4 F Pulse Rate 62 60 56 L Respiratory Rate 16 Blood Pressure 112/59 L Pulse Oximetry 99 05/03/18 02:00 05/03/18 03:00 05/03/18 04:00 Temperature 98.1 F Pulse Rate 56 L 55 L 58 L Respiratory Rate 18 Blood Pressure 106/65 Pulse Oximetry 99 05/03/18 05:00 05/03/18 06:00 05/03/18 07:00 Temperature Pulse Rate 57 L 55 L 58 L Respiratory Rate Blood Pressure Pulse Oximetry 05/03/18 08:00 05/03/18 09:00 05/03/18 10:00 Temperature 98.2 F Pulse Rate 57 L 58 L 57 L Respiratory Rate 14 Blood Pressure 120/74 Pulse Oximetry 100 Intake & Output 05/02/18 05/03/18 05/03/18 18:59 06:59 18:59 Intake Total 720 / 720 240 / 240 Output Total 1300 / 1300 100 / 100 Balance -580 / -580 140 / 140 Weight 45 kg Intake: Oral 720 / 720 240 / 240 Output: Urine 300 / 300 100 / 100 Hemodialysis Amount 1000 / 1000 Other: # Voids 2 Date of Last Bowel Movement 05/02/18 05/02/18 # Bowel Movements 1 Narrative: GENERAL: alert ,oriented, very thin. SKIN: Warm and dry. HEAD: Normocephalic. EYES: No scleral icterus. No injection or drainage. NECK: Supple, trachea midline. No JVD or lymphadenopathy. CARDIOVASCULAR: Regular rate and rhythm without murmurs, gallops, or rubs. RESPIRATORY: Breath sounds equal bilaterally. No accessory muscle use. GASTROINTESTINAL: Abdomen soft, non-tender, nondistended. MUSCULOSKELETAL: No cyanosis, or edema. BACK: Nontender without obvious deformity. No CVA tenderness. Assessment and Plan - Assessment (1) End stage renal disease Code(s): N18.6 - End stage renal disease Status: Acute Plan: Likely he has reached ESRD. We will continue dialysis three times/week. AVF surgery today. Needs outpatient dialysis arrangements. (2) Fluid overload Code(s): E87.70 - Fluid overload, unspecified Status: Acute Plan: Improved. (3) Acute on chronic systolic congestive heart failure Code(s): I50.23 - Acute on chronic systolic (congestive) heart failure Status : Acute Plan: Seen by cardiology ARB/LEE inhibitor/Entresto: will defer to cardiology. Ok to start any of these medications from renal standpoint as long as his BP is acceptable. Plan is for AICD placement after 60 days. Notes were reviewed.
[2018-05-03] MEDS ORDERED: Thrombin Topical 20,000 UNIT Spray Kit TOPICAL ONE (12:21)
[2018-05-03] MEDS ORDERED: Bupivacaine 0.5% Inj 50 ML MDV Vial ONE (12:21)
[2018-05-03] MEDS ORDERED: Heparin 10,000 UNITS/10 ML Vial (for IV use) ONE (12:21)
[2018-05-03] MEDS ORDERED: ceFAZolin 2 GM Premix Inj 2 GM/50 ML PIGGYBACK IV.SIG ONE (12:21)
[2018-05-03] MEDS ORDERED: Protamine Sulfate Inj 50 MG/5 ML Vial ONE (12:21)
[2018-05-03] MEDS ORDERED: Heparin/NS PF Inj 500 ML ONE (12:21)
[2018-05-03] MEDS ORDERED: Bupivacaine/Epinephrine PF Inj 0.5% 30 ML Vial ONE (12:39)
[2018-05-03] MEDS ORDERED: ceFAZolin 1 GM Premix Inj 0 GM/0 ML FROZ.PIGGY IV.SIG ONE (12:42)
[2018-05-03] MEDS ORDERED: Sodium Chlor 0.9% Inj 10 ML ONE (12:56)
[2018-05-03] MEDS ORDERED: Sodium Chlor 0.9% Inj 500 ML IV.CONT ONE (13:02)
--- NOTE | 2018-05-03 14:30 | P.OP ---
Preoperative Diagnosis: Acute kidney injury requiring hemodialysis Postoperative Diagnosis: Acute kidney injury requiring hemodialysis Date of procedure: 05/03/18 Procedure: Left upper extremity brachiocephalic AV fistula creation Anesthesia: MAC Surgeon: Trevon Dorsey MD Estimated blood loss (mL): 10 Operation and Findings: Findings Left brachial artery measured approximately 4 mm diameter Left cephalic vein measured approximately 3 mm diameter Good thrill into the fistula at the end of the procedure. Multiphasic left radial and ulnar signals at the end of the procedure Description of procedure Patient was taken to the operating room. Laid supine on the OR table. After adequate sedation the patient was prepped and draped in the standard sterile fashion. Timeout was called with all members and you are in agreement. Transverse incision was made just cephalad to the antecubital fossa. Dissection was taken down through the subcutaneous tissues electrocautery. The cephalic vein identified and dissected. The brachial artery is identified dissected. The median nerve was identified and protected throughout the whole procedure. The patient was heparinized. Cephalic vein was divided distally and ligated. Proximal distal control was obtained in the brachial artery. Arteriotomy was created that measured approximately 1 cm in length. The brachycephalic anastomosis created using 6 oh plain suture in a running fashion. Hemostasis achieved. And was closed in multiple layers using Vicryl suture followed by Monocryl suture. Steri-Strips and a sterile dressing was applied. Patient tolerated the procedure was taken to recovery in stable condition.
[2018-05-03] MEDS ORDERED: fentaNYL Citrate Inj 100 MCG/2 ML Ampul ONE (14:59)
--- NOTE | 2018-05-03 21:22 | P.PNCA ---
Subjective Interval history: No events overnight s/p AV fistula, tolerated well Medications and Allergies Active Medications: Active Medications Acetaminophen (Tylenol) 650 mg PO Q4H PRN PRN Reason: Temp > 100.4 Acetaminophen (Tylenol) 650 mg PO UNSCH PRN PRN Reason: SEE LABEL COMMENTS Al Hydroxide/Mg Hydroxide (Milk Of Nadia Durant) 30 ml PO Q12H PRN PRN Reason: Mild Constipation Bisacodyl (Dulcolax Supp) 10 mg RECTAL DAILY PRN PRN Reason: SEVERE CONSITIPATION Bumetanide (Bumex Inj) 2 mg IV.PUSH BID@0900,1800 [facility] Last Admin: 05/03/18 17:10 Dose: 2 mg Carvedilol (Coreg) 6.25 mg PO BID [facility] Last Admin: 05/03/18 20:56 Dose: 6.25 mg Clonidine HCl (Catapres) 0.1 mg PO UNSCH PRN PRN Reason: SEE LABEL COMMENTS Diphenhydramine HCl (Benadryl) 25 mg PO UNSCH PRN PRN Reason: SEE LABEL COMMENTS Epoetin Morgan (Epogen Inj) 5,000 unit IV.PUSH UNSCH PRN PRN Reason: SEE LABEL COMMENTS Last Admin: 05/02/18 11:10 Dose: 5,000 unit Famotidine (Pepcid) 10 mg PO BID [facility] Last Admin: 05/03/18 20:56 Dose: 10 mg Gelatin (Gelfoam 12 Mm/7 Mm Topical) 1 foam TOPICAL PRN PRN PRN Reason: help stop bleeding from site Gentamicin Sulfate (Gentamicin Inj) 20 mg OTHER WITH DIALYSIS PRN PRN Reason: Dwell Gentamycin Lock Last Admin: 05/02/18 11:40 Dose: 20 mg Heparin Sodium (Porcine) (Heparin Inj) 5,000 units SQ Q12H [facility] Last Admin: 05/03/18 11:00 Dose: 5,000 units Heparin Sodium (Porcine) (Heparin Inj) 8,000 units OTHER WITH DIALYSIS PRN PRN Reason: for machine prime Heparin Sodium (Porcine) (Heparin Inj) 1,000 units OTHER WITH DIALYSIS PRN PRN Reason: Dwell Heparin to Fill Catheter Last Admin: 04/29/18 10:24 Dose: 1,000 units Heparin Sodium (Porcine) (Heparin Inj) 0 units IV.FLUSH WITH DIALYSIS PRN PRN Reason: SEE DOSE INSTRUCTIONS Albumin Human (Flexbumin 25% Inj) 100 mls @ 60 mls/hr IV.SIG WITH DIALYSIS PRN PRN Reason: hypotension / volume replace Last Infusion: 04/21/18 14:15 Dose: Infused Sodium Chloride (Ns Inj) 1,000 mls @ 0 mls/hr OTHER .Q0M PRN PRN Reason: for prime and rinse back Last Infusion: 04/22/18 13:56 Dose: Infused Sodium Chloride (Ns Inj) 1,000 mls @ 200 mls/hr OTHER .Q5H PRN PRN Reason: for dialyzer flush PRN Sodium Chloride (Ns Inj) 1,000 mls @ 0 mls/hr IV.CONT .Q0M PRN PRN Reason: hypotension / volume replace Sodium Chloride (Ns Inj) 500 mls @ 30 mls/hr IV.SIG .Q10H MALIK Sodium Chloride (Ns Inj) 500 mls @ 30 mls/hr IV.SIG .Q10H [facility] Last Admin: 05/03/18 11:00 Dose: Not Given Lactulose (Lactulose Liq) 30 ml PO DAILY PRN PRN Reason: SEVERE CONSITIPATION Mannitol (Mannitol Inj) 12.5 gm IV.PUSH UNSCH PRN PRN Reason: hypotension / volume replace Metolazone (Zaroxolyn) 5 mg PO DAILY [facility] Last Admin: 05/03/18 09:09 Dose: 5 mg Nitroglycerin (Nitrostat Sl) 0.4 mg SL Q5M PRN PRN Reason: CHEST PAIN Ondansetron HCl (Zofran Inj) 4 mg IV.PUSH Q6H PRN PRN Reason: NAUSEA OR VOMITING Ondansetron HCl (Zofran Inj) 4 mg IV.PUSH UNSCH PRN PRN Reason: NAUSEA OR VOMITING Ondansetron HCl (Zofran Inj) 4 mg IV.PUSH Q4H PRN PRN Reason: NAUSEA Senna/Docusate Sodium (Carole-Colace) 1 tab PO BID [facility] Last Admin: 05/03/18 20:56 Dose: Not Given Sennosides (Senokot) 17.2 mg PO Q12H PRN PRN Reason: Moderate Constipation Sevelamer Carbonate (Renvela) 800 mg PO TIDAC [facility] Last Admin: 05/03/18 17:10 Dose: 800 mg Sodium Chloride (Ns Flush) 5 ml IV.FLUSH PRN PRN PRN Reason: flush each lumen during HD Sodium Chloride (Ns Flush) 0 ml IV.FLUSH UNSCH PRN PRN Reason: SEE DOSE INSTRUCTIONS Allergies Allergy/AdvReac Type Severity Reaction Status Date / Time No Known Allergies Allergy Verified 04/18/18 16:36 Home Medications Medication Instructions Recorded Confirmed Type No Known Home Medications 04/18/18 04/18/18 History Physical Exam Vital signs: Vital Signs 05/02/18 22:00 05/02/18 23:00 05/03/18 00:00 Temperature 98.4 F Pulse Rate 63 62 60 Respiratory Rate 16 Blood Pressure 112/59 L Pulse Oximetry 99 05/03/18 01:00 05/03/18 02:00 05/03/18 03:00 Temperature Pulse Rate 56 L 56 L 55 L Respiratory Rate Blood Pressure Pulse Oximetry 05/03/18 04:00 05/03/18 05:00 05/03/18 06:00 Temperature 98.1 F Pulse Rate 58 L 57 L 55 L Respiratory Rate 18 Blood Pressure 106/65 Pulse Oximetry 99 05/03/18 07:00 05/03/18 08:00 05/03/18 09:00 Temperature 98.2 F Pulse Rate 58 L 57 L 58 L Respiratory Rate 14 Blood Pressure 120/74 Pulse Oximetry 100 05/03/18 10:00 05/03/18 11:00 05/03/18 12:00 Temperature 98.2 F 98.2 F Pulse Rate 57 L 56 L 56 L Respiratory Rate 12 14 Blood Pressure 107/66 107/66 Pulse Oximetry 100 100 05/03/18 13:00 05/03/18 14:54 05/03/18 15:00 Temperature 97.8 F Pulse Rate 70 50 L 60 Respiratory Rate 14 Blood Pressure 94/51 L Pulse Oximetry 100 05/03/18 15:15 05/03/18 15:30 05/03/18 16:00 Temperature 97.7 F 97.5 F L Pulse Rate 51 L 51 L 55 L Respiratory Rate 15 18 12 Blood Pressure 103/61 93/56 L 108/64 Pulse Oximetry 98 98 100 05/03/18 17:00 05/03/18 18:00 05/03/18 20:00 Temperature 98.0 F Pulse Rate 61 63 64 Respiratory Rate 16 Blood Pressure 106/58 L Pulse Oximetry 99 Intake & Output 10/31/18 10/31/18 11/01/18 06:59 18:59 06:59 Intake Total 240 / 240 1270 / 1270 Output Total 100 / 100 20 / 20 Balance 140 / 140 1250 / 1250 Weight 45 kg Intake: IV 50 / 50 Ancef 2 GM Premix Inj 2 gm In 50 / 50 50 ml @ 0 mls/hr IV.SIG .STK- MED ONE Rx#:[id number] Oral 240 / 240 720 / 720 Anesthesia Amount 500 / 500 Output: Urine 100 / 100 Estimated Blood Loss 20 / 20 Other: # Voids 2 4 Date of Last Bowel Movement 05/02/18 05/03/18 # Bowel Movements 1 Narrative: GENERAL: alert ,oriented, very thin. SKIN: Warm and dry. HEAD: Normocephalic. EYES: No scleral icterus. No injection or drainage. NECK: Supple, trachea midline. No JVD or lymphadenopathy. CARDIOVASCULAR: Regular rate and rhythm without murmurs, gallops, or rubs. RESPIRATORY: Breath sounds equal bilaterally. No accessory muscle use. GASTROINTESTINAL: Abdomen soft, non-tender, nondistended. MUSCULOSKELETAL: No cyanosis, or edema. BACK: Nontender without obvious deformity. No CVA tenderness. Results 04/27/18 07:52 04/27/18 07:50 Intake and Output 05/03/18 05/03/18 05/03/18 06:59 14:59 22:59 Intake Total 240 / 240 1270 / 1270 Output Total 100 / 100 20 / 20 Balance 140 / 140 1250 / 1250 Intake: IV 50 / 50 Ancef 2 GM Premix Inj 2 gm In 50 / 50 50 ml @ 0 mls/hr IV.SIG .STK- MED ONE Rx#:[id number] Oral 240 / 240 720 / 720 Anesthesia Amount 500 / 500 Output: Urine 100 / 100 Estimated Blood Loss 20 / 20 Other: # Voids 2 4 Date of Last Bowel Movement 05/02/18 05/03/18 # Bowel Movements 1 Weight 45 kg Assessment and Plan - Assessment (1) Cardiomyopathy Code(s): I42.9 - Cardiomyopathy, unspecified Status: Acute (2) Acute kidney injury Code(s): N17.9 - Acute kidney failure, unspecified Status: Acute (3) Fluid overload Code(s): E87.70 - Fluid overload, unspecified Status: Acute (4) New onset of congestive heart failure Code(s): I50.9 - Heart failure, unspecified Status: Acute - Plan 1) Acute decompensated systolic heart failure Started on HD Appears compensated 2) New onset cardiomyopathy EF 20% Stress test showing no ischemia, NICM Con't on medical management Will place on Coreg for now Unable to place on LEE-I/Entresto for now with borderline hypotension 3) Acute renal failure Started on HD 4) Remote crack cocaine use 5) Wide complex tachycardia Stress test negative for ischemia Currently on BB therapy Evaluated by Dr. Wisdom EP study negative for inducible VT 6) AV fistula placed
--- NOTE | 2018-05-04 09:00 | P.PNNP ---
Subjective Interval history: patient was seen during dialysis. Had AVF placed yesterday. He is clinically stable. Voices no complaints. Physical Exam Vital signs: Vital Signs 05/03/18 09:00 05/03/18 10:00 05/03/18 11:00 Temperature 98.2 F Pulse Rate 58 L 57 L 56 L Respiratory Rate 12 Blood Pressure 107/66 Pulse Oximetry 100 05/03/18 12:00 05/03/18 13:00 05/03/18 14:54 Temperature 98.2 F 97.8 F Pulse Rate 56 L 70 50 L Respiratory Rate 14 14 Blood Pressure 107/66 94/51 L Pulse Oximetry 100 100 05/03/18 15:00 05/03/18 15:15 05/03/18 15:30 Temperature 97.7 F Pulse Rate 60 51 L 51 L Respiratory Rate 15 18 Blood Pressure 103/61 93/56 L Pulse Oximetry 98 98 05/03/18 16:00 05/03/18 17:00 05/03/18 18:00 Temperature 97.5 F L Pulse Rate 55 L 61 63 Respiratory Rate 12 Blood Pressure 108/64 Pulse Oximetry 100 05/03/18 19:00 05/03/18 20:00 05/03/18 21:00 Temperature 98.0 F Pulse Rate 65 66 64 Respiratory Rate 16 Blood Pressure 106/58 L Pulse Oximetry 99 05/03/18 22:00 05/03/18 23:00 05/04/18 00:00 Temperature 97.9 F Pulse Rate 64 67 63 Respiratory Rate 16 Blood Pressure 102/60 Pulse Oximetry 98 05/04/18 01:00 05/04/18 02:00 05/04/18 03:00 Temperature Pulse Rate 60 60 64 Respiratory Rate Blood Pressure Pulse Oximetry 05/04/18 04:00 05/04/18 05:00 05/04/18 06:00 Temperature 97.8 F Pulse Rate 68 70 67 Respiratory Rate 12 Blood Pressure 111/57 L Pulse Oximetry 98 Intake & Output 05/03/18 05/04/18 05/04/18 18:59 06:59 18:59 Intake Total 1270 / 1270 240 / 240 Output Total 20 / 20 Balance 1250 / 1250 240 / 240 Weight 44.1 kg Intake: IV 50 / 50 Ancef 2 GM Premix Inj 2 gm In 50 / 50 50 ml @ 0 mls/hr IV.SIG .STK- MED ONE Rx#:[id number] Oral 720 / 720 240 / 240 Anesthesia Amount 500 / 500 Output: Estimated Blood Loss Other: # Voids 4 2 Date of Last Bowel Movement 05/03/18 # Bowel Movements 1 Narrative: GENERAL: alert ,oriented, frail, generalized muscle wasting. SKIN: Warm and dry. HEAD: Normocephalic. EYES: No scleral icterus. No injection or drainage. NECK: Supple, trachea midline. No JVD or lymphadenopathy. CARDIOVASCULAR: Regular rate and rhythm without murmurs, gallops, or rubs. RESPIRATORY: Breath sounds equal bilaterally. No accessory muscle use. GASTROINTESTINAL: Abdomen soft, non-tender, nondistended. MUSCULOSKELETAL: No cyanosis, or edema. AVF: newly created, on the left arm, patent. Left hand: no neuro or vascular compromise. BACK: Nontender without obvious deformity. No CVA tenderness. Assessment and Plan - Assessment (1) End stage renal disease Code(s): N18.6 - End stage renal disease Status: Acute Plan: Likely he has reached ESRD. We will continue dialysis three times/week. s/p AVF. Needs outpatient dialysis arrangements at [facility]. May need placement. (2) Fluid overload Code(s): E87.70 - Fluid overload, unspecified Status: Acute Plan: Improved. (3) Acute on chronic systolic congestive heart failure Code(s): I50.23 - Acute on chronic systolic (congestive) heart failure Status : Acute Plan: Seen by cardiology ARB/LEE inhibitor/Entresto: will defer to cardiology. Ok to start any of these medications from renal standpoint as long as his BP is acceptable. Plan is for AICD placement after 60 days. Notes were reviewed.
--- NOTE | 2018-05-04 11:06 | P.PNVS ---
Subjective Subjective/Hospital Course: Patient is sitting in his bed receiving hemodialysis comfortably. Objective Vital Signs / I&O: Vital Signs 05/03/18 12:00 05/03/18 13:00 05/03/18 14:54 Temperature 98.2 F 97.8 F Pulse Rate 56 L 70 50 L Respiratory Rate 14 14 Blood Pressure 107/66 94/51 L Pulse Oximetry 100 100 05/03/18 15:00 05/03/18 15:15 05/03/18 15:30 Temperature 97.7 F Pulse Rate 60 51 L 51 L Respiratory Rate 15 18 Blood Pressure 103/61 93/56 L Pulse Oximetry 98 98 05/03/18 16:00 05/03/18 17:00 05/03/18 18:00 Temperature 97.5 F L Pulse Rate 55 L 61 63 Respiratory Rate 12 Blood Pressure 108/64 Pulse Oximetry 100 05/03/18 19:00 05/03/18 20:00 05/03/18 21:00 Temperature 98.0 F Pulse Rate 65 66 64 Respiratory Rate 16 Blood Pressure 106/58 L Pulse Oximetry 99 05/03/18 22:00 05/03/18 23:00 05/04/18 00:00 Temperature 97.9 F Pulse Rate 64 67 63 Respiratory Rate 16 Blood Pressure 102/60 Pulse Oximetry 98 05/04/18 01:00 05/04/18 02:00 05/04/18 03:00 Temperature Pulse Rate 60 60 64 Respiratory Rate Blood Pressure Pulse Oximetry 05/04/18 04:00 05/04/18 05:00 05/04/18 06:00 Temperature 97.8 F Pulse Rate 68 70 67 Respiratory Rate 12 Blood Pressure 111/57 L Pulse Oximetry 98 05/04/18 07:00 05/04/18 08:00 Temperature 98.3 F Pulse Rate 61 63 Respiratory Rate 14 Blood Pressure 115/64 Pulse Oximetry 99 Intake & Output 05/03/18 05/04/18 05/04/18 18:59 06:59 18:59 Intake Total 1270 / 1270 240 / 240 Output Total 20 / 20 Balance 1250 / 1250 240 / 240 Weight 44.1 kg Intake: IV 50 / 50 Ancef 2 GM Premix Inj 2 gm In 50 / 50 50 ml @ 0 mls/hr IV.SIG .STK- MED ONE Rx#:[id number] Oral 720 / 720 240 / 240 Anesthesia Amount 500 / 500 Output: Estimated Blood Loss Other: # Voids 4 2 Date of Last Bowel Movement 05/03/18 # Bowel Movements 1 Physical Exam: Left upper extremity AV fistula good thrill. There is a palpable radial pulse. Assessment and Plan - Plan Status post left upper extremity fistula creation. Stable for discharge from vascular surgery standpoint. Was treated the patient follow-up visit in 6 weeks.
[2018-05-04] MEDS: Heparin 10,000 UNITS/10 ML Vial (for IV use) OTHER PRN (11:44)
[2018-05-04] MEDS: metOLazone 5 MG Tablet PO SCH (12:25)
[2018-05-04] MEDS: Carvedilol 6.25 MG Tablet PO SCH ×2 (12:25→21:28)
[2018-05-04] MEDS: Senna/Docusate Sodium 8.6/50 MG Tablet PO SCH ×2 (12:26→21:28)
[2018-05-04] MEDS: Heparin - SQ 10,000 UNITS/ML Vial SQ SCH ×2 (12:26→23:47)
[2018-05-04] MEDS: Famotidine 20 MG Tablet PO SCH ×2 (12:26→21:28)
--- NOTE | 2018-05-04 13:57 | P.PN ---
Subjective Interval history: Follow-up cardiomyopathy new-onset/acute decompensated systolic heart failure May 04, 2018-patient seen and examined, he had hemodialysis today. Denies any chest pain or shortness of breath. Remains stable. Physical Exam Vital signs: Vital Signs 05/03/18 14:54 05/03/18 15:00 05/03/18 15:15 Temperature 97.8 F Pulse Rate 50 L 60 51 L Respiratory Rate 14 15 Blood Pressure 94/51 L 103/61 Pulse Oximetry 100 98 05/03/18 15:30 05/03/18 16:00 05/03/18 17:00 Temperature 97.7 F 97.5 F L Pulse Rate 51 L 55 L 61 Respiratory Rate 18 12 Blood Pressure 93/56 L 108/64 Pulse Oximetry 98 100 05/03/18 18:00 05/03/18 19:00 05/03/18 20:00 Temperature 98.0 F Pulse Rate 63 65 66 Respiratory Rate 16 Blood Pressure 106/58 L Pulse Oximetry 99 05/03/18 21:00 05/03/18 22:00 05/03/18 23:00 Temperature Pulse Rate 64 64 67 Respiratory Rate Blood Pressure Pulse Oximetry 05/04/18 00:00 05/04/18 01:00 05/04/18 02:00 Temperature 97.9 F Pulse Rate 63 60 60 Respiratory Rate 16 Blood Pressure 102/60 Pulse Oximetry 98 05/04/18 03:00 05/04/18 04:00 05/04/18 05:00 Temperature 97.8 F Pulse Rate 64 68 70 Respiratory Rate 12 Blood Pressure 111/57 L Pulse Oximetry 98 05/04/18 06:00 05/04/18 07:00 05/04/18 08:00 Temperature 98.3 F Pulse Rate 67 61 63 Respiratory Rate 14 Blood Pressure 115/64 Pulse Oximetry 99 05/04/18 12:00 05/04/18 13:00 Temperature 98.0 F Pulse Rate 72 68 Respiratory Rate 14 Blood Pressure 113/65 Pulse Oximetry 98 Intake & Output 05/03/18 05/04/18 05/04/18 18:59 06:59 18:59 Intake Total 1270 / 1270 240 / 240 Output Total 20 20 1000 / 1000 Balance 1250 / 1250 240 / 240 -1000 / -1000 Weight 44.1 kg Intake: IV 50 / 50 Ancef 2 GM Premix Inj 2 gm In 50 / 50 50 ml @ 0 mls/hr IV.SIG .K- MED ONE Rx#:[id number] Oral 720 / 720 240 / 240 Anesthesia Amount 500 / 500 Output: Hemodialysis Amount 1000 / 1000 Estimated Blood Loss Other: # Voids 4 2 Date of Last Bowel Movement 05/03/18 # Bowel Movements 1 Narrative: GENERAL: alert ,oriented, frail, generalized muscle wasting. SKIN: Warm and dry. HEAD: Normocephalic. EYES: No scleral icterus. No injection or drainage. NECK: Supple, trachea midline. No JVD or lymphadenopathy. CARDIOVASCULAR: Regular rate and rhythm without murmurs, gallops, or rubs. RESPIRATORY: Breath sounds equal bilaterally. No accessory muscle use. GASTROINTESTINAL: Abdomen soft, non-tender, nondistended. MUSCULOSKELETAL: No cyanosis, or edema. AVF: newly created, on the left arm, patent. Left hand: no neuro or vascular compromise. BACK: Nontender without obvious deformity. No CVA tenderness. Results - Labs CBC & Chem 7: 04/27/18 07:52 04/27/18 07:50 Assessment and Plan - Assessment (1) New onset of congestive heart failure Code(s): I50.9 - Heart failure, unspecified Status: Acute (2) Pneumonia Code(s): J18.9 - Pneumonia, unspecified organism Status: Acute (3) Acute kidney injury Code(s): N17.9 - Acute kidney failure, unspecified Status: Acute (4) Fluid overload Code(s): E87.70 - Fluid overload, unspecified Status: Acute - Plan 62-year-old man with New onset cardiomyopathy, acute/ Fluid Overload/bilateral lower extremity edema Acute decompensated systolic heart failure Suspect Valvular Cardiomyopathy -LVEF 20% on echo 04/19/18 -2D Echo : Left ventricular systolic function is severely reduced with EF 20%, mod MR, mod-severe TR, mod-severe pulm HTN (60-70mmhg); large right sided pleural effusion is present. -Cardiology consulted, appreciate recommendations: continue on Diuretics -continue Bumex, metolazone, Coreg -LEE initially held due to renal function; however cleared by nephrology to start LEE/ARB/Entresto but d/t low BP not started yet Elevated troponin/arrhythmia/V tach -Cardiology following, appreciate recommendations -Lexiscan 04/25 showed severe LV dilatation and dysfunction; no reversible perfusion abnormalities -Dr Wisdom consulted, however patient declined AICD, recommended to continue medical management -Now agrees on AICD placement, s/p EP study done and inducible VT on April. Right lower extremity edema -Ultrasound RLE: Chronic appearing nonocclusive thrombus in the right common femoral vein. Pulsatility in the lower extremity veins likely related to patient 's acute heart failure -improved Acute renal failure on ESRD/ Severe metabolic acidosis, acute -Renal ultrasound: Echogenic kidneys with ascites and moderate right pleural effusion -Serology/hepatitis profile Nonreactive, HIV Nonreactive, ABBY negative -Nephrology consulted, appreciate recommendations -Hemodialysis as scheduled by nephrology -continue Renvela, monitor phosphorus levels -Vascular surgery consulted for AV fistula placement today 05/03/18 Possible Pneumonia, acute/Fluid Overload -S/p antibiotic course with IV Rocephin/Azithro x7days Hypertension -Continue Bumex, metolazone and Coreg Anemia, likely acute on chronic -2/2 ESRD -patient receiving epoetin during dialysis History of cocaine use -Patient admitted short-term use, 6 months ago and have not had any since then -Counseling/education given Moderate Protein Calorie Malnutrition/Failure to Thrive: BMI 16. Albumin 2.8. -dietitian ff DVT Proph: Heparin
[2018-05-04 14:21] LABS: Calcium 8.4 mg/dL (8.5-10.1); Carbon Dioxide 35.5 meq/L (21.0-32.0); Potassium 4.9 meq/L (3.5-5.1)
--- NOTE | 2018-05-04 18:25 | P.PNCA ---
Subjective Interval history: No events overnight Doing well, no complaints Medications and Allergies Active Medications: Active Medications Acetaminophen (Tylenol) 650 mg PO Q4H PRN PRN Reason: Temp > 100.4 Acetaminophen (Tylenol) 650 mg PO UNSCH PRN PRN Reason: SEE LABEL COMMENTS Al Hydroxide/Mg Hydroxide (Milk Of Nadia Liq) 30 ml PO Q12H PRN PRN Reason: Mild Constipation Bisacodyl (Dulcolax Supp) 10 mg RECTAL DAILY PRN PRN Reason: SEVERE CONSITIPATION Bumetanide (Bumex Inj) 2 mg IV.PUSH BID@0900,1800 [facility] Last Admin: 05/04/18 17:06 Dose: 2 mg Carvedilol (Coreg) 6.25 mg PO BID [facility] Last Admin: 05/04/18 12:25 Dose: 6.25 mg Clonidine HCl (Catapres) 0.1 mg PO UNSCH PRN PRN Reason: SEE LABEL COMMENTS Diphenhydramine HCl (Benadryl) 25 mg PO UNSCH PRN PRN Reason: SEE LABEL COMMENTS Epoetin Morgan (Epogen Inj) 5,000 unit IV.PUSH UNSCH PRN PRN Reason: SEE LABEL COMMENTS Last Admin: 05/04/18 11:44 Dose: 5,000 unit Famotidine (Pepcid) 10 mg PO BID [facility] Last Admin: 05/04/18 12:26 Dose: 10 mg Gelatin (Gelfoam 12 Mm/7 Mm Topical) 1 foam TOPICAL PRN PRN PRN Reason: help stop bleeding from site Gentamicin Sulfate (Gentamicin Inj) 20 mg OTHER WITH DIALYSIS PRN PRN Reason: Dwell Gentamycin Lock Last Admin: 05/04/18 11:45 Dose: 20 mg Heparin Sodium (Porcine) (Heparin Inj) 5,000 units SQ Q12H [facility] Last Admin: 05/04/18 12:26 Dose: 5,000 units Heparin Sodium (Porcine) (Heparin Inj) 8,000 units OTHER WITH DIALYSIS PRN PRN Reason: for machine prime Heparin Sodium (Porcine) (Heparin Inj) 1,000 units OTHER WITH DIALYSIS PRN PRN Reason: Dwell Heparin to Fill Catheter Last Admin: 05/04/18 11:44 Dose: 1,000 units Heparin Sodium (Porcine) (Heparin Inj) 0 units IV.FLUSH WITH DIALYSIS PRN PRN Reason: SEE DOSE INSTRUCTIONS Albumin Human (Flexbumin 25% Inj) 100 mls @ 60 mls/hr IV.SIG WITH DIALYSIS PRN PRN Reason: hypotension / volume replace Last Infusion: 04/21/18 14:15 Dose: Infused Sodium Chloride (Ns Inj) 1,000 mls @ 0 mls/hr OTHER .Q0M PRN PRN Reason: for prime and rinse back Last Infusion: 04/22/18 13:56 Dose: Infused Sodium Chloride (Ns Inj) 1,000 mls @ 200 mls/hr OTHER .Q5H PRN PRN Reason: for dialyzer flush PRN Sodium Chloride (Ns Inj) 1,000 mls @ 0 mls/hr IV.CONT .Q0M PRN PRN Reason: hypotension / volume replace Sodium Chloride (Ns Inj) 500 mls @ 30 mls/hr IV.SIG .Q10H MALIK Sodium Chloride (Ns Inj) 500 mls @ 30 mls/hr IV.SIG .Q10H [facility] Last Admin: 05/03/18 11:00 Dose: Not Given Lactulose (Lactulose Liq) 30 ml PO DAILY PRN PRN Reason: SEVERE CONSITIPATION Mannitol (Mannitol Inj) 12.5 gm IV.PUSH UNSCH PRN PRN Reason: hypotension / volume replace Metolazone (Zaroxolyn) 5 mg PO DAILY [facility] Last Admin: 05/04/18 12:25 Dose: 5 mg Nitroglycerin (Nitrostat Sl) 0.4 mg SL Q5M PRN PRN Reason: CHEST PAIN Ondansetron HCl (Zofran Inj) 4 mg IV.PUSH Q6H PRN PRN Reason: NAUSEA OR VOMITING Ondansetron HCl (Zofran Inj) 4 mg IV.PUSH UNSCH PRN PRN Reason: NAUSEA OR VOMITING Ondansetron HCl (Zofran Inj) 4 mg IV.PUSH Q4H PRN PRN Reason: NAUSEA Senna/Docusate Sodium (Carole-Colace) 1 tab PO BID [facility] Last Admin: 05/04/18 12:26 Dose: 1 tab Sennosides (Senokot) 17.2 mg PO Q12H PRN PRN Reason: Moderate Constipation Sevelamer Carbonate (Renvela) 800 mg PO TIDAC [facility] Last Admin: 05/04/18 17:06 Dose: 800 mg Sodium Chloride (Ns Flush) 5 ml IV.FLUSH PRN PRN PRN Reason: flush each lumen during HD Sodium Chloride (Ns Flush) 0 ml IV.FLUSH UNSCH PRN PRN Reason: SEE DOSE INSTRUCTIONS Allergies Allergy/AdvReac Type Severity Reaction Status Date / Time No Known Allergies Allergy Verified 04/18/18 16:36 Home Medications Medication Instructions Recorded Confirmed Type No Known Home Medications 04/18/18 04/18/18 History Physical Exam Vital signs: Vital Signs 05/03/18 19:00 05/03/18 20:00 05/03/18 21:00 Temperature 98.0 F Pulse Rate 65 66 64 Respiratory Rate 16 Blood Pressure 106/58 L Pulse Oximetry 99 05/03/18 22:00 05/03/18 23:00 05/04/18 00:00 Temperature 97.9 F Pulse Rate 64 67 63 Respiratory Rate 16 Blood Pressure 102/60 Pulse Oximetry 98 05/04/18 01:00 05/04/18 02:00 05/04/18 03:00 Temperature Pulse Rate 60 60 64 Respiratory Rate Blood Pressure Pulse Oximetry 05/04/18 04:00 05/04/18 05:00 05/04/18 06:00 Temperature 97.8 F Pulse Rate 68 70 67 Respiratory Rate 12 Blood Pressure 111/57 L Pulse Oximetry 98 05/04/18 07:00 05/04/18 08:00 05/04/18 12:00 Temperature 98.3 F 98.0 F Pulse Rate 61 63 72 Respiratory Rate 14 14 Blood Pressure 115/64 113/65 Pulse Oximetry 99 98 05/04/18 13:00 05/04/18 14:00 05/04/18 15:00 Temperature Pulse Rate 68 69 62 Respiratory Rate Blood Pressure Pulse Oximetry 05/04/18 16:00 05/04/18 17:00 05/04/18 18:00 Temperature 98.4 F Pulse Rate 67 67 65 Respiratory Rate 16 Blood Pressure 100/58 L Pulse Oximetry 99 Intake & Output 05/03/18 05/04/18 05/04/18 18:59 06:59 18:59 Intake Total 1270 / 1270 240 / 240 840 / 840 Output Total 1000 / 1000 Balance 1250 / 1250 240 / 240 -160 / -160 Weight 44.1 kg Intake: IV 50 / 50 Ancef 2 GM Premix Inj 2 gm In 50 / 50 50 ml @ 0 mls/hr IV.SIG .STK- MED ONE Rx#:[id number] Oral 720 / 720 240 / 240 840 / 840 Anesthesia Amount 500 / 500 Output: Hemodialysis Amount 1000 / 1000 Estimated Blood Loss Other: # Voids 4 2 3 Date of Last Bowel Movement 05/03/18 05/04/18 # Bowel Movements 1 1 Narrative: GENERAL: alert ,oriented, frail, generalized muscle wasting. SKIN: Warm and dry. HEAD: Normocephalic. EYES: No scleral icterus. No injection or drainage. NECK: Supple, trachea midline. No JVD or lymphadenopathy. CARDIOVASCULAR: Regular rate and rhythm without murmurs, gallops, or rubs. RESPIRATORY: Breath sounds equal bilaterally. No accessory muscle use. GASTROINTESTINAL: Abdomen soft, non-tender, nondistended. MUSCULOSKELETAL: No cyanosis, or edema. AVF: newly created, on the left arm, patent. Left hand: no neuro or vascular compromise. BACK: Nontender without obvious deformity. No CVA tenderness. Results 04/27/18 07:52 05/04/18 13:21 Comprehensive Metabolic Panel 05/04/18 Range/Units 13:21 Sodium 139 (136-145) meq/L Potassium 4.9 (3.5-5.1) meq/L Chloride 99 (98-107) meq/L Carbon Dioxide 35.5 H (21.0-32.0) meq/L BUN 24 H (7-18) mg/dL Creatinine 2.83 H (0.60-1.30) mg/dL Calcium 8.4 L (8.5-10.1) mg/dL Intake and Output 05/04/18 05/04/18 05/04/18 06:59 14:59 22:59 Intake Total 240 / 240 840 / 840 Output Total 1000 / 1000 Balance 240 / 240 -1000 / -1000 840 / 840 Intake: Oral 240 / 240 840 / 840 Output: Hemodialysis Amount 1000 / 1000 Other: # Voids 2 3 Date of Last Bowel Movement 05/04/18 # Bowel Movements 1 Weight 44.1 kg Assessment and Plan - Assessment (1) Cardiomyopathy Code(s): I42.9 - Cardiomyopathy, unspecified Status: Acute (2) Acute kidney injury Code(s): N17.9 - Acute kidney failure, unspecified Status: Acute (3) Fluid overload Code(s): E87.70 - Fluid overload, unspecified Status: Acute (4) New onset of congestive heart failure Code(s): I50.9 - Heart failure, unspecified Status: Acute - Plan 1) Acute decompensated systolic heart failure Started on HD Appears compensated 2) New onset cardiomyopathy EF 20% Stress test showing no ischemia, NICM Con't on medical management Will place on Coreg for now Blood pressure borderline, but will attempt to add low dose LEE-I 3) Acute renal failure Started on HD 4) Remote crack cocaine use 5) Wide complex tachycardia Stress test negative for ischemia Currently on BB therapy Evaluated by Dr. Wisdom EP study negative for inducible VT 6) AV fistula created
[2018-05-05] MEDS: Famotidine 20 MG Tablet PO SCH ×2 (08:14→20:15)
[2018-05-05] MEDS: metOLazone 5 MG Tablet PO SCH (08:14)
[2018-05-05] MEDS: Lisinopril 5 MG Tablet PO SCH (08:14)
[2018-05-05] MEDS: Carvedilol 6.25 MG Tablet PO SCH ×2 (08:15→20:15)
[2018-05-05] MEDS: Senna/Docusate Sodium 8.6/50 MG Tablet PO SCH ×2 (08:16→20:17)
--- NOTE | 2018-05-05 10:41 | P.DIET ---
Nutritional Evaluation Type of nutrition evaluation: follow-up Nutrition consult regarding: Diet Evaluation Nutrition screening: MDC (malnutrition) Subjective Subjective Comments: Pt reported a good appetite, eating 100% of most meals. Pt currently on dialysis since 04/26. Objective - Diagnosis CHF, PNA, MIGUEL ANGEL - Objective % IBW: 70 (IBW = 154lb) Body Weight Used for Calculations: Actual Energy Needs - Lower Range (kCal/kg): 30 Energy Needs - Upper Range (kCal/kg): 35 Lower Limit kCal/kg (kCals): 1,464 Upper Limit kCal/kg (kCals): 1,708 Lower Limit Protein Factor (Grams per Kg): 1.2 Upper Limit Protein Factor (Grams per Kg): 1.5 Lower Protein Needs (Protein): 59 Upper Protein Needs (Protein): 73 Fluid Factor (ml/kg): 25 Estimated Fluid Needs (ml): 1,220 Dietitian Reviewed in Medical Record: Current diet, Curent medications, Intake & Output, Labs, Medical history Diet Order: renal + cardiac 2gNa Oral Diet Intake Amount: Excellent 90%+ Speech Therapy Recommendations: No Objective Comments: Labs: 04/28: BUN 24, Cr 2.93, GFR 23 Assessment Assessment: Pt currently at nutritional risk r/t reported malnutrition. Pt is tolerating PO intake well and eating 100% of most meals. Pts renal labs have improved. Labs reviewed, monitor renal labs. Monitor PO intake. Will assess nutritional needs for a PO supplement as appropriate. Dietitian following. Recommendations: 1. Monitor renal labs 2. Monitor PO intake 3. Will assess nutritional needs for a PO supplement as appropriate 4. Dietitian following Dietitian to Monitor: Lab values, Renal labs, Supplement acceptance, Intake & Output, Weight change, PO Intake, Medical course
[2018-05-05] MEDS: Heparin - SQ 10,000 UNITS/ML Vial SQ SCH ×2 (11:15→23:31)
--- NOTE | 2018-05-05 11:24 | P.PN ---
Subjective Interval history: Follow-up cardiomyopathy new-onset/acute decompensated systolic heart failure May 04, 2018-patient seen and examined, he had hemodialysis today. Denies any chest pain or shortness of breath. Remains stable. May 05, 2018-patient seen and examined, no chest pain, dizziness or shortness of breath. Physical Exam Vital signs: Vital Signs 05/04/18 12:00 05/04/18 13:00 05/04/18 14:00 Temperature 98.0 F Pulse Rate 72 68 69 Respiratory Rate 14 Blood Pressure 113/65 Pulse Oximetry 98 05/04/18 15:00 05/04/18 16:00 05/04/18 17:00 Temperature 98.4 F Pulse Rate 62 67 67 Respiratory Rate 16 Blood Pressure 100/58 L Pulse Oximetry 99 05/04/18 18:00 05/04/18 19:00 05/04/18 20:00 Temperature 99 F Pulse Rate 65 60 70 Respiratory Rate 14 Blood Pressure 87/52 L Pulse Oximetry 98 05/04/18 21:00 05/04/18 22:00 05/04/18 23:00 Temperature 98.4 F Pulse Rate 71 75 60 Respiratory Rate 16 Blood Pressure 98/58 L Pulse Oximetry 98 05/05/18 00:00 05/05/18 01:00 05/05/18 02:00 Temperature Pulse Rate 69 84 75 Respiratory Rate Blood Pressure Pulse Oximetry 05/05/18 03:00 05/05/18 04:00 05/05/18 05:00 Temperature 98.2 F Pulse Rate 69 66 65 Respiratory Rate 14 Blood Pressure 101/57 L Pulse Oximetry 99 05/05/18 06:00 05/05/18 07:55 05/05/18 11:01 Temperature 98 F 98.3 F Pulse Rate 70 64 64 Respiratory Rate 16 16 Blood Pressure 113/69 95/55 L Pulse Oximetry 100 98 Intake & Output 05/04/18 05/05/18 05/05/18 18:59 06:59 18:59 Intake Total 840 / 840 480 / 480 Output Total 1000 / 1000 Balance -160 / -160 480 / 480 Weight 44 kg Intake: Oral 840 / 840 480 / 480 Output: Hemodialysis Amount 1000 / 1000 Other: # Voids 3 4 Date of Last Bowel Movement 05/04/18 05/05/18 # Bowel Movements 1 Narrative: GENERAL: NAD SKIN: Warm and dry. HEAD: Normocephalic. EYES: No scleral icterus. No injection or drainage. NECK: Supple, trachea midline. No JVD or lymphadenopathy. CARDIOVASCULAR: Regular rate and rhythm without murmurs, gallops, or rubs. RESPIRATORY: Breath sounds equal bilaterally. No accessory muscle use. GASTROINTESTINAL: Abdomen soft, non-tender, nondistended. MUSCULOSKELETAL: No cyanosis, or edema. AVF: newly created, on the left arm, patent. Left hand: no neuro or vascular compromise. BACK: Nontender without obvious deformity. No CVA tenderness. Results - Labs CBC & Chem 7: 04/27/18 07:52 05/04/18 13:21 Laboratory Results - last 24 hr 05/04/18 13:21 Sodium 139 Potassium 4.9 Chloride 99 Carbon Dioxide 35.5 H Anion Gap 5 BUN 24 H Creatinine 2.83 H Estimated GFR 23 L Random Glucose 89 Calcium 8.4 L - Procedures AVF placement Assessment and Plan - Assessment (1) New onset of congestive heart failure Code(s): I50.9 - Heart failure, unspecified Status: Acute (2) Pneumonia Code(s): J18.9 - Pneumonia, unspecified organism Status: Acute (3) Acute kidney injury Code(s): N17.9 - Acute kidney failure, unspecified Status: Acute (4) Fluid overload Code(s): E87.70 - Fluid overload, unspecified Status: Acute - Plan 62-year-old man with New onset cardiomyopathy, acute/ Fluid Overload/bilateral lower extremity edema Acute decompensated systolic heart failure Suspect Valvular Cardiomyopathy -LVEF 20% on echo 04/19/18 -2D Echo : Left ventricular systolic function is severely reduced with EF 20%, mod MR, mod-severe TR, mod-severe pulm HTN (60-70mmhg); large right sided pleural effusion is present. -Cardiology consulted, appreciate recommendations: continue on Diuretics -continue Bumex, metolazone, Coreg -LEE-I initiated 05/05/18 Elevated troponin/arrhythmia/V tach -Cardiology following, appreciate recommendations -Lexiscan 04/25 showed severe LV dilatation and dysfunction; no reversible perfusion abnormalities -Dr Wisdom consulted, however patient declined AICD, recommended to continue medical management -Now agrees on AICD placement, s/p EP study done and inducible VT on April. Right lower extremity edema -Ultrasound RLE: Chronic appearing nonocclusive thrombus in the right common femoral vein. Pulsatility in the lower extremity veins likely related to patient 's acute heart failure -improved Acute renal failure on ESRD/ Severe metabolic acidosis, acute -Renal ultrasound: Echogenic kidneys with ascites and moderate right pleural effusion -Serology/hepatitis profile Nonreactive, HIV Nonreactive, ABBY negative -Nephrology consulted, appreciate recommendations -Hemodialysis as scheduled by nephrology -continue Renvela, monitor phosphorus levels -Vascular surgery consulted ; s/p AV fistula placement 05/03/18 -Patient will need outpatient hemodialysis to be set up prior to discharge Possible Pneumonia, acute/Fluid Overload -S/p antibiotic course with IV Rocephin/Azithro x7days Hypertension -Continue Bumex, metolazone and Coreg Anemia, likely acute on chronic -2/2 ESRD -patient receiving epoetin during dialysis History of cocaine use -Patient admitted short-term use, 6 months ago and have not had any since then -Counseling/education given Moderate Protein Calorie Malnutrition/Failure to Thrive: BMI 16. Albumin 2.8. -dietitian ff DVT Proph: Heparin
--- NOTE | 2018-05-05 12:40 | P.PNNP ---
Subjective Interval history: Patient was resting in bed, had no complaints. <Jey Norman - Last Filed: 05/05/18 12:35> Physical Exam Vital signs: Vital Signs 05/04/18 13:00 05/04/18 14:00 05/04/18 15:00 Temperature Pulse Rate 68 69 62 Respiratory Rate Blood Pressure Pulse Oximetry 05/04/18 16:00 05/04/18 17:00 05/04/18 18:00 Temperature 98.4 F Pulse Rate 67 67 65 Respiratory Rate 16 Blood Pressure 100/58 L Pulse Oximetry 99 05/04/18 19:00 05/04/18 20:00 05/04/18 21:00 Temperature 99 F Pulse Rate 60 70 71 Respiratory Rate 14 Blood Pressure 87/52 L Pulse Oximetry 98 05/04/18 22:00 05/04/18 23:00 05/05/18 00:00 Temperature 98.4 F Pulse Rate 75 60 69 Respiratory Rate 16 Blood Pressure 98/58 L Pulse Oximetry 98 05/05/18 01:00 05/05/18 02:00 05/05/18 03:00 Temperature 98.2 F Pulse Rate 84 75 69 Respiratory Rate 14 Blood Pressure 101/57 L Pulse Oximetry 99 05/05/18 04:00 05/05/18 05:00 05/05/18 06:00 Temperature Pulse Rate 66 65 70 Respiratory Rate Blood Pressure Pulse Oximetry 05/05/18 07:55 05/05/18 11:01 Temperature 98 F 98.3 F Pulse Rate 64 64 Respiratory Rate 16 16 Blood Pressure 113/69 95/55 L Pulse Oximetry 100 98 Intake & Output 05/04/18 05/05/18 05/05/18 18:59 06:59 18:59 Intake Total 840 / 840 480 / 480 Output Total 1000 / 1000 Balance -160 / -160 480 / 480 Weight 44 kg Intake: Oral 840 / 840 480 / 480 Output: Hemodialysis Amount 1000 / 1000 Other: # Voids 3 4 Date of Last Bowel Movement 05/04/18 05/05/18 # Bowel Movements 1 - Constitutional no acute distress - Routine HEENT Exam Head: Present: normocephalic Eye: Present: EOMI, PERRL ENT: Present: mucous membranes moist - Routine Neck Exam Present: full ROM - Routine Respiratory Exam Absent: accessory muscle use, respiratory distress Comments: Clear breath sounds bilaterally - Routine Cardiovascular Exam Present: RRR, S1, S2 - Routine Abdominal Exam Present: normoactive bowel sounds - Routine Extremities Exam Absent: cyanosis, edema Comments: AVF: on the left arm, patent - Routine Neurological Exam Present: alert, oriented X3 - Routine Psychiatric Exam Present: normal affect <Jey Norman - Last Filed: 05/05/18 12:35> Vital signs: Vital Signs 05/04/18 18:00 05/04/18 19:00 05/04/18 20:00 Temperature 99 F Pulse Rate 65 60 70 Respiratory Rate 14 Blood Pressure 87/52 L Pulse Oximetry 98 05/04/18 21:00 05/04/18 22:00 05/04/18 23:00 Temperature 98.4 F Pulse Rate 71 75 60 Respiratory Rate 16 Blood Pressure 98/58 L Pulse Oximetry 98 05/05/18 00:00 05/05/18 01:00 05/05/18 02:00 Temperature Pulse Rate 69 84 75 Respiratory Rate Blood Pressure Pulse Oximetry 05/05/18 03:00 05/05/18 04:00 05/05/18 05:00 Temperature 98.2 F Pulse Rate 69 66 65 Respiratory Rate 14 Blood Pressure 101/57 L Pulse Oximetry 99 05/05/18 06:00 05/05/18 07:55 05/05/18 11:01 Temperature 98 F 98.3 F Pulse Rate 70 64 64 Respiratory Rate 16 16 Blood Pressure 113/69 95/55 L Pulse Oximetry 100 98 05/05/18 15:22 Temperature 98 F Pulse Rate 63 Respiratory Rate 15 Blood Pressure 90/50 L Pulse Oximetry 100 Intake & Output 05/04/18 05/05/18 05/05/18 18:59 06:59 18:59 Intake Total 840 / 840 480 / 480 Output Total 1000 / 1000 Balance -160 / -160 480 / 480 Weight 44 kg Intake: Oral 840 / 840 480 / 480 Output: Hemodialysis Amount 1000 / 1000 Other: # Voids 3 4 Date of Last Bowel Movement 05/04/18 05/05/18 # Bowel Movements 1 <Edmundo Tapia - Last Filed: 05/05/18 17:39> Assessment and Plan - Assessment (1) End stage renal disease Code(s): N18.6 - End stage renal disease Status: Acute Plan: Likely he has reached ESRD. We will continue dialysis three times/week. s/p AVF. Needs outpatient dialysis arrangements at [facility]. May need placement. (2) Fluid overload Code(s): E87.70 - Fluid overload, unspecified Status: Acute Plan: Improved. (3) Acute on chronic systolic congestive heart failure Code(s): I50.23 - Acute on chronic systolic (congestive) heart failure Status : Acute Plan: Seen by cardiology ARB/LEE inhibitor/Entresto: will defer to cardiology. Ok to start any of these medications from renal standpoint as long as his BP is acceptable. Plan is for AICD placement after 60 days. <Jey Norman - Last Filed: 05/05/18 12:35> - Assessment (1) End stage renal disease Code(s): N18.6 - End stage renal disease Status: Acute (2) Fluid overload Code(s): E87.70 - Fluid overload, unspecified Status: Acute (3) Acute on chronic systolic congestive heart failure Code(s): I50.23 - Acute on chronic systolic (congestive) heart failure Status : Acute - Attending Attestation patient was seen and examined. Agree with above assessment and plan. <Edmundo Tapia - Last Filed: 05/05/18 17:39>
--- NOTE | 2018-05-05 21:39 | P.PNCA ---
Subjective Interval history: No events overnight No complaints Medications and Allergies Active Medications: Active Medications Acetaminophen (Tylenol) 650 mg PO Q4H PRN PRN Reason: Temp > 100.4 Acetaminophen (Tylenol) 650 mg PO UNSCH PRN PRN Reason: SEE LABEL COMMENTS Al Hydroxide/Mg Hydroxide (Milk Of Nadia Durant) 30 ml PO Q12H PRN PRN Reason: Mild Constipation Bisacodyl (Dulcolax Supp) 10 mg RECTAL DAILY PRN PRN Reason: SEVERE CONSITIPATION Bumetanide (Bumex Inj) 2 mg IV.PUSH BID@0900,1800 [facility] Last Admin: 05/05/18 19:49 Dose: 2 mg Carvedilol (Coreg) 6.25 mg PO BID [facility] Last Admin: 05/05/18 20:15 Dose: 6.25 mg Clonidine HCl (Catapres) 0.1 mg PO UNSCH PRN PRN Reason: SEE LABEL COMMENTS Diphenhydramine HCl (Benadryl) 25 mg PO UNSCH PRN PRN Reason: SEE LABEL COMMENTS Epoetin Morgan (Epogen Inj) 5,000 unit IV.PUSH UNSCH PRN PRN Reason: SEE LABEL COMMENTS Last Admin: 05/04/18 11:44 Dose: 5,000 unit Famotidine (Pepcid) 10 mg PO BID [facility] Last Admin: 05/05/18 20:15 Dose: 10 mg Gelatin (Gelfoam 12 Mm/7 Mm Topical) 1 foam TOPICAL PRN PRN PRN Reason: help stop bleeding from site Gentamicin Sulfate (Gentamicin Inj) 20 mg OTHER WITH DIALYSIS PRN PRN Reason: Dwell Gentamycin Lock Last Admin: 05/04/18 11:45 Dose: 20 mg Heparin Sodium (Porcine) (Heparin Inj) 5,000 units SQ Q12H [facility] Last Admin: 05/05/18 11:15 Dose: 5,000 units Heparin Sodium (Porcine) (Heparin Inj) 8,000 units OTHER WITH DIALYSIS PRN PRN Reason: for machine prime Heparin Sodium (Porcine) (Heparin Inj) 1,000 units OTHER WITH DIALYSIS PRN PRN Reason: Dwell Heparin to Fill Catheter Last Admin: 05/04/18 11:44 Dose: 1,000 units Heparin Sodium (Porcine) (Heparin Inj) 0 units IV.FLUSH WITH DIALYSIS PRN PRN Reason: SEE DOSE INSTRUCTIONS Albumin Human (Flexbumin 25% Inj) 100 mls @ 60 mls/hr IV.SIG WITH DIALYSIS PRN PRN Reason: hypotension / volume replace Last Infusion: 04/21/18 14:15 Dose: Infused Sodium Chloride (Ns Inj) 1,000 mls @ 0 mls/hr OTHER .Q0M PRN PRN Reason: for prime and rinse back Last Infusion: 04/22/18 13:56 Dose: Infused Sodium Chloride (Ns Inj) 1,000 mls @ 200 mls/hr OTHER .Q5H PRN PRN Reason: for dialyzer flush PRN Sodium Chloride (Ns Inj) 1,000 mls @ 0 mls/hr IV.CONT .Q0M PRN PRN Reason: hypotension / volume replace Sodium Chloride (Ns Inj) 500 mls @ 30 mls/hr IV.SIG .Q10H MALIK Sodium Chloride (Ns Inj) 500 mls @ 30 mls/hr IV.SIG .Q10H [facility] Last Admin: 05/03/18 11:00 Dose: Not Given Lactulose (Lactulose Liq) 30 ml PO DAILY PRN PRN Reason: SEVERE CONSITIPATION Lisinopril (Prinivil) 2.5 mg PO DAILY [facility] Last Admin: 05/05/18 08:14 Dose: 2.5 mg Mannitol (Mannitol Inj) 12.5 gm IV.PUSH UNSCH PRN PRN Reason: hypotension / volume replace Metolazone (Zaroxolyn) 5 mg PO DAILY [facility] Last Admin: 05/05/18 08:14 Dose: 5 mg Nitroglycerin (Nitrostat Sl) 0.4 mg SL Q5M PRN PRN Reason: CHEST PAIN Ondansetron HCl (Zofran Inj) 4 mg IV.PUSH Q6H PRN PRN Reason: NAUSEA OR VOMITING Ondansetron HCl (Zofran Inj) 4 mg IV.PUSH UNSCH PRN PRN Reason: NAUSEA OR VOMITING Ondansetron HCl (Zofran Inj) 4 mg IV.PUSH Q4H PRN PRN Reason: NAUSEA Senna/Docusate Sodium (Carole-Colace) 1 tab PO BID [facility] Last Admin: 05/05/18 20:17 Dose: Not Given Sennosides (Senokot) 17.2 mg PO Q12H PRN PRN Reason: Moderate Constipation Sevelamer Carbonate (Renvela) 800 mg PO TIDAC [facility] Last Admin: 05/05/18 19:50 Dose: 800 mg Sodium Chloride (Ns Flush) 5 ml IV.FLUSH PRN PRN PRN Reason: flush each lumen during HD Sodium Chloride (Ns Flush) 0 ml IV.FLUSH UNSCH PRN PRN Reason: SEE DOSE INSTRUCTIONS Allergies Allergy/AdvReac Type Severity Reaction Status Date / Time No Known Allergies Allergy Verified 04/18/18 16:36 Home Medications Medication Instructions Recorded Confirmed Type No Known Home Medications 04/18/18 04/18/18 History Physical Exam Vital signs: Vital Signs 05/04/18 22:00 05/04/18 23:00 05/05/18 00:00 Temperature 98.4 F Pulse Rate 75 60 69 Respiratory Rate 16 Blood Pressure 98/58 L Pulse Oximetry 98 05/05/18 01:00 05/05/18 02:00 05/05/18 03:00 Temperature 98.2 F Pulse Rate 84 75 69 Respiratory Rate 14 Blood Pressure 101/57 L Pulse Oximetry 99 05/05/18 04:00 05/05/18 05:00 05/05/18 06:00 Temperature Pulse Rate 66 65 70 Respiratory Rate Blood Pressure Pulse Oximetry 05/05/18 07:00 05/05/18 07:55 05/05/18 08:00 Temperature 98 F Pulse Rate 60 64 62 Respiratory Rate 16 Blood Pressure 113/69 Pulse Oximetry 100 05/05/18 09:00 05/05/18 10:00 05/05/18 11:00 Temperature Pulse Rate 65 63 63 Respiratory Rate Blood Pressure Pulse Oximetry 05/05/18 11:01 05/05/18 12:00 05/05/18 13:00 Temperature 98.3 F Pulse Rate 64 62 63 Respiratory Rate 16 Blood Pressure 95/55 L Pulse Oximetry 98 05/05/18 14:00 05/05/18 15:00 05/05/18 15:22 Temperature 98 F Pulse Rate 62 62 63 Respiratory Rate 15 Blood Pressure 90/50 L Pulse Oximetry 100 05/05/18 16:00 05/05/18 17:00 05/05/18 18:00 Temperature Pulse Rate 65 64 63 Respiratory Rate Blood Pressure Pulse Oximetry Intake & Output 05/05/18 05/05/18 05/06/18 06:59 18:59 06:59 Intake Total 480 / 480 480 / 480 Output Total 750 / 750 Balance 480 / 480 -270 / -270 Weight 44 kg Intake: Oral 480 / 480 480 / 480 Output: Urine 750 / 750 Other: # Voids 4 Date of Last Bowel Movement 05/05/18 05/05/18 # Bowel Movements 1 Narrative: GENERAL: NAD SKIN: Warm and dry. HEAD: Normocephalic. EYES: No scleral icterus. No injection or drainage. NECK: Supple, trachea midline. No JVD or lymphadenopathy. CARDIOVASCULAR: Regular rate and rhythm without murmurs, gallops, or rubs. RESPIRATORY: Breath sounds equal bilaterally. No accessory muscle use. GASTROINTESTINAL: Abdomen soft, non-tender, nondistended. MUSCULOSKELETAL: No cyanosis, or edema. AVF: newly created, on the left arm, patent. Left hand: no neuro or vascular compromise. BACK: Nontender without obvious deformity. No CVA tenderness. Results 04/27/18 07:52 05/04/18 13:21 Comprehensive Metabolic Panel 05/04/18 Range/Units 13:21 Sodium 139 (136-145) meq/L Potassium 4.9 (3.5-5.1) meq/L Chloride 99 (98-107) meq/L Carbon Dioxide 35.5 H (21.0-32.0) meq/L BUN 24 H (7-18) mg/dL Creatinine 2.83 H (0.60-1.30) mg/dL Calcium 8.4 L (8.5-10.1) mg/dL Intake and Output 05/05/18 05/05/18 05/05/18 06:59 14:59 22:59 Intake Total 480 / 480 480 / 480 Output Total 750 / 750 Balance 480 / 480 -270 / -270 Intake: Oral 480 / 480 480 / 480 Output: Urine 750 / 750 Other: # Voids 4 Date of Last Bowel Movement 05/05/18 05/05/18 # Bowel Movements 1 Weight 44 kg Assessment and Plan - Assessment (1) Cardiomyopathy Code(s): I42.9 - Cardiomyopathy, unspecified Status: Acute (2) Acute kidney injury Code(s): N17.9 - Acute kidney failure, unspecified Status: Acute (3) Fluid overload Code(s): E87.70 - Fluid overload, unspecified Status: Acute (4) New onset of congestive heart failure Code(s): I50.9 - Heart failure, unspecified Status: Acute - Plan 1) Acute decompensated systolic heart failure Started on HD Appears compensated 2) New onset cardiomyopathy EF 20% Stress test showing no ischemia, NICM Con't on medical management Coreg/LEE-I Will have to watch blood pressure as borderline 3) Acute renal failure Started on HD 4) Remote crack cocaine use 5) Wide complex tachycardia Stress test negative for ischemia Currently on BB therapy Evaluated by Dr. Wisdom EP study negative for inducible VT 6) AV fistula created
[2018-05-06] MEDS: Lisinopril 5 MG Tablet PO SCH (08:46)
[2018-05-06] MEDS: Senna/Docusate Sodium 8.6/50 MG Tablet PO SCH ×2 (08:46→20:23)
[2018-05-06] MEDS: Famotidine 20 MG Tablet PO SCH ×2 (08:46→20:22)
[2018-05-06] MEDS: metOLazone 5 MG Tablet PO SCH (08:46)
[2018-05-06] MEDS: Carvedilol 6.25 MG Tablet PO SCH ×2 (08:47→20:22)
--- NOTE | 2018-05-06 11:00 | P.PNNP ---
Subjective Interval history: Patient seen during hemodialysis Physical Exam Vital signs: Vital Signs 05/05/18 11:00 05/05/18 11:01 05/05/18 12:00 Temperature 98.3 F Pulse Rate 63 64 62 Respiratory Rate 16 Blood Pressure 95/55 L Pulse Oximetry 98 05/05/18 13:00 05/05/18 14:00 05/05/18 15:00 Temperature Pulse Rate 63 62 62 Respiratory Rate Blood Pressure Pulse Oximetry 05/05/18 15:22 05/05/18 16:00 05/05/18 17:00 Temperature 98 F Pulse Rate 63 65 64 Respiratory Rate 15 Blood Pressure 90/50 L Pulse Oximetry 100 05/05/18 18:00 05/05/18 19:00 05/05/18 20:00 Temperature 98.2 F Pulse Rate 63 67 67 Respiratory Rate 20 Blood Pressure 100/57 L Pulse Oximetry 99 05/05/18 21:00 05/05/18 22:00 05/05/18 23:00 Temperature 98 F Pulse Rate 71 69 61 Respiratory Rate 18 Blood Pressure 97/50 L Pulse Oximetry 97 05/06/18 00:00 05/06/18 01:00 05/06/18 02:00 Temperature Pulse Rate 61 63 60 Respiratory Rate Blood Pressure Pulse Oximetry 05/06/18 03:00 05/06/18 04:00 05/06/18 05:00 Temperature 98.1 F Pulse Rate 60 60 61 Respiratory Rate 18 Blood Pressure 95/56 L Pulse Oximetry 97 05/06/18 06:00 05/06/18 07:00 Temperature 97.8 F Pulse Rate 62 59 L Respiratory Rate 16 Blood Pressure 90/53 L Pulse Oximetry 98 Intake & Output 05/05/18 05/06/18 05/06/18 18:59 06:59 18:59 Intake Total 480 / 480 Output Total 750 / 750 Balance -270 / -270 Weight 44.9 kg Intake: Oral 480 / 480 Output: Urine 750 / 750 Other: Date of Last Bowel Movement 05/05/18 05/05/18 05/05/18 # Bowel Movements 1 Narrative: GENERAL: NAD SKIN: Warm and dry. HEAD: Normocephalic. EYES: No scleral icterus. No injection or drainage. NECK: Supple, trachea midline. No JVD or lymphadenopathy. CARDIOVASCULAR: Regular rate and rhythm without murmurs, gallops, or rubs. RESPIRATORY: Breath sounds equal bilaterally. No accessory muscle use. GASTROINTESTINAL: Abdomen soft, non-tender, nondistended. MUSCULOSKELETAL: No cyanosis, or edema. AVF: newly created, on the left arm, patent. Left hand: no neuro or vascular compromise. BACK: Nontender without obvious deformity. No CVA tenderness. Assessment and Plan - Assessment (1) End stage renal disease Code(s): N18.6 - End stage renal disease Status: Acute Plan: Likely he has reached ESRD. We will continue dialysis three times/week. s/p AVF. Needs outpatient dialysis arrangements at [facility]. May need placement. Patient seen during hemodialysis ultrafiltration of 1 L tolerating it well. Follows with Dr. Tapia (2) Fluid overload Code(s): E87.70 - Fluid overload, unspecified Status: Acute Plan: Improved. (3) Acute on chronic systolic congestive heart failure Code(s): I50.23 - Acute on chronic systolic (congestive) heart failure Status : Acute Plan: Seen by cardiology ARB/LEE inhibitor/Entresto: will defer to cardiology. Ok to start any of these medications from renal standpoint as long as his BP is acceptable. Plan is for AICD placement after 60 days.
[2018-05-06] MEDS: Albumin Human 25% Inj 100 ML IV.SIG PRN ×2 (11:20→11:35)
--- NOTE | 2018-05-06 13:51 | P.PNCA ---
Subjective Interval history: No events overnight No complaints Medications and Allergies Active Medications: Active Medications Acetaminophen (Tylenol) 650 mg PO Q4H PRN PRN Reason: Temp > 100.4 Acetaminophen (Tylenol) 650 mg PO UNSCH PRN PRN Reason: SEE LABEL COMMENTS Al Hydroxide/Mg Hydroxide (Milk Of Nadia Durant) 30 ml PO Q12H PRN PRN Reason: Mild Constipation Bisacodyl (Dulcolax Supp) 10 mg RECTAL DAILY PRN PRN Reason: SEVERE CONSITIPATION Bumetanide (Bumex Inj) 2 mg IV.PUSH BID@0900,1800 [facility] Last Admin: 05/06/18 11:08 Dose: Not Given Carvedilol (Coreg) 6.25 mg PO BID [facility] Last Admin: 05/06/18 08:47 Dose: Not Given Clonidine HCl (Catapres) 0.1 mg PO UNSCH PRN PRN Reason: SEE LABEL COMMENTS Diphenhydramine HCl (Benadryl) 25 mg PO UNSCH PRN PRN Reason: SEE LABEL COMMENTS Epoetin Morgan (Epogen Inj) 5,000 unit IV.PUSH UNSCH PRN PRN Reason: SEE LABEL COMMENTS Last Admin: 05/04/18 11:44 Dose: 5,000 unit Famotidine (Pepcid) 10 mg PO BID [facility] Last Admin: 05/06/18 08:46 Dose: 10 mg Gelatin (Gelfoam 12 Mm/7 Mm Topical) 1 foam TOPICAL PRN PRN PRN Reason: help stop bleeding from site Gentamicin Sulfate (Gentamicin Inj) 20 mg OTHER WITH DIALYSIS PRN PRN Reason: Dwell Gentamycin Lock Last Admin: 05/04/18 11:45 Dose: 20 mg Heparin Sodium (Porcine) (Heparin Inj) 5,000 units SQ Q12H [facility] Last Admin: 05/05/18 23:31 Dose: 5,000 units Heparin Sodium (Porcine) (Heparin Inj) 8,000 units OTHER WITH DIALYSIS PRN PRN Reason: for machine prime Heparin Sodium (Porcine) (Heparin Inj) 1,000 units OTHER WITH DIALYSIS PRN PRN Reason: Dwell Heparin to Fill Catheter Last Admin: 05/04/18 11:44 Dose: 1,000 units Heparin Sodium (Porcine) (Heparin Inj) 0 units IV.FLUSH WITH DIALYSIS PRN PRN Reason: SEE DOSE INSTRUCTIONS Albumin Human (Flexbumin 25% Inj) 100 mls @ 60 mls/hr IV.SIG WITH DIALYSIS PRN PRN Reason: hypotension / volume replace Last Infusion: 04/21/18 14:15 Dose: Infused Sodium Chloride (Ns Inj) 1,000 mls @ 0 mls/hr OTHER .Q0M PRN PRN Reason: for prime and rinse back Last Infusion: 04/22/18 13:56 Dose: Infused Sodium Chloride (Ns Inj) 1,000 mls @ 200 mls/hr OTHER .Q5H PRN PRN Reason: for dialyzer flush PRN Sodium Chloride (Ns Inj) 1,000 mls @ 0 mls/hr IV.CONT .Q0M PRN PRN Reason: hypotension / volume replace Sodium Chloride (Ns Inj) 500 mls @ 30 mls/hr IV.SIG .Q10H MALIK Sodium Chloride (Ns Inj) 500 mls @ 30 mls/hr IV.SIG .Q10H [facility] Last Admin: 05/03/18 11:00 Dose: Not Given Lactulose (Lactulose Liq) 30 ml PO DAILY PRN PRN Reason: SEVERE CONSITIPATION Lisinopril (Prinivil) 2.5 mg PO DAILY [facility] Last Admin: 05/06/18 08:46 Dose: Not Given Mannitol (Mannitol Inj) 12.5 gm IV.PUSH UNSCH PRN PRN Reason: hypotension / volume replace Metolazone (Zaroxolyn) 5 mg PO DAILY [facility] Last Admin: 05/06/18 08:46 Dose: 5 mg Nitroglycerin (Nitrostat Sl) 0.4 mg SL Q5M PRN PRN Reason: CHEST PAIN Ondansetron HCl (Zofran Inj) 4 mg IV.PUSH Q6H PRN PRN Reason: NAUSEA OR VOMITING Ondansetron HCl (Zofran Inj) 4 mg IV.PUSH UNSCH PRN PRN Reason: NAUSEA OR VOMITING Ondansetron HCl (Zofran Inj) 4 mg IV.PUSH Q4H PRN PRN Reason: NAUSEA Senna/Docusate Sodium (Carole-Colace) 1 tab PO BID [facility] Last Admin: 05/06/18 08:46 Dose: 1 tab Sennosides (Senokot) 17.2 mg PO Q12H PRN PRN Reason: Moderate Constipation Sevelamer Carbonate (Renvela) 800 mg PO TIDAC [facility] Last Admin: 05/06/18 08:46 Dose: 800 mg Sodium Chloride (Ns Flush) 5 ml IV.FLUSH PRN PRN PRN Reason: flush each lumen during HD Sodium Chloride (Ns Flush) 0 ml IV.FLUSH UNSCH PRN PRN Reason: SEE DOSE INSTRUCTIONS Allergies Allergy/AdvReac Type Severity Reaction Status Date / Time No Known Allergies Allergy Verified 04/18/18 16:36 Home Medications Medication Instructions Recorded Confirmed Type No Known Home Medications 04/18/18 04/18/18 History Physical Exam Vital signs: Vital Signs 05/05/18 14:00 05/05/18 15:00 05/05/18 15:22 Temperature 98 F Pulse Rate 62 62 63 Respiratory Rate 15 Blood Pressure 90/50 L Pulse Oximetry 100 05/05/18 16:00 05/05/18 17:00 05/05/18 18:00 Temperature Pulse Rate 65 64 63 Respiratory Rate Blood Pressure Pulse Oximetry 05/05/18 19:00 05/05/18 20:00 05/05/18 21:00 Temperature 98.2 F Pulse Rate 67 67 71 Respiratory Rate 20 Blood Pressure 100/57 L Pulse Oximetry 99 05/05/18 22:00 05/05/18 23:00 05/06/18 00:00 Temperature 98 F Pulse Rate 69 61 61 Respiratory Rate 18 Blood Pressure 97/50 L Pulse Oximetry 97 05/06/18 01:00 05/06/18 02:00 05/06/18 03:00 Temperature 98.1 F Pulse Rate 63 60 60 Respiratory Rate 18 Blood Pressure 95/56 L Pulse Oximetry 97 05/06/18 04:00 05/06/18 05:00 05/06/18 06:00 Temperature Pulse Rate 60 61 62 Respiratory Rate Blood Pressure Pulse Oximetry 05/06/18 07:00 05/06/18 12:00 Temperature 97.8 F 98.0 F Pulse Rate 59 L 77 Respiratory Rate 16 17 Blood Pressure 90/53 L 108/54 L Pulse Oximetry 98 100 Intake & Output 05/05/18 05/06/18 05/06/18 18:59 06:59 18:59 Intake Total 480 / 480 Output Total 750 / 750 1000 / 1000 Balance -270 / -270 -1000 / -1000 Weight 44.9 kg Intake: Oral 480 / 480 Output: Urine 750 / 750 Hemodialysis Amount 1000 / 1000 Other: Date of Last Bowel Movement 05/05/18 05/05/18 05/05/18 # Bowel Movements 1 Narrative: GENERAL: NAD SKIN: Warm and dry. HEAD: Normocephalic. EYES: No scleral icterus. No injection or drainage. NECK: Supple, trachea midline. No JVD or lymphadenopathy. CARDIOVASCULAR: Regular rate and rhythm without murmurs, gallops, or rubs. RESPIRATORY: Breath sounds equal bilaterally. No accessory muscle use. GASTROINTESTINAL: Abdomen soft, non-tender, nondistended. MUSCULOSKELETAL: No cyanosis, or edema. AVF: newly created, on the left arm, patent. Left hand: no neuro or vascular compromise. BACK: Nontender without obvious deformity. No CVA tenderness. Results 04/27/18 07:52 05/04/18 13:21 Comprehensive Metabolic Panel 05/04/18 Range/Units 13:21 Sodium 139 (136-145) meq/L Potassium 4.9 (3.5-5.1) meq/L Chloride 99 (98-107) meq/L Carbon Dioxide 35.5 H (21.0-32.0) meq/L BUN 24 H (7-18) mg/dL Creatinine 2.83 H (0.60-1.30) mg/dL Calcium 8.4 L (8.5-10.1) mg/dL Intake and Output 05/05/18 05/06/18 05/06/18 22:59 06:59 14:59 Intake Total 480 / 480 Output Total 750 / 750 1000 / 1000 Balance -270 / -270 -1000 / -1000 Intake: Oral 480 / 480 Output: Urine 750 / 750 Hemodialysis Amount 1000 / 1000 Other: Date of Last Bowel Movement 05/05/18 05/05/18 # Bowel Movements 1 Weight 44.9 kg Assessment and Plan - Assessment (1) Cardiomyopathy Code(s): I42.9 - Cardiomyopathy, unspecified Status: Acute (2) Acute kidney injury Code(s): N17.9 - Acute kidney failure, unspecified Status: Acute (3) Fluid overload Code(s): E87.70 - Fluid overload, unspecified Status: Acute (4) New onset of congestive heart failure Code(s): I50.9 - Heart failure, unspecified Status: Acute - Plan 1) Acute decompensated systolic heart failure Started on HD Appears compensated 2) New onset cardiomyopathy EF 20% Stress test showing no ischemia, NICM Con't on medical management Coreg/LEE-I Will have to watch blood pressure as borderline, asymptomatic, tolerating HD 3) Acute renal failure Started on HD 4) Remote crack cocaine use 5) Wide complex tachycardia Stress test negative for ischemia Currently on BB therapy Evaluated by Dr. Wisdom EP study negative for inducible VT 6) AV fistula created 7) No further cardiovascular work up at this time Will see PRN, call with questions
--- NOTE | 2018-05-06 14:56 | P.PN ---
Subjective Interval history: Follow-up cardiomyopathy new-onset/acute decompensated systolic heart failure May 04, 2018-patient seen and examined, he had hemodialysis today. Denies any chest pain or shortness of breath. Remains stable. May 05, 2018-patient seen and examined, no chest pain, dizziness or shortness of breath. May 06, 2018-patient seen and examined, had hemodialysis today. States he is breathing better and denies any chest pain or shortness of breath. Physical Exam Vital signs: Vital Signs 05/05/18 15:00 05/05/18 15:22 05/05/18 16:00 Temperature 98 F Pulse Rate 62 63 65 Respiratory Rate 15 Blood Pressure 90/50 L Pulse Oximetry 100 05/05/18 17:00 05/05/18 18:00 05/05/18 19:00 Temperature 98.2 F Pulse Rate 64 63 67 Respiratory Rate 20 Blood Pressure 100/57 L Pulse Oximetry 99 05/05/18 20:00 05/05/18 21:00 05/05/18 22:00 Temperature Pulse Rate 67 71 69 Respiratory Rate Blood Pressure Pulse Oximetry 05/05/18 23:00 05/06/18 00:00 05/06/18 01:00 Temperature 98 F Pulse Rate 61 61 63 Respiratory Rate 18 Blood Pressure 97/50 L Pulse Oximetry 97 05/06/18 02:00 05/06/18 03:00 05/06/18 04:00 Temperature 98.1 F Pulse Rate 60 60 60 Respiratory Rate 18 Blood Pressure 95/56 L Pulse Oximetry 97 05/06/18 05:00 05/06/18 06:00 05/06/18 07:00 Temperature 97.8 F Pulse Rate 61 62 59 L Respiratory Rate 16 Blood Pressure 90/53 L Pulse Oximetry 98 05/06/18 12:00 Temperature 98.0 F Pulse Rate 77 Respiratory Rate 17 Blood Pressure 108/54 L Pulse Oximetry 100 Intake & Output 05/05/18 05/06/18 05/06/18 18:59 06:59 18:59 Intake Total 480 / 480 Output Total 750 / 750 1999 Balance -270 / -270 -1999 Weight 44.9 kg Intake: Oral 480 / 480 Output: Urine 750 / 750 Hemodialysis Amount 1999 Other: Date of Last Bowel Movement 05/05/18 05/05/18 05/05/18 # Bowel Movements 1 Narrative: GENERAL: NAD SKIN: Warm and dry. HEAD: Normocephalic. EYES: No scleral icterus. No injection or drainage. NECK: Supple, trachea midline. No JVD or lymphadenopathy. CARDIOVASCULAR: Regular rate and rhythm without murmurs, gallops, or rubs. RESPIRATORY: Breath sounds equal bilaterally. No accessory muscle use. GASTROINTESTINAL: Abdomen soft, non-tender, nondistended. MUSCULOSKELETAL: No cyanosis, or edema. AVF: newly created, on the left arm, patent. Left hand: no neuro or vascular compromise. BACK: Nontender without obvious deformity. No CVA tenderness. Results - Labs CBC & Chem 7: 04/27/18 07:52 05/04/18 13:21 - Procedures AVF placement Assessment and Plan - Assessment (1) New onset of congestive heart failure Code(s): I50.9 - Heart failure, unspecified Status: Acute (2) Pneumonia Code(s): J18.9 - Pneumonia, unspecified organism Status: Acute (3) Acute kidney injury Code(s): N17.9 - Acute kidney failure, unspecified Status: Acute (4) Fluid overload Code(s): E87.70 - Fluid overload, unspecified Status: Acute - Plan 62-year-old man with New onset cardiomyopathy, acute/ Fluid Overload/bilateral lower extremity edema Acute decompensated systolic heart failure Suspect Valvular Cardiomyopathy -LVEF 20% on echo 04/19/18 -2D Echo : Left ventricular systolic function is severely reduced with EF 20%, mod MR, mod-severe TR, mod-severe pulm HTN (60-70mmhg); large right sided pleural effusion is present. -Cardiology consulted, appreciate recommendations: continue on Diuretics -continue Bumex, metolazone, Coreg -LEE-I initiated 05/05/18 Elevated troponin/arrhythmia/V tach -Cardiology following, appreciate recommendations -Lexiscan 04/25 showed severe LV dilatation and dysfunction; no reversible perfusion abnormalities -s/p EP study done and inducible VT on May 01, 2018. Right lower extremity edema -Ultrasound RLE: Chronic appearing nonocclusive thrombus in the right common femoral vein. Pulsatility in the lower extremity veins likely related to patient 's acute heart failure -improved Acute renal failure on ESRD/ Severe metabolic acidosis, acute -Renal ultrasound: Echogenic kidneys with ascites and moderate right pleural effusion -Serology/hepatitis profile Nonreactive, HIV Nonreactive, ABBY negative -Nephrology consulted, appreciate recommendations -Hemodialysis as scheduled by nephrology -continue Renvela, monitor phosphorus levels -Vascular surgery consulted ; s/p AV fistula placement 05/03/18 -Patient will need outpatient hemodialysis to be set up prior to discharge Possible Pneumonia, acute/Fluid Overload -S/p antibiotic course with IV Rocephin/Azithro x7days Hypertension -Continue Bumex, metolazone, Lisinopril and Coreg Anemia, likely acute on chronic -2/2 ESRD -patient receiving epoetin during dialysis History of cocaine use -Patient admitted short-term use, 6 months ago and have not had any since then -Counseling/education given Moderate Protein Calorie Malnutrition/Failure to Thrive: BMI 16. Albumin 2.8. -dietitian ff DVT Proph: Heparin
[2018-05-06] MEDS: Heparin - SQ 10,000 UNITS/ML Vial SQ SCH ×2 (15:29→23:22)
--- NOTE | 2018-05-07 09:05 | P.PN ---
Subjective Interval history: Follow-up cardiomyopathy new-onset/acute decompensated systolic heart failure May 07, 2018-patient seen and examined, there is no complaint, shortness of breath. Physical Exam Vital signs: Vital Signs 05/06/18 12:00 05/06/18 15:00 05/06/18 16:00 Temperature 98.0 F 98.4 F Pulse Rate 77 79 92 H Respiratory Rate 17 16 Blood Pressure 108/54 L 117/66 Pulse Oximetry 100 97 05/06/18 17:00 05/06/18 18:00 05/06/18 19:00 Temperature 98.2 F Pulse Rate 85 79 74 Respiratory Rate 20 Blood Pressure 107/50 L Pulse Oximetry 97 05/06/18 20:00 05/06/18 21:00 05/06/18 22:00 Temperature Pulse Rate 78 76 72 Respiratory Rate Blood Pressure Pulse Oximetry 05/06/18 23:00 05/06/18 23:58 05/07/18 01:00 EDT Temperature 98.1 F Pulse Rate 70 65 64 Respiratory Rate 18 Blood Pressure 91/48 L Pulse Oximetry 96 05/07/18 01:00 EST 05/07/18 02:00 05/07/18 03:00 Temperature Pulse Rate 64 66 66 Respiratory Rate Blood Pressure Pulse Oximetry 05/07/18 04:00 05/07/18 05:00 05/07/18 06:00 Temperature Pulse Rate 62 62 63 Respiratory Rate Blood Pressure Pulse Oximetry 05/07/18 07:00 Temperature Pulse Rate 78 Respiratory Rate Blood Pressure Pulse Oximetry Intake & Output 05/06/18 05/07/18 05/07/18 19:59 06:59 18:59 Intake Total Output Total Balance Weight Intake: IV Flexbumin 25% Inj 100 ML @ 60 mls/hr IV.SIG WITH DIALYSIS PRN Rx#:[id number] Oral Output: Urine Hemodialysis Amount Other: # Voids Date of Last Bowel Movement # Bowel Movements Narrative: GENERAL: NAD SKIN: Warm and dry. HEAD: Normocephalic. EYES: No scleral icterus. No injection or drainage. NECK: Supple, trachea midline. No JVD or lymphadenopathy. CARDIOVASCULAR: Regular rate and rhythm without murmurs, gallops, or rubs. RESPIRATORY: Breath sounds equal bilaterally. No accessory muscle use. GASTROINTESTINAL: Abdomen soft, non-tender, nondistended. MUSCULOSKELETAL: No cyanosis, or edema. AVF: newly created, on the left arm, patent. Left hand: no neuro or vascular compromise. BACK: Nontender without obvious deformity. No CVA tenderness. Results - Labs CBC & Chem 7: 04/27/18 07:52 05/04/18 13:21 - Procedures AVF placement Assessment and Plan - Assessment (1) New onset of congestive heart failure Code(s): I50.9 - Heart failure, unspecified Status: Acute (2) Pneumonia Code(s): J18.9 - Pneumonia, unspecified organism Status: Acute (3) Acute kidney injury Code(s): N17.9 - Acute kidney failure, unspecified Status: Acute (4) Fluid overload Code(s): E87.70 - Fluid overload, unspecified Status: Acute - Plan 62-year-old man with New onset cardiomyopathy, acute/ Fluid Overload/bilateral lower extremity edema Acute decompensated systolic heart failure Suspect Valvular Cardiomyopathy -LVEF 20% on echo 04/19/18 -2D Echo : Left ventricular systolic function is severely reduced with EF 20%, mod MR, mod-severe TR, mod-severe pulm HTN (60-70mmhg); large right sided pleural effusion is present. -Cardiology consulted, appreciate recommendations: continue on Diuretics -continue Bumex, metolazone, Coreg -LEE-I initiated 05/05/18 Elevated troponin/arrhythmia/V tach -Cardiology following, appreciate recommendations -Lexiscan 04/25 showed severe LV dilatation and dysfunction; no reversible perfusion abnormalities -s/p EP study done and inducible VT on May 01, 2018. Right lower extremity edema -Ultrasound RLE: Chronic appearing nonocclusive thrombus in the right common femoral vein. Pulsatility in the lower extremity veins likely related to patient 's acute heart failure -improved Acute renal failure on ESRD/ Severe metabolic acidosis, acute -Renal ultrasound: Echogenic kidneys with ascites and moderate right pleural effusion -Serology/hepatitis profile Nonreactive, HIV Nonreactive, ABBY negative -Nephrology consulted, appreciate recommendations -Hemodialysis as scheduled by nephrology -continue Renvela, monitor phosphorus levels -Vascular surgery consulted ; s/p AV fistula placement 05/03/18 -Patient will need outpatient hemodialysis to be set up prior to discharge Possible Pneumonia, acute/Fluid Overload -S/p antibiotic course with IV Rocephin/Azithro x7days Hypertension -Continue Bumex, metolazone, Lisinopril and Coreg Anemia, likely acute on chronic -2/2 ESRD -patient receiving epoetin during dialysis History of cocaine use -Patient admitted short-term use, 6 months ago and have not had any since then -Counseling/education given Moderate Protein Calorie Malnutrition/Failure to Thrive: BMI 16. Albumin 2.8. -dietitian ff DVT Proph: Heparin
[2018-05-07] MEDS: metOLazone 5 MG Tablet PO SCH (09:14)
[2018-05-07] MEDS: Lisinopril 5 MG Tablet PO SCH (09:14)
[2018-05-07] MEDS: Carvedilol 6.25 MG Tablet PO SCH ×2 (09:14→20:25)
[2018-05-07] MEDS: Famotidine 20 MG Tablet PO SCH ×2 (09:15→20:25)
[2018-05-07] MEDS: Senna/Docusate Sodium 8.6/50 MG Tablet PO SCH (09:22)
[2018-05-07] MEDS: Heparin - SQ 10,000 UNITS/ML Vial SQ SCH ×2 (11:48→23:17)
[2018-05-08] MEDS: Carvedilol 6.25 MG Tablet PO SCH ×2 (09:08→21:04)
[2018-05-08] MEDS: Famotidine 20 MG Tablet PO SCH ×2 (09:08→21:04)
[2018-05-08] MEDS: metOLazone 5 MG Tablet PO SCH (09:08)
[2018-05-08] MEDS: Lisinopril 5 MG Tablet PO SCH (09:11)
--- NOTE | 2018-05-08 09:33 | P.PNNP ---
Subjective Interval history: Patient was eating breakfast, no complaints. Denied SOB, chest pain, n/v. <Jey Norman - Last Filed: 05/08/18 10:43> Physical Exam Vital signs: Vital Signs 05/07/18 10:00 05/07/18 11:00 05/07/18 12:00 Temperature 98.6 F Pulse Rate 70 72 76 Respiratory Rate 16 Blood Pressure 97/62 L Pulse Oximetry 98 05/07/18 12:51 05/07/18 13:14 05/07/18 15:00 Temperature Pulse Rate 71 67 67 Respiratory Rate Blood Pressure Pulse Oximetry 05/07/18 16:00 05/07/18 17:00 05/07/18 17:45 Temperature 98.4 F Pulse Rate 66 82 82 Respiratory Rate 20 Blood Pressure 96/58 L Pulse Oximetry 100 05/07/18 19:00 05/07/18 20:00 05/07/18 21:00 Temperature 98.1 F Pulse Rate 80 73 77 Respiratory Rate 18 Blood Pressure 98/56 L Pulse Oximetry 97 05/07/18 22:00 05/07/18 23:00 05/07/18 23:55 Temperature 98 F Pulse Rate 82 82 81 Respiratory Rate 18 Blood Pressure 114/57 L Pulse Oximetry 96 05/08/18 00:00 05/08/18 01:00 05/08/18 02:00 Temperature Pulse Rate 73 82 77 Respiratory Rate Blood Pressure Pulse Oximetry 05/08/18 03:00 05/08/18 04:00 05/08/18 05:00 Temperature 98.4 F Pulse Rate 80 73 79 Respiratory Rate 18 Blood Pressure 126/73 Pulse Oximetry 99 05/08/18 06:00 05/08/18 07:00 Temperature Pulse Rate 81 67 Respiratory Rate Blood Pressure Pulse Oximetry Intake & Output 05/07/18 05/08/18 05/08/18 18:59 06:59 18:59 Intake Total 720 / 720 Output Total 650 / 650 Balance 70 / 70 Weight 46 kg Intake: Oral 720 / 720 Output: Urine 650 / 650 Other: Date of Last Bowel Movement 05/07/18 05/05/18 # Bowel Movements 1 - Constitutional no acute distress - Routine HEENT Exam Head: Present: normocephalic Eye: Present: EOMI, PERRL ENT: Present: mucous membranes moist - Routine Neck Exam Present: trachea midline. Absent: JVD - Routine Respiratory Exam Present: CTA bilaterally - Routine Cardiovascular Exam Present: RRR. Absent: bradycardia - Routine Abdominal Exam Present: soft, normoactive bowel sounds - Routine Extremities Exam Absent: edema - Routine Neurological Exam Present: alert, oriented X3 - Routine Psychiatric Exam Present: normal affect, normal thought process <Jey Norman - Last Filed: 05/08/18 10:43> Vital signs: Vital Signs 05/08/18 09:59 05/08/18 11:00 05/08/18 12:00 Temperature 98.4 F Pulse Rate 72 61 79 Respiratory Rate 16 Blood Pressure 114/74 Pulse Oximetry 100 05/08/18 13:00 05/08/18 14:00 05/08/18 14:08 Temperature Pulse Rate 62 65 64 Respiratory Rate Blood Pressure Pulse Oximetry 05/08/18 16:00 05/08/18 17:00 05/08/18 17:05 Temperature 98.2 F Pulse Rate 66 68 82 Respiratory Rate 16 Blood Pressure 93/53 L Pulse Oximetry 98 05/08/18 19:00 05/08/18 20:00 05/08/18 21:00 Temperature 99.5 F Pulse Rate 76 78 78 Respiratory Rate 16 Blood Pressure 123/71 Pulse Oximetry 100 05/08/18 22:00 05/08/18 23:00 05/08/18 23:42 Temperature 98.3 F Pulse Rate 68 66 66 Respiratory Rate 16 Blood Pressure 107/55 L Pulse Oximetry 100 05/09/18 00:00 05/09/18 01:00 05/09/18 02:00 Temperature Pulse Rate 62 64 71 Respiratory Rate Blood Pressure Pulse Oximetry 05/09/18 03:00 05/09/18 03:57 05/09/18 04:00 Temperature 98.4 F Pulse Rate 68 68 67 Respiratory Rate 16 Blood Pressure 113/68 Pulse Oximetry 99 05/09/18 05:00 05/09/18 06:00 Temperature Pulse Rate 60 60 Respiratory Rate Blood Pressure Pulse Oximetry Intake & Output 05/08/18 05/09/18 05/09/18 18:59 06:59 18:59 Intake Total 960 / 960 480 / 480 Output Total 850 / 850 Balance 110 / 110 480 / 480 Weight 45.8 kg Intake: Oral 960 / 960 480 / 480 Output: Urine 850 / 850 Other: # Voids 3 Date of Last Bowel Movement 05/08/18 # Bowel Movements 1 1 <Edmundo Tapia - Last Filed: 05/09/18 09:46> Assessment and Plan - Assessment (1) End stage renal disease Code(s): N18.6 - End stage renal disease Status: Acute Plan: Patient will continue dialysis TTS. Patient to be dialyzed tomorrow. s/p AVF left arm. Spoke with mattress spring encaser about possible discharge to an [facility] and receiving dialysis at [facility]. Patient is medically clear from a renal standpoint. (2) Fluid overload Code(s): E87.70 - Fluid overload, unspecified Status: Acute Plan: Improved. (3) Acute on chronic systolic congestive heart failure Code(s): I50.23 - Acute on chronic systolic (congestive) heart failure Status : Acute Plan: Seen by cardiology ARB/LEE inhibitor/Entresto: will defer to cardiology. Ok to start any of these medications from renal standpoint as long as his BP is acceptable. Plan is for AICD placement after 60 days. <Jey Norman - Last Filed: 05/08/18 10:43> - Assessment (1) End stage renal disease Code(s): N18.6 - End stage renal disease Status: Acute (2) Fluid overload Code(s): E87.70 - Fluid overload, unspecified Status: Acute (3) Acute on chronic systolic congestive heart failure Code(s): I50.23 - Acute on chronic systolic (congestive) heart failure Status : Acute - Attending Attestation patient was seen and examined. Agree with above assessment and plan. <Edmundo Tapia - Last Filed: 05/09/18 09:46>
[2018-05-08] MEDS: Heparin - SQ 10,000 UNITS/ML Vial SQ SCH ×2 (10:40→23:14)
--- NOTE | 2018-05-08 10:59 | P.PNIM ---
Subjective Interval history: Patient reports he is feeling okay today. No new complaints. Eating and drinking well. Physical Exam Vital signs: Vital Signs 05/07/18 11:00 05/07/18 12:00 05/07/18 12:51 Temperature 98.6 F Pulse Rate 72 76 71 Respiratory Rate 16 Blood Pressure 97/62 L Pulse Oximetry 98 05/07/18 13:14 05/07/18 15:00 05/07/18 16:00 Temperature 98.4 F Pulse Rate 67 67 66 Respiratory Rate 20 Blood Pressure 96/58 L Pulse Oximetry 100 05/07/18 17:00 05/07/18 17:45 05/07/18 19:00 Temperature Pulse Rate 82 82 80 Respiratory Rate Blood Pressure Pulse Oximetry 05/07/18 20:00 05/07/18 21:00 05/07/18 22:00 Temperature 98.1 F Pulse Rate 73 77 82 Respiratory Rate 18 Blood Pressure 98/56 L Pulse Oximetry 97 05/07/18 23:00 05/07/18 23:55 05/08/18 00:00 Temperature 98 F Pulse Rate 82 81 73 Respiratory Rate 18 Blood Pressure 114/57 L Pulse Oximetry 96 05/08/18 01:00 05/08/18 02:00 05/08/18 03:00 Temperature Pulse Rate 82 77 80 Respiratory Rate Blood Pressure Pulse Oximetry 05/08/18 04:00 05/08/18 05:00 05/08/18 06:00 Temperature 98.4 F Pulse Rate 73 79 81 Respiratory Rate 18 Blood Pressure 126/73 Pulse Oximetry 99 05/08/18 07:00 05/08/18 08:00 05/08/18 09:00 Temperature 98.4 F Pulse Rate 67 61 75 Respiratory Rate 16 Blood Pressure 113/57 L Pulse Oximetry 98 05/08/18 09:59 Temperature Pulse Rate 72 Respiratory Rate Blood Pressure Pulse Oximetry Intake & Output 05/07/18 05/08/18 05/08/18 18:59 06:59 18:59 Intake Total 720 / 720 Output Total 650 / 650 Balance 70 / 70 Weight 46 kg Intake: Oral 720 / 720 Output: Urine 650 / 650 Other: Date of Last Bowel Movement 05/07/18 05/05/18 05/05/18 # Bowel Movements 1 Narrative: GENERAL: NAD CARDIOVASCULAR: Regular rate and rhythm without murmurs, gallops, or rubs. RESPIRATORY: Breath sounds equal bilaterally. No accessory muscle use. GASTROINTESTINAL: Abdomen soft, non-tender, nondistended. MUSCULOSKELETAL: No cyanosis, or edema. AVF on the left upper extremity. Results - Labs CBC & Chem 7: 04/27/18 07:52 05/04/18 13:21 - Procedures AVF placement Assessment and Plan - Assessment (1) New onset of congestive heart failure Code(s): I50.9 - Heart failure, unspecified Status: Acute (2) Pneumonia Code(s): J18.9 - Pneumonia, unspecified organism Status: Acute (3) Acute kidney injury Code(s): N17.9 - Acute kidney failure, unspecified Status: Acute (4) Fluid overload Code(s): E87.70 - Fluid overload, unspecified Status: Acute - Plan 62-year-old man with New onset cardiomyopathy, acute/ Fluid Overload/bilateral lower extremity edema Acute decompensated systolic heart failure Nonischemic cardiomyopathy: -LVEF 20% on echo 04/19/18 -2D Echo : Left ventricular systolic function is severely reduced with EF 20%, mod MR, mod-severe TR, mod-severe pulm HTN (60-70mmhg); large right sided pleural effusion is present. -Cardiology consulted, appreciate recommendations: continue on Diuretics -continue Bumex, metolazone, Coreg -LEE-I initiated 05/05/18 Elevated troponin/arrhythmia/V tach -Cardiology following, appreciate recommendations -Lexiscan 04/25 showed severe LV dilatation and dysfunction; no reversible perfusion abnormalities -s/p EP study done and inducible VT on May 01, 2018. Right lower extremity edema -Ultrasound RLE: Chronic appearing nonocclusive thrombus in the right common femoral vein. Pulsatility in the lower extremity veins likely related to patient 's acute heart failure -improved Acute renal failure on ESRD/ Severe metabolic acidosis, acute -Renal ultrasound: Echogenic kidneys with ascites and moderate right pleural effusion -Serology/hepatitis profile Nonreactive, HIV Nonreactive, ABBY negative -Nephrology consulted, appreciate recommendations -Hemodialysis as scheduled by nephrology -continue Renvela, monitor phosphorus levels -Vascular surgery consulted ; s/p AV fistula placement 05/03/18 -Need outpatient hemodialysis set up prior to discharge Possible Pneumonia, acute/Fluid Overload -S/p antibiotic course with IV Rocephin/Azithro x7days Hypertension -Continue Bumex, metolazone, Lisinopril and Coreg Anemia, likely acute on chronic -2/2 ESRD -patient receiving epoetin during dialysis History of cocaine use -Patient admitted short-term use, 6 months ago and have not had any since then -Previously counseled. Moderate Protein Calorie Malnutrition/Failure to Thrive: BMI 16. Albumin 2.8. -dietitian ff DVT Proph: Heparin Discharge Planning: Need placement. PT to reevaluate. He can be discharged once placement and outpatient dialysis is set up.
[2018-05-08] MEDS: Furosemide 80 MG Tablet PO SCH (17:34)
[2018-05-09] MEDS: metOLazone 5 MG Tablet PO SCH (08:20)
[2018-05-09] MEDS: Famotidine 20 MG Tablet PO SCH ×2 (08:20→21:15)
[2018-05-09] MEDS: Carvedilol 6.25 MG Tablet PO SCH ×2 (08:20→21:15)
[2018-05-09] MEDS: Lisinopril 5 MG Tablet PO SCH (08:20)
[2018-05-09] MEDS: Furosemide 80 MG Tablet PO SCH ×2 (08:20→18:07)
[2018-05-09 09:00] LABS: Hematocrit 38.7 % (39.0-51.0); Hemoglobin 12.8 gm/dL (13.0-17.0); Mean Corpuscular HGB Conc 32.9 % (32.0-36.0); Mean Corpuscular Hemoglobin 32.6 pg (27.0-34.0); Mean Platelet Volume 7.8 fL (7.0-11.0); Platelet Count 250 th/mm3 (150-450); Red Blood Count 3.91 mil/mm3 (4.50-5.90); Red Cell Distribution Width 15.8 % (11.6-17.2); White Blood Count 6.1 th/mm3 (4.0-11.0)
--- NOTE | 2018-05-09 09:02 | P.PNNP ---
Subjective Interval history: Patient was seen eating breakfast in bed. Had no complaints. Patient to be dialyzed today. <Jey Norman - Last Filed: 05/09/18 08:59> Physical Exam Vital signs: Vital Signs 05/08/18 09:00 05/08/18 09:59 05/08/18 11:00 Temperature Pulse Rate 75 72 61 Respiratory Rate Blood Pressure Pulse Oximetry 05/08/18 12:00 05/08/18 13:00 05/08/18 14:00 Temperature 98.4 F Pulse Rate 79 62 65 Respiratory Rate 16 Blood Pressure 114/74 Pulse Oximetry 100 05/08/18 14:08 05/08/18 16:00 05/08/18 17:00 Temperature 98.2 F Pulse Rate 64 66 68 Respiratory Rate 16 Blood Pressure 93/53 L Pulse Oximetry 98 05/08/18 17:05 05/08/18 19:00 05/08/18 20:00 Temperature 99.5 F Pulse Rate 82 76 78 Respiratory Rate 16 Blood Pressure 123/71 Pulse Oximetry 100 05/08/18 21:00 05/08/18 22:00 05/08/18 23:00 Temperature Pulse Rate 78 68 66 Respiratory Rate Blood Pressure Pulse Oximetry 05/08/18 23:42 05/09/18 00:00 05/09/18 01:00 Temperature 98.3 F Pulse Rate 66 62 64 Respiratory Rate 16 Blood Pressure 107/55 L Pulse Oximetry 100 05/09/18 02:00 05/09/18 03:00 05/09/18 03:57 Temperature 98.4 F Pulse Rate 71 68 68 Respiratory Rate 16 Blood Pressure 113/68 Pulse Oximetry 99 05/09/18 04:00 05/09/18 05:00 05/09/18 06:00 Temperature Pulse Rate 67 60 60 Respiratory Rate Blood Pressure Pulse Oximetry Intake & Output 05/08/18 05/09/18 05/09/18 18:59 06:59 18:59 Intake Total 960 / 960 480 / 480 Output Total 850 / 850 Balance 110 / 110 480 / 480 Weight 45.8 kg Intake: Oral 960 / 960 480 / 480 Output: Urine 850 / 850 Other: # Voids 3 Date of Last Bowel Movement 05/08/18 # Bowel Movements 1 1 - Constitutional no acute distress - Routine HEENT Exam Head: Present: normocephalic Eye: Present: EOMI, PERRL ENT: Present: mucous membranes moist - Routine Neck Exam Present: trachea midline. Absent: tracheal deviation - Routine Respiratory Exam Present: CTA bilaterally. Absent: accessory muscle use - Routine Cardiovascular Exam Present: RRR - Routine Abdominal Exam Present: soft, normoactive bowel sounds - Routine Extremities Exam Absent: edema - Routine Neurological Exam Present: alert, oriented X3 - Detailed Neurological Exam: Coma Scale Eye Opening: Spontaneous Verbal Response: Oriented - Routine Psychiatric Exam Present: normal affect <Jey Norman - Last Filed: 05/09/18 08:59> Vital signs: Vital Signs 05/08/18 11:00 05/08/18 12:00 05/08/18 13:00 Temperature 98.4 F Pulse Rate 61 79 62 Respiratory Rate 16 Blood Pressure 114/74 Pulse Oximetry 100 05/08/18 14:00 05/08/18 14:08 05/08/18 16:00 Temperature 98.2 F Pulse Rate 65 64 66 Respiratory Rate 16 Blood Pressure 93/53 L Pulse Oximetry 98 05/08/18 17:00 05/08/18 17:05 05/08/18 19:00 Temperature Pulse Rate 68 82 76 Respiratory Rate Blood Pressure Pulse Oximetry 05/08/18 20:00 05/08/18 21:00 05/08/18 22:00 Temperature 99.5 F Pulse Rate 78 78 68 Respiratory Rate 16 Blood Pressure 123/71 Pulse Oximetry 100 05/08/18 23:00 05/08/18 23:42 05/09/18 00:00 Temperature 98.3 F Pulse Rate 66 66 62 Respiratory Rate 16 Blood Pressure 107/55 L Pulse Oximetry 100 05/09/18 01:00 05/09/18 02:00 05/09/18 03:00 Temperature Pulse Rate 64 71 68 Respiratory Rate Blood Pressure Pulse Oximetry 05/09/18 03:57 05/09/18 04:00 05/09/18 05:00 Temperature 98.4 F Pulse Rate 68 67 60 Respiratory Rate 16 Blood Pressure 113/68 Pulse Oximetry 99 05/09/18 06:00 Temperature Pulse Rate 60 Respiratory Rate Blood Pressure Pulse Oximetry Intake & Output 05/08/18 05/09/18 05/09/18 18:59 06:59 18:59 Intake Total 960 / 960 480 / 480 Output Total 850 / 850 Balance 110 / 110 480 / 480 Weight 45.8 kg Intake: Oral 960 / 960 480 / 480 Output: Urine 850 / 850 Other: # Voids 3 Date of Last Bowel Movement 05/08/18 # Bowel Movements 1 1 <Edmundo Tapia - Last Filed: 05/09/18 10:00> Assessment and Plan - Assessment (1) End stage renal disease Code(s): N18.6 - End stage renal disease Status: Acute Plan: Patient will continue dialysis TTS. Patient to be dialyzed today. s/p AVF left arm. Patient is waiting on case management, possible discharge to an [facility] and to receive dialysis at [facility]. Patient is medically clear from a renal standpoint. (2) Fluid overload Code(s): E87.70 - Fluid overload, unspecified Status: Acute Plan: Improved. (3) Acute on chronic systolic congestive heart failure Code(s): I50.23 - Acute on chronic systolic (congestive) heart failure Status : Acute Plan: Seen by cardiology ARB/LEE inhibitor/Entresto: will defer to cardiology. Ok to start any of these medications from renal standpoint as long as his BP is acceptable. Plan is for AICD placement after 60 days. <Jey Norman - Last Filed: 05/09/18 08:59> - Assessment (1) End stage renal disease Code(s): N18.6 - End stage renal disease Status: Acute (2) Fluid overload Code(s): E87.70 - Fluid overload, unspecified Status: Acute (3) Acute on chronic systolic congestive heart failure Code(s): I50.23 - Acute on chronic systolic (congestive) heart failure Status : Acute - Attending Attestation patient was seen and examined. Agree with above assessment and plan. Dialysis today on 1K, labs were reviewed. Changed diet to low potassium diet. Medically cleared for discharge from renal standpoint. Needs placement. <Edmundo Tapia - Last Filed: 05/09/18 10:00>
[2018-05-09 09:34] LABS: Albumin 3.9 g/dL (3.4-5.0); Calcium 9.6 mg/dL (8.5-10.1); Carbon Dioxide 32.2 meq/L (21.0-32.0)
[2018-05-09 09:36] LABS: Potassium 6.7 meq/L (3.5-5.1)
[2018-05-09] MEDS: Albumin Human 25% Inj 100 ML IV.SIG PRN (09:40)
[2018-05-09] MEDS: Heparin 10,000 UNITS/10 ML Vial (for IV use) OTHER PRN (12:05)
--- NOTE | 2018-05-09 12:31 | P.PNIM ---
Subjective Interval history: Patient currently does not have any complaints. Physical Exam Vital signs: Vital Signs 05/08/18 13:00 05/08/18 14:00 05/08/18 14:08 Temperature Pulse Rate 62 65 64 Respiratory Rate Blood Pressure Pulse Oximetry 05/08/18 16:00 05/08/18 17:00 05/08/18 17:05 Temperature 98.2 F Pulse Rate 66 68 82 Respiratory Rate 16 Blood Pressure 93/53 L Pulse Oximetry 98 05/08/18 19:00 05/08/18 20:00 05/08/18 21:00 Temperature 99.5 F Pulse Rate 76 78 78 Respiratory Rate 16 Blood Pressure 123/71 Pulse Oximetry 100 05/08/18 22:00 05/08/18 23:00 05/08/18 23:42 Temperature 98.3 F Pulse Rate 68 66 66 Respiratory Rate 16 Blood Pressure 107/55 L Pulse Oximetry 100 05/09/18 00:00 05/09/18 01:00 05/09/18 02:00 Temperature Pulse Rate 62 64 71 Respiratory Rate Blood Pressure Pulse Oximetry 05/09/18 03:00 05/09/18 03:57 05/09/18 04:00 Temperature 98.4 F Pulse Rate 68 68 67 Respiratory Rate 16 Blood Pressure 113/68 Pulse Oximetry 99 05/09/18 05:00 05/09/18 06:00 05/09/18 08:00 Temperature 98.6 F Pulse Rate 60 60 69 Respiratory Rate 18 Blood Pressure 128/68 Pulse Oximetry 100 Intake & Output 05/08/18 05/09/18 05/09/18 18:59 06:59 18:59 Intake Total 960 / 960 480 / 480 100 / 100 Output Total 850 / 850 Balance 110 / 110 480 / 480 100 / 100 Weight 45.8 kg Intake: IV 100 / 100 Flexbumin 25% Inj 100 ML @ 60 100 / 100 mls/hr IV.SIG WITH DIALYSIS PRN Rx#:[id number] Oral 960 / 960 480 / 480 Output: Urine 850 / 850 Other: # Voids 3 Date of Last Bowel Movement 05/08/18 # Bowel Movements 1 1 Narrative: General patient in no acute distress HEENT extraocular movements are intact, clear oropharyngeal mucosa, no JVD Cardiovascular S1-S2 audible, TDC right side of the chest Respiratory clear to auscultation bilaterally Abdomen soft, nontender, nondistended, normal bowel sounds Extremities no edema 2+ distal pulses in bilateral upper and lower extremities Neuro patient moves all 4 extremities, sensation is intact bilaterally Results - Labs CBC & Chem 7: 05/09/18 08:18 18 08:18 Laboratory Results - last 24 hr 05/09/18 05/09/18 05/09/18 08:18 08:18 08:18 WBC 6.1 RBC 3.91 L Hgb 12.8 L Hct 38.7 L MCV 99.0 MCH 32.6 MCHC 32.9 RDW 15.8 Plt Count 250 MPV 7.8 Sodium 136 Cancelled Potassium 6.7 H* Cancelled Chloride 97 L Cancelled Carbon Dioxide 32.2 H Cancelled Anion Gap 7 Cancelled BUN 77 H Cancelled Creatinine 5.83 H Cancelled Estimated GFR 10 L Cancelled Random Glucose 79 Cancelled Calcium 9.6 Cancelled Phosphorus 4.0 Albumin 3.9 - Procedures AVF placement Assessment and Plan - Assessment (1) New onset of congestive heart failure Code(s): I50.9 - Heart failure, unspecified Status: Acute (2) Pneumonia Code(s): J18.9 - Pneumonia, unspecified organism Status: Acute (3) Acute kidney injury Code(s): N17.9 - Acute kidney failure, unspecified Status: Acute (4) Fluid overload Code(s): E87.70 - Fluid overload, unspecified Status: Acute - Plan This patient is a 62-year-old male with 1. Acute nonischemic systolic CHF exacerbation Patient has an ejection fraction of 20%. With moderate MR, moderate to severe TR, pulmonary hypertension 60-70 mmHg with a large right-sided pleural effusion. We will follow-up with cardiology's recommendations. Patient is currently on Bumex, metolazone, Coreg, LEE inhibitor. Continue beta-yoselyn, lisinopril, diuretics. 2. Elevated troponin/wide-complex tachycardia Stress test was negative for ischemia, patient is currently on beta-yoselyn. Patient was evaluated by Dr. Carter, EP study negative for inducible V. tach. Elevated troponin likely from volume overload and systolic CHF exacerbation. 3. End-stage renal disease on hemodialysis 4. Hyperkalemia Patient's labs show a potassium level 6.7 today. He is currently in hemodialysis. We will continue to follow-up with nephrology's recommendations. Patient is status post AV fistula placement on 05/03/2018. The plan for the patient is to continue hemodialysis. I will follow-up with nephrology for planning once the patient is discharged. 5. Hypertension Continue current blood pressure medication regimen. We will continue to monitor his blood pressure and adjust his meds as needed. Case will be discussed with case management in order for the patient to be discharged possibly tomorrow. Heparin for DVT prophylaxis
[2018-05-09] MEDS: Heparin - SQ 10,000 UNITS/ML Vial SQ SCH ×2 (13:24→23:15)
[2018-05-10] MEDS: Famotidine 20 MG Tablet PO SCH ×2 (09:19→20:30)
[2018-05-10] MEDS: Carvedilol 6.25 MG Tablet PO SCH ×2 (10:58→20:30)
[2018-05-10] MEDS: Furosemide 80 MG Tablet PO SCH ×2 (10:58→17:29)
[2018-05-10] MEDS: Lisinopril 5 MG Tablet PO SCH (10:59)
[2018-05-10] MEDS: metOLazone 5 MG Tablet PO SCH (10:59)
[2018-05-10 11:05] LABS: Calcium 9.1 mg/dL (8.5-10.1); Carbon Dioxide 34.5 meq/L (21.0-32.0); Potassium 4.8 meq/L (3.5-5.1)
--- NOTE | 2018-05-10 11:23 | P.PNNP ---
Subjective Interval history: Patient was resting in bed, no complaints. Waiting for placement before being discharged. Patient will be getting dialysis at [facility] once discharged. Hypotension noted, on Midodrine. <Jey Norman - Last Filed: 05/10/18 11:26> Physical Exam Vital signs: Vital Signs 05/09/18 12:00 05/09/18 13:00 05/09/18 14:00 Temperature Pulse Rate 64 64 76 Respiratory Rate Blood Pressure Pulse Oximetry 05/09/18 15:00 05/09/18 16:00 05/09/18 17:00 Temperature 98.4 F Pulse Rate 77 82 86 Respiratory Rate 18 Blood Pressure 105/60 Pulse Oximetry 99 05/09/18 18:00 05/09/18 19:00 05/09/18 20:00 Temperature 98.3 F Pulse Rate 88 92 H 90 Respiratory Rate 16 Blood Pressure 137/77 Pulse Oximetry 98 05/09/18 21:00 05/09/18 22:00 05/09/18 23:00 Temperature Pulse Rate 86 80 81 Respiratory Rate Blood Pressure Pulse Oximetry 05/09/18 23:48 05/10/18 00:00 05/10/18 01:00 Temperature 98.3 F Pulse Rate 81 80 82 Respiratory Rate 16 Blood Pressure 112/66 Pulse Oximetry 97 05/10/18 02:00 05/10/18 03:00 05/10/18 03:58 Temperature 98.3 F Pulse Rate 73 65 63 Respiratory Rate 16 Blood Pressure 95/54 L Pulse Oximetry 98 05/10/18 04:00 05/10/18 05:00 05/10/18 06:00 Temperature Pulse Rate 66 73 63 Respiratory Rate Blood Pressure Pulse Oximetry 05/10/18 07:00 05/10/18 08:00 05/10/18 09:00 Temperature 97.6 F Pulse Rate 70 65 76 Respiratory Rate 18 Blood Pressure 89/62 L Pulse Oximetry 95 05/10/18 10:00 Temperature Pulse Rate 60 Respiratory Rate Blood Pressure Pulse Oximetry Intake & Output 05/09/18 05/10/18 05/10/18 18:59 06:59 18:59 Intake Total 100 / 100 240 / 240 Output Total 500 / 500 Balance -400 / -400 240 / 240 Weight 45 kg Intake: IV 100 / 100 Flexbumin 25% Inj 100 ML @ 60 100 / 100 mls/hr IV.SIG WITH DIALYSIS PRN Rx#:[id number] Oral 240 / 240 Output: Hemodialysis Amount 500 / 500 Other: # Voids 2 Date of Last Bowel Movement 05/09/18 05/10/18 # Bowel Movements 0 - Constitutional no acute distress - Routine HEENT Exam Head: Present: normocephalic Eye: Present: EOMI, PERRL ENT: Present: mucous membranes moist - Routine Neck Exam Present: trachea midline. Absent: JVD, tracheal deviation - Routine Respiratory Exam Absent: accessory muscle use, patient mechanically ventilated, respiratory distress - Routine Abdominal Exam Absent: distended - Routine Extremities Exam Present: AV fistula. Absent: edema - Routine Neurological Exam Present: alert, oriented X3 - Detailed Neurological Exam: Coma Scale Eye Opening: Spontaneous Verbal Response: Oriented - Routine Psychiatric Exam Present: normal affect <Jey Norman - Last Filed: 05/10/18 11:26> Vital signs: Vital Signs 05/09/18 18:00 05/09/18 19:00 05/09/18 20:00 Temperature 98.3 F Pulse Rate 88 92 H 90 Respiratory Rate 16 Blood Pressure 137/77 Pulse Oximetry 98 05/09/18 21:00 05/09/18 22:00 05/09/18 23:00 Temperature Pulse Rate 86 80 81 Respiratory Rate Blood Pressure Pulse Oximetry 05/09/18 23:48 05/10/18 00:00 05/10/18 01:00 Temperature 98.3 F Pulse Rate 81 80 82 Respiratory Rate 16 Blood Pressure 112/66 Pulse Oximetry 97 05/10/18 02:00 05/10/18 03:00 05/10/18 03:58 Temperature 98.3 F Pulse Rate 73 65 63 Respiratory Rate 16 Blood Pressure 95/54 L Pulse Oximetry 98 05/10/18 04:00 05/10/18 05:00 05/10/18 06:00 Temperature Pulse Rate 66 73 63 Respiratory Rate Blood Pressure Pulse Oximetry 05/10/18 07:00 05/10/18 08:00 05/10/18 09:00 Temperature 97.6 F Pulse Rate 70 65 76 Respiratory Rate 18 Blood Pressure 89/62 L Pulse Oximetry 95 05/10/18 10:00 05/10/18 11:00 05/10/18 12:00 Temperature Pulse Rate 60 66 66 Respiratory Rate 18 Blood Pressure 99/56 L Pulse Oximetry 98 05/10/18 13:00 05/10/18 14:00 05/10/18 15:00 Temperature Pulse Rate 60 62 62 Respiratory Rate Blood Pressure Pulse Oximetry Intake & Output 05/09/18 05/10/18 05/10/18 18:59 06:59 18:59 Intake Total 100 / 100 240 / 240 Output Total 500 / 500 Balance -400 / -400 240 / 240 Weight 45 kg Intake: IV 100 / 100 Flexbumin 25% Inj 100 ML @ 60 100 / 100 mls/hr IV.SIG WITH DIALYSIS PRN Rx#:[id number] Oral 240 / 240 Output: Hemodialysis Amount 500 / 500 Other: # Voids 2 Date of Last Bowel Movement 05/09/18 05/10/18 # Bowel Movements 0 <Edmundo Tapia - Last Filed: 05/10/18 17:09> Assessment and Plan - Assessment (1) End stage renal disease Code(s): N18.6 - End stage renal disease Status: Acute Plan: Patient will continue dialysis TTS. Patient dialyzed yesterday, 500 mL fluid removed. s/p AVF left arm. Patient is waiting on case management, possible discharge to an [facility] and to receive dialysis at [facility]. Patient is medically clear from a renal standpoint. (2) Fluid overload Code(s): E87.70 - Fluid overload, unspecified Status: Acute Plan: Improved. (3) Acute on chronic systolic congestive heart failure Code(s): I50.23 - Acute on chronic systolic (congestive) heart failure Status : Acute Plan: Seen by cardiology ARB/LEE inhibitor/Entresto: will defer to cardiology. Ok to start any of these medications from renal standpoint as long as his BP is acceptable. Plan is for AICD placement after 60 days. <Jey Norman - Last Filed: 05/10/18 11:26> - Assessment (1) End stage renal disease Code(s): N18.6 - End stage renal disease Status: Acute (2) Fluid overload Code(s): E87.70 - Fluid overload, unspecified Status: Acute (3) Acute on chronic systolic congestive heart failure Code(s): I50.23 - Acute on chronic systolic (congestive) heart failure Status : Acute - Attending Attestation patient was seen and examined. Agree with above assessment and plan. <Edmundo Tapia - Last Filed: 05/10/18 17:09>
[2018-05-10] MEDS: Heparin - SQ 10,000 UNITS/ML Vial SQ SCH ×2 (13:34→22:33)
--- NOTE | 2018-05-10 16:40 | P.PNIM ---
Subjective Interval history: Patient says he feels good this morning. He does not have any complaints. Physical Exam Vital signs: Vital Signs 05/09/18 17:00 05/09/18 18:00 05/09/18 19:00 Temperature Pulse Rate 86 88 92 H Respiratory Rate Blood Pressure Pulse Oximetry 05/09/18 20:00 05/09/18 21:00 05/09/18 22:00 Temperature 98.3 F Pulse Rate 90 86 80 Respiratory Rate 16 Blood Pressure 137/77 Pulse Oximetry 98 05/09/18 23:00 05/09/18 23:48 05/10/18 00:00 Temperature 98.3 F Pulse Rate 81 81 80 Respiratory Rate 16 Blood Pressure 112/66 Pulse Oximetry 97 05/10/18 01:00 05/10/18 02:00 05/10/18 03:00 Temperature Pulse Rate 82 73 65 Respiratory Rate Blood Pressure Pulse Oximetry 05/10/18 03:58 05/10/18 04:00 05/10/18 05:00 Temperature 98.3 F Pulse Rate 63 66 73 Respiratory Rate 16 Blood Pressure 95/54 L Pulse Oximetry 98 05/10/18 06:00 05/10/18 07:00 05/10/18 08:00 Temperature 97.6 F Pulse Rate 63 70 65 Respiratory Rate 18 Blood Pressure 89/62 L Pulse Oximetry 95 05/10/18 09:00 05/10/18 10:00 05/10/18 11:00 Temperature Pulse Rate 76 60 66 Respiratory Rate Blood Pressure Pulse Oximetry 05/10/18 12:00 05/10/18 13:00 05/10/18 14:00 Temperature Pulse Rate 66 60 62 Respiratory Rate 18 Blood Pressure 99/56 L Pulse Oximetry 98 05/10/18 15:00 Temperature Pulse Rate 62 Respiratory Rate Blood Pressure Pulse Oximetry Intake & Output 05/09/18 05/10/18 05/10/18 18:59 06:59 18:59 Intake Total 100 / 100 240 / 240 Output Total 500 / 500 Balance -400 / -400 240 / 240 Weight 45 kg Intake: IV 100 / 100 Flexbumin 25% Inj 100 ML @ 60 100 / 100 mls/hr IV.SIG WITH DIALYSIS PRN Rx#:[id number] Oral 240 / 240 Output: Hemodialysis Amount 500 / 500 Other: # Voids 2 Date of Last Bowel Movement 05/09/18 05/10/18 # Bowel Movements 0 Narrative: General patient in no acute distress HEENT extraocular movements are intact, clear oropharyngeal mucosa, no JVD Cardiovascular S1-S2 audible, TDC right side of the chest Respiratory clear to auscultation bilaterally Abdomen soft, nontender, nondistended, normal bowel sounds Extremities no edema 2+ distal pulses in bilateral upper and lower extremities Neuro patient moves all 4 extremities, sensation is intact bilaterally Results - Labs CBC & Chem 7: 05/09/18 08:18 05/10/18 10:17 Laboratory Results - last 24 hr 05/10/18 10:17 Sodium 141 Potassium 4.8 D Chloride 98 Carbon Dioxide 34.5 H Anion Gap 9 BUN 46 H Creatinine 4.12 H Estimated GFR 15 L Random Glucose 106 Calcium 9.1 - Procedures AVF placement Assessment and Plan - Assessment (1) New onset of congestive heart failure Code(s): I50.9 - Heart failure, unspecified Status: Acute (2) Pneumonia Code(s): J18.9 - Pneumonia, unspecified organism Status: Acute (3) Acute kidney injury Code(s): N17.9 - Acute kidney failure, unspecified Status: Acute (4) Fluid overload Code(s): E87.70 - Fluid overload, unspecified Status: Acute - Plan This patient is a 62-year-old male with 1. Acute nonischemic systolic CHF exacerbation No complaints of shortness of breath, patient appears euvolemic. Received hemodialysis yesterday. Patient has an ejection fraction of 20%. With moderate MR, moderate to severe TR, pulmonary hypertension 60-70 mmHg with a large right-sided pleural effusion. We will follow-up with cardiology's recommendations. Patient is currently on Bumex, metolazone, Coreg, LEE inhibitor. Continue beta-yoselyn, lisinopril, diuretics. 2. Elevated troponin/wide-complex tachycardia Stress test was negative for ischemia, patient is currently on beta-yoselyn. Patient was evaluated by Dr. Carter EP study negative for inducible V. tach. Elevated troponin likely from volume overload and systolic CHF exacerbation. 3. End-stage renal disease on hemodialysis 4. Hyperkalemia Patient received hemodialysis yesterday. We will continue to follow-up with nephrology's recommendations. Patient is status post AV fistula placement on 05/03/2018. The plan for the patient is to continue hemodialysis. Patient is awaiting placement. I will continue to follow-up with case management regarding the patient's discharge once he is placed. Patient will need hemodialysis scheduled prior to discharge. 5. Hypertension Continue current blood pressure medication regimen. We will continue to monitor his blood pressure and adjust his meds as needed. Case will be discussed with case management in order for the patient to be discharged possibly tomorrow. Heparin for DVT prophylaxis
[2018-05-11 06:53] VITALS: BP 134/67; RESP 18; TEMP 98.1; O2SAT 97
[2018-05-11] MEDS: Furosemide 80 MG Tablet PO SCH (10:15)
[2018-05-11] MEDS: metOLazone 5 MG Tablet PO SCH (10:15)
--- NOTE | 2018-05-11 11:27 | P.PNNP ---
Subjective Interval history: Patient was seen in dialysis, no distress. Patient was on 2K, blood flow rate of 300 ml/min, goal of 1 L. Per the RN, patient is to be discharged today to an [facility]. Patient will receive dialysis at [facility]. <Jey Norman - Last Filed: 05/11/18 11:23> Physical Exam Vital signs: Vital Signs 05/10/18 12:00 05/10/18 13:00 05/10/18 14:00 Temperature Pulse Rate 66 60 62 Respiratory Rate 18 Blood Pressure 99/56 L Pulse Oximetry 98 05/10/18 15:00 05/10/18 16:00 05/10/18 17:00 Temperature Pulse Rate 62 60 68 Respiratory Rate Blood Pressure 122/70 Pulse Oximetry 98 05/10/18 18:00 05/10/18 19:00 05/10/18 20:00 Temperature 99.4 F Pulse Rate 68 68 74 Respiratory Rate 16 Blood Pressure 112/60 Pulse Oximetry 99 05/10/18 21:00 05/10/18 22:00 05/10/18 23:00 Temperature Pulse Rate 66 72 71 Respiratory Rate Blood Pressure Pulse Oximetry 05/11/18 00:00 05/11/18 01:00 05/11/18 02:00 Temperature 98.9 F Pulse Rate 64 56 L 64 Respiratory Rate 16 Blood Pressure 103/50 L Pulse Oximetry 98 05/11/18 03:00 05/11/18 04:00 05/11/18 05:00 Temperature 98.3 F Pulse Rate 60 64 58 L Respiratory Rate 16 Blood Pressure 114/58 L Pulse Oximetry 98 05/11/18 06:00 05/11/18 06:52 05/11/18 07:00 Temperature 98.1 F Pulse Rate 64 64 64 Respiratory Rate 18 Blood Pressure 134/67 Pulse Oximetry 97 05/11/18 08:00 05/11/18 09:00 05/11/18 10:00 Temperature Pulse Rate 70 68 64 Respiratory Rate Blood Pressure Pulse Oximetry Intake & Output 05/10/18 05/11/18 05/11/18 18:59 06:59 18:59 Intake Total 240 / 240 Balance 240 / 240 Weight 45.8 kg Intake: Oral 240 / 240 Other: # Voids 4 Date of Last Bowel Movement 05/10/18 05/10/18 - Constitutional no acute distress - Routine HEENT Exam Head: Present: normocephalic Eye: Present: EOMI, PERRL ENT: Present: mucous membranes moist - Routine Neck Exam Present: trachea midline. Absent: lymphadenopathy, tracheal deviation - Routine Respiratory Exam Present: CTA bilaterally. Absent: accessory muscle use, patient mechanically ventilated, respiratory distress - Routine Cardiovascular Exam Present: RRR. Absent: murmur - Routine Abdominal Exam Present: soft, normoactive bowel sounds - Routine Extremities Exam Present: AV fistula, vascular access. Absent: clubbing, edema - Routine Neurological Exam Present: alert, oriented X3 - Detailed Neurological Exam: Coma Scale Eye Opening: Spontaneous Verbal Response: Oriented - Routine Psychiatric Exam Present: normal affect <Jey Norman - Last Filed: 05/11/18 11:23> Vital signs: Intake & Output 05/11/18 05/12/18 05/12/18 18:59 06:59 18:59 Output Total 1000 / 1000 Balance -1000 / -1000 Output: Hemodialysis Amount 1000 / 1000 <Edmundo Tapia - Last Filed: 05/12/18 14:43> Assessment and Plan - Assessment (1) End stage renal disease Code(s): N18.6 - End stage renal disease Status: Acute Plan: Patient will continue dialysis TTS. Patient seen during dialysis today. Patient was on 2K, blood flow rate of 300 ml/min, goal of 1 L. s/p AVF left arm. Possible discharge to an [facility] today. Patient to receive dialysis at [facility]. Patient is medically clear from a renal standpoint. (2) Fluid overload Code(s): E87.70 - Fluid overload, unspecified Status: Acute Plan: Improved. (3) Acute on chronic systolic congestive heart failure Code(s): I50.23 - Acute on chronic systolic (congestive) heart failure Status : Acute Plan: Seen by cardiology ARB/LEE inhibitor/Entresto: will defer to cardiology. Ok to start any of these medications from renal standpoint as long as his BP is acceptable. Plan is for AICD placement after 60 days. <Jey Norman - Last Filed: 05/11/18 11:23> - Assessment (1) End stage renal disease Code(s): N18.6 - End stage renal disease Status: Acute (2) Fluid overload Code(s): E87.70 - Fluid overload, unspecified Status: Acute (3) Acute on chronic systolic congestive heart failure Code(s): I50.23 - Acute on chronic systolic (congestive) heart failure Status : Acute - Attending Attestation patient was seen and examined. Agree with above assessment and plan. <Edmundo Tapia - Last Filed: 05/12/18 14:43>
[2018-05-11] MEDS: Lisinopril 5 MG Tablet PO SCH (12:07)
[2018-05-11] MEDS: Famotidine 20 MG Tablet PO SCH (12:08)
[2018-05-11] MEDS: Carvedilol 6.25 MG Tablet PO SCH (12:08)
[2018-05-11] MEDS: Heparin - SQ 10,000 UNITS/ML Vial SQ SCH (12:13)
[2018-05-11 12:55] VITALS: PULSE 61
--- NOTE | 2018-05-11 15:25 | P.DS ---
Date of admission: 04/18/18 19:51 Primary care physician: No Primary Care Physician Brief History from admission: 62-year-old homeless male with no past medical history presents to the emergency department for evaluation of lower extremity edema times 10 days. The patient also endorses intermittent shortness of breath that is worse with exertion. He states he has had a cough but denies fever/chills. He reports he drinks approximately 1 gallon of fluids per day secondary to heat exposure as he is homeless. He denies any issues with urination. He has severe, bilateral pitting edema to the mid thigh. He denies any chest pain. No abdominal pain. No nausea/vomiting/diarrhea. No lateralizing signs/symptoms. DS: Medications - Discharge Medications Prescriptions: carvedilol 3.125 mg PO BID #60 tab furosemide 40 mg PO BID #60 tab lisinopril 2.5 mg PO DAILY #30 tab metolazone 5 mg PO DAILY #30 tab midodrine 5 mg PO TID #90 tab DS: Summary Hospital Course: Patient was admitted, started on IV diuresis and dialysis. Cardiology was consulted given supra ventricular arrhythmia as well as elevated troponins, stress test showed no reversible ischemia per cardiology. Underwent electrophysiology study on 05/01 which was negative for any acute findings. He was too cachectic for sub-pectoral defibrillator given that he also had had a right Internal Jugular Hemodialysis Catheter Tunneled placed for hemodialysis at that time for end-stage renal disease. Cardiology recommended that he get a repeat echocardiogram in about 60 days and if his ejection fraction remains low to then implant a defibrillator, at which point he should have enough time to have the subclavian catheter removed given that the patient had an AV fistula performed by vascular surgery during this hospitalization. Patient was additionally treated for possible pneumonia with a 7-day course of antibiotics. He has met maximal benefit from hospitalization is clinically stable for discharge to [facility]. He is to have routine dialysis TTS - Time Spent with Patient Total time spent providing and/or coordinating discharge services: Less than 30 minutes - Quality: VTE Deep Vein Thrombosis/Pulmonary Embolism Present on Admission: No Exam Vital signs: Vital Signs 05/10/18 16:00 05/10/18 17:00 05/10/18 18:00 Temperature Pulse Rate 60 68 68 Respiratory Rate Blood Pressure 122/70 Pulse Oximetry 98 05/10/18 19:00 05/10/18 20:00 05/10/18 21:00 Temperature 99.4 F Pulse Rate 68 74 66 Respiratory Rate 16 Blood Pressure 112/60 Pulse Oximetry 99 05/10/18 22:00 05/10/18 23:00 05/11/18 00:00 Temperature 98.9 F Pulse Rate 72 71 64 Respiratory Rate 16 Blood Pressure 103/50 L Pulse Oximetry 98 05/11/18 01:00 05/11/18 02:00 05/11/18 03:00 Temperature Pulse Rate 56 L 64 60 Respiratory Rate Blood Pressure Pulse Oximetry 05/11/18 04:00 05/11/18 05:00 05/11/18 06:00 Temperature 98.3 F Pulse Rate 64 58 L 64 Respiratory Rate 16 Blood Pressure 114/58 L Pulse Oximetry 98 05/11/18 06:52 05/11/18 07:00 05/11/18 08:00 Temperature 98.1 F Pulse Rate 64 64 70 Respiratory Rate 18 Blood Pressure 134/67 Pulse Oximetry 97 05/11/18 09:00 05/11/18 10:00 05/11/18 11:00 Temperature Pulse Rate 68 64 64 Respiratory Rate Blood Pressure Pulse Oximetry 05/11/18 12:00 Temperature Pulse Rate 61 Respiratory Rate Blood Pressure Pulse Oximetry Intake & Output 05/10/18 05/11/18 05/11/18 18:59 06:59 18:59 Intake Total 240 / 240 Output Total 1000 / 1000 Balance 240 / 240 -1000 / -1000 Weight 45.8 kg Intake: Oral 240 / 240 Output: Hemodialysis Amount 1000 / 1000 Other: # Voids 4 Date of Last Bowel Movement 05/10/18 05/10/18 Narrative: Heart sounds regular rate rhythm no murmurs Clear lungs bilaterally, unlabored breathing No lower extremity edema Awake alert, no acute distress Lying in bed, undergoing dialysis at this time Results Procedures completed during hospitalization: PICC line 04/21 right Internal Jugular Hemodialysis Catheter Tunneled AVF placement Electrophysiology study - Impressions ITS Impressions Abdomen/Bladder Ultrasound 04/19/18 00:00 CONCLUSION: 1. Echogenic kidneys with ascites and moderate right pleural effusion 2. Lower pole nonobstructing stone on the left 3. Probable left parapelvic cyst. Chest X-Ray 04/20/18 00:00 CONCLUSION: Stable appearance of the chest. Central Venous Line 04/21/18 00:00 CONCLUSION: 1. Uncomplicated PermaCath placement as above. Myocardial Perfusion Scan Nuc Med 04/25/18 07:00 CONCLUSION: 1. Severe LV dilatation and dysfunction. 2. No reversible perfusion abnormalities. Upper Extremity Ultrasound 04/26/18 00:00 CONCLUSION: Venous mapping as above. Venous Doppler Study 04/26/18 00:00 CONCLUSION: Negative exam. No deep venous thrombosis in the left upper extremity. Discharge Plan - Discharge Disposition Patient Disposition: 04 [facility] - Discharge Condition Condition: Stable - Discharge Order Discharge Orders: Discharge Order (Routine); Ordered 05/11/18 Ordered By: Rehan Lemus Vascular Surgery Clear for Discharge (Routine); Ordered 05/04/18 Ordered By: Trevon Dorsey - Physicians Team Primary Care Provider: Primary Care Chapincito,Jasmin Attending Provider: Rehan Lemus Other Providers: Uche Castellanos MD ; Edmundo Tapia MD ; Robert Awad MD
== END 2018-05-11 14:29 ==
LOC: NEPE 15:43 → NEDA 19:51 → N05 04-19 → HCIS 05-01 19:03
PROVIDERS: ADMIT Hospitalist; ATTEND Hospitalist
PROC: AVGFTUE (ICD-10-PCS; 2018-05-03 13:02)

== ENCOUNTER 2018-08-16 16:58 | Inpatient (IN) ==
--- NOTE | 2018-08-16 21:52 | XR ---
EXAM DATE: 08/16/2018 9:49 PM EST AGE/SEX: 62 years / Male INDICATIONS: Short of breath. CLINICAL DATA: This is the patient's initial encounter. Patient reports that signs and symptoms have been present for 1 day and indicates a pain score of 0/10. MEDICAL/SURGICAL HISTORY: None. None. COMPARISON: [facility] [place], CHEST 1V SINGLE AP, 04/20/2018. . FINDINGS: The heart is enlarged. Right internal jugular tunneled dialysis catheter has its tips in the right at rium. No pneumothorax is noted. The pulmonary vascular pattern is normal. The lungs are clear. CONCLUSION: 1. Cardiomegaly. 2. No focal infiltrate or pulmonary vascular congestion. Electronically signed by: Robert Gonzalez MD Board Certified Radiologist 08/16/2018 9:50 PM EST
[2018-08-16 22:15] LABS: Baso # (Auto) 0.1 th/mm3 (0.0-0.2); Baso % (Auto) 1.2 % (0.0-2.0); Bilirubin,Urine Negative (Negative); Clarity,Urine Clear (Clear); Color,Urine Straw (Yellw/Straw); Eos # (Auto) 0.4 th/mm3 (0.0-0.4); Eos % (Auto) 5.1 % (0.0-4.0); Glucose,Urine (UA) Negative (Negative); Hematocrit 33.1 % (39.0-51.0); Hemoglobin 11.1 gm/dL (13.0-17.0); Leukocyte Esterase,Urine Negative (Negative); Lymph # (Auto) 2.1 th/mm3 (1.0-4.8); Lymph % (Auto) 25.5 % (9.0-44.0); Mean Corpuscular HGB Conc 33.5 % (32.0-36.0); Mean Corpuscular Hemoglobin 32.3 pg (27.0-34.0); Mean Corpuscular Volume 96.3 fL (80.0-100.0); Mean Platelet Volume 8.2 fL (7.0-11.0); Mono # (Auto) 0.6 th/mm3 (0.0-0.9); Mono % (Auto) 7.2 % (0.0-8.0); Nitrite,Urine Negative (Negative); Platelet Count 254 th/mm3 (150-450); Red Blood Count 3.44 mil/mm3 (4.50-5.90); Red Cell Distribution Width 15.5 % (11.6-17.2); Specific Gravity,Urine 1.011 (1.002-1.035); White Blood Count 8.1 th/mm3 (4.0-11.0)
--- NOTE | 2018-08-16 22:19 | ED ---
HPI General Chief Complaint: Recheck/Abnormal Lab/Rx Stated Complaint: dr sent Time Seen by Provider: 08/16/18 20:42 Source: patient Mode of arrival: ambulatory Limitations: no limitations History of Present Illness HPI narrative: 62-year-old male with PMH of ESRD, on dialysis Tuesday, Tuesday , Tuesday, CHF presents to the ED for evaluation. Patient states "I am here because my supervisor [employer] sent me." He states he has missed 6 appointments for dialysis. He states "I do not want to go there because they caused me a lot of pain and they seem indifferent to it." On presentation he denies headache, vision changes, chest pain, palpitations, shortness of breath, abdominal pain, nausea, vomiting, dysuria, lower extremity edema. He states that he makes urine "a few times a day." He denies cigarette smoking or alcohol use. Related Data Previous Rx's Medication Instructions Recorded carvedilol 3.125 mg PO BID #60 tab 05/11/18 furosemide 40 mg PO BID #60 tab 05/11/18 lisinopril 2.5 mg PO DAILY #30 tab 05/11/18 metolazone 5 mg PO DAILY #30 tab 05/11/18 midodrine 5 mg PO TID #90 tab 05/11/18 Allergies Allergy/AdvReac Type Severity Reaction Status Date / Time No Known Allergies Allergy Verified 04/18/18 16:36 Review of Systems ROS: all other systems reviewed are negative [facility] Medical History Medical History Dialysis patient (Acute) Patient denies medical problems (Acute) Surgical History Surgical History No history of previous surgery (Acute) Family History Family History Other Family history normal Social History Social History Substance History: Past History Second Hand Smoke Exposure: Yes Smoking Status: Former smoker Tobacco Type: Cigarettes How Often Do You Have a Drink Containing Alcohol: Monthly or less Recent Travel in [facility] within the Last 8 Weeks: No Recent Out of Country Travel within the Last 8 Weeks: No Immunization History Tetanus Immunization: >5 Years Exam Narrative Exam Narrative: GENERAL: Thin, well-developed white male in no acute distress. SKIN: Focused skin assessment warm/dry. Dialysis cath in the right chest without signs of infection. Fistula in the left upper arm, palpable thrill. HEAD: Atraumatic. Normocephalic. EYES: Pupils equal and round. No scleral icterus. No injection or drainage. ENT: No nasal bleeding or discharge. Mucous membranes pink and moist. NECK: Trachea midline. No JVD. CARDIOVASCULAR: Regular rate and rhythm. No murmur appreciated. RESPIRATORY: No accessory muscle use. Clear to auscultation. Breath sounds equal bilaterally. GASTROINTESTINAL: Abdomen soft, non-tender, nondistended. Hepatic and splenic margins not palpable. MUSCULOSKELETAL: No obvious deformities. No clubbing. No cyanosis. No edema. NEUROLOGICAL: Awake and alert. No obvious cranial nerve deficits. Motor grossly within normal limits. Normal speech. PSYCHIATRIC: Appropriate mood and affect; insight and judgment normal. Course Initial Documented Vital Signs Temperature 98.7 F 08/16/18 17:05 Pulse Rate 83 08/16/18 17:05 Respiratory Rate 14 08/16/18 17:05 Blood Pressure 150/67 H 08/16/18 17:05 Pulse Oximetry 100 08/16/18 17:05 Last Documented Vital Signs Temperature 98.7 F 08/16/18 17:05 Pulse Rate 84 08/16/18 21:20 Respiratory Rate 16 08/16/18 21:20 Blood Pressure 159/78 H 08/16/18 21:20 Pulse Oximetry 96 08/16/18 21:20 Medical Decision Making [facility] Narrative Medical decision making narrative: 62-year-old male with PMH of ESRD, on dialysis Tuesday, Tuesday, Tuesday, CHF presents to the ED for evaluation. He states he has missed 6 appointments for dialysis. He has no complaints. Afebrile on presentation, BP 150/67. Patient has a palpable thrill in the fistula in the left upper extremity as well as a dialysis cath in the right chest. This is old appearing. Patient states it has been in since his last admission which was in May by chart review. Physical exam is otherwise reassuring. CBC without acute findings. CMP reveals potassium of 5.2, BUN 66, creatinine 5.43 and GFR of 11. BNP 1210. CXR reveals cardiomegaly, no focal infiltrate or pulmonary vascular congestion. Patient was administered a dose of Kayexalate. He is amenable to admission. Dr. Joyce and I spoke with Dr. Devlin who agrees to accept the patient to the medicine service. Please see medicine notes for disposition. Medical Screen Exam Complete: Yes Emergency Medical Condition: Yes Differential Diagnosis Differential Diagnosis: ESRD versus metabolic derangement versus noncompliance versus other Lab Data Result diagrams: 08/16/18 21:05 08/16/18 21:05 Lab Results 08/16/18 08/16/18 08/16/18 Range/Units 20:55 21:05 21:05 WBC 8.1 (4.0-11.0) th/mm3 RBC 3.44 L (4.50-5.90) mil/mm3 Hgb 11.1 L (13.0-17.0) gm/dL Hct 33.1 L (39.0-51.0) % MCV 96.3 (80.0-100.0) fL MCH 32.3 (27.0-34.0) pg MCHC 33.5 (32.0-36.0) % RDW 15.5 (11.6-17.2) % Plt Count 254 (150-450) th/mm3 MPV 8.2 (7.0-11.0) fL Neut % (Auto) 61.0 (16.0-70.0) % Lymph % (Auto) 25.5 (9.0-44.0) % Towns % (Auto) 7.2 (0.0-8.0) % Eos % (Auto) 5.1 H (0.0-4.0) % Baso % (Auto) 1.2 (0.0-2.0) % Neut # (Auto) 5.0 (1.8-7.7) th/mm3 Lymph # (Auto) 2.1 (1.0-4.8) th/mm3 Towns # (Auto) 0.6 (0.0-0.9) th/mm3 Eos # (Auto) 0.4 (0.0-0.4) th/mm3 Baso # (Auto) 0.1 (0.0-0.2) th/mm3 WBC Differential . Differential Comment Auto diff final Sodium 142 (136-145) meq/L Potassium 5.2 H (3.5-5.1) meq/L Chloride 112 H (98-107) meq/L Carbon Dioxide 22.1 (21.0-32.0) meq/L Anion Gap 8 (5-15) meq/L BUN 66 H (7-18) mg/dL Creatinine 5.43 H (0.60-1.30) mg/dL Estimated GFR 11 L (>89) mL/min Random Glucose 78 (74-106) mg/dL Calcium 8.4 L (8.5-10.1) mg/dL Total Bilirubin 0.3 (0.2-1.0) mg/dL AST 28 (15-37) U/L ALT 19 (12-78) U/L Alkaline Phosphatase 108 (45-117) U/L Ammonia (11-32) mcmol/L Troponin I 0.05 (0.02-0.05) ng/mL B-Natriuretic Peptide (0-100) pg/mL Total Protein 7.9 (6.4-8.2) g/dL Albumin 3.6 (3.4-5.0) g/dL Urine Color (Yellw/Straw) Urine Clarity (Clear) Urine pH (5.0-8.5) Ur Specific [place] (1.002-1.035) Urine Protein (Neg-Trace) mg/dL Urine Glucose (UA) (Negative) mg/dL Urine Ketones (Negative) mg/dL Urine Occult Blood (Negative) Urine Nitrate (Negative) Urine Bilirubin (Negative) Urine Urobilinogen (Less than 2) mg/dL Ur Leukocyte Esterase (Negative) Urine RBC (0-3) /hpf Urine WBC (0-5) /hpf Micro UA Comment Ur Microscopic Review Urine Culture Comments Urine Opiates Screen Neg (Neg) Ur Barbiturates Screen Neg (Neg) Ur Amphetamines Screen Neg (Neg) U Benzodiazepines Scrn Neg (Neg) Urine Cocaine Screen Neg (Neg) U Cannabinoids Screen Neg (Neg) Serum Alcohol (0-5) mg/dL 08/16/18 08/16/18 08/16/18 Range/Units 21:05 21:05 21:05 WBC (4.0-11.0) th/mm3 RBC (4.50-5.90) mil/mm3 Hgb (13.0-17.0) gm/dL Hct (39.0-51.0) % MCV (80.0-100.0) fL MCH (27.0-34.0) pg MCHC (32.0-36.0) % RDW (11.6-17.2) % Plt Count (150-450) th/mm3 MPV (7.0-11.0) fL Neut % (Auto) (16.0-70.0) % Lymph % (Auto) (9.0-44.0) % Towns % (Auto) (0.0-8.0) % Eos % (Auto) (0.0-4.0) % Baso % (Auto) (0.0-2.0) % Neut # (Auto) (1.8-7.7) th/mm3 Lymph # (Auto) (1.0-4.8) th/mm3 Towns # (Auto) (0.0-0.9) th/mm3 Eos # (Auto) (0.0-0.4) th/mm3 Baso # (Auto) (0.0-0.2) th/mm3 WBC Differential Differential Comment Sodium (136-145) meq/L Potassium (3.5-5.1) meq/L Chloride (98-107) meq/L Carbon Dioxide (21.0-32.0) meq/L Anion Gap (5-15) meq/L BUN (7-18) mg/dL Creatinine (0.60-1.30) mg/dL Estimated GFR (>89) mL/min Random Glucose (74-106) mg/dL Calcium (8.5-10.1) mg/dL Total Bilirubin (0.2-1.0) mg/dL AST (15-37) U/L ALT (12-78) U/L Alkaline Phosphatase (45-117) U/L Ammonia 20 (11-32) mcmol/L Troponin I (0.02-0.05) ng/mL B-Natriuretic Peptide 1210 H (0-100) pg/mL Total Protein (6.4-8.2) g/dL Albumin (3.4-5.0) g/dL Urine Color (Yellw/Straw) Urine Clarity (Clear) Urine pH (5.0-8.5) Ur Specific [place] (1.002-1.035) Urine Protein (Neg-Trace) mg/dL Urine Glucose (UA) (Negative) mg/dL Urine Ketones (Negative) mg/dL Urine Occult Blood (Negative) Urine Nitrate (Negative) Urine Bilirubin (Negative) Urine Urobilinogen (Less than 2) mg/dL Ur Leukocyte Esterase (Negative) Urine RBC (0-3) /hpf Urine WBC (0-5) /hpf Micro UA Comment Ur Microscopic Review Urine Culture Comments Urine Opiates Screen (Neg) Ur Barbiturates Screen (Neg) Ur Amphetamines Screen (Neg) U Benzodiazepines Scrn (Neg) Urine Cocaine Screen (Neg) U Cannabinoids Screen (Neg) Serum Alcohol Less than 3 (0-5) mg/dL 08/16/18 08/16/18 Range/Units 21:05 21:05 WBC (4.0-11.0) th/mm3 RBC (4.50-5.90) mil/mm3 Hgb (13.0-17.0) gm/dL Hct (39.0-51.0) % MCV (80.0-100.0) fL MCH (27.0-34.0) pg MCHC (32.0-36.0) % RDW (11.6-17.2) % Plt Count (150-450) th/mm3 MPV (7.0-11.0) fL Neut % (Auto) (16.0-70.0) % Lymph % (Auto) (9.0-44.0) % Towns % (Auto) (0.0-8.0) % Eos % (Auto) (0.0-4.0) % Baso % (Auto) (0.0-2.0) % Neut # (Auto) (1.8-7.7) th/mm3 Lymph # (Auto) (1.0-4.8) th/mm3 Towns # (Auto) (0.0-0.9) th/mm3 Eos # (Auto) (0.0-0.4) th/mm3 Baso # (Auto) (0.0-0.2) th/mm3 WBC Differential Differential Comment Sodium (136-145) meq/L Potassium (3.5-5.1) meq/L Chloride (98-107) meq/L Carbon Dioxide (21.0-32.0) meq/L Anion Gap (5-15) meq/L BUN (7-18) mg/dL Creatinine (0.60-1.30) mg/dL Estimated GFR (>89) mL/min Random Glucose (74-106) mg/dL Calcium (8.5-10.1) mg/dL Total Bilirubin (0.2-1.0) mg/dL AST (15-37) U/L ALT (12-78) U/L Alkaline Phosphatase (45-117) U/L Ammonia (11-32) mcmol/L Troponin I (0.02-0.05) ng/mL B-Natriuretic Peptide (0-100) pg/mL Total Protein (6.4-8.2) g/dL Albumin (3.4-5.0) g/dL Urine Color Straw (Yellw/Straw) Urine Clarity Clear (Clear) Urine pH 6.0 (5.0-8.5) Ur Specific [place] 1.011 (1.002-1.035) Urine Protein 100 H (Neg-Trace) mg/dL Urine Glucose (UA) Negative (Negative) mg/dL Urine Ketones Negative (Negative) mg/dL Urine Occult Blood Small H (Negative) Urine Nitrate Negative (Negative) Urine Bilirubin Negative (Negative) Urine Urobilinogen Less than 2 (Less than 2) mg/dL Ur Leukocyte Esterase Negative (Negative) Urine RBC 2 (0-3) /hpf Urine WBC 1 (0-5) /hpf Micro UA Comment Culture not ind Ur Microscopic Review Not Reportable Urine Culture Comments Culture not ind Urine Opiates Screen (Neg) Ur Barbiturates Screen (Neg) Ur Amphetamines Screen (Neg) U Benzodiazepines Scrn (Neg) Urine Cocaine Screen (Neg) U Cannabinoids Screen (Neg) Serum Alcohol Less than 3 (0-5) mg/dL Imaging Data Radiologist's impression: Chest X-Ray 08/16/18 20:51 CONCLUSION: 1. Cardiomegaly. 2. No focal infiltrate or pulmonary vascular congestion. ECG Data EKG Prior to Arrival: No Attestation: I personally reviewed and interpreted this ECG as follows: Interpretation: Rate 55, sinus rhythm. VA interval 142, QRS 101, QTc [address] ms. [address]H. No acute ST changes. Reviewed by Dr. Nash. Discharge Plan Discharge Disposition Patient Disposition: ED Admit(ED Internal Use Only) Physicians Team ED Provider: Sandhya Nash ED Midlevel Provider: Solange Coates Primary Care Provider: Primary Care Physici,No Rxs /Orders / Referrals /Forms Prescriptions: No Action carvedilol 3.125 mg Tablet 3.125 mg PO BID Qty: 60 RF: 0 furosemide 40 mg Tablet 40 mg PO BID Qty: 60 RF: 0 lisinopril 2.5 mg Tablet 2.5 mg PO DAILY Qty: 30 RF: 0 metolazone 2.5 mg Tablet 5 mg PO DAILY Qty: 30 RF: 0 midodrine 5 mg Tablet 5 mg PO TID Qty: 90 RF: 0 Discharge Interventions Interventions: Vital Signs Last Done: 08/16/18 21:20 Status ED Status: Pending Admission
[2018-08-16 22:22] LABS: Amphetamine Screen,Urine Neg (Neg); Barbiturate Screen,Urine Neg (Neg); Cannabinoid Screen,Urine Neg (Neg); Cocaine Screen,Urine Neg (Neg)
[2018-08-16 22:29] LABS: Opiate Screen,Urine Neg (Neg)
[2018-08-16 22:38] LABS: Albumin 3.6 g/dL (3.4-5.0); Anion Gap 8 meq/L (5-15); Aspartate Aminotransferase 28 U/L (15-37); Blood Urea Nitrogen 66 mg/dL (7-18); Calcium 8.4 mg/dL (8.5-10.1); Carbon Dioxide 22.1 meq/L (21.0-32.0); Chloride 112 meq/L (98-107); Glomerular Filtration Rate 11 mL/min (>89); Glucose,Random 78 mg/dL (74-106); Potassium 5.2 meq/L (3.5-5.1); Sodium 142 meq/L (136-145)
[2018-08-16 22:44] LABS: Alanine Aminotransferase 19 U/L (12-78); Alkaline Phosphatase 108 U/L (45-117); Total Protein 7.9 g/dL (6.4-8.2); Troponin I 0.05 ng/mL (0.02-0.05)
[2018-08-16] MEDS ORDERED: Sodium Polystyrene Sulfonate/Sorbitol Liq 15 GM/60 ML UDC PO ONE (23:30)
[2018-08-17] MEDS ORDERED: Acetaminophen 325 MG Tablet PO PRN ×2 (01:44→08:48)
[2018-08-17] MEDS ORDERED: Bisacodyl 10 MG Supp RECTAL PRN (01:44)
--- NOTE | 2018-08-17 01:59 | P.HPIM ---
History of Present Illness Primary Care Physician: No Primary Care Physician 62-year-old male with a past medical history significant for end-stage renal disease on dialysis presents to the emergency department at the instruction of his case resource manager. Apparently, the hospitality coordinator sent the patient to the emergency department for further evaluation because he has missed the last 6 appointments. The patient reports he does not intend to return to dialysis because they hurt him there. I explained to the patient at length the importance of dialysis including possible at which point he said he did not care. I asked him if he had any intention of harming himself and he said "that is not of your business." He refuses to answer any of my other questions. Review of Systems ROS Unobtainable: other (Patient refusal) [facility] Medical History Medical History Dialysis patient (Acute) End stage renal disease (Acute) Surgical History Surgical History No history of previous surgery (Acute) Family History Family History Other Family history normal Social History Social History Substance History: Past History Second Hand Smoke Exposure: Yes Smoking Status: Former smoker Tobacco Type: Cigarettes How Often Do You Have a Drink Containing Alcohol: Monthly or less Recent Travel in [facility] within the Last 8 Weeks: No Recent Out of Country Travel within the Last 8 Weeks: No Immunization History Tetanus Immunization: >5 Years Medications and Allergies Allergies Allergy/AdvReac Type Severity Reaction Status Date / Time No Known Allergies Allergy Verified 04/18/18 16:36 Active Medications: Active Medications Acetaminophen (Tylenol) 650 mg PO Q4H PRN PRN Reason: Temp > 100.4 Al Hydroxide/Mg Hydroxide (Milk Of Magnesia Liq) 30 ml PO Q12H PRN PRN Reason: Mild Constipation Bisacodyl (Dulcolax Supp) 10 mg RECTAL DAILY PRN PRN Reason: SEVERE CONSITIPATION Carvedilol (Coreg) 3.125 mg PO BID MALIK Furosemide (Lasix) 40 mg PO BID MALIK Heparin Sodium (Porcine) (Heparin Inj) 5,000 units SQ Q12H MALIK Lactulose (Lactulose Liq) 30 ml PO DAILY PRN PRN Reason: SEVERE CONSITIPATION Ondansetron HCl (Zofran Inj) 4 mg IV.PUSH Q6H PRN PRN Reason: NAUSEA OR VOMITING Senna/Docusate Sodium (Carole-Colace) 1 tab PO BID [facility] Sennosides (Senokot) 17.2 mg PO Q12H PRN PRN Reason: Moderate Constipation Sodium Chloride (Ns Flush) 2 ml IV.FLUSH BID MALIK Sodium Chloride (Ns Flush) 2 ml IV.FLUSH PRN PRN PRN Reason: FLUSH AFTER USING IV ACCESS Physical Exam Vital signs: Vital Signs 08/16/18 17:05 08/16/18 21:18 08/16/18 21:20 Temperature 98.7 F Pulse Rate 83 78 84 Respiratory Rate 14 16 Blood Pressure 150/67 H 159/78 H Pulse Oximetry 100 96 96 Intake & Output 08/16/18 08/16/18 08/17/18 06:59 18:59 06:59 Weight 75.75 kg Narrative: Gen.: Cachectic male lying in bed in no acute distress Head: Normocephalic. Atraumatic. EENT: Pupils equal round and reactive to light. Nose without drainage. Airway intact. Throat without injection. Cardiovascular: Regular rate and rhythm. No murmurs, rubs or gallops. Respiratory: Lungs clear to auscultation bilaterally. No wheezes or rhonchi. Abdomen: Soft, nontender, nondistended. No peritoneal signs. Musculoskeletal: No gross deformities. No edema. Fistula in place with good thrill. Skin: No obvious rashes or erythema. Neuro: Sensory and motor grossly intact. Cranial nerves II through XII grossly intact. Results Labs CBC & Chem 7: 08/16/18 21:05 08/16/18 21:05 Imaging Impressions Chest X-Ray 08/16/18 20:51 CONCLUSION: 1. Cardiomegaly. 2. No focal infiltrate or pulmonary vascular congestion. Caprini VTE Risk Assessment Caprini VTE Risk Assessment: Moderate/High Risk (score >= 2) Caprini Risk Assessment Model: Point Value = 1 Point Value = 2 Point Value = 3 Point Value = 5 Age 41-60 Minor surgery BMI > 25 kg/m2 Swollen legs Varicose veins or History of unexplained or recurrent spontaneous Oral contraceptives or hormone replacement Sepsis (< 1 month) Serious lung disease, including pneumonia (< 1 month) Abnormal pulmonary function Acute myocardial infarction Congestive heart failure (< 1 month) History of inflammatory bowel disease Medical patient at bed rest Age 61-74 Arthroscopic surgery Major open surgery (> 45 min) Laparoscopic surgery (> 45 min) Malignancy Confined to bed (> 72 hours) Immobilizing plaster cast Central venous access Age >= 75 History of VTE Family history of VTE Factor V Leiden Prothrombin [id number] Lupus anticoagulant Anticardiolipin antibodies Elevated serum homocysteine Heparin-induced thrombocytopenia Other congenital or acquired thrombophilia Stroke (< 1 month) Elective arthroplasty Hip, pelvis, or leg fracture Acute spinal cord injury (< 1 month) Prophylaxis Regimen: Total Risk Factor Score Risk Level Prophylaxis Regimen 0-1 Low Early ambulation 2 Moderate Order ONE of the following: *Sequential Compression Device (SCD) *Heparin 5000 units SQ BID 3-4 Higher Order ONE of the following medications: *Heparin 5000 units SQ TID *Enoxaparin/Lovenox 40 mg SQ daily (WT < 150 kg, CrCl > 30 mL/min) *Enoxaparin/Lovenox 30 mg SQ daily (WT < 150 kg, CrCl > 10-29 mL/min) *Enoxaparin/Lovenox 30 mg SQ BID (WT < 150 kg, CrCl > 30 mL/min) AND/OR *Sequential Compression Device (SCD) 5 or more Highest Order ONE of the following medications: *Heparin 5000 units SQ TID (Preferred with Epidurals) *Enoxaparin/Lovenox 40 mg SQ daily (WT < 150 kg, CrCl > 30 mL/min) *Enoxaparin/Lovenox 30 mg SQ daily (WT < 150 kg, CrCl > 10-29 mL/min) *Enoxaparin/Lovenox 30 mg SQ BID (WT < 150 kg, CrCl > 30 mL/min) AND *Sequential Compression Device (SCD) Assessment and Plan Plan Assessment/plan: 1. End-stage renal disease on dialysis Patient has missed his last previous 6 dialysis appointments Refuses to return to his dialysis center of which he will not tell me the name Does not know who his tobacco acreage measurer is Nephrology consulted, appreciate assistance Case management consulted to assist with outpatient dialysis 2. Hyperkalemia Potassium 5.2 No EKG changes, personally reviewed Monitor on telemetry Status post Kayexalate Repeat BMP at 6 AM 3. Congestive heart failure Patient had an echo done during her previous hospitalization on 04/19/18 which showed an EF of 20% At that time the patient was too cachectic for defibrillator placement Cardiology recommended repeat echo in 60 days with reevaluation for defibrillator placement Echo pending 4. Noncompliance/concern for intention to harm oneself Patient refused to resume dialysis Stated that he did not the pain dialysis resulted in Refused to answer questions about suicidal ideation Placed under Nash act Psychiatry consulted, appreciate assistance FEN Renal diet Electrolytes: As above Heparin
[2018-08-17] MEDS: Heparin - SQ 10,000 UNITS/ML Vial SQ SCH ×2 (02:12→14:06)
[2018-08-17 08:08] LABS: Calcium 8.1 mg/dL (8.5-10.1); Carbon Dioxide 19.8 meq/L (21.0-32.0); Potassium 5.7 meq/L (3.5-5.1)
[2018-08-17] MEDS: Furosemide 40 MG Tablet PO SCH ×2 (08:31→23:23)
[2018-08-17] MEDS: Senna/Docusate Sodium 8.6/50 MG Tablet PO SCH ×2 (08:32→23:24)
[2018-08-17] MEDS ORDERED: Sod Chloride 0.9% Inj 1,000 ML IV.CONT PRN (08:48)
[2018-08-17] MEDS ORDERED: Sod Chloride 0.9% Inj 1,000 ML OTHER PRN ×2 (08:48)
[2018-08-17] MEDS ORDERED: Heparin 10,000 UNITS/10 ML Vial (for IV use) OTHER PRN ×2 (08:48)
[2018-08-17] MEDS ORDERED: Albumin Human 25% Inj 100 ML IV.SIG PRN (08:48)
[2018-08-17] MEDS ORDERED: Gelatin 12 MM/7 MM Topical Foam TOPICAL PRN (08:48)
--- NOTE | 2018-08-17 09:36 | P.CONNP ---
History of Present Illness Service: Nephrology Reason for Consult: ESRD, hyperkalemia Primary Care Provider: No Primary Care Physician History of Present Illness: This is a patient with ESRD, non ischemic cardiomyopathy with EF of 20 %. He started on dialysis in April of last year. He is supposed to have HD MWF, but has been extremely non compliant. Also is homeless, apparently lives in a car in a parking lot. He was advised to go to the ER as he had missed so many dialysis treatments. He presented here, his serum potassium is 5.7. He has agreed to admission. Review of Systems Constitutional: Reports malaise, Reports weakness Cardiovascular: Denies chest pain Gastrointestinal: Denies abdominal pain, Denies heartburn, Denies vomiting Musculoskeletal: Denies back pain Endocrine: Denies rapid, pounding, or irregular heartbeat PMFSH - History History Provided By: Medical Record - Medical History Medical History: Medical History (Last Updated 08/17/18 @ 01:53 by Caryn Devlin MD) Dialysis patient End stage renal disease - Surgical History Surgical History: Surgical History (Last Reviewed 08/17/18 @ 01:53 by Caryn Devlin MD) No history of previous surgery - Family History Family History: Family History (Last Reviewed 08/17/18 @ 01:53 by Caryn Devlin MD) Other Family history normal - Tobacco History Second Hand Smoke Exposure: Yes Smoking Status: Former smoker Tobacco Type: Cigarettes - Alcohol History How Often Do You Have a Drink Containing Alcohol: Monthly or less - Substance Use History Substance History: Past History - Travel History Recent Travel in the [place] Within the Last 8 Weeks: No Recent Travel Out of the Country Within the Last 8 Weeks: No - Immunization History Tetanus Immunization: >5 Years Medications and Allergies Active Medications: Active Medications Acetaminophen (Tylenol) 650 mg PO Q4H PRN PRN Reason: Temp > 100.4 Acetaminophen (Tylenol) 650 mg PO UNSCH PRN PRN Reason: SEE LABEL COMMENTS Al Hydroxide/Mg Hydroxide (Milk Of Nadia Lililiana) 30 ml PO Q12H PRN PRN Reason: Mild Constipation Bisacodyl (Dulcolax Supp) 10 mg RECTAL DAILY PRN PRN Reason: SEVERE CONSITIPATION Carvedilol (Coreg) 3.125 mg PO BID [facility] Last Admin: 08/17/18 08:31 Dose: 3.125 mg Clonidine HCl (Catapres) 0.1 mg PO UNSCH PRN PRN Reason: SEE LABEL COMMENTS Diphenhydramine HCl (Benadryl) 25 mg PO UNSCH PRN PRN Reason: SEE LABEL COMMENTS Epoetin Morgan (Epogen Inj) 10,000 unit IV.PUSH UNSCH PRN PRN Reason: SEE LABEL COMMENTS Furosemide (Lasix) 40 mg PO BID [facility] Last Admin: 08/17/18 08:31 Dose: 40 mg Gelatin (Gelfoam 12 Mm/7 Mm Topical) 1 foam TOPICAL PRN PRN PRN Reason: help stop bleeding from site Gentamicin Sulfate (Gentamicin Inj) 20 mg OTHER WITH DIALYSIS PRN PRN Reason: Dwell Gentamycin Lock Heparin Sodium (Porcine) (Heparin Inj) 5,000 units SQ Q12H [facility] Last Admin: 08/17/18 02:12 Dose: 5,000 units Heparin Sodium (Porcine) (Heparin Inj) 1,000 units OTHER WITH DIALYSIS PRN PRN Reason: Dwell Heparin to Fill Catheter Heparin Sodium (Porcine) (Heparin Inj) 8,000 units OTHER WITH DIALYSIS PRN PRN Reason: for machine prime Albumin Human (Flexbumin 25% Inj) 100 mls @ 60 mls/hr IV.SIG WITH DIALYSIS PRN PRN Reason: hypotension / volume replace Sodium Chloride (Ns Inj) 1,000 mls @ 0 mls/hr OTHER .Q0M PRN PRN Reason: for prime and rinse back Sodium Chloride (Ns Inj) 1,000 mls @ 200 mls/hr OTHER .Q5H PRN PRN Reason: for dialyzer flush PRN Sodium Chloride (Ns Inj) 1,000 mls @ 0 mls/hr IV.CONT .Q0M PRN PRN Reason: hypotension / volume replace Lactulose (Lactulose Liq) 30 ml PO DAILY PRN PRN Reason: SEVERE CONSITIPATION Mannitol (Mannitol Inj) 12.5 gm IV.PUSH UNSCH PRN PRN Reason: hypotension / volume replace Nitroglycerin (Nitrostat Sl) 0.4 mg SL Q5M PRN PRN Reason: CHEST PAIN Ondansetron HCl (Zofran Inj) 4 mg IV.PUSH Q6H PRN PRN Reason: NAUSEA OR VOMITING Ondansetron HCl (Zofran Inj) 4 mg IV.PUSH UNSCH PRN PRN Reason: NAUSEA OR VOMITING Senna/Docusate Sodium (Carole-Colace) 1 tab PO BID [facility] Last Admin: 08/17/18 08:32 Dose: Not Given Sennosides (Senokot) 17.2 mg PO Q12H PRN PRN Reason: Moderate Constipation Sodium Chloride (Ns Flush) 2 ml IV.FLUSH BID [facility] Last Admin: 08/17/18 08:31 Dose: 2 ml Sodium Chloride (Ns Flush) 2 ml IV.FLUSH PRN PRN PRN Reason: FLUSH AFTER USING IV ACCESS Sodium Chloride (Ns Flush) 5 ml IV.FLUSH PRN PRN PRN Reason: flush each lumen during HD Allergies Allergy/AdvReac Type Severity Reaction Status Date / Time No Known Allergies Allergy Verified 04/18/18 16:36 Exam Vital signs: Vital Signs 08/16/18 17:05 08/16/18 21:18 08/16/18 21:20 Temperature 98.7 F Pulse Rate 83 78 84 Respiratory Rate 14 16 Blood Pressure 150/67 H 159/78 H Pulse Oximetry 100 96 96 08/17/18 02:54 08/17/18 07:11 Temperature 98 F 98.3 F Pulse Rate 61 65 Respiratory Rate 12 16 Blood Pressure 115/59 L 127/60 Pulse Oximetry 97 98 Intake & Output 08/16/18 08/17/18 08/17/18 18:59 06:59 18:59 Weight 75.75 kg Other: # Voids 0 - Constitutional no acute distress, chronically ill appearing - Routine HEENT Exam Head: Present: normocephalic, atraumatic Eye: Present: EOMI, PERRL ENT: Present: mucous membranes moist - Routine Neck Exam Absent: JVD, lymphadenopathy, thyromegaly - Routine Respiratory Exam Present: CTA bilaterally - Routine Cardiovascular Exam Present: RRR, S1, S2 - Routine Abdominal Exam Present: soft, normoactive bowel sounds - Routine Extremities Exam Present: full ROM. Absent: edema - Routine Neurological Exam Present: alert, oriented X3, CN II-XII intact Results - Lab Results 08/16/18 21:05 08/17/18 06:30 Most recent lab results Calcium 8.1 mg/dL (8.5-10.1) L 08/17/18 06:30 Assessment and Plan - Assessment (1) End stage renal disease Code(s): N18.6 - End stage renal disease Status: Acute Plan: I will order dialysis today, it remains to be seen if he will agree. Also apparently he has told other physicians that he will not go back to [facility], this issue needs to be explored. Monitor fluid and electrolytes. (2) Hyperkalemia Code(s): E87.5 - Hyperkalemia Status: Acute Plan: Should improve with dialysis. (3) Chronic systolic congestive heart failure Code(s): I50.22 - Chronic systolic (congestive) heart failure Status: Acute Plan: volume management with dialysis. (4) Anemia secondary to renal failure Code(s): D63.1 - Anemia in chronic kidney disease Status: Acute Plan: Hemoglobin is acceptable, Epogen ordered. - Attending Attestation Thanks for the consult.
--- NOTE | 2018-08-17 09:50 | P.PNIM ---
Subjective Interval history: Follow-up visit ESRD on HD but missed last 6 dialysis appointments, hyperkalemia Patient is resting in bed. When asked what brings him in he states "I don't want to have to go over this again." He then proceeds to say that he has missed his last 6 dialysis appointments because they are hurting him at the dialysis center. He states if he wanted pain he could inflict it by himself. Patient is evasive when answering questions. He denies any pain or discomfort at present time. States he is looking forward to his breakfast. When asked if he is hungry he states "aren't we all, that is why we eat 3 meals a day." Physical Exam Vital signs: Vital Signs 08/16/18 17:05 08/16/18 21:18 08/16/18 21:20 Temperature 98.7 F Pulse Rate 83 78 84 Respiratory Rate 14 16 Blood Pressure 150/67 H 159/78 H Pulse Oximetry 100 96 96 08/17/18 02:54 08/17/18 07:11 Temperature 98 F 98.3 F Pulse Rate 61 65 Respiratory Rate 12 16 Blood Pressure 115/59 L 127/60 Pulse Oximetry 97 98 Intake & Output 08/16/18 08/17/18 08/17/18 18:59 06:59 18:59 Weight 75.75 kg Other: # Voids 0 Narrative: Gen.: Cachectic male lying in bed in no acute distress Head: Normocephalic. Atraumatic. EENT: Pupils equal round and reactive to light. Nose without drainage. Airway intact. Throat without injection. Cardiovascular: Regular rate and rhythm. No murmurs, rubs or gallops. Respiratory: Lungs clear to auscultation bilaterally. No wheezes or rhonchi. Abdomen: Soft, nontender, nondistended. No peritoneal signs. Musculoskeletal: No gross deformities. No edema. Fistula in place with good thrill. Skin: No obvious rashes or erythema. Neuro: Sensory and motor grossly intact. Cranial nerves II through XII grossly intact. Results Labs CBC & Chem 7: 08/16/18 21:05 08/17/18 06:30 Imaging Imaging: Impressions Chest X-Ray 08/16/18 20:51 CONCLUSION: 1. Cardiomegaly. 2. No focal infiltrate or pulmonary vascular congestion. Assessment and Plan (1) End stage renal disease: Code(s): N18.6 - End stage renal disease Status: Acute (2) Hyperkalemia: Code(s): E87.5 - Hyperkalemia Status: Acute (3) Chronic systolic congestive heart failure: Code(s): I50.22 - Chronic systolic (congestive) heart failure Status: Acute (4) Anemia secondary to renal failure: Code(s): D63.1 - Anemia in chronic kidney disease Status: Acute Plan Patient is a 62-year-old male with a past medical history significant for end- stage renal disease on dialysis presents to the emergency department at the instruction of his supportive employment case manager. Apparently, the patient account analyst sent the patient to the emergency department for further evaluation because he has missed the last 6 appointments. End-stage renal disease on dialysis -missed his last previous 6 dialysis appointments -refuses to return to his dialysis center of which he will not tell me the name -does not know who his coater hand is -Nephrology consulted, appreciate assistance -Case management consulted to assist with outpatient dialysis Hyperkalemia -Potassium 5.2->5.7 -No EKG changes, personally reviewed -continue telemetry monitoring -status post Kayexalate Congestive heart failure -patient had an echo done during previous hospitalization on 04/19/18 which showed an EF of 20% -at that time the patient was too cachectic for defibrillator placement -Cardiology recommended repeat echo in 60 days with reevaluation for defibrillator placement -Echo pending Noncompliance/concern for intention to harm oneself -pt refused to resume dialysis -Stated that he did not want the pain dialysis resulted in -Refuses to answer questions about suicidal ideation -under Nash act -Psychiatry consulted, appreciate assistance Code: Full GI ppx: none DVT ppx: Heparin Subcu Discussed with: supervising , RN, patient Dispo: possibly home pending clinical course Attending Attestation The exam, history, and the medical decision-making described in the above note were completed with the assistance of the mid-level provider Rebecca Bennett. I reviewed and agree with the findings presented. I attest that I had a face-to- face encounter with the patient on the same day, and personally performed and documented my assessment and findings in the medical record. Patient seen and examined. He reports that he will not return to his dialysis center because "they hurt him there". He refused to expand on this statement. He states he is open to go to another dialysis center. On exam: Normal S1 and S2. Lungs clear to auscultation. No significant lower extremity edema. Patient is noncompliant with dialysis. Discussed the case with psychiatry. He seems to has capacity to refuse treatment. He is open to go to another dialysis center. We will have case management explore the issue with the patient. Nephrology following. Appreciate assistance. He received dialysis while in the hospital. Progress Note: Quality VTE Deep Vein Thrombosis/Pulmonary Embolism Present on Admission: No
--- NOTE | 2018-08-17 11:09 | P.CONPSY ---
Provisional Diagnosis Admission Date: August 17, 2018 00:04 [place] I.: Adjustment disorder with depressed mood History of Present Illness Service: ER Primary Care Provider: No Primary Care Physician History of Present Illness: The patient is a 62-year-old man, domiciled in [facility] by himself, unemployed, with a psychiatric history of depression, no previous psychiatric hospitalizations, no previous suicide attempts, he says that he is in therapy, no medications, medical history of end-stage renal disease on hemodialysis, hypertension, CHF, EF is 20%, who presents to the emergency department at the instruction of his keycase assembler. Apparently, the financial reporting advisor sent the patient to the emergency department for further evaluation because he has missed the last 6 appointments. The patient reports he does not intend to return to dialysis because they hurt him there. Apparently the patient has been refusing dialysis. He also expressed some level of suicidal ideation, he was placed on the Nash act and consulted to psychiatry to assess suicidality and also his decision-making capacity. On my psychiatric evaluation I found the patient is calm, cooperative, but very oddly related, a little bit histrionic. During the evaluation the patient displays frequent mood swings, as well as inappropriate laughter. However, the patient is able to tell me that he is no refusing dialysis, he once he is dialysis, but he does not want it in the place that he was at. He says that they were not helping him they are not good peopleand they were giving me pain. When I tried to make him to elaborate about the reasons for him to think that they are not good people and what kind of pain, the patient refuses to talk about it. The patient reports to be in a good mood , he says that he does not want to , that he has too many reasons to live for. The patient denies suicidal and homicidal ideation, he denies visual and auditory hallucinations. He agrees to have hemodialysis done here in [place], as well as being referred to another hemodialysis center. Even though the patient seems to be bizarre, he is logical, he is coherent, his relevant. The patient is fully oriented x3, there is no attention deficit, there is no fluctuation of consciousness. Patient does seems to be fixed in mistrust, may be paranoia, but there is no evidence of dangerousness here. There is no agitation or aggressive behavior reported or present during this evaluation. PPHx: with a psychiatric history of depression, no previous psychiatric hospitalizations, no previous suicide attempts, he says that he is in therapy, no medications, PMHx: medical history of end-stage renal disease on hemodialysis, hypertension, CHF, EF is 20%, Substance Hx: The patient denies the use of alcohol or illegal drugs Family Hx: No family psychiatric history Social Hx: man, domiciled in [facility] by himself, unemployed, Review of Systems All other systems reviewed negative except as stated in HPI Constitutional: Denies anorexia, Denies body ache(s), Denies chills, Denies daytime sleepiness, Denies excessive sweating, Denies fatigue, Denies fever(s), Denies headache(s), Denies increased appetite, Denies lack of energy, Denies malaise, Denies night sweats, Denies weakness, Denies weight gain, Denies weight loss, Denies other Neurologic: Denies abnormal hearing, Denies abnormal movements, Denies abnormal speech, Denies abnormal walking, Denies behavioral changes, Denies burning sensations, Denies confusion, Denies dizziness, Denies fainting, Denies frequent falls, Denies headache(s), Denies lack of coordination, Denies localized weakness, Denies loss of vision, Denies memory loss, Denies numbness, Denies other visual disturbances, Denies radiating pain, Denies restless legs, Denies convulsions, Denies seizure-like activity, Denies sensory deficit, Denies tingling, Denies tingling/numbness/burning sensations, Denies tremor(s), Denies unsteadiness, Denies weakness, Denies other Psychiatric: Reports irritability, Reports mood swings, Denies abnormal sleep pattern, Denies anxiety, Denies behavioral changes, Denies change in appetite, Denies change in sex drive, Denies confusion, Denies depression, Denies difficulty concentrating, Denies hearing things others do not hear, Denies hopelessness, Denies lack of enjoyment, Denies memory loss, Denies panic attacks , Denies paranoia, Denies seeing things others do not see, Denies sensing things others do not sense, Denies tactile hallucinations, Denies thoughts of hurting/killing others, Denies thoughts of hurting/killing yourself, Denies other PMFSH - History History Provided By: Medical Record - Medical History Medical History: Medical History (Last Updated 08/17/18 @ 01:53 by Caryn Devlin MD) Dialysis patient End stage renal disease - Surgical History Surgical History: Surgical History (Last Reviewed 08/17/18 @ 01:53 by Caryn Devlin MD) No history of previous surgery - Family History Family History: Family History (Last Reviewed 08/17/18 @ 01:53 by Caryn Devlin MD) Other Family history normal - Tobacco History Second Hand Smoke Exposure: Yes Smoking Status: Former smoker Tobacco Type: Cigarettes - Alcohol History How Often Do You Have a Drink Containing Alcohol: Monthly or less - Substance Use History Substance History: Past History - Travel History Recent Travel in the [place] Within the Last 8 Weeks: No Recent Travel Out of the Country Within the Last 8 Weeks: No - Immunization History Tetanus Immunization: >5 Years Medications and Allergies Active Medications: Active Medications Acetaminophen (Tylenol) 650 mg PO Q4H PRN PRN Reason: Temp > 100.4 Acetaminophen (Tylenol) 650 mg PO UNSCH PRN PRN Reason: SEE LABEL COMMENTS Al Hydroxide/Mg Hydroxide (Milk Of Nadia Durant) 30 ml PO Q12H PRN PRN Reason: Mild Constipation Bisacodyl (Dulcolax Supp) 10 mg RECTAL DAILY PRN PRN Reason: SEVERE CONSITIPATION Carvedilol (Coreg) 3.125 mg PO BID [facility] Last Admin: 08/17/18 08:31 Dose: 3.125 mg Clonidine HCl (Catapres) 0.1 mg PO UNSCH PRN PRN Reason: SEE LABEL COMMENTS Diphenhydramine HCl (Benadryl) 25 mg PO UNSCH PRN PRN Reason: SEE LABEL COMMENTS Epoetin Morgan (Epogen Inj) 10,000 unit IV.PUSH UNSCH PRN PRN Reason: SEE LABEL COMMENTS Furosemide (Lasix) 40 mg PO BID [facility] Last Admin: 08/17/18 08:31 Dose: 40 mg Gelatin (Gelfoam 12 Mm/7 Mm Topical) 1 foam TOPICAL PRN PRN PRN Reason: help stop bleeding from site Gentamicin Sulfate (Gentamicin Inj) 20 mg OTHER WITH DIALYSIS PRN PRN Reason: Dwell Gentamycin Lock Heparin Sodium (Porcine) (Heparin Inj) 5,000 units SQ Q12H [facility] Last Admin: 08/17/18 02:12 Dose: 5,000 units Heparin Sodium (Porcine) (Heparin Inj) 1,000 units OTHER WITH DIALYSIS PRN PRN Reason: Dwell Heparin to Fill Catheter Heparin Sodium (Porcine) (Heparin Inj) 8,000 units OTHER WITH DIALYSIS PRN PRN Reason: for machine prime Albumin Human (Flexbumin 25% Inj) 100 mls @ 60 mls/hr IV.SIG WITH DIALYSIS PRN PRN Reason: hypotension / volume replace Sodium Chloride (Ns Inj) 1,000 mls @ 0 mls/hr OTHER .Q0M PRN PRN Reason: for prime and rinse back Sodium Chloride (Ns Inj) 1,000 mls @ 200 mls/hr OTHER .Q5H PRN PRN Reason: for dialyzer flush PRN Sodium Chloride (Ns Inj) 1,000 mls @ 0 mls/hr IV.CONT .Q0M PRN PRN Reason: hypotension / volume replace Lactulose (Lactulose Liq) 30 ml PO DAILY PRN PRN Reason: SEVERE CONSITIPATION Mannitol (Mannitol Inj) 12.5 gm IV.PUSH UNSCH PRN PRN Reason: hypotension / volume replace Nitroglycerin (Nitrostat Sl) 0.4 mg SL Q5M PRN PRN Reason: CHEST PAIN Ondansetron HCl (Zofran Inj) 4 mg IV.PUSH Q6H PRN PRN Reason: NAUSEA OR VOMITING Ondansetron HCl (Zofran Inj) 4 mg IV.PUSH UNSCH PRN PRN Reason: NAUSEA OR VOMITING Senna/Docusate Sodium (Carole-Colace) 1 tab PO BID [facility] Last Admin: 08/17/18 08:32 Dose: Not Given Sennosides (Senokot) 17.2 mg PO Q12H PRN PRN Reason: Moderate Constipation Sodium Chloride (Ns Flush) 2 ml IV.FLUSH BID [facility] Last Admin: 08/17/18 08:31 Dose: 2 ml Sodium Chloride (Ns Flush) 2 ml IV.FLUSH PRN PRN PRN Reason: FLUSH AFTER USING IV ACCESS Sodium Chloride (Ns Flush) 5 ml IV.FLUSH PRN PRN PRN Reason: flush each lumen during HD Allergies Allergy/AdvReac Type Severity Reaction Status Date / Time No Known Allergies Allergy Verified 10/16/18 16:36 Exam Vital signs: Vital Signs 08/16/18 17:05 08/16/18 21:18 08/16/18 21:20 Temperature 98.7 F Pulse Rate 83 78 84 Respiratory Rate 14 16 Blood Pressure 150/67 H 159/78 H Pulse Oximetry 100 96 96 08/17/18 02:54 08/17/18 07:11 Temperature 98 F 98.3 F Pulse Rate 61 65 Respiratory Rate 12 16 Blood Pressure 115/59 L 127/60 Pulse Oximetry 97 98 Intake & Output 08/16/18 08/17/18 08/17/18 18:59 06:59 18:59 Weight 75.75 kg Other: # Voids 0 Narrative: No tremors, no EPS, no psychomotor agitation or retardation, no withdrawal symptoms - Constitutional no acute distress - Routine HEENT Exam Head: Present: normocephalic, atraumatic Eye: Present: EOMI ENT: Present: mucous membranes moist Mental Status Examination Appearance: Disheveled Consciousness: Alert Orientation: x4 Motor Activity: Normal gait Speech: Unremarkable Language: Adequate Fund of Knowledge: Adequate Attention and Concentration: Adequate Memory: Unremarkable Mood: Appropriate, Irritable Affect: Irritable, Other (Inappropriate) Thought Process & Associations: Intact Thought Content: Appropriate Hallucination Type: None Delusion Type: Bizarre, Paranoid Suicidal Ideation: No Suicidal Plan: No Suicidal Intention: No Homicidal Ideation: No Homicidal Plan: No Homicidal Intention: No Insight: Fair Judgment: Impulsive Assessment and Plan - Assessment (1) Adjustment disorder Code(s): F43.20 - Adjustment disorder, unspecified Status: Acute - Plan Plan: Patient does not present any neuropsychiatric symptoms that requires any immediate psychiatric intervention. Patient denies symptoms of depression, denies anxiety, denies jake, he denies psychotic symptoms. The patient denies suicidal and homicidal ideation. He does present oddly related, with frequent mood swings, irritability and bizarre behavior, at times he gave me the impression that he has paranoid thinking, but he is mostly logical, coherent and relevant. The patient is now refusing to have hemodialysis, he just want to change he is provided. The patient is fully oriented x3, no attention deficit, no fluctuation of consciousness. He is able to express her understanding and appreciation of current medical situation, alternative and consequences of refusing hemodialysis. At this moment the patient does not meet criteria for involuntary psychiatric admission. His recent suicidal expression was most probably the result of frustration and adjustment. He is future oriented, he is quite determined to get his dialysis once he find another place. He does have decision-making capacity at this moment. Extensive support, motivation, psych education provided. Justification for Continued Inpatient Stay: No admission indicated. (1) Adjustment disorder Qualifiers: Adjustment disorder type: with depressed mood Qualified Code(s): F43.21 - Adjustment disorder with depressed mood
--- NOTE | 2018-08-17 11:39 | ECG ---
Date Performed: 08/16/2018 Time Performed: 21:23:31 PTAGE: 62 years EKG: SINUS BRADYCARDIA LEFT VENTRICULAR HYPERTROPHY AND ST-T CHANGE INFERIOR MYOCARDIAL INFARCTI ON ABNORMAL ECG Since the PREVIOUS TRACING , no significant change noted PREVIOUS TRACIN05/01/2018 19.42 DOCTOR: Uche Castellanos Interpretating Date/Time 08/17/2018 11:36:05
--- NOTE | 2018-08-17 16:41 | ECHRPT ---
Indication: HEART FAILURE CONCLUSIONS Mildly dilated left ventricle. Wall thickness is measured at the upper limits of normal. The left ventricular systolic function is moderately reduced with an estimated ejection fraction in the range of 30-35%. The right ventricular systoilc function is mildly decreased. The left atrial size is mildly dilated. Mitral annular calcification is present. [id number] mitral valve regurgitation. Aortic valve sclerosis is present. Trace aortic valve regurgitation. There is mild tricuspid valve regurgitation. The estimated pulmonary arterial pressure is 28 mmHg. BP: / HR: Rhythm: MEASUREMENTS (Male / Female) Normal Values Technical Quality: 2D ECHO LV Diastolic Diameter PLAX 6.2 cm 4.2 - 5.9 / 3.9 - 5.3 cm LV Systolic Diameter PLAX 4.7 cm IVS Diastolic Thickness 0.9 cm 0.6 - 1.0 / 0.6 - 0.9 cm LVPW Diastolic Thickness 0.9 cm 0.6 - 1.0 / 0.6 - 0.9 cm LV Relative Wall Thickness 0.3 RV Internal Dim ED PLAX 3.4 cm LVOT Diameter 1.6 cm Aortic Root Diameter 2.7 cm LA Systolic Diameter LX 3.9 cm 3.0 - 4.0 / 2.7 - 3.8 cm M-MODE AV Cusp Separation MM 1.5 cm DOPPLER AV Peak Velocity 213.0 cm/s AV Peak Gradient 18.1 mmHg AV Mean Gradient 8.5 mmHg AV Velocity Time Integral 45.8 cm LVOT Peak Velocity 121.0 cm/s LVOT Peak Gradient 5.9 mmHg LVOT Velocity Time Integral 28.5 cm AV Area Cont Eq vti 1.3 cm AV Area Cont Eq pk 1.1 cm Mitral E Point Velocity 92.8 cm/s Mitral A Point Velocity 103.0 cm/s Mitral E to A Ratio 0.9 LV E' Lateral Velocity 7.8 cm/s Mitral E to LV E' Lateral Ratio 11.9 LV E' Septal Velocity 5.9 cm/s Mitral E to LV E' Septal Ratio 15.6 TR Peak Velocity 212.0 cm/s TR Peak Gradient 18.0 mmHg Right Atrial Pressure 10.0 mmHg Pulmonary Artery Systolic Pressu 28.0 mmHg Right Ventricular Systolic Press 28.0 mmHg PV Peak Velocity 190.0 cm/s PV Peak Gradient 14.4 mmHg FINDINGS LEFT VENTRICLE Mildly dilated left ventricle. Wall thickness is measured at the upper limits of normal. The left ventricular systolic function is moderately reduced with an estimated ejection fraction in the range of 30-40%. RIGHT VENTRICLE The right ventricular systoilc function is mildly decreased. LEFT ATRIUM The left atrial size is mildly dilated. RIGHT ATRIUM The right atrial size is normal. ATRIAL SEPTUM Normal atrial septal thickness without atrial level shunting by limited color doppler interrogation. AORTA The aortic root and proximal ascending aorta are normal in size on limited imaging. MITRAL VALVE Mitral annular calcification is present. [id number] mitral valve regurgitation. AORTIC VALVE Aortic valve sclerosis is present. Trace aortic valve regurgitation. TRICUSPID VALVE There is mild tricuspid valve regurgitation. The estimated pulmonary arterial pressure is 28 mmHg. PULMONARY VALVE The pulmonary valve is not well visualized. VESSELS The inferior vena cava is normal in size. PERICARDIUM No pericardial effusion. Hesham Mtz MD, FACC (Electronically Signed) Final Date:17 August 2018 16:41
[2018-08-18] MEDS: Heparin - SQ 10,000 UNITS/ML Vial SQ SCH ×2 (02:24→16:52)
[2018-08-18] MEDS: Furosemide 40 MG Tablet PO SCH ×2 (08:55→20:31)
[2018-08-18] MEDS: Senna/Docusate Sodium 8.6/50 MG Tablet PO SCH ×2 (08:55→20:31)
[2018-08-18 11:09] LABS: Baso # (Auto) 0.1 th/mm3 (0.0-0.2); Baso % (Auto) 1.5 % (0.0-2.0); Eos # (Auto) 0.2 th/mm3 (0.0-0.4); Eos % (Auto) 3.5 % (0.0-4.0); Hematocrit 29.8 % (39.0-51.0); Hemoglobin 10.4 gm/dL (13.0-17.0); Lymph # (Auto) 1.3 th/mm3 (1.0-4.8); Lymph % (Auto) 21.7 % (9.0-44.0); Mean Corpuscular HGB Conc 34.9 % (32.0-36.0); Mean Corpuscular Hemoglobin 32.8 pg (27.0-34.0); Mean Corpuscular Volume 93.9 fL (80.0-100.0); Mono # (Auto) 0.4 th/mm3 (0.0-0.9); Mono % (Auto) 7.2 % (0.0-8.0); Neut # (Auto) 3.9 th/mm3 (1.8-7.7); Neut % (Auto) 66.1 % (16.0-70.0); Platelet Count 237 th/mm3 (150-450); Red Blood Count 3.17 mil/mm3 (4.50-5.90); Red Cell Distribution Width 15.2 % (11.6-17.2); White Blood Count 5.8 th/mm3 (4.0-11.0)
--- NOTE | 2018-08-18 11:19 | P.PNNP ---
Subjective Interval history: Patient was seen, no distress, no complaints. Patient will get dialysis today. Patient dialyzed yesterday, 1.5 L removed in UF. <Jey Norman - Last Filed: 08/18/18 11:14> Physical Exam Vital signs: Vital Signs 08/17/18 11:38 08/17/18 15:42 08/17/18 22:50 Temperature 98.3 F 97.9 F 97.7 F Pulse Rate 64 54 L 71 Respiratory Rate 18 16 17 Blood Pressure 122/67 129/62 148/66 H Pulse Oximetry 98 98 97 08/18/18 00:01 08/18/18 00:35 08/18/18 02:19 Temperature Pulse Rate 64 67 110 H Respiratory Rate 17 Blood Pressure 105/54 L Pulse Oximetry 95 08/18/18 03:49 08/18/18 05:05 08/18/18 08:00 Temperature 97.7 F 98.3 F Pulse Rate 67 73 77 Respiratory Rate 16 16 Blood Pressure 114/60 115/57 L Pulse Oximetry 96 97 08/18/18 08:58 Temperature Pulse Rate Respiratory Rate Blood Pressure Pulse Oximetry 94 L Intake & Output 08/17/18 08/18/18 08/18/18 18:59 06:59 18:59 Intake Total 240 / 240 Output Total 1500 / 1500 Balance -1260 / -1260 Weight 50.5 kg Intake: Oral 240 / 240 Output: Hemodialysis Amount 1500 / 1500 Other: # Voids 6 2 Date of Last Bowel Movement 08/17/18 08/17/18 # Bowel Movements 0 Weight On Admission 50.5 kg Narrative: No tremors, no EPS, no psychomotor agitation or retardation, no withdrawal symptoms - Constitutional no acute distress - Routine HEENT Exam Head: Present: normocephalic Eye: Present: EOMI ENT: Present: mucous membranes dry - Routine Neck Exam Present: trachea midline. Absent: tracheal deviation - Routine Respiratory Exam Present: CTA bilaterally. Absent: accessory muscle use - Routine Abdominal Exam Present: soft. Absent: tenderness - Routine Extremities Exam Present: AV fistula - Routine Neurological Exam Present: alert - Routine Psychiatric Exam Present: normal affect <Jey Norman - Last Filed: 08/18/18 11:14> Vital signs: Vital Signs 08/17/18 15:42 08/17/18 22:50 08/18/18 00:01 Temperature 97.9 F 97.7 F Pulse Rate 54 L 71 64 Respiratory Rate 16 17 Blood Pressure 129/62 148/66 H Pulse Oximetry 98 97 08/18/18 00:35 08/18/18 02:19 08/18/18 03:49 Temperature Pulse Rate 67 110 H 67 Respiratory Rate 17 Blood Pressure 105/54 L Pulse Oximetry 95 08/18/18 05:05 08/18/18 08:00 08/18/18 08:58 Temperature 97.7 F 98.3 F Pulse Rate 73 65 Respiratory Rate 16 16 Blood Pressure 114/60 115/57 L Pulse Oximetry 96 97 94 L 08/18/18 09:40 08/18/18 12:00 Temperature 98.2 F Pulse Rate 70 Respiratory Rate 16 Blood Pressure 101/55 L Pulse Oximetry 94 L 96 Intake & Output 08/17/18 08/18/18 08/18/18 18:59 06:59 18:59 Intake Total 240 / 240 Output Total 1500 / 1500 Balance -1260 / -1260 Weight 50.5 kg Intake: Oral 240 / 240 Output: Hemodialysis Amount 1500 / 1500 Other: # Voids 6 2 Date of Last Bowel Movement 08/17/18 08/17/18 # Bowel Movements 0 Weight On Admission 50.5 kg <Edmundo Tapia - Last Filed: 08/18/18 14:32> Assessment and Plan - Assessment (1) End stage renal disease Code(s): N18.6 - End stage renal disease Status: Acute Plan: Patient normally dialyzed MWF at [facility] in [place] but is no compliant. Patient dialyzed yesterday, 1.5 L removed. Patient to be dialyzed today. Monitor fluid and electrolytes. Consult to IR put in for PermCath removal. Patient uses left arm AVF for dialysis. (2) Hyperkalemia Code(s): E87.5 - Hyperkalemia Status: Acute Plan: Should improve with dialysis. Labs for today are pending. Monitor. (3) Chronic systolic congestive heart failure Code(s): I50.22 - Chronic systolic (congestive) heart failure Status: Acute Plan: volume management with dialysis. (4) Anemia secondary to renal failure Code(s): D63.1 - Anemia in chronic kidney disease Status: Acute Plan: Hemoglobin 10.4, Epogen ordered with dialysis. <Jey Norman - Last Filed: 08/18/18 11:14> - Assessment (1) End stage renal disease Code(s): N18.6 - End stage renal disease Status: Acute (2) Hyperkalemia Code(s): E87.5 - Hyperkalemia Status: Acute (3) Chronic systolic congestive heart failure Code(s): I50.22 - Chronic systolic (congestive) heart failure Status: Acute (4) Anemia secondary to renal failure Code(s): D63.1 - Anemia in chronic kidney disease Status: Acute - Attending Attestation patient was seen and examined during dialysis. Repeat potassium is 4. PermCath to be removed today before discharge. He can be discharged from renal standpoint. <Edmundo Tapia - Last Filed: 08/18/18 14:32>
[2018-08-18 11:37] LABS: Calcium 7.9 mg/dL (8.5-10.1); Carbon Dioxide 32.1 meq/L (21.0-32.0); Phosphorus 4.3 mg/dL (2.5-4.9)
[2018-08-18] MEDS ORDERED: Lidocaine 1%/Epinephrine 1:100,000 Inj 20 ML Vial ONE (15:42)
--- NOTE | 2018-08-18 16:10 | P.RAD ---
Post Procedure Progress Note - Pre Procedure Diagnosis (1) End stage renal disease - Post Procedure Diagnosis (1) End stage renal disease - Procedure Information Procedure Date: 08/18/18 Supervising Radiologist: Marc Murrell Jr, MD Proceduralist/Assist: Ita Estimated blood loss (mL): 0 Anesthesia: Local - Plan of Activity Patient to Unit: Nursing Unit Patient Condition: Good See PACS Report for procedural detail/treatment. [facility] Radiology Procedures right Internal Jugular Hemodialysis Catheter Tunneled Removal Device: dual lumen Faroese: 15 - Additional Detail Findings: RIJ permcath no longer needed. Has functioning fistula. Permcath removed without difficulty. Plan: To nursing unit.
--- NOTE | 2018-08-18 16:38 | IR ---
EXAM DATE: 08/18/2018 4:02 PM EST AGE/SEX: 62 years / Male INDICATIONS: Patient with a history of end stage renal disease. Has functioning fistula. PermCath re moval requested. CLINICAL DATA: This is the patient's subsequent encounter. Patient reports that signs and symptoms h ave been present for 4 - 6 months and indicates a pain score of 0/10. MEDICAL/SURGICAL HISTORY: Renal disease, end stage. None. COMPARISON: No prior exams available for comparison. IMAGE SERIES: 0 ACCESS SITE: Right . . PROCEDURE: 1. PermaCath removal. The risks, benefits and alternatives to the procedure were explained and verbal and written consent w as obtained. The site was prepped in sterile fashion. Full sterile technique was used, including ca p, mask, sterile gloves and gown and a large sterile sheet. Hand hygiene and 2% chlorhexidine and/or betadine/alcohol prep was utilized per protocol for cutaneous antisepsis. The skin and subcutaneous tissues were infiltrated with local anesthetic solution. The heparin was aspirated from both lumens of the catheter. The tract was anesthetized with 1% Lidoca ine using. The Permcath was dissected from the subcutaneous tissues and easily removed in one piece. Manual pressure was applied to the venotomy site until hemostasis was obtained. Sterile dressing w as applied. The patient tolerated the procedure well and there were no complications. CONCLUSION: 1. Uncomplicated right internal jugular vein Permcath removal. Electronically signed by: Marc Murrell MD Board Certified Radiologist 08/18/2018 4:37 PM EST
--- NOTE | 2018-08-18 17:24 | P.PNIM ---
Subjective Interval history: Patient is seen lying in bed. Tells me that he is feeling okay. He is got is getting dialysis because "they are nice down there". No chest pain or shortness of breath. No fever or chills. No nausea vomiting or diarrhea. Physical Exam Vital signs: Vital Signs 08/17/18 22:50 08/18/18 00:01 08/18/18 00:35 Temperature 97.7 F Pulse Rate 71 64 67 Respiratory Rate 17 17 Blood Pressure 148/66 H 105/54 L Pulse Oximetry 97 95 08/18/18 02:19 08/18/18 03:49 08/18/18 05:05 Temperature 97.7 F Pulse Rate 110 H 67 73 Respiratory Rate 16 Blood Pressure 114/60 Pulse Oximetry 96 08/18/18 08:00 08/18/18 08:58 08/18/18 09:40 Temperature 98.3 F Pulse Rate 65 Respiratory Rate 16 Blood Pressure 115/57 L Pulse Oximetry 97 94 L 94 L 08/18/18 12:00 08/18/18 16:15 Temperature 98.2 F 99 F Pulse Rate 70 65 Respiratory Rate 16 16 Blood Pressure 101/55 L 112/58 L Pulse Oximetry 96 97 Intake & Output 08/17/18 08/18/18 08/18/18 18:59 06:59 18:59 Intake Total 240 / 240 Output Total 1500 / 1500 Balance -1260 / -1260 Weight 50.5 kg Intake: Oral 240 / 240 Output: Hemodialysis Amount 1500 / 1500 Other: # Voids 6 2 Date of Last Bowel Movement 08/17/18 08/17/18 # Bowel Movements 0 Weight On Admission 50.5 kg Narrative: GENERAL: Cachectic and disheveled adult male in no obvious distress. SKIN: Warm and dry. Left AV fistula +BT HEAD: Atraumatic. Normocephalic. CARDIOVASCULAR: Regular rate and rhythm. RESPIRATORY: No accessory muscle use. Clear to auscultation. Breath sounds equal bilaterally. GASTROINTESTINAL: Abdomen soft, non-tender, non-distended. Positive bowel sounds. MUSCULOSKELETAL: Extremities without clubbing, cyanosis, or edema. No obvious deformities. NEUROLOGICAL: Awake and alert. No obvious cranial nerve deficits. Motor grossly within normal limits. Normal speech. PSYCHIATRIC: Odd affect; poor historian Results Labs CBC & Chem 7: 08/18/18 10:32 08/18/18 10:32 Imaging Imaging: Impressions Tube Removal 08/18/18 00:00 CONCLUSION: 1. Uncomplicated right internal jugular vein Permcath removal. Assessment and Plan (1) End stage renal disease: Code(s): N18.6 - End stage renal disease Status: Acute (2) Hyperkalemia: Code(s): E87.5 - Hyperkalemia Status: Acute (3) Chronic systolic congestive heart failure: Code(s): I50.22 - Chronic systolic (congestive) heart failure Status: Acute (4) Anemia secondary to renal failure: Code(s): D63.1 - Anemia in chronic kidney disease Status: Acute Plan Patient is a 62-year-old male with a past medical history significant for end- stage renal disease on dialysis presents to the emergency department at the instruction of his case liner. Apparently, the home child care provider sent the patient to the emergency department for further evaluation because he has missed the last 6 appointments. End-stage renal disease on dialysis Hyperkalemia -missed his last previous 6 dialysis appointments -refuses to return to his dialysis center -does not know who his marketing automation manager is -Nephrology consulted, appreciate assistance -Case management consulted to assist with outpatient dialysis -HD 08/18. Now cleared by nephrology. Congestive heart failure -patient had an echo done during previous hospitalization on 04/19/18 which showed an EF of 20% -at that time the patient was too cachectic for defibrillator placement -Cardiology recommended repeat echo in 60 days with reevaluation for defibrillator placement -Echo repeated 08/18 - EF 30-35% -Recommending following up with cardiology as an outpatient Noncompliance/concern for intention to harm oneself -under Nash act -Psychiatry consulted, appreciate assistance Code: Full DVT ppx: Heparin Subcu Dispo: Patient is medically stable. Has been cleared by nephrology. He can be transferred to psychiatry for additional care and treatment. Progress Note: Quality VTE Deep Vein Thrombosis/Pulmonary Embolism Present on Admission: No
[2018-08-19] MEDS: Heparin - SQ 10,000 UNITS/ML Vial SQ SCH ×2 (02:39→13:38)
[2018-08-19] MEDS: Furosemide 40 MG Tablet PO SCH ×2 (09:16→20:44)
[2018-08-19] MEDS: Senna/Docusate Sodium 8.6/50 MG Tablet PO SCH ×2 (09:16→20:44)
--- NOTE | 2018-08-19 16:40 | P.PNIM ---
Subjective Interval history: Patient is seen lying in bed today. He is quite jovial this morning. Feeling better after dialysis. He tells me that he has a car and apartment he is going to live and when he gets out of here. No new complaints. Nursing reports no adverse events. Physical Exam Vital signs: Vital Signs 08/18/18 19:07 08/18/18 19:54 08/18/18 23:29 Temperature 98.2 F 98.2 F Pulse Rate 69 122 H 68 Respiratory Rate 18 18 Blood Pressure 100/55 L 99/50 L Pulse Oximetry 92 L 92 L 08/19/18 00:24 08/19/18 03:26 08/19/18 07:59 Temperature 98.1 F Pulse Rate 63 59 L 62 Respiratory Rate 18 Blood Pressure 104/50 L Pulse Oximetry 92 L 08/19/18 08:00 08/19/18 13:18 08/19/18 16:00 Temperature 98.3 F 98.5 F 98.3 F Pulse Rate 63 78 76 Respiratory Rate 18 18 18 Blood Pressure 120/82 124/59 L 112/59 L Pulse Oximetry 99 95 95 Intake & Output 08/18/18 08/19/18 08/19/18 18:59 06:59 18:59 Intake Total 480 / 480 480 / 480 480 / 480 Balance 480 / 480 480 / 480 480 / 480 Weight 52.1 kg Intake: Oral 480 / 480 480 / 480 480 / 480 Other: # Voids 3 4 1 Date of Last Bowel Movement 08/17/18 08/17/18 08/17/18 # Bowel Movements 0 0 1 Narrative: GENERAL: Cachectic and disheveled adult male in no obvious distress. SKIN: Warm and dry. Left AV fistula +BT. Dressing on right chest wall were prior Vas-Cath was removed; no drainage or indication of infection HEAD: Atraumatic. Normocephalic. CARDIOVASCULAR: Regular rate and rhythm. RESPIRATORY: No accessory muscle use. Clear to auscultation. Breath sounds equal bilaterally. GASTROINTESTINAL: Abdomen soft, non-tender, non-distended. Positive bowel sounds. MUSCULOSKELETAL: Extremities without clubbing, cyanosis, or edema. No obvious deformities. NEUROLOGICAL: Awake and alert. No obvious cranial nerve deficits. Motor grossly within normal limits. Normal speech. PSYCHIATRIC: Odd affect; poor historian Results Labs CBC & Chem 7: 08/18/18 10:32 08/18/18 10:32 Imaging Imaging: Impressions Tube Removal 08/18/18 00:00 CONCLUSION: 1. Uncomplicated right internal jugular vein Permcath removal. Assessment and Plan (1) End stage renal disease: Code(s): N18.6 - End stage renal disease Status: Acute (2) Hyperkalemia: Code(s): E87.5 - Hyperkalemia Status: Acute (3) Chronic systolic congestive heart failure: Code(s): I50.22 - Chronic systolic (congestive) heart failure Status: Acute (4) Anemia secondary to renal failure: Code(s): D63.1 - Anemia in chronic kidney disease Status: Acute Plan Patient is a 62-year-old male with a past medical history significant for end- stage renal disease on dialysis presents to the emergency department at the instruction of his human services case manager. Apparently, the hydrogen cell tender sent the patient to the emergency department for further evaluation because he has missed the last 6 appointments. End-stage renal disease on dialysis Hyperkalemia -missed his last previous 6 dialysis appointments -refuses to return to his dialysis center -does not know who his mva operator is -Nephrology consulted, appreciate assistance -Case management consulted to assist with outpatient dialysis -HD 08/18. Now cleared by nephrology. Congestive heart failure -patient had an echo done during previous hospitalization on 04/19/18 which showed an EF of 20% -at that time the patient was too cachectic for defibrillator placement -Cardiology recommended repeat echo in 60 days with reevaluation for defibrillator placement -Echo repeated 08/18 - EF 30-35% -Recommending following up with cardiology as an outpatient Noncompliance/concern for intention to harm oneself -under Nash act -Psychiatry consulted, appreciate assistance Code: Full DVT ppx: Heparin Subcu Dispo: Patient is medically stable. Has been cleared by nephrology. He can be transferred to psychiatry for additional care and treatment if indicated. Otherwise clear for discharge once outpatient dialysis been set up. Progress Note: Quality VTE Deep Vein Thrombosis/Pulmonary Embolism Present on Admission: No
--- NOTE | 2018-08-19 21:45 | P.PNNP ---
Subjective Interval history: Patient seen in the afternoon, not in distress, clinically same. Physical Exam Vital signs: Vital Signs 08/18/18 23:29 08/19/18 00:24 08/19/18 03:26 Temperature 98.2 F 98.1 F Pulse Rate 68 63 59 L Respiratory Rate 18 18 Blood Pressure 99/50 L 104/50 L Pulse Oximetry 92 L 92 L 08/19/18 07:59 08/19/18 08:00 08/19/18 13:18 Temperature 98.3 F 98.5 F Pulse Rate 62 63 78 Respiratory Rate 18 18 Blood Pressure 120/82 124/59 L Pulse Oximetry 99 95 08/19/18 16:00 08/19/18 16:06 Temperature 98.3 F Pulse Rate 76 65 Respiratory Rate 18 Blood Pressure 112/59 L Pulse Oximetry 95 Intake & Output 08/19/18 08/19/18 08/20/18 06:59 18:59 06:59 Intake Total 480 / 480 480 / 480 Balance 480 / 480 480 / 480 Weight 52.1 kg Intake: Oral 480 / 480 480 / 480 Other: # Voids 4 1 Date of Last Bowel Movement 08/17/18 08/17/18 # Bowel Movements 0 1 Narrative: Narrative: GENERAL: Cachectic and disheveled adult male in no obvious distress. SKIN: Warm and dry. Left AV fistula +BT HEAD: Atraumatic. Normocephalic. CARDIOVASCULAR: Regular rate and rhythm. RESPIRATORY: No accessory muscle use. Clear to auscultation. Breath sounds equal bilaterally. GASTROINTESTINAL: Abdomen soft, non-tender, non-distended. Positive bowel sounds. MUSCULOSKELETAL: Extremities without clubbing, cyanosis, or edema. No obvious deformities. NEUROLOGICAL: Awake and alert. No obvious cranial nerve deficits. Motor grossly within normal limits. Normal speech. Assessment and Plan - Assessment (1) End stage renal disease Code(s): N18.6 - End stage renal disease Status: Acute Plan: Patient normally dialyzed MWF at [facility] in [place] but is no compliant. Patient dialyzed yesterday, Monitor fluid and electrolytes. Consult to IR put in for PermCath removal. Patient uses left arm AVF for dialysis. Patient has to be compliant with HD treatment. (2) Hyperkalemia Code(s): E87.5 - Hyperkalemia Status: Acute Plan: Should improve with dialysis. Labs for today are pending. Monitor. (3) Chronic systolic congestive heart failure Code(s): I50.22 - Chronic systolic (congestive) heart failure Status: Acute Plan: volume management with dialysis. (4) Anemia secondary to renal failure Code(s): D63.1 - Anemia in chronic kidney disease Status: Acute Plan: Hemoglobin 10.4, Epogen ordered with dialysis.
[2018-08-20] MEDS: Heparin - SQ 10,000 UNITS/ML Vial SQ SCH ×2 (02:14→13:18)
[2018-08-20] MEDS: Furosemide 40 MG Tablet PO SCH ×2 (09:25→21:51)
[2018-08-20] MEDS: Senna/Docusate Sodium 8.6/50 MG Tablet PO SCH ×3 (09:26→21:53)
--- NOTE | 2018-08-20 13:51 | P.PNIM ---
Subjective Interval history: Patient is seen sitting up in room. He is less outgoing today and seems somewhat guarded. Denies any new complaints or concerns just says he "is not feeling it". Nursing reports no adverse events Physical Exam Vital signs: Vital Signs 08/19/18 16:00 08/19/18 16:06 08/19/18 20:38 Temperature 98.3 F 97.9 F Pulse Rate 76 65 74 Respiratory Rate 18 18 Blood Pressure 112/59 L 120/55 L Pulse Oximetry 95 96 08/19/18 23:56 08/20/18 00:56 08/20/18 04:01 Temperature 98 F 97.1 F L Pulse Rate 67 61 73 Respiratory Rate 17 18 Blood Pressure 114/53 L 123/58 L Pulse Oximetry 99 99 08/20/18 04:07 08/20/18 07:55 08/20/18 09:02 Temperature 97.9 F Pulse Rate 60 68 63 Respiratory Rate 20 Blood Pressure 128/60 Pulse Oximetry 97 08/20/18 13:11 Temperature 98.0 F Pulse Rate 60 Respiratory Rate 22 Blood Pressure 110/53 L Pulse Oximetry 96 Intake & Output 08/19/18 08/20/18 08/20/18 18:59 06:59 18:59 Intake Total 480 / 480 Balance 480 / 480 Intake: Oral 480 / 480 Other: # Voids 1 Date of Last Bowel Movement 08/17/18 08/17/18 08/19/18 # Bowel Movements 1 Narrative: GENERAL: Cachectic and disheveled adult male in no obvious distress. SKIN: Warm and dry. Left AV fistula +BT. Dressing on right chest wall were prior Vas-Cath was removed; no drainage or indication of infection HEAD: Atraumatic. Normocephalic. CARDIOVASCULAR: Regular rate and rhythm. RESPIRATORY: No accessory muscle use. Clear to auscultation. Breath sounds equal bilaterally. GASTROINTESTINAL: Abdomen soft, non-tender, non-distended. Positive bowel sounds. MUSCULOSKELETAL: Extremities without clubbing, cyanosis, or edema. No obvious deformities. NEUROLOGICAL: Awake and alert. No obvious cranial nerve deficits. Motor grossly within normal limits. Normal speech. PSYCHIATRIC: Odd affect; poor historian Results Labs CBC & Chem 7: 08/18/18 10:32 08/18/18 10:32 Assessment and Plan (1) End stage renal disease: Code(s): N18.6 - End stage renal disease Status: Acute (2) Hyperkalemia: Code(s): E87.5 - Hyperkalemia Status: Acute (3) Chronic systolic congestive heart failure: Code(s): I50.22 - Chronic systolic (congestive) heart failure Status: Acute (4) Anemia secondary to renal failure: Code(s): D63.1 - Anemia in chronic kidney disease Status: Acute Plan Patient is a 62-year-old male with a past medical history significant for end- stage renal disease on dialysis presents to the emergency department at the instruction of his case manager specialist. Apparently, the blow moulding machine operator sent the patient to the emergency department for further evaluation because he has missed the last 6 appointments. End-stage renal disease on dialysis Hyperkalemia -missed his last previous 6 dialysis appointments -refuses to return to his dialysis center -does not know who his service agent is -Nephrology consulted, appreciate assistance -Case management consulted to assist with outpatient dialysis -HD 08/18. Nephrology has cleared for discharge but is still following due to possible need for additional HD Congestive heart failure -patient had an echo done during previous hospitalization on 04/19/18 which showed an EF of 20% -at that time the patient was too cachectic for defibrillator placement -Cardiology recommended repeat echo in 60 days with reevaluation for defibrillator placement -Echo repeated 08/18 - EF 30-35% -Recommending following up with cardiology as an outpatient Noncompliance/concern for intention to harm oneself -under Nash act; now lifted -Psychiatry consulted, appreciate assistance -Does not need psychiatric admit per note. Code: Full DVT ppx: Heparin Subcu Dispo: Patient is medically stable. Has been cleared by nephrology. clear for discharge once outpatient dialysis been set up. Progress Note: Quality VTE Deep Vein Thrombosis/Pulmonary Embolism Present on Admission: No
--- NOTE | 2018-08-20 19:26 | P.PNNP ---
Subjective Interval history: Patient is alert, seen in the afternoon, no SOB, not in distress. Physical Exam Vital signs: Vital Signs 08/19/18 20:38 08/19/18 23:56 08/20/18 00:56 Temperature 97.9 F 98 F Pulse Rate 74 67 61 Respiratory Rate 18 17 Blood Pressure 120/55 L 114/53 L Pulse Oximetry 96 99 08/20/18 04:01 08/20/18 04:07 08/20/18 07:55 Temperature 97.1 F L Pulse Rate 73 60 68 Respiratory Rate 18 Blood Pressure 123/58 L Pulse Oximetry 99 08/20/18 09:02 08/20/18 12:06 08/20/18 13:11 Temperature 97.9 F 98.0 F Pulse Rate 63 72 60 Respiratory Rate 20 22 Blood Pressure 128/60 110/53 L Pulse Oximetry 97 96 08/20/18 16:51 Temperature 97.4 F L Pulse Rate 58 L Respiratory Rate 19 Blood Pressure 101/53 L Pulse Oximetry 98 Intake & Output 08/20/18 08/20/18 08/21/18 06:59 18:59 06:59 Other: # Voids 1 Date of Last Bowel Movement 08/17/18 08/19/18 Narrative: Narrative: GENERAL: Cachectic and disheveled adult male in no obvious distress. SKIN: Warm and dry. Left AV fistula +BT HEAD: Atraumatic. Normocephalic. CARDIOVASCULAR: Regular rate and rhythm. RESPIRATORY: No accessory muscle use. Clear to auscultation. Breath sounds equal bilaterally. GASTROINTESTINAL: Abdomen soft, non-tender, non-distended. Positive bowel sounds. MUSCULOSKELETAL: Extremities without clubbing, cyanosis, or edema. No obvious deformities. NEUROLOGICAL: Awake and alert. No obvious cranial nerve deficits. Motor grossly within normal limits. Normal speech. Assessment and Plan - Assessment (1) End stage renal disease Code(s): N18.6 - End stage renal disease Status: Acute Plan: Patient normally dialyzed MWF at [facility] in [place] but is no compliant. Patient dialyzed on Tuesday, Monitor fluid and electrolytes. Consult to IR put in for PermCath removal. Patient uses left arm AVF for dialysis. Patient has to be compliant with HD treatment. HD will be in AM, dr. Tapia will follow from AM. (2) Hyperkalemia Code(s): E87.5 - Hyperkalemia Status: Acute Plan: Should improve with dialysis. Labs for today are pending. Monitor. (3) Chronic systolic congestive heart failure Code(s): I50.22 - Chronic systolic (congestive) heart failure Status: Acute Plan: volume management with dialysis. (4) Anemia secondary to renal failure Code(s): D63.1 - Anemia in chronic kidney disease Status: Acute Plan: Hemoglobin 10.4, Epogen ordered with dialysis.
[2018-08-21] MEDS: Heparin - SQ 10,000 UNITS/ML Vial SQ SCH (02:38)
[2018-08-21 05:52] VITALS: RESP 18
[2018-08-21] MEDS: Furosemide 40 MG Tablet PO SCH (09:10)
[2018-08-21] MEDS: Senna/Docusate Sodium 8.6/50 MG Tablet PO SCH (09:10)
[2018-08-21 09:19] VITALS: BP 133/61; PULSE 59; TEMP 98.2; O2SAT 98
--- NOTE | 2018-08-21 09:58 | P.PNIM ---
Subjective Interval history: Patient is seen ambulating in the hallway. He is somewhat hostile this morning and unwilling to talk with me. Refused dialysis this morning. Agrees to go now. Nursing reports no adverse events. Physical Exam Vital signs: Vital Signs 08/20/18 12:06 08/20/18 13:11 08/20/18 15:46 Temperature 98.0 F Pulse Rate 72 60 74 Respiratory Rate 22 Blood Pressure 110/53 L Pulse Oximetry 96 08/20/18 16:51 08/20/18 20:48 08/21/18 00:42 Temperature 97.4 F L 98.9 F 98.4 F Pulse Rate 58 L 67 69 Respiratory Rate 19 17 17 Blood Pressure 101/53 L 128/60 106/58 L Pulse Oximetry 98 95 97 08/21/18 01:24 08/21/18 01:30 08/21/18 05:13 Temperature 98.4 F 98.1 F Pulse Rate 69 61 Respiratory Rate 18 16 18 Blood Pressure 106/58 L 113/56 L Pulse Oximetry 97 95 08/21/18 08:00 Temperature 98.2 F Pulse Rate 59 L Respiratory Rate 18 Blood Pressure 133/61 Pulse Oximetry 98 Intake & Output 08/20/18 08/21/18 08/21/18 18:59 06:59 18:59 Intake Total 900 / 900 Balance 900 / 900 Weight 51 kg Intake: Oral 900 / 900 Other: # Voids 3 Date of Last Bowel Movement 08/19/18 08/19/18 # Bowel Movements 0 Narrative: GENERAL: Cachectic and disheveled adult male in no obvious distress. SKIN: Warm and dry. Left AV fistula +BT. Dressing on right chest wall were prior Vas-Cath was removed; no drainage or indication of infection HEAD: Atraumatic. Normocephalic. CARDIOVASCULAR: Regular rate and rhythm. RESPIRATORY: No accessory muscle use. Clear to auscultation. Breath sounds equal bilaterally. GASTROINTESTINAL: Abdomen soft, non-tender, non-distended. Positive bowel sounds. MUSCULOSKELETAL: Extremities without clubbing, cyanosis, or edema. No obvious deformities. NEUROLOGICAL: Awake and alert. No obvious cranial nerve deficits. Motor grossly within normal limits. Normal speech. PSYCHIATRIC: Odd affect; poor historian Results Labs CBC & Chem 7: 08/18/18 10:32 08/18/18 10:32 Assessment and Plan (1) End stage renal disease: Code(s): N18.6 - End stage renal disease Status: Acute (2) Hyperkalemia: Code(s): E87.5 - Hyperkalemia Status: Acute (3) Chronic systolic congestive heart failure: Code(s): I50.22 - Chronic systolic (congestive) heart failure Status: Acute (4) Anemia secondary to renal failure: Code(s): D63.1 - Anemia in chronic kidney disease Status: Acute Plan Patient is a 62-year-old male with a past medical history significant for end- stage renal disease on dialysis presents to the emergency department at the instruction of his counter caser. Apparently, the supervisor livestock yard sent the patient to the emergency department for further evaluation because he has missed the last 6 appointments. End-stage renal disease on dialysis Hyperkalemia -missed his last previous 6 dialysis appointments -refuses to return to his dialysis center -does not know who his dry cleaner presser is -Nephrology consulted, appreciate assistance -Case management consulted to assist with outpatient dialysis -HD 08/18. Nephrology has cleared for discharge but is still following due to possible need for additional HD; will do HD today 08/21 and then cleared for discharge. Congestive heart failure -patient had an echo done during previous hospitalization on 04/19/18 which showed an EF of 20% -at that time the patient was too cachectic for defibrillator placement -Cardiology recommended repeat echo in 60 days with reevaluation for defibrillator placement -Echo repeated 08/18 - EF 30-35% -Recommending following up with cardiology as an outpatient Noncompliance/concern for intention to harm oneself -under Nash act; now lifted -Psychiatry consulted, appreciate assistance -Does not need psychiatric admit per note. Code: Full DVT ppx: Heparin Subcu Dispo: Patient is medically stable. Discharge today after HD Progress Note: Quality VTE Deep Vein Thrombosis/Pulmonary Embolism Present on Admission: No
--- NOTE | 2018-08-21 10:07 | P.DS ---
DS: Providers Date of admission: 08/17/18 14:52 Primary care physician: No Primary Care Physician Consults: 08/17/18 01:44 Consult to Nephrology Routine Consulting Provider: Mary Ugarte Does the patient have a Set Up Mechanic Automatic Line who follows them?: Yes Preferred Nephrology Billet Sawyer:: Surgical Elastic Knitter Hand Frame Physician Reason for Consultation: ESRD on dialysis - has missed last 6 appointments. Has developer prover mechanical but doesn't know who Notified:: Service Spoke with:: WANDA Date Notified:: 08/17/18 Time Notified:: 03:09 Ordering Provider: RAUL 08/17/18 01:48 Consult to Psychiatry Routine Consulting Provider: Kristopher Paulson Reason for Consultation: Nash act for medical noncompliance (dialysis refusal) and concern for SI Notified:: Service Spoke with:: LEFT MESSAGE # [id number] Date Notified:: 08/17/18 Time Notified:: 03:12 Comments:: LEFT MESSAGE ON AFTER HOUR CONSULT NUMBER, DANGELO CALL IN AM Ordering Provider: RAUL DS: Diagnosis Discharge Diagnosis (1) End stage renal disease: Status: Acute (2) Hyperkalemia: Status: Acute (3) Chronic systolic congestive heart failure: Status: Acute (4) Anemia secondary to renal failure: Status: Acute DS: Summary Patient is a 62-year-old male with a past medical history significant for end- stage renal disease on dialysis presents to the emergency department at the instruction of his mattress spring encaser. Apparently, the night baker sent the patient to the emergency department for further evaluation because he has missed the last 6 appointments. End-stage renal disease on dialysis -chronic Hyperkalemia -resolved -Nephrology consulted. HD done 08/18 with significant improvement. -Patient refused dialysis on 08/21/18. Agrees to return to [facility] for dialysis on day of discharge. Congestive heart failure; chronic; stable. -patient had an echo done during previous hospitalization on 04/19/18 which showed an EF of 20% -at that time the patient was too cachectic for defibrillator placement -Cardiology recommended repeat echo in 60 days with reevaluation for defibrillator placement -Echo repeated 08/18 - EF 30-35% -Recommending following up with cardiology as an outpatient Noncompliance/concern for intention to harm oneself -under Nash act; now lifted -Psychiatry consulted, appreciate assistance -Does not need psychiatric admit per note. -Educated patient on the importance of not missing HD appointments. Explained to him that failure to get dialysis would most likely result in his . He indicated understanding. Time Spent with Patient Total time spent providing and/or coordinating discharge services: Greater than 30 minutes Status at Discharge Functional status at discharge: independent ambulation Overall status at discharge: patient is back to baseline Quality: VTE Deep Vein Thrombosis/Pulmonary Embolism Present on Admission: No Exam Narrative Exam Narrative: GENERAL: Cachectic and disheveled adult male in no obvious distress. SKIN: Warm and dry. Left AV fistula +BT. Dressing on right chest wall were prior Vas-Cath was removed; no drainage or indication of infection HEAD: Atraumatic. Normocephalic. CARDIOVASCULAR: Regular rate and rhythm. RESPIRATORY: No accessory muscle use. Clear to auscultation. Breath sounds equal bilaterally. GASTROINTESTINAL: Abdomen soft, non-tender, non-distended. Positive bowel sounds. MUSCULOSKELETAL: Extremities without clubbing, cyanosis, or edema. No obvious deformities. NEUROLOGICAL: Awake and alert. No obvious cranial nerve deficits. Motor grossly within normal limits. Normal speech. PSYCHIATRIC: Odd affect; poor historian Results Impressions ITS Impressions Chest X-Ray 08/16/18 20:51 CONCLUSION: 1. Cardiomegaly. 2. No focal infiltrate or pulmonary vascular congestion. Tube Removal 08/18/18 00:00 CONCLUSION: 1. Uncomplicated right internal jugular vein Permcath removal. Discharge Plan Discharge Disposition Patient Disposition: Discharge Home Discharge Condition Condition: Stable Discharge Order Discharge Orders: Discharge Order (Routine); Ordered 08/21/18 Ordered By: Tawanna Han Discharge Details Anticipated Discharge Date: 08/21/18 Physicians Team ED Provider: Sandhya Nash ED Midlevel Provider: Solange Coates Primary Care Provider: Primary Care [place],Jasmin Attending Provider: Jayashree Herr Other Providers: Mary Ugarte ; Kristopher Paulson Rxs /Orders / Referrals /Forms Prescriptions: Continue carvedilol 3.125 mg Tablet 3.125 mg PO BID Qty: 60 RF: 0 furosemide 40 mg Tablet 40 mg PO BID Qty: 60 RF: 0 lisinopril 2.5 mg Tablet 2.5 mg PO DAILY Qty: 30 RF: 0 metolazone 2.5 mg Tablet 5 mg PO DAILY Qty: 30 RF: 0 midodrine 5 mg Tablet 5 mg PO TID Qty: 90 RF: 0 Referrals: [facility] [Outside] - See Instructions Dialysis [Outside] - See Instructions (Please have dialysis done on your day of discharge.) Discharge Instructions Patient Printed Instructions: Dialysis Diet (GEN), End Stage Kidney Disease ( GEN) Discharge Interventions Interventions: Discharge Planning - Case Management Last Done: 08/21/18 09:59 Status ED Status: Left Department
--- NOTE | 2018-08-21 12:15 | P.PNNP ---
Subjective Interval history: Patient was seen this AM, no distress, no complaints. Patient to be discharged today and will resume dialysis at [facility] today. <Jey Norman - Last Filed: 08/21/18 12:14> Physical Exam Vital signs: Vital Signs 08/20/18 13:11 08/20/18 15:46 08/20/18 16:51 Temperature 98.0 F 97.4 F L Pulse Rate 60 74 58 L Respiratory Rate 22 19 Blood Pressure 110/53 L 101/53 L Pulse Oximetry 96 98 08/20/18 20:48 08/21/18 00:42 08/21/18 01:24 Temperature 98.9 F 98.4 F 98.4 F Pulse Rate 67 69 69 Respiratory Rate 17 18 Blood Pressure 128/60 106/58 L 106/58 L Pulse Oximetry 95 97 97 08/21/18 01:30 08/21/18 05:13 08/21/18 08:00 Temperature 98.1 F 98.2 F Pulse Rate 61 59 L Respiratory Rate 16 18 18 Blood Pressure 113/56 L 133/61 Pulse Oximetry 95 98 Intake & Output 08/20/18 08/21/18 08/21/18 18:59 06:59 18:59 Intake Total 900 / 900 Balance 900 / 900 Weight 51 kg Intake: Oral 900 / 900 Other: # Voids 3 Date of Last Bowel Movement 08/19/18 08/19/18 # Bowel Movements 0 Narrative: Narrative: GENERAL: Cachectic and disheveled adult male in no obvious distress. SKIN: Warm and dry. Left AV fistula +BT HEAD: Atraumatic. Normocephalic. CARDIOVASCULAR: Regular rate and rhythm. RESPIRATORY: No accessory muscle use. Clear to auscultation. Breath sounds equal bilaterally. GASTROINTESTINAL: Abdomen soft, non-tender, non-distended. Positive bowel sounds. MUSCULOSKELETAL: Extremities without clubbing, cyanosis, or edema. No obvious deformities. NEUROLOGICAL: Awake and alert. No obvious cranial nerve deficits. Motor grossly within normal limits. Normal speech. <Jey Norman - Last Filed: 08/21/18 12:14> Vital signs: Vital Signs 08/20/18 20:48 08/21/18 00:42 08/21/18 01:24 Temperature 98.9 F 98.4 F 98.4 F Pulse Rate 67 69 69 Respiratory Rate 17 17 18 Blood Pressure 128/60 106/58 L 106/58 L Pulse Oximetry 95 97 97 08/21/18 01:30 08/21/18 05:13 08/21/18 08:00 Temperature 98.1 F 98.2 F Pulse Rate 61 59 L Respiratory Rate 16 18 18 Blood Pressure 113/56 L 133/61 Pulse Oximetry 95 98 Intake & Output 08/21/18 08/21/18 08/22/18 06:59 18:59 06:59 Intake Total 900 / 900 Balance 900 / 900 Weight 51 kg Intake: Oral 900 / 900 Other: # Voids 3 Date of Last Bowel Movement 08/19/18 # Bowel Movements 0 <Edmundo Tapia - Last Filed: 08/21/18 20:35> Assessment and Plan - Assessment (1) End stage renal disease Code(s): N18.6 - End stage renal disease Status: Acute Plan: Patient normally dialyzed MWF at [facility] in [address] but is not compliant. Patient to be discharged today and will resume dialysis at [facility] today. Patient uses left arm AVF for dialysis. (2) Chronic systolic congestive heart failure Code(s): I50.22 - Chronic systolic (congestive) heart failure Status: Acute Plan: volume management with dialysis. (3) Anemia secondary to renal failure Code(s): D63.1 - Anemia in chronic kidney disease Status: Acute Plan: Hemoglobin 10.4, Epogen ordered with dialysis. <Jey Norman - Last Filed: 08/21/18 12:14> - Assessment (1) End stage renal disease Code(s): N18.6 - End stage renal disease Status: Acute (2) Chronic systolic congestive heart failure Code(s): I50.22 - Chronic systolic (congestive) heart failure Status: Acute (3) Anemia secondary to renal failure Code(s): D63.1 - Anemia in chronic kidney disease Status: Acute - Attending Attestation patient was seen and examined. Agree with above assessment and plan. <Edmundo Tapia - Last Filed: 08/21/18 20:35>
== END 2018-08-21 11:31 | disposition home or self-care (01) | DRG 291 ==
LOC: NEDA 16:58 → NEPE 16:58 → NEDA 08-17 02:33 → NEPHCDU 08-17 02:39 → N06 08-17 22:46
PROVIDERS: ADMIT Internal Medicine; ATTEND Internal Medicine
DX: E87.5 Hyperkalemia; R45.851 Suicidal ideations; N18.6 End stage renal disease; I50.22 Chronic systolic (congestive) heart failure; D63.1 Anemia in chronic kidney disease; Z87.891 Personal history of nicotine dependence; Z91.15 Patient's noncompliance with renal dialysis; I42.9 Cardiomyopathy, unspecified; R64 Cachexia; Z59.0 Homelessness; Z99.2 Dependence on renal dialysis; F43.21 Adjustment disorder with depressed mood; I13.2 Hypertensive heart and chronic kidney disease with heart failure and with stage 5 chronic kidney disease, or end stage renal disease; Z68.1 Body mass index [BMI] 19.9 or less, adult
CPT/HCPCS: 36589; 71010; 71045; 80048; 80053; 80307; 81001; 82140; 83520; 83880; 84100; 84484; 85025; 90935; 93005; 93306; 99285; J0886; J1644; Q4055; Q4081